=== PATIENT | male | born 1955 | race Caucasian/White ===

== ENCOUNTER → 2018-02-22 10:17 | Outpatient (CLI) | payer BC, SELFPAY ==
[2018-02-22 11:02] LABS: AST(SGOT) 22 U/L (15-37); Alanine Aminotransfer ALT/SGPT 35 U/L (16-61); Albumin, Serum 3.9 g/dL (3.2-5.0); Alkaline Phosphatase 76 U/L (45-117); Anion Gap 4 (5-15); BUN 16 mg/dL (7-18); BUN/Creat Ratio 16.2 RATIO (10-20); Calcium,Total 8.9 mg/dL (8.5-10.1); Chloride 107 mmol/L (98-107); Cholesterol 198 mg/dL (200); Creatinine, Serum 0.99 mg/dL (0.70-1.30); EST Glomerular Filtration Rate 82 mL/min (>60); Est Glom Filt Rate - Afr Amer 99 mL/min (>60); Globulin 3.4 g/dL (2.2-4.2); Glucose 115 mg/dL (74-106); High Density Lipoprotein 46 mg/dL; Potassium 4.4 mmol/L (3.5-5.1); Protein, Total 7.3 g/dL (6.4-8.2); Sodium Level 138 mmol/L (136-145); Triglycerides 111 mg/dL; Very Low Density Lipoprotein 22 mg/dL (5-40)
== END ==
PROVIDERS: Family Provider Family Medicine; PCP Family Medicine; Visit Provider Internal Medicine Cardiovascular Disease
DX: E78.5 Hyperlipidemia, unspecified (principal); I10 Essential (primary) hypertension
CPT/HCPCS: 36415; 80048; 80061; 80076

== ENCOUNTER → 2019-12-14 09:24 | Outpatient (CLI) | payer BC, SELFPAY ==
[2019-12-14 08:51] VITALS: BMI 32.5
[2019-12-14 10:18] LABS: AST(SGOT) 27 U/L (15-37); Alanine Aminotransfer ALT/SGPT 37 U/L (16-61); Albumin, Serum 4.1 g/dL (3.2-5.0); Alkaline Phosphatase 88 U/L (45-117); Bilirubin, Direct 0.11 mg/dL (0.00-0.30); Cholesterol 186 mg/dL (200); Globulin 3.5 g/dL (2.2-4.2); High Density Lipoprotein 49 mg/dL; Protein, Total 7.6 g/dL (6.4-8.2); Triglycerides 109 mg/dL; Very Low Density Lipoprotein 22 mg/dL (5-40)
== END ==
PROVIDERS: PCP Family Medicine; Referring Provider Internal Medicine Cardiovascular Disease; Visit Provider Internal Medicine Cardiovascular Disease
DX: I10 Essential (primary) hypertension (principal); I77.810 Thoracic aortic ectasia; E78.00 Pure hypercholesterolemia, unspecified; E78.5 Hyperlipidemia, unspecified
CPT/HCPCS: 36415; 80061; 80076

== ENCOUNTER → 2020-09-20 09:17 | Outpatient (CLI) | payer BC, SELFPAY ==
[2019-12-14 08:51] VITALS: BMI 32.5
[2020-09-20 10:50] LABS: AST(SGOT) 21 U/L (15-37); Alanine Aminotransfer ALT/SGPT 32 U/L (16-61); Alkaline Phosphatase 79 U/L (45-117); Bilirubin, Direct 0.17 mg/dL (0.00-0.30); Cholesterol 199 mg/dL (200); Globulin 3.5 g/dL (2.2-4.2); High Density Lipoprotein 50 mg/dL; Protein, Total 7.5 g/dL (6.4-8.2); Triglycerides 118 mg/dL; Very Low Density Lipoprotein 24 mg/dL (5-40)
== END ==
PROVIDERS: PCP Family Medicine; Referring Provider Internal Medicine Cardiovascular Disease; Visit Provider Internal Medicine Cardiovascular Disease
DX: E78.00 Pure hypercholesterolemia, unspecified (principal); E78.5 Hyperlipidemia, unspecified
CPT/HCPCS: 36415; 80061; 80076

== ENCOUNTER → 2020-12-20 07:47 | Outpatient (CLI) | payer BC, SELFPAY ==
[2020-09-20 15:35] VITALS: BMI 32.2
[2020-12-20 08:44] LABS: Anion Gap 4 (5-15); BUN 13 mg/dL (7-18); BUN/Creat Ratio 15.2 RATIO (10-20); Chloride 102 mmol/L (98-107); Creatinine, Serum 0.86 mg/dL (0.70-1.30); EST Glomerular Filtration Rate 96 mL/min (>60); Est Glom Filt Rate - Afr Amer 116 mL/min (>60); Glucose 123 mg/dL (74-106); Potassium 4.3 mmol/L (3.5-5.1); Sodium Level 134 mmol/L (136-145)
[2020-12-20 08:46] LABS: Hemoglobin A1c 6.1 % (3.8-5.6)
== END ==
PROVIDERS: PCP Family Medicine; Referring Provider Physician Assistant Medical; Visit Provider Physician Assistant Medical
DX: I77.810 Thoracic aortic ectasia (principal); I10 Essential (primary) hypertension
CPT/HCPCS: 36415; 80048; 83036

== ENCOUNTER → 2021-06-12 07:10 | Outpatient (CLI) | payer BC, SELFPAY ==
[2021-06-05 09:18] VITALS: BMI 31.4
--- NOTE | 2021-06-12 07:16 | CT_ITS ---
STUDY: CTA CHEST REASON FOR EXAM: Male, 65 years old. AAA RADIATION DOSAGE (If Supplied By Facility): CTDIvol = ( 18.99 ) mGy, DLP = ( 1080.09 ) mGycm TECHNIQUE: The examination was performed with the intravenous administration of IV 100mL Isovue-370. Post-processing of the angiographic images was performed, with multiplanar reformation and 3D reconstruction. Individualized dose optimization techniques were used for this CT. COMPARISON: Comparison is made with prior study dated 01/26/2014. FINDINGS: Stable small benign-appearing bilateral axillary lymph nodes. Normal enhancement of the main pulmonary artery and right and left pulmonary arteries. Normal enhancement of the bilateral peripheral pulmonary arteries. There is no demonstrated pulmonary embolism. There is aneurysmal dilatation of the ascending aorta. The transverse diameter of the ascending aorta measures 41.3 mm''s. Atherosclerotic plaque of the aortic arch and descending thoracic aorta. The previously seen linear density adjacent to the aortic arch on the left side is not seen at this time. There is no demonstrated aortic dissection. There are calcifications of the coronary arteries. Normal mediastinum. Normal hilar regions. Normal visualized trachea and bronchi. The lungs are well expanded. Mild degree of increased markings at the lung bases slightly more prominent in the posterior segment of the right lower lobe suggestive of scarring. Normal pleura. Normal chest wall structures. There are degenerative changes of thoracic spine. Normal visualized upper abdomen. CT/CTA Chest W/WO Contrast IMPRESSION: Stable mild dilatation of the ascending thoracic aorta. Mild degree of right basilar scarring. Electronically Signed: Devyn Hernandez MD at 9:42 EDT , Service support ,
[2021-06-12 07:45] LABS: AST(SGOT) 19 U/L (15-37); Alanine Aminotransfer ALT/SGPT 33 U/L (16-61); Alkaline Phosphatase 80 U/L (45-117); Anion Gap 5 (5-15); BUN 15 mg/dL (7-18); BUN/Creat Ratio 16.4 RATIO (10-20); Bilirubin, Direct 0.18 mg/dL (0.00-0.30); Calcium,Total 8.9 mg/dL (8.5-10.1); Chloride 98 mmol/L (98-107); Cholesterol 207 mg/dL (200); Creatinine, Serum 0.91 mg/dL (0.70-1.30); EST Glomerular Filtration Rate 88 mL/min (>60); Est Glom Filt Rate - Afr Amer 107 mL/min (>60); Globulin 3.2 g/dL (2.2-4.2); Glucose 120 mg/dL (74-106); High Density Lipoprotein 52 mg/dL; Potassium 4.1 mmol/L (3.5-5.1); Protein, Total 7.2 g/dL (6.4-8.2); Sodium Level 133 mmol/L (136-145); Triglycerides 117 mg/dL; Very Low Density Lipoprotein 23 mg/dL (5-40)
== END ==
PROVIDERS: PCP Family Medicine; Referring Provider Internal Medicine Cardiovascular Disease; Visit Provider Internal Medicine Cardiovascular Disease
DX: I77.810 Thoracic aortic ectasia (principal); I10 Essential (primary) hypertension; E78.00 Pure hypercholesterolemia, unspecified; E78.5 Hyperlipidemia, unspecified
CPT/HCPCS: 36415; 71275; 80048; 80061; 80076; Q9967

== ENCOUNTER → 2022-06-10 | Outpatient (CLI) | payer BC, SELFPAY ==
[2022-06-10 09:12] LABS: AST(SGOT) 22 U/L (15-37); Alanine Aminotransfer ALT/SGPT 29 U/L (16-61); Alkaline Phosphatase 74 U/L (45-117); Anion Gap 4 (5-15); BUN 16 mg/dL (7-18); Bilirubin, Direct 0.18 mg/dL (0.00-0.30); Calcium,Total 9.1 mg/dL (8.5-10.1); Chloride 101 mmol/L (98-107); Cholesterol 183 mg/dL (200); Creatinine, Serum 1.07 mg/dL (0.70-1.30); EST Glomerular Filtration Rate 73 mL/min (>60); Est Glom Filt Rate - Afr Amer 89 mL/min (>60); Globulin 3.5 g/dL (2.2-4.2); Glucose 139 mg/dL (74-106); High Density Lipoprotein 50 mg/dL; Potassium 3.8 mmol/L (3.5-5.1); Protein, Total 7.5 g/dL (6.4-8.2); Sodium Level 134 mmol/L (136-145); Triglycerides 147 mg/dL; Very Low Density Lipoprotein 29 mg/dL (5-40)
== END | disposition home or self-care (01) ==
LOC: LAB 08:10
PROVIDERS: PCP Family Medicine; Referring Provider Internal Medicine Cardiovascular Disease; Visit Provider Internal Medicine Cardiovascular Disease
DX: I10 Essential (primary) hypertension (principal); E78.5 Hyperlipidemia, unspecified
CPT/HCPCS: 36415; 80048; 80061; 80076

== ENCOUNTER → 2022-06-11 | Outpatient (CLI) | payer BC, SELFPAY ==
[2022-06-11 11:35] LABS: Hemoglobin A1c 6.2 % (3.8-5.6)
== END | disposition home or self-care (01) ==
LOC: LAB 10:26
PROVIDERS: PCP Family Medicine; Visit Provider Internal Medicine Cardiovascular Disease
DX: I25.10 Atherosclerotic heart disease of native coronary artery without angina pectoris (principal); I71.2 Thoracic aortic aneurysm, without rupture; I10 Essential (primary) hypertension; E78.5 Hyperlipidemia, unspecified; E66.9 Obesity, unspecified
CPT/HCPCS: 36415; 83036

== ENCOUNTER → 2023-02-25 | Outpatient (CLI) | payer BC, SELFPAY ==
[2023-02-25 17:57] LABS: Absolute Neutrophil Count 2.6 X10^3/uL (2.0-7.7); Basophil# 0.05 X10^3/uL; Eosinophil# 0.19 X10^3/uL; Eosinophils% 3.7 % (0-5); Hematocrit 42.9 % (40-54); Hemoglobin 14.8 g/dL (13.0-16.5); Mean Corp Hgb Conc 34.5 g/dL (32-36); Mean Corpuscular Hgb 30.7 pg (27.0-32.0); Mean Platelet Vol. 9.5 fl (6.2-12.0); Monocyte# 0.37 X10^3/uL; Monocyte% 7.2 % (0-10); NRBC Flagged by Analyzer 0 % (0-5); Neutrophil # 2.62 X10^3/uL (2.7-7.7); Neutrophil % 50.9 % (47-70); Platelet Count 261 K/mm3 (150-450); RBC Distribution Width CV 11.8 % (11.6-14.6); RBC Distribution Width SD 38.3 fl (35.1-43.9); Red Blood Count 4.82 M/mm3 (4.6-6.2); White Blood Count 5.1 K/mm3 (4.4-11.0)
[2023-02-25 18:31] LABS: ALB/GLOB Ratio 1.2 RATIO (0.9-2.4); AST(SGOT) 31 U/L (15-37); Alanine Aminotransfer ALT/SGPT 38 U/L (16-61); Alkaline Phosphatase 83 U/L (45-117); Anion Gap 8 (5-15); BUN 15 mg/dL (7-18); Calcium,Total 9.2 mg/dL (8.5-10.1); Chloride 101 mmol/L (98-107); Cholesterol 206 mg/dL (200); Creatinine, Serum 0.94 mg/dL (0.70-1.30); EST Glomerular Filtration Rate 85 mL/min (>60); Est Glom Filt Rate - Afr Amer 103 mL/min (>60); Globulin 3.4 g/dL (2.2-4.2); Glucose 109 mg/dL (74-106); High Density Lipoprotein 49 mg/dL; Potassium 4.3 mmol/L (3.5-5.1); Protein, Total 7.4 g/dL (6.4-8.2); Sodium Level 134 mmol/L (136-145); Thyroid Stim Hormone (TSH) 1.81 uIU/mL (0.358-3.74); Triglycerides 225 mg/dL; Very Low Density Lipoprotein 45 mg/dL (5-40)
[2023-02-26 11:25] LABS: Hemoglobin A1c 6.3 % (3.8-5.6)
== END | disposition home or self-care (01) ==
LOC: MFPLAB 14:55
PROVIDERS: PCP Family Medicine; Referring Provider Family Medicine; Visit Provider Family Medicine
DX: R73.09 Other abnormal glucose (principal)
CPT/HCPCS: 36415; 80053; 80061; 83036; 84443; 85025

== ENCOUNTER 2023-05-14 07:27 | Day surgery (SDC) | payer BC, SELFPAY ==
[2023-05-14] VITALS (7 sets, daily range): BP systolic 98–138; BP diastolic 71–92; PULSE 50–60; RESP 14–16; TEMP 36.2–36.3; O2SAT 94–99; BMI 31.2
[2023-05-14] MEDS: Lactated Ringers 1,000 ML 15 ML IV (08:09)
--- NOTE | 2023-05-14 08:38 | HP.PCM_ITS ---
[facility] - General General Date of Service: 05/14/23 Chief Complaint: Screening for intestinal cancer [facility] Narrative DEVONTE BOWERS, is a 67 M who presents via open access today for screening colonoscopy. His mother had colon cancer. His previous colonoscopy was June 2017. He has no particular complaints. No abdominal pain. No bright red blood per rectum or melena. He otherwise enjoys good health. [facility] Medical History (Updated 05/14/23 @ 08:[address] Devonte Lux MD) Back pain Cardiology follow-up encounter Essential (primary) hypertension Gastric reflux Heartburn Hemorrhoids High cholesterol History of echocardiogram History of stress test Hyperlipidemia Hypertension Leg cramps LLQ abdominal pain Migraine Non-smoker Nonobstructive atherosclerosis of coronary artery Obesity Segmental and somatic dysfunction of lumbar region Segmental and somatic dysfunction of pelvic region Sleep apnea Syncope and collapse Thoracic aortic aneurysm (TAA) Wears glasses Wears hearing aid Home Medications trazodone 50 mg tablet 50 mg PO DAILY PRN Anxiety 06/05/21 [History Last Taken Unknown] lisinopril 40 mg tablet 40 mg PO QDAY #90 tabs 06/08/22 [Rx Last Taken Unknown] amlodipine 10 mg tablet 10 mg PO DAILY #90 tabs 06/11/22 [Rx Last Taken Unknown] hydrochlorothiazide 25 mg tablet 25 mg PO DAILY #90 tabs 06/11/22 [Rx Last Taken Unknown] rosuvastatin 10 mg tablet (Crestor) 10 mg PO QDAY #90 tabs 06/11/22 [Rx Last Taken Unknown] Allergy/AdvReac Type Severity Reaction Status Date / Time No Known Allergies Allergy Verified 05/13/23 10:24 Family History Mother Colon cancer Hypertension Sister Heart disease Father CAD (coronary artery disease) Surgical History (Updated 03/19/23 @ 08:14 by Mayra Lazcano) H/O local excision of skin lesion History of bilateral knee arthroplasty History of colonoscopy (2010) History of left heart catheterization (01/2014) Social History Smoking Status: Never smoker second hand exposure: No alcohol intake: current alcohol intake frequency: holidays/special occasions only substance use type: does not use caffeine: Yes (3-4 cups daily) what type of physical activity do you participate in: none seatbelt use: always ROS Constitutional Constitutional: Reports systems reviewed and no addt'l complaints, except as documented Cardiovascular Cardiovascular: Denies chest pain Respiratory/Chest Respiratory/Chest: Denies shortness of breath at rest Gastrointestinal Gastrointestinal: Denies abdominal pain, change in bowel habits, hematochezia or melena Vital Signs Vital Signs Vital Signs: 05/14/23 07:43 05/14/23 07:43 Temperature 97.4 F L Temperature Source Temporal Pulse Rate 59 L Respiratory Rate 16 Respiratory Pattern Normal Blood Pressure 126/85 H Blood Pressure Mean 98 Blood Pressure Source Monitor Blood Pressure Position Semi-Fowlers Blood Pressure Location Right Arm Pulse Ox 96 Oxygen Delivery Method Room Air Weight Weight: 211 lb 9.6 oz Body Mass Index (BMI) 31.2 Physical Exam Const alert, oriented x3 and no apparent distress General Appearance: cooperative and comfortable Eyes General Eye: normal appearance of both eyes Neck General: normal visual inspection Chest inspection of chest normal Resp Effort and Inspection: able to speak in complete sentences and symmetric chest movement Auscultation: clear to auscultation bilaterally Cardio regular rate and regular rhythm GI soft to palpation, non-tender and non-distended Extremity no calf tenderness Neuro oriented x3 Psych thought process normal Assessment & Plan Assessment/Plan (1) Family history of colon cancer in mother: PLAN: The patient presents via open access today for a colonoscopy. He is aware of the technique, benefit, risk, alternatives. He has had an opportunity to ask and have questions answered. We will proceed as noted. Devonte Lux M.D., F.A.C.S.
--- NOTE | 2023-05-14 09:09 | OP.COLON_ITS ---
Patient Name: Devonte Quiles Procedure Date: 05/14/2023 8:42 AM Date of : 1955 Age: 67 Procedure: Colonoscopy Indications: Family history of colon cancer in a first-degree relative Providers: Devonte Lux MD Referring MD: Devonte Lux MD Medicines: See the Anesthesia note for documentation of the administered medications Patient Profile: Last Colonoscopy: June 2017. Complications: No immediate complications. Procedure: Pre-Anesthesia Assessment: - Prior to the procedure, a History and Physical was performed, and patient medications and allergies were reviewed. The patient's tolerance of previous anesthesia was also reviewed. The risks and benefits of the procedure and the sedation options and risks were discussed with the patient. All questions were answered, and informed consent was obtained. Prior Anticoagulants: The patient has taken no previous anticoagulant or antiplatelet agents. ASA Grade Assessment: II - A patient with mild systemic disease. After reviewing the risks and benefits, the patient was deemed in satisfactory condition to undergo the procedure. After I obtained informed consent, the scope was passed under direct vision. Throughout the procedure, the patient's blood pressure, pulse, and oxygen saturations were monitored continuously. The colonoscope was introduced through the anus and advanced to the cecum, identified by appendiceal orifice and ileocecal valve. The colonoscopy was performed without difficulty. The patient tolerated the procedure well. The quality of the bowel preparation was good. The ileocecal valve and the appendiceal orifice were photographed. Scope In: 8:52:53 AM Scope Withdrawal Time 0 hours 7 minutes 25 seconds Scope Out: 9:04:27 AM Total Procedure Duration Time 0 hours 11 minutes 34 seconds Findings: The digital rectal exam findings include non-thrombosed internal hemorrhoids and internal hemorrhoids that prolapse with straining, but spontaneously regress to the resting position (Grade II). Pertinent negatives include normal prostate (size, shape, and consistency). Multiple diverticula were found in the sigmoid colon and descending colon. Impression: - Non-thrombosed internal hemorrhoids and internal hemorrhoids that prolapse with straining, but spontaneously regress to the resting position (Grade II) found on digital rectal exam. - Diverticulosis in the sigmoid colon and in the descending colon. - No specimens collected. Recommendation: - Discharge patient to home. - Resume previous diet. - Continue present medications. - Repeat colonoscopy in 5 years for surveillance. Procedure Code(s): --- Professional --- 39505, Colonoscopy, flexible; diagnostic, including collection of specimen(s) by brushing or washing, when performed (separate procedure) Diagnosis Code(s): --- Professional --- K64.1, Second degree hemorrhoids Z80.0, Family history of malignant neoplasm of digestive organs K57.30, Diverticulosis of large intestine without perforation or abscess without bleeding CPT copyright 2017 [employer]. All rights reserved. The codes documented in this report are preliminary and upon bail agent review may be revised to meet current compliance requirements. Devonte Lux MD 05/14/2023 9:09:00 AM This report has been signed electronically. Number of Addenda: 0 Note Initiated On: 05/14/2023 8:42 AM
--- NOTE | 2023-05-14 09:10 | OP.CCLET_ITS ---
05/14/2023 Bean Currie [address] [place] [address] Re : Colonoscopy procedure for Devonte Quiles Dear Dr. Currie This procedure was performed on Sunday, May 14, 2023. My impressions and recommendations are as follows: Impressions : - Non-thrombosed internal hemorrhoids and internal hemorrhoids that prolapse with straining, but spontaneously regress to the resting position (Grade II) found on digital rectal exam. - Diverticulosis in the sigmoid colon and in the descending colon. - No specimens collected. Recommendations : - Discharge patient to home. - Resume previous diet. - Continue present medications. - Repeat colonoscopy in 5 years for surveillance. My findings are described in the full procedure note, which is enclosed. If I can be of further assistance, please feel free to contact me at Doctor phone number(s): Work: . Sincerely, Devonte Lux MD 05/14/2023 9:09:00 AM This report has been signed electronically.
== END 2023-05-14 10:04 | disposition home or self-care (01) ==
LOC: EN 07:30 → AC 07:33
PROVIDERS: PCP Family Medicine; Referring Provider Family Medicine; Visit Provider Surgery
PROC: 0DJD8ZZ Inspection of Lower Intestinal Tract, Via Natural or Artificial Opening Endoscopic (ICD-10-PCS; CPT 45378; principal; 2023-05-14 08:25)
DX: Z12.11 Encounter for screening for malignant neoplasm of colon (principal); K64.1 Second degree hemorrhoids; K57.30 Diverticulosis of large intestine without perforation or abscess without bleeding; E78.00 Pure hypercholesterolemia, unspecified; I25.10 Atherosclerotic heart disease of native coronary artery without angina pectoris; I10 Essential (primary) hypertension; E66.9 Obesity, unspecified; M99.03 Segmental and somatic dysfunction of lumbar region; M99.05 Segmental and somatic dysfunction of pelvic region; G47.30 Sleep apnea, unspecified; Z68.31 Body mass index [BMI] 31.0-31.9, adult; Z80.0 Family history of malignant neoplasm of digestive organs; Z79.899 Other long term (current) drug therapy
CPT/HCPCS: 45378; J7120; J2405

== ENCOUNTER → 2023-08-31 | Outpatient (CLI) | payer BC, MEDICARE, SELFPAY ==
[2023-08-31 10:22] LABS: AST(SGOT) 29 U/L (15-37); Alanine Aminotransfer ALT/SGPT 35 U/L (16-61); Albumin, Serum 3.7 g/dL (3.2-5.0); Alkaline Phosphatase 74 U/L (45-117); Bilirubin, Direct 0.15 mg/dL (0.00-0.30); Cholesterol 180 mg/dL (200); Globulin 3.7 g/dL (2.2-4.2); High Density Lipoprotein 54 mg/dL; Protein, Total 7.4 g/dL (6.4-8.2); Triglycerides 134 mg/dL; Very Low Density Lipoprotein 27 mg/dL (5-40)
== END | disposition home or self-care (01) ==
LOC: LAB 09:21
PROVIDERS: PCP Family Medicine; Referring Provider Internal Medicine Cardiovascular Disease; Visit Provider Internal Medicine Cardiovascular Disease
DX: E78.5 Hyperlipidemia, unspecified (principal); I25.10 Atherosclerotic heart disease of native coronary artery without angina pectoris
CPT/HCPCS: 36415; 80061; 80076

== ENCOUNTER → 2023-11-05 | Outpatient (CLI) | payer BC, SELFPAY ==
--- NOTE | 2023-11-05 09:50 | ECHOD_ITS ---
Reason For Study: HTN Procedure This was a 2D Doppler, Color Flow transthoracic echocardiogram. Exam performed in department. Left Ventricle Normal LV size. Left ventricular systolic function is normal. The estimated ejection fraction is 65 %. Stage 1 diastolic dysfunction. No regional wall motion abnormalities noted. Right Ventricle Normal RV size. Normal systolic function. Atria Normal left atrium. Normal right atrium. Mitral Valve Normal mitral valve. Tricuspid Valve Normal tricuspid valve. Mild tricuspid valve insufficiency. Pulmonary artery systolic pressure is 30 mmHg. Aortic Valve Normal aortic valve. Mild (1+) aortic valve insufficiency. Pulmonic Valve Normal pulmonic valve. Great Vessels Mildly dilated aortic root. The pulmonary artery is normal size. Normal inferior vena cava. Pericardium/Pleural No pericardial effusion. MMode/2D Measurements & Calculations LVIDd: 5.6 cm IVSd: 1.2 cm Ao root diam: 4.1 cm LVIDs: 4.1 cm LVPWd: 1.1 cm LA dimension: 3.9 cm FS: 27.4 % LAV(MOD-bp): 50.4 ml LA A4 area: 16.7 cm2 RA A4 area: 12.8 cm2 LAV(MOD-bp) Indexed: 23.8 ml/m2 LAV(MOD-sp2): 53.0 ml LAV(MOD-sp4): 41.9 ml TAPSE: 1.8 cm Time Measurements MV dec time: 0.29 sec Doppler Measurements & Calculations MV E max ron: 63.8 cm/sec Lat Peak E' Ron: 8.3 cm/sec Med Peak E' Ron: 6.3 cm/sec MV A max ron: 74.5 cm/sec E/E' lat: 7.7 E/E' med: 10.2 MV E/A: 0.86 MV V2 max: 81.0 cm/sec MV P1/2t max ron: 75.2 cm/sec Ao V2 max: 126.9 cm/sec MV max P.6 mmHg MV P1/2t: 83.9 msec Ao max P.4 mmHg MV V2 mean: 40.4 cm/sec Ao V2 mean: 86.7 cm/sec MV mean P.80 mmHg MV dec slope: 262.7 cm/sec2 Ao mean P.5 mmHg MV V2 VTI: 33.5 cm MVA(P1/2t): 2.6 cm2 Ao V2 VTI: 31.8 cm AV (velocity ratio): 0.76 AI max ron: 405.3 cm/sec LV V1 max: 90.7 cm/sec PA V2 max: 93.4 cm/sec AI max P.2 mmHg LV V1 max P.3 mmHg PA V2 mean: 57.2 cm/sec LV V1 mean P.8 mmHg AI dec slope: 145.9 cm/sec2 LV V1 mean: 63.6 cm/sec AI P1/2t: 813.6 msec LV V1 VTI: 24.3 cm TR max ron: 257.1 cm/sec TR max P.4 mmHg ECHO/Echo Complete Interpretation Summary Normal LV size. Left ventricular systolic function is normal. The estimated ejection fraction is 65 %. Mildly dilated aortic root. Stage 1 diastolic dysfunction. Pulmonary artery systolic pressure is 30 mmHg. Ordering Physician: Trevon Quinones Referring Physician: Bean Currie Performed By: Naveen Chew RCS
== END | disposition home or self-care (01) ==
LOC: CVS 09:50
PROVIDERS: PCP Family Medicine; Referring Provider Internal Medicine Cardiovascular Disease; Visit Provider Internal Medicine Cardiovascular Disease
DX: I10 Essential (primary) hypertension (principal); I25.10 Atherosclerotic heart disease of native coronary artery without angina pectoris
CPT/HCPCS: 93306

== ENCOUNTER → 2024-11-28 | Outpatient (CLI) | payer MEDICARE, OTHER, SELFPAY ==
[2024-11-28 11:34] LABS: AST(SGOT) 26 U/L (15-37); Alanine Aminotransfer ALT/SGPT 27 U/L (16-61); Albumin, Serum 3.6 g/dL (3.2-5.0); Alkaline Phosphatase 89 U/L (45-117); Anion Gap 6 (5-15); BUN 18 mg/dL (7-18); BUN/Creat Ratio 18.5 RATIO (10-20); Bilirubin, Direct 0.14 mg/dL (0.00-0.30); Calcium,Total 9.3 mg/dL (8.5-10.1); Chloride 92 mmol/L (98-107); Cholesterol 162 mg/dL (200); Creatinine, Serum 0.97 mg/dL (0.70-1.30); EST Glomerular Filtration Rate 82 mL/min (>60); Est Glom Filt Rate - Afr Amer 99 mL/min (>60); Glucose 109 mg/dL (74-106); High Density Lipoprotein 52 mg/dL; Potassium 4.2 mmol/L (3.5-5.1); Protein, Total 7.6 g/dL (6.4-8.2); Sodium Level 126 mmol/L (136-145); Triglycerides 110 mg/dL; Very Low Density Lipoprotein 22 mg/dL (5-40)
== END | disposition home or self-care (01) ==
PROVIDERS: PCP Family Medicine; Referring Provider Internal Medicine Cardiovascular Disease; Visit Provider Internal Medicine Cardiovascular Disease
DX: I10 Essential (primary) hypertension (principal); E78.5 Hyperlipidemia, unspecified; I71.20 Thoracic aortic aneurysm, without rupture, unspecified
CPT/HCPCS: 36415; 80048; 80061; 80076

== ENCOUNTER → 2024-11-30 | Outpatient (CLI) | payer MEDICARE, OTHER, SELFPAY ==
--- NOTE | 2024-11-30 07:48 | CT_ITS ---
STUDY: CTA CHEST REASON FOR EXAM: Male, 68 years old. TAA RADIATION DOSAGE (If Supplied By Facility): CTDIvol = ( 15.94 ) mGy, DLP = ( 676.94 ) mGycm TECHNIQUE: The examination was performed with the intravenous administration of 100mL Isovue-370. Post-processing of the angiographic images was performed, with multiplanar reformation and 3D reconstruction. Individualized dose optimization techniques were used for this CT. COMPARISON: 06/12/2021 FINDINGS: Normal enhancement of the main pulmonary artery and right and left pulmonary arteries. Normal enhancement of the bilateral peripheral pulmonary arteries. There is no demonstrated pulmonary embolism. Aneurysmal dilatation ascending thoracic aorta, transverse diameter 4.3 cm. Descending thoracic aorta normal caliber. There is no demonstrated aortic dissection. Normal heart and pericardium. Normal mediastinum. Normal hilar regions. Mild bibasilar dependent and/or fibrotic changes. No pulmonary infiltrates or mass lesion. No pleural effusions. No acute or aggressive osseous abnormality. No acute findings in the upper abdomen. CT/CTA Chest W/WO Contrast IMPRESSION: Interval increase in the aneurysmal dilatation ascending thoracic aorta from 4.1 cm transverse diameter previously to current 4.3 cm transverse diameter. No evidence of dissection. Electronically Signed: Ambrocio Flores MD at 17:58 EST ,
== END | disposition home or self-care (01) ==
LOC: CT 07:47
PROVIDERS: PCP Family Medicine; Referring Provider Internal Medicine Cardiovascular Disease; Visit Provider Internal Medicine Cardiovascular Disease
DX: I71.20 Thoracic aortic aneurysm, without rupture, unspecified (principal)
CPT/HCPCS: 71275; Q9967

== ENCOUNTER → 2024-12-01 | Outpatient (CLI) | payer MEDICARE, OTHER, SELFPAY ==
[2024-12-01 12:11] LABS: Anion Gap 6 (5-15); BUN 17 mg/dL (7-18); BUN/Creat Ratio 19.4 RATIO (10-20); Calcium,Total 9.2 mg/dL (8.5-10.1); Chloride 98 mmol/L (98-107); Creatinine, Serum 0.88 mg/dL (0.70-1.30); EST Glomerular Filtration Rate 92 mL/min (>60); Est Glom Filt Rate - Afr Amer 111 mL/min (>60); Glucose 128 mg/dL (74-106); Potassium 4.1 mmol/L (3.5-5.1); Sodium Level 130 mmol/L (136-145)
[2024-12-01 14:29] LABS: Hemoglobin A1c 6.5 % (3.8-5.6)
== END | disposition home or self-care (01) ==
LOC: MFPLAB 10:35
PROVIDERS: PCP Family Medicine; Referring Provider Family Medicine; Visit Provider Family Medicine
DX: E87.1 Hypo-osmolality and hyponatremia (principal); R73.02 Impaired glucose tolerance (oral)
CPT/HCPCS: 36415; 80048; 83036

== ENCOUNTER → 2025-01-02 | Outpatient (CLI) | payer MEDICARE, OTHER, SELFPAY ==
[2025-01-02 12:57] LABS: Anion Gap 7 (5-15); BUN 24 mg/dL (7-18); BUN/Creat Ratio 19.8 RATIO (10-20); Chloride 108 mmol/L (98-107); Creatinine, Serum 1.21 mg/dL (0.70-1.30); EST Glomerular Filtration Rate 63 mL/min (>60); Est Glom Filt Rate - Afr Amer 77 mL/min (>60); Glucose 132 mg/dL (74-106); Potassium 3.5 mmol/L (3.5-5.1); Sodium Level 139 mmol/L (136-145)
== END | disposition home or self-care (01) ==
LOC: MFPLAB 09:43
PROVIDERS: PCP Family Medicine; Referring Provider Family Medicine; Visit Provider Family Medicine
DX: E87.1 Hypo-osmolality and hyponatremia (principal)
CPT/HCPCS: 36415; 80048

== ENCOUNTER 2025-03-26 15:20 | Observation (INO) | payer MEDICARE, OTHER, SELFPAY ==
[2025-03-26] VITALS (10 sets, daily range): BP systolic 137–163; BP diastolic 78–99; PULSE 54–82; RESP 14–22; TEMP 36.6–37; O2SAT 93–100; BMI 30.9; BMI 30.6; BMI 30.2
--- NOTE | 2025-03-26 15:23 | EKG12_ITS ---
Test Reason : Blood Pressure : */* mmHG Vent. Rate : 62 BPM Atrial Rate : 62 BPM P-R Int : 198 ms QRS Dur : 108 ms QT Int : 392 ms P-R-T Axes : 16 -25 -4 degrees QTcB Int : 397 ms Sinus rhythm with Premature supraventricular complexes Otherwise normal ECG Confirmed by Cirilo Mcdonald ([id number]), field map editor AGUILA CHOE ([id number]) on 03/30/2025 1:17:52 PM Referred By: MAX/AGAPITO Confirmed By: Cirilo Mcdonald
[2025-03-26] MEDS: 0.9% Normal Saline (1000mL) 1,000 ML 50 ML IV (15:50)
[2025-03-26 15:55] LABS: Absolute Lymphocyte Count 1.92 X10^3/uL (0.83-4.51); Basophil# 0.02 X10^3/uL; Basophil% 0.3 % (0-1); Eosinophil# 0.12 X10^3/uL; Eosinophils% 1.9 % (0-5); Hemoglobin 14.5 g/dL (13.0-16.5); Lymphocyte # 1.92 X10^3/ul (0.83-4.51); Lymphocyte % 29.8 % (19-41); Mean Corp Hgb Conc 36.3 g/dL (32-36); Mean Corpuscular Volume 88.3 fL (80-94); Mean Platelet Vol. 9.9 fl (6.2-12.0); Monocyte# 0.39 X10^3/uL; NRBC Flagged by Analyzer 0 % (0-5); Neutrophil # 3.99 X10^3/uL (2.7-7.7); Neutrophil % 61.8 % (47-70); Platelet Count 190 K/mm3 (150-450); RBC Distribution Width CV 12.3 % (11.6-14.6); RBC Distribution Width SD 39.9 fl (35.1-43.9); Red Blood Count 4.53 M/mm3 (4.6-6.2); White Blood Count 6.5 K/mm3 (4.4-11.0)
--- NOTE | 2025-03-26 15:56 | CT_ITS ---
PROCEDURE: CTA HEAD AND NECK W/ CONTRAST 03/26/2025 REASON FOR EXAM: TIA (R SIDED SYMPTOMOLOGY) TECHNIQUE: CTA imaging of the head and neck from the aortic arch to the skull vertex with out contrast and with intravenous contrast. Multiplanar and multisequence images were obtained. CONTRAST: Omnipaque 350 VOLUME: 100 mL Not Provided Gauge IV One or more dose reduction techniques were used (e.g., Automated exposure control, adjustment of the mA and/or kV according to patient size, use of iterative reconstruction technique). COMPARISON: None FINDINGS: CT brain: * ACUTE: No acute infarct or hemorrhage. No mass effect or herniation. * BRAIN PARENCHYMA: No focal intracranial mass. Patchy supratentorial hypoattenuation, nonspecific, but likely secondary to chronic microvascular ischemia. * VENTRICLES/EXTRA-AXIAL SPACES: Mild generalized volume loss with concordant ventricular enlargement. * EXTRACRANIAL STRUCTURES: Visualized osseous structures are normal. Soft tissues are normal. CTA head and neck: Aortic Arch: Normal size and branching pattern. Mild atherosclerotic plaque without hemodynamically significant stenosis. Brachiocephalic and Subclavians: Mild atherosclerotic plaque without significant stenosis. RIGHT Carotid: Right CCA: Mild calcified and soft plaque. Right ICA: Mild calcified plaque at the bifurcation and proximal ICA without hemodynamically significant stenosis. Maximum stenosis (NASCET): 0 % Right ECA: Unremarkable. LEFT Carotid: Left CCA: Mild calcified and soft plaque. Left ICA: Mild atherosclerotic calcification of the bifurcation and proximal ICA without hemodynamically significant stenosis. Maximum stenosis (NASCET): 0 % Left ECA: Unremarkable. Vertebrals: Codominant. Arise from the subclavians. Both vertebrals form the basilar. RIGHT Vertebral: Unremarkable. LEFT Vertebral: Mild atherosclerotic calcification of the distal V3 without hemodynamically significant stenosis. Focal area of moderate stenosis at the proximal V4 secondary to noncalcified plaque. Anatomy: [place] anatomy is normal. Aneurysm or avm: No intracranial aneurysms or large vascular malformations are identified. Anterior cerebral arteries: Unremarkable: Middle cerebral arteries: Mild atherosclerotic calcification of the carotid siphons without hemodynamically significant stenosis. The MCAs are otherwise within normal limits. Basilar artery: Unremarkable. Posterior cerebral arteries: Unremarkable. Other major branches of the posterior circulation: Unremarkable. Major venous structures: Unremarkable. Other findings: Neck: No lymphadenopathy. Lungs: Lung apices are clear. Bones: Mild degenerative changes of the cervical spine. CT/CTA Head AND Neck W/ Contrast IMPRESSION: CT brain: No acute intracranial abnormality. Chronic microvascular ischemia and involutional changes. CTA head and neck: Scattered atherosclerotic calcification of the anterior and posterior circulati on as described above, with mild-moderate stenosis. No evidence of acute occlusion. No aneurysm. [facility]
--- NOTE | 2025-03-26 15:57 | EDS_ITS ---
HPI History of Present Illness Chief Complaint: Neuro S/Sx Informant: patient Narrative Narrative: 69-year-old male presenting to the emergency room with the chief complaint of neurologic change. Patient states that this morning he was at work when he suddenly felt the right side of his body become weak and numb. He states that he felt that his right face was drooping. He did not have any vision change. He states he noticed a particular weakness in the right leg but since his left leg was unaffected he was still able to stand up. He states that about 15 seconds later symptoms started to improve but the right leg took 2 maybe 3 minutes difficulty resolved he denies any headache. He states he has not had any symptoms since. He states he called family who talked to a doctor who recommended he come to emergency. States he recently underwent carotid artery evaluation with his manager forms. That report revealed less than 50% stenosis. He has a history of hypertension hyperlipidemia nonobstructive coronary artery disease and a thoracic aortic aneurysm. The patient is not on any blood thinners and will occasionally take aspirin. It is noted that when he had his symptomology he also felt numbness along the right chest wall and right abdomen. [facility] Medical History (Updated 03/26/25 @ 17:35 by Teresa Hernandez) Alcohol abuse GERD (gastroesophageal reflux disease) Wears hearing aid Wears glasses High cholesterol Heartburn Gastric reflux Leg cramps Non-smoker Sleep apnea History of echocardiogram History of stress test Hypertension Cardiology follow-up encounter Thoracic aortic aneurysm (TAA) Back pain Obesity Nonobstructive atherosclerosis of coronary artery Essential (primary) hypertension Segmental and somatic dysfunction of pelvic region Segmental and somatic dysfunction of lumbar region LLQ abdominal pain Migraine Hemorrhoids Syncope and collapse Hyperlipidemia Home Medications ?Medication ?Instructions ?Recorded ?Last Taken ?Type amlodipine 10 mg tablet See Rx Instructions .Route 0 08/21/24 03/26/25 Rx .COMPLEX #90 tabs rosuvastatin 10 mg tablet See Rx Instructions .Route 0 08/21/24 03/26/25 Rx .COMPLEX #90 tabs losartan 100 mg tablet 100 mg PO QDAY #90 tabs /06/1503/26/25 Rx ipratropium bromide 21 mcg (0.03 2 spray intranasal BI D-TID PRN 02/23/25 5 Rx %) nasal spray postnasal drainage #30 mL meloxicam 15 mg tablet 15 mg PO QAM 02/23/25 Unknow n History Allergy/AdvReac Type Severity Reaction Status Date / Time hydrochlorothiazide AdvReac Intermediate Hyponatremi Verified 03/26/25 15:20 a Family History Mother Colon cancer Hypertension Sister Heart disease Father CAD (coronary artery disease) Surgical History History of bilateral knee arthroplasty History of colonoscopy (2010) History of left heart catheterization (01/2014) H/O local excision of skin lesion Social History household members: spouse housing: house Smoking Status: Never smoker second hand exposure: No alcohol intake: current alcohol intake frequency: holidays/special occasions only substance use type: does not use caffeine: Yes (3-4 cups daily) what type of physical activity do you participate in: none seatbelt use: always ROS ROS ED Constitutional Constitutional ED: Denies chills, fever(s) or weight loss Eyes Eyes: Denies change in vision or diplopia ENT ENT ED: Denies ear pain, rhinorrhea or sore throat Cardiovascular Cardiovascular: Denies chest pain, orthopnea, palpitations or racing heartbeat Respiratory/Chest Respiratory/Chest: Denies cough, dyspnea or orthopnea Gastrointestinal Gastrointestinal: Denies abdominal pain, diarrhea, nausea or vomiting Genitourinary Genitourinary ED: Denies dysuria, hematuria or urinary frequency Musculoskeletal Musculoskeletal: Denies arthralgias, myalgias or neck pain Integumentary Denies abscess or rash Neurologic Neurologic: Reports paresthesias and weakness; Denies headache(s) Psychiatric Psychiatric: Denies anxiety, depression, suicidal ideation or suicidal thoughts Endocrine Endocrinology: Denies polydipsia, polyphagia or polyuria Allergic/Immunologic Allergic/Immunologic ED: Denies mouth swelling, tongue swelling or urticaria EXAM Physical Exam Const Vital Signs: 03/26/25 15:20 03/26/25 15:21 03/26/25 15:47 Temperature 97.9 F 97.9 F Temperature Source Temporal Temporal Pulse Rate 82 82 Respiratory Rate 22 H 22 H Blood Pressure 140/99 H 140/99 H Blood Pressure Mean 112 112 Pulse Ox 100 100 97 Oxygen Delivery Method Room Air Room Air Room Air 03/26/25 15:47 03/26/25 15:53 03/26/25 16:20 Temperature Temperature Source Pulse Rate 71 78 70 Respiratory Rate 14 18 18 Blood Pressure 163/80 H 160/78 H 137/81 H Blood Pressure Mean 107 105 99 Pulse Ox 98 98 98 Oxygen Delivery Method Room Air 03/26/25 17:00 03/26/25 17:15 Temperature 98.6 F Temperature Source Pulse Rate 76 76 Respiratory Rate 18 18 Blood Pressure 138/81 H 138/81 H Blood Pressure Mean 100 100 Pulse Ox 98 98 Oxygen Delivery Method Positive well nourished and well developed General Appearance ED: well developed HEENT Reports normocephalic, head/scalp atraumatic and moist mucous membranes Eyes PERRL and EOMs intact bilaterally Neck no lymphadenopathy, supple and no JVD Resp normal respiratory effort and clear to auscultation bilaterally Cardio regular rate, regular rhythm and no murmurs GI normal to inspection, nondistended, normoactive bowel sounds and non-tender Palpation: soft Back/Spine no CVA tenderness and normal ROM Extremity normal to inspection General Extremety ED: Negative for edema General Extremity: Negative for edema Neuro oriented x3 and CN's II-XII intact bilaterally Sensorium / Orientation: alert Motor Exam: strength 5/5 throughout Psych mental status grossly normal Mood & Affect: Negative for depressed or tearful Skin no rashes or lesions noted and no wounds MDM MDM MDM Narrative Medical decision making narrative: Differential diagnosis would include but not limited to TIA stroke malignancy dissection electrolyte abnormalities cardiac dysrhythmia CTA of head and neck shows no acute findings for aneurysm or dissection. Please see radiologist read. Basic blood work showed a glucose of 181. Hemoglobin 14. 5 white count 6.5 my independent interpretation of the chest x-ray is no acute process. Patient's ABCD 2 score is 4 (5 if consider BGT of 181 as diabetic) placing him at moderate risk. I spoke to the patient regarding goals inpatient versus outpatient follow-up. Patient would feel more comfortable staying the night given that his is out of town. I will speak with the hospitalist. History & Record Review Discussion w/independent historian: Patient Lab Data Attestation: I reviewed the patient's lab results. Labs: Laboratory Results - last 24 hr 03/26/25 15:36 WBC 6.5 RBC 4.53 L Hgb 14.5 Hct 40.0 MCV 88.3 MCH 32.0 MCHC 36.3 H RDW Std Deviation 39.9 RDW Coeff of Chel 12.3 Plt Count 190 MPV 9.9 Immature Gran % (Auto) 0.200 Neut % (Auto) 61.8 Lymph % (Auto) 29.8 Starr % (Auto) 6.0 Eos % (Auto) 1.9 Baso % (Auto) 0.3 Absolute Neuts (auto) 4.0 Absolute Lymphs (auto) 1.92 Nucleated RBC % 0 PT 13.6 INR 1.0 APTT 24.9 Sodium 137 Potassium 4.1 Chloride 107 Carbon Dioxide 20.6 L Anion Gap 10 BUN 17 Creatinine 1.04 Estim Creat Clear Calc 73.54 Est GFR (MDRD) Non-Af 78 BUN/Creatinine Ratio 16.7 Glucose 181 H Calcium 9.1 Radiography Diagnostic Testing: Clinical Impression(s) from Imaging Studies Head/Neck CTA 03/26/25 15:56 IMPRESSION: CT brain: No acute intracranial abnormality. Chronic microvascular ischemia and involutional changes. CTA head and neck: Scattered atherosclerotic calcification of the anterior and posterior circulation as described above, with mild-moderate stenosis. No evidence of acute occlusion. No aneurysm. Reading Location: [facility] Chest X-Ray 03/26/25 16:15 IMPRESSION: No Acute Findings. Reading Location: [facility] EKG Initial EKG: Attestation: I personally reviewed and interpreted this EKG as follows: Comments: Sinus rhythm with a PAC ventricular rate of 62 Management Discussion w/another healthcare provider: Hospitalist Discharge Plan Dx/Rx/DC Orders Clinical Impression: Brain TIA, Hyperlipidemia, Essential (primary) hypertension Disposition Disposition: Acute Care Hospital [facility] NIHSS NIHSS 1a. Level of Consciousness: 0 - Alert; keenly responsive 1b. LOC Questions: 0 - Answers BOTH questions correctly 1c. LOC Commands: 0 - Performs BOTH tasks correctly 2. Best Gaze: 0 - Normal 4. Facial Palsy: 0 - Normal symmetrical movements 5a. Left Arm: 0 - No drift; arm holds 90 (or 45) degrees for full 10 seconds 5b. Right Arm: 0 - No drift; arm holds 90 (or 45) degrees for full 10 seconds 6a. Left Le - No drift; leg holds 30-degree position for full 5 seconds 6b. Right Le - No drift; leg holds 30-degree position for full 5 seconds 7. Limb Ataxia: 0 - Absent 8. Sensory: 0 - Normal; no sensory loss 9. Best Language: 0 - No aphasia; normal 10. Dysarthria: 0 - Normal 11. Extinction and Inattention: 0 - No abnormality Total: 0
[2025-03-26 16:05] LABS: Prothrombin Time (Protime)PT. 13.6 SECONDS (11.7-14.9)
[2025-03-26 16:06] LABS: Partial Thromboplast Time 24.9 Seconds (24.1-36.2)
--- NOTE | 2025-03-26 16:15 | RAD_ITS ---
PROCEDURE: CHEST 1 VIEW (PORTABLE) 03/26/2025 REASON FOR EXAM: STROKE TECHNIQUE: Frontal view of the chest. COMPARISON: CT chest 11/30/2024 FINDINGS: Hardware: None Heart: Cardiac and mediastinal contours are stable. Lungs: No focal consolidation. No pneumothorax. No pleural effusion. Bones: The bones are unremarkable. Other: RAD/Chest 1 View (Portable) IMPRESSION: No Acute Findings. Reading Location: [facility]
[2025-03-26 16:27] LABS: Anion Gap 10 (5-15); BUN 17 mg/dL (4-19); BUN/Creat Ratio 16.7 RATIO (10-20); Calcium,Total 9.1 mg/dL (7.6-11.0); Carbon Dioxide 20.6 mmol/L (21.0-32.0); Chloride 107 mmol/L (98-108); Creatinine, Serum 1.04 mg/dL (0.70-1.20); EST Glomerular Filtration Rate 78 (>60); Estimated Creatinine Clearance 73.54 ml/min (50-250); Glucose 181 mg/dL (70-99); Potassium 4.1 mmol/L (3.3-5.1); Sodium Level 137 mmol/L (133-145)
--- NOTE | 2025-03-26 17:44 | PCM.HP.STD ---
HPI - General General Date of Admission: 03/26/25 Date of Service: 03/26/25 Chief Complaint: Right sided numbness and weakness HPI Narrative DAMARI BOWERS, is a 69-year-old male history of hypertension presented [facility] ED 03/26/2025 due to concerns for neurologic change. This a.m. he was at work and suddenly felt right side of his body become weak and numb and he felt that he had right-sided facial droop with no vision changes. He noticed a particular weakness in the right leg and also noted numbness along right chest wall and right abdomen. Symptoms started resolved but 15 seconds later and were completely resolved in 2 to 3 minutes. No headache associated, no further symptoms. His family doctor recommended he come to the emergency room. On arrival to the ED temperature 97.9, heart rate 82 with blood pressure 140/99, respiratory rate of 22 and pulse ox 100% on room air. CBC without leukocytosis or anemia, BMP shows kidney function within normal limits, does have elevated glucose of 181. CTA of the head and neck obtained and showed no LVO. Given patient's suspicious symptoms hospitalist contacted for admission for TIA/CVA rule out. Patient evaluated at bedside and reports history as above, reports that prior to that and since the symptoms resolved he has felt fine and ROS otherwise completely negative. [facility] Medical History (Updated 03/26/25 @ 18:[address] Hali Lizarraga MD) Alcohol abuse Back pain Cardiology follow-up encounter Essential (primary) hypertension Gastric reflux GERD (gastroesophageal reflux disease) Heartburn Hemorrhoids High cholesterol History of echocardiogram History of stress test Hyperlipidemia Hypertension Leg cramps LLQ abdominal pain Migraine Non-smoker Nonobstructive atherosclerosis of coronary artery Obesity Segmental and somatic dysfunction of lumbar region Segmental and somatic dysfunction of pelvic region Sleep apnea Syncope and collapse Thoracic aortic aneurysm (TAA) Wears glasses Wears hearing aid Home Medications ?Medication ?Instructions ?Recorded ?Last Taken ?Type amlodipine 10 mg tablet See Rx Instructions .Route 08/21/24 03/26/25 Rx .COMPLEX #90 tabs rosuvastatin 10 mg tablet See Rx Instructions .Route 08/21/24 03/26/25 Rx .COMPLEX #90 tabs losartan 100 mg tablet 100 mg PO QDAY #90 tabs 11/28/24 03/26/25 Rx ipratropium bromide 21 mcg (0.03 2 spray intranasal BID-TID PRN 02/23/25 03/26/25 Rx %) nasal spray postnasal drainage #30 mL meloxicam 15 mg tablet 15 mg PO QAM 02/23/25 Unknown History Allergy/AdvReac Type Severity Reaction Status Date / Time hydrochlorothiazide AdvReac Intermediate Hyponatremi Verified 03/26/25 15:20 a Family History Mother Colon cancer Hypertension Sister Heart disease Father CAD (coronary artery disease) Surgical History H/O local excision of skin lesion History of bilateral knee arthroplasty History of colonoscopy (2010) History of left heart catheterization (01/2014) Social History household members: spouse housing: house Smoking Status: Never smoker second hand exposure: No alcohol intake: current alcohol intake frequency: holidays/special occasions only substance use type: does not use caffeine: Yes (3-4 cups daily) what type of physical activity do you participate in: none seatbelt use: always ROS ROS Narrative General: Denies fever/chills HENT: Denies headache, denies stuffy nose, denies sore throat EYES: Denies changes in vision Resp: Denies cough, denies shortness of breath Cardiac: Denies chest pain GI: Denies abdominal pain, denies changes in bowel, denies nausea/vomiting : Denies changes in urination Extremity: Denies swelling MSK: Denies weakness Neuro: Numbness, weakness, facial droop resolved Heme: Denies any bleeding or bruising Skin: Denies rashes Psychiatric: No complaints voiced Vital Signs Vital Signs Vital Signs: 03/26/25 15:20 03/26/25 15:21 03/26/25 15:47 Temperature 97.9 F 97.9 F Temperature Source Temporal Temporal Pulse Rate 82 82 Respiratory Rate 22 H 22 H Blood Pressure 140/99 H 140/99 H Blood Pressure Mean 112 112 Pulse Ox 100 100 97 Oxygen Delivery Method Room Air Room Air Room Air 03/26/25 15:47 03/26/25 15:53 03/26/25 16:20 Temperature Temperature Source Pulse Rate 71 78 70 Respiratory Rate 14 18 18 Blood Pressure 163/80 H 160/78 H 137/81 H Blood Pressure Mean 107 105 99 Pulse Ox 98 98 98 Oxygen Delivery Method Room Air 03/26/25 17:00 03/26/25 17:15 Temperature 98.6 F Temperature Source Pulse Rate 76 76 Respiratory Rate 18 18 Blood Pressure 138/81 H 138/81 H Blood Pressure Mean 100 100 Pulse Ox 98 98 Oxygen Delivery Method Weight Weight: 91.3 kg Body Mass Index (BMI) 30.6 Physical Exam Narrative General: Alert, oriented, no apparent distress HEENT: Atraumatic, normocephalic Eyes: Anicteric, normal conjunctiva, extraocular movements intact, pupils equal Neck: Supple Respiratory: Clear to auscultation bilaterally, normal respiratory effort Cardiovascular: Regular rate and rhythm GI: Soft, nontender, nondistended Extremities: No edema Musculoskeletal: Strength 5 out of 5 in right upper extremity, 5 out of 5 left upper extremity, 5 out of 5 right lower extremity, 5 out of 5 left lower extremity Neuro: No overt focal neurological deficits, cranial nerves II through XII intact, [id number] without significant difficulty bilaterally Skin: No rashes appreciated Psych: Cooperative Results Lab / Micro Data 03/26/25 15:36 03/26/25 15:36 Labs: Laboratory Results - last 24 hr 03/26/25 15:36: WBC 6.5, RBC 4.53 L, Hgb 14.5, Hct 40.0, MCV 88.3, MCH 32.0, MCHC 36.3 H, RDW Std Deviation 39.9, RDW Coeff of Chel 12.3, Plt Count 190, MPV 9.9, Immature Gran % (Auto) 0.200, Neut % (Auto) 61.8, Lymph % (Auto) 29.8, [place] % (Auto) 6.0, Eos % (Auto) 1.9, Baso % (Auto) 0.3, Absolute Neuts (auto) 4.0, Absolute Lymphs (auto) 1.92, Nucleated RBC % 0, PT 13.6, INR 1.0, APTT 24.9, Sodium 137, Potassium 4.1, Chloride 107, Carbon Dioxide 20.6 L, Anion Gap 10, BUN 17, Creatinine 1.04, Estim Creat Clear Calc 73.54, Est GFR (MDRD) Non-Af 78, BUN/Creatinine Ratio 16.7, Glucose 181 H, Calcium 9.1 Imaging Radiology Impression Head/Neck CTA 03/26/25 15:56 IMPRESSION: CT brain: No acute intracranial abnormality. Chronic microvascular ischemia and involutional changes. CTA head and neck: Scattered atherosclerotic calcification of the anterior and posterior circulation as described above, with mild-moderate stenosis. No evidence of acute occlusion. No aneurysm. Reading Location: [facility] Chest X-Ray 03/26/25 16:15 IMPRESSION: No Acute Findings. Reading Location: [facility] Assessment & Plan Assessment/Plan (1) Neurologic abnormality: PLAN: Plan # Right-sided weakness and numbness -Symptoms have since resolved, suspicion for TIA -ABCD score 4 indicating high risk TIA -Admit to tele -CTA head and neck no LVO -MRI ordered -NIH q4hr -asa, statin, given elevated ABCD score will add Plavix -Echo -PT/OT/Speech eval -Teleneuro consult ordered -Hold BP medications to allow for permissive hypertension for 24 hours unless SBP greater than 220 or DBP greater than 120 or until stroke is ruled out #Hypertension - Management as above #DVT ppx: SCDs Hali Lizarraga MD Time spent in the patient's overall evaluation, decision-making process, review of diagnostic data, adjustment of management, discussion with other providers, nursing and ancillary staff involved in patient's care documentation, 56 Minutes Charges/Coding Visit Charges Inpatient E&M: 97698 Init Hosp L2
[2025-03-26] MEDS: Aspirin 325 MG Tablet PO (20:17)
[2025-03-26] MEDS: 0.9% Saline Lock 10 ML Syringe IV (20:29)
[2025-03-27 00:10] VITALS: BP 146/81; PULSE 52; RESP 14; TEMP 36.7; O2SAT 96
[2025-03-27 04:10] VITALS: BP 147/81; PULSE 56; RESP 14; TEMP 36.5; O2SAT 96
--- NOTE | 2025-03-27 04:14 | ECHOD_ITS ---
Reason For Study Reason For Study: TIA/CVA Procedure This was a 2D Doppler, Color Flow transthoracic echocardiogram. Exam performed portable in patient room. Left Ventricle Normal LV size. Mild concentric left ventricular hypertrophy. The LV systolic function is normal. EF is 65 %. Stage 1 diastolic dysfunction. Right Ventricle Normal right ventricle. Atria The left and right atria are normal. Mitral Valve Trivial mitral valve insufficiency. Tricuspid Valve Trivial tricuspid valve insufficiency. Normal pulmonary artery pressure. Aortic Valve Mild diffuse aortic valve calcification. Aortic valve sclerosis without stenosis. Mild aortic valve regurgitation. Pulmonic Valve The pulmonic valve is not well visualized. Great Vessels Moderately dilated aortic root. Pericardium/Pleural No pericardial effusion. MMode/2D Measurements & Calculations LVIDd: 4.5 cm IVSd: 1.3 cm Ao root diam: 4.3 cm LVIDs: 3.0 cm LVPWd: 1.2 cm RVDd: 4.5 cm FS: 33.0 % LAV(MOD-bp): 35.5 ml LVAd ap4: 35.5 cm2 LVAd ap2: 33.6 cm2 LAV(MOD-bp) Indexed: 17.4 ml/m2 LVLd ap4: 8.9 cm LVLd ap2: 8.5 cm LAV(MOD-sp2): 32.7 ml EDV(MOD-sp4): 114.0 ml EDV(MOD-sp2): 111.7 ml LAV(MOD-sp4): 35.7 ml EDV(sp4-el): 120.6 ml EDV(sp2-el): 112.9 ml LVAs ap4: 22.8 cm2 LVAs ap2: 19.1 cm2 LVLs ap4: 7.5 cm LVLs ap2: 7.0 cm ESV(MOD-sp4): 61.6 ml ESV(MOD-sp2): 45.1 ml ESV(sp4-el): 59.1 ml ESV(sp2-el): 43.7 ml EF(MOD-sp4): 46.0 % EF(MOD-sp2): 59.6 % EF(sp4-el): 51.0 % SV(MOD-sp4): 52.4 ml SV(MOD-sp2): 66.6 ml SV(sp4-el): 61.5 ml SI(MOD-sp4): 25.8 ml/m2 SI(MOD-sp2): 32.7 ml/m2 Ao sinus diam: 4.[address] Junction: 3.2 cm LA A4 area: 13.2 cm2 TAPSE: 2.1 cm Time Measurements MV dec time: 0.23 sec Doppler Measurements & Calculations MV E max ron: 76.3 cm/sec Lat Peak E' Ron: 9.6 cm/sec Med Peak E' Ron: 5.2 cm/sec MV A max ron: 69.1 cm/sec E/E' lat: 8.0 E/E' med: 14.6 MV E/A: 1.1 MV V2 max: 73.3 cm/sec MV P1/2t max ron: 69.5 cm/sec Ao V2 max: 137.9 cm/sec MV max P.2 mmHg MV P1/2t: 91.5 msec Ao max P.6 mmHg MV V2 mean: 43.5 cm/sec Ao V2 mean: 96.1 cm/sec MV mean P.87 mmHg MV dec slope: 222.3 cm/sec2 Ao mean P.2 mmHg MV V2 VTI: 42.2 cm MVA(P1/2t): 2.4 cm2 Ao V2 VTI: 37.9 cm AV (velocity ratio): 0.67 AI max ron: 618.4 cm/sec LV V1 max: 83.6 cm/sec PA V2 max: 98.9 cm/sec AI max P.5 mmHg LV V1 max P.8 mmHg LV V1 mean P.6 mmHg AI dec slope: 147.5 cm/sec2 LV V1 mean: 58.1 cm/sec AI P1/2t: 1228 msec LV V1 VTI: 25.3 cm TR max ron: 223.3 cm/sec TR max P.9 mmHg ECHO/Echo Complete Interpretation Summary Mild concentric left ventricular hypertrophy. The LV systolic function is normal. EF is 65 %. Stage 1 diastolic dysfunction. Aortic valve sclerosis without stenosis. Mild aortic valve regurgitation. Moderately dilated aortic root. Ordering Physician: Herb Bright Performed By: Naveen Chew RCS
[2025-03-27 05:12] LABS: Absolute Lymphocyte Count 2.19 X10^3/uL (0.83-4.51); Absolute Neutrophil Count 2.2 X10^3/uL (2.0-7.7); Basophil# 0.02 X10^3/uL; Basophil% 0.4 % (0-1); Eosinophil# 0.23 X10^3/uL; Eosinophils% 4.6 % (0-5); Hematocrit 40.4 % (40-54); Hemoglobin 14.3 g/dL (13.0-16.5); Lymphocyte # 2.19 X10^3/ul (0.83-4.51); Lymphocyte % 43.7 % (19-41); Mean Corp Hgb Conc 35.4 g/dL (32-36); Mean Corpuscular Hgb 31.8 pg (27.0-32.0); Mean Corpuscular Volume 89.8 fL (80-94); Mean Platelet Vol. 9.9 fl (6.2-12.0); Monocyte# 0.33 X10^3/uL; Monocyte% 6.6 % (0-10); NRBC Flagged by Analyzer 0 % (0-5); Neutrophil # 2.23 X10^3/uL (2.7-7.7); Neutrophil % 44.5 % (47-70); Platelet Count 198 K/mm3 (150-450); RBC Distribution Width CV 12.5 % (11.6-14.6)
[2025-03-27 05:50] LABS: Anion Gap 12 (5-15); BUN 16 mg/dL (4-19); BUN/Creat Ratio 17.2 RATIO (10-20); Carbon Dioxide 21.5 mmol/L (21.0-32.0); Chloride 105 mmol/L (98-108); Creatinine, Serum 0.92 mg/dL (0.70-1.20); EST Glomerular Filtration Rate 90 (>60); Estimated Creatinine Clearance 82.65 ml/min (50-250); Glucose 120 mg/dL (70-99); Potassium 4.2 mmol/L (3.3-5.1); Sodium Level 138 mmol/L (133-145)
[2025-03-27 06:05] LABS: Cholesterol 169 mg/dL (<=200); High Density Lipoprotein 48 mg/dL; Low Density Lipoprotein Calc. 103 mg/dL; Triglycerides 87 mg/dL; Very Low Density Lipoprotein 17 mg/dL (5-40); cholesterol:hdl ratio screen 3.51
[2025-03-27 06:58] LABS: Hemoglobin A1c 6.6 % (<=5.6)
[2025-03-27 07:34] VITALS: O2SAT 97
[2025-03-27 08:10] VITALS: BP 148/78; PULSE 54; RESP 15; TEMP 36.6; O2SAT 97
[2025-03-27] MEDS: Clopidogrel Bisulfate 75 MG Tablet PO (08:29)
[2025-03-27] MEDS: Aspirin 81 MG TAB.CHEW PO (08:29)
--- NOTE | 2025-03-27 10:00 | MRI_ITS ---
PROCEDURE: BRAIN WITHOUT CONTRAST, 03/27/2025 REASON FOR EXAM: CONCERN FOR TIA, RIGHT SIDE NUMB AND WEAKN COMPARISON: 03/26/2025 TECHNIQUE: Multisequence multiplanar MRI brain was performed without intravenous contrast. Iv contrast: None. FINDINGS: Cerebrum: No acute infarct, visible mass, or appreciable intracranial hemorrhage. Mild scattered supratentorial white matter abnormalities, nonspecific but compatible with chronic microvascular ischemic changes. Mild cerebral volume loss.. Cerebellum: Unremarkable. Brainstem: Unremarkable. Ventricles/extra-axial spaces: Age appropriate appearance. Major flow voids: Grossly unremarkable within limits of nondedicated technique. Paranasal sinuses: Mild mucosal thickening along the inferior maxillary sinuses.. Scalp/calvarium: Unremarkable. Orbits: Grossly unremarkable within limits of nondedicated technique. Other: None. MRI/Brain without Contrast IMPRESSION: 1. No specific evidence of an acute intracranial process. 2. Additional description as above. Reading Location: [id number]
[2025-03-27 11:54] VITALS: BP 146/80; PULSE 58; RESP 15; TEMP 36.6; O2SAT 98
--- NOTE | 2025-03-27 14:43 | STROKE.CONS ---
Assessment and Plan: Stroke Assessment/Plan DAMARI BOWERS Jr. is a 69 M with a history of HTN, HLD who presents for evaluation of weakness and numbness of his right side that has resolved. CTA of the head and neck obtained and showed no LVO. Not a TNK or IR candidate. Neurological examination shows intact examination. Neuroimaging shows CTA: negative, MRI Brain negative, HbA1c: 6.6, LDL: 103. ECHO: EF okay Plan ASA Continue aggressive control of his stroke risk factors - HTN, HLD. Target LDL <70 Thanks for consult. Spent 70 min in evaluation and management of this patient HPI Consult Data Date of Consult: 03/27/25 HPI Narrative HPI Narrative: DAMARI BOWERS, is a 69 M who presents history of hypertension, hyperlipidemia presented [facility] ED 03/26/2025 due to weakness and numbness of his right side. It was acute onset weakness and numbness. the numbness lasted for 15 seconds and weakness in few minutes. he denied having slurred speech, facial droop. No relapse of symptoms. He does not take ASA regularly. CTA of the head and neck obtained and showed no LVO. [facility] Medical History (Updated 03/26/25 @ 18:[address] Hali Lizarraga MD) Alcohol abuse GERD (gastroesophageal reflux disease) Wears hearing aid Wears glasses High cholesterol Heartburn Gastric reflux Leg cramps Non-smoker Sleep apnea History of echocardiogram History of stress test Hypertension Cardiology follow-up encounter Thoracic aortic aneurysm (TAA) Back pain Obesity Nonobstructive atherosclerosis of coronary artery Essential (primary) hypertension Segmental and somatic dysfunction of pelvic region Segmental and somatic dysfunction of lumbar region LLQ abdominal pain Migraine Hemorrhoids Syncope and collapse Hyperlipidemia Home Medications ?Medication ?Instructions ?Recorded ?Last Taken ?Type amlodipine 10 mg tablet See Rx Instructions .Route 08/21/24 03/26/25 Rx .COMPLEX #90 tabs rosuvastatin 10 mg tablet See Rx Instructions .Route 08/21/24 03/26/25 Rx .COMPLEX #90 tabs losartan 100 mg tablet 100 mg PO QDAY #90 tabs 11/28/24 03/26/25 Rx ipratropium bromide 21 mcg (0.03 2 spray intranasal BID-TID PRN 02/23/25 03/26/25 Rx %) nasal spray postnasal drainage #30 mL meloxicam 15 mg tablet 15 mg PO QAM 02/23/25 Unknown History Allergy/AdvReac Type Severity Reaction Status Date / Time hydrochlorothiazide AdvReac Intermediate Hyponatremi Verified 03/26/25 15:20 a Family History Mother Colon cancer Hypertension Sister Heart disease Father CAD (coronary artery disease) Surgical History History of bilateral knee arthroplasty History of colonoscopy (2010) History of left heart catheterization (01/2014) H/O local excision of skin lesion Social History household members: spouse housing: house Smoking Status: Never smoker second hand exposure: No alcohol intake: current alcohol intake frequency: holidays/special occasions only substance use type: does not use caffeine: Yes (3-4 cups daily) what type of physical activity do you participate in: none seatbelt use: always Vital Signs Vital Signs Vital Signs: 03/26/25 15:20 03/26/25 15:21 03/26/25 15:47 Temperature 97.9 F 97.9 F Temperature Source Temporal Temporal Pulse Rate 82 82 Pulse Strength Respiratory Rate 22 H 22 H Respiratory Effort Respiratory Depth Respiratory Pattern Blood Pressure 140/99 H 140/99 H Blood Pressure Mean 112 112 Blood Pressure Source Blood Pressure Position Blood Pressure Location Pulse Ox 100 100 97 Oxygen Delivery Method Room Air Room Air Room Air 03/26/25 15:47 03/26/25 15:53 03/26/25 16:20 Temperature Temperature Source Pulse Rate 71 78 70 Pulse Strength Respiratory Rate 14 18 18 Respiratory Effort Respiratory Depth Respiratory Pattern Blood Pressure 163/80 H 160/78 H 137/81 H Blood Pressure Mean 107 105 99 Blood Pressure Source Blood Pressure Position Blood Pressure Location Pulse Ox 98 98 98 Oxygen Delivery Method Room Air 03/26/25 17:00 03/26/25 17:15 03/26/25 18:21 Temperature 98.6 F 98.2 F Temperature Source Oral Pulse Rate 76 76 54 L Pulse Strength Respiratory Rate 18 18 15 Respiratory Effort Respiratory Depth Respiratory Pattern Blood Pressure 138/81 H 138/81 H 152/91 H Blood Pressure Mean 100 100 111 Blood Pressure Source Monitor Blood Pressure Position Semi-Fowlers Blood Pressure Location Right Arm Pulse Ox 98 98 93 Oxygen Delivery Method Room Air 03/26/25 18:39 03/26/25 20:10 03/26/25 20:18 Temperature 97.9 F Temperature Source Oral Pulse Rate 57 L Pulse Strength Respiratory Rate 16 Respiratory Effort Normal Normal Non-Labored Respiratory Depth Normal Normal Respiratory Pattern Normal Normal Blood Pressure 149/90 H Blood Pressure Mean 109 Blood Pressure Source Monitor Blood Pressure Position Semi-Fowlers Blood Pressure Location Left Arm Pulse Ox 97 Oxygen Delivery Method Room Air Room Air Room Air 03/26/25 22:15 03/26/25 23:12 03/27/25 00:10 Temperature 98.0 F Temperature Source Oral Pulse Rate 52 L Pulse Strength Normal (2+) Respiratory Rate 14 Respiratory Effort Respiratory Depth Respiratory Pattern Blood Pressure 146/81 H Blood Pressure Mean 102 Blood Pressure Source Monitor Blood Pressure Position Semi-Fowlers Blood Pressure Location Left Arm Pulse Ox 98 96 Oxygen Delivery Method Room Air Room Air 03/27/25 04:10 03/27/25 04:34 03/27/25 07:34 Temperature 97.7 F L Temperature Source Oral Pulse Rate 56 L Pulse Strength Respiratory Rate 14 Respiratory Effort Normal Non-Labored Respiratory Depth Normal Respiratory Pattern Normal Blood Pressure 147/81 H Blood Pressure Mean 103 Blood Pressure Source Monitor Blood Pressure Position Semi-Fowlers Blood Pressure Location Left Arm Pulse Ox 96 97 Oxygen Delivery Method Room Air Room Air Room Air 03/27/25 08:10 03/27/25 08:10 03/27/25 08:21 Temperature 97.8 F 97.8 F Temperature Source Temporal Oral Pulse Rate 54 L 54 L Pulse Strength Normal (2+) Respiratory Rate 15 15 Respiratory Effort Respiratory Depth Respiratory Pattern Blood Pressure 148/78 H 148/78 H Blood Pressure Mean 101 101 Blood Pressure Source Monitor Monitor Blood Pressure Position Semi-Fowlers Semi-Fowlers Blood Pressure Location Left Arm Left Arm Pulse Ox 97 97 Oxygen Delivery Method Room Air Room Air 03/27/25 08:22 03/27/25 11:54 Temperature 97.9 F Temperature Source Oral Pulse Rate 58 L Pulse Strength Respiratory Rate 15 Respiratory Effort Normal Non-Labored Respiratory Depth Normal Respiratory Pattern Normal Blood Pressure 146/80 H Blood Pressure Mean 102 Blood Pressure Source Monitor Blood Pressure Position Semi-Fowlers Blood Pressure Location Left Arm Pulse Ox 98 Oxygen Delivery Method Room Air Room Air Weight Weight: 90.174 kg Body Mass Index (BMI) 30.2 Physical Exam Const alert, oriented x3 and no apparent distress General Appearance: cooperative and comfortable Neuro Neuro Narrative: Awake, alert oriented X3 Speech: fluent CN 2-12 intact Motor: 5/5 Sensation: Intact No ataxia Lab / Micro Data 03/27/25 04:26 03/27/25 04:26 Labs: Laboratory Results - last 24 hr 03/26/25 15:36: WBC 6.5, RBC 4.53 L, Hgb 14.5, Hct 40.0, MCV 88.3, MCH 32.0, MCHC 36.3 H, RDW Std Deviation 39.9, RDW Coeff of Chel 12.3, Plt Count 190, MPV 9.9, Immature Gran % (Auto) 0.200, Neut % (Auto) 61.8, Lymph % (Auto) 29.8, Ashe % (Auto) 6.0, Eos % (Auto) 1.9, Baso % (Auto) 0.3, Absolute Neuts (auto) 4.0, Absolute Lymphs (auto) 1.92, Nucleated RBC % 0, PT 13.6, INR 1.0, APTT 24.9, Sodium 137, Potassium 4.1, Chloride 107, Carbon Dioxide 20.6 L, Anion Gap 10, BUN 17, Creatinine 1.04, Estim Creat Clear Calc 73.54, Est GFR (MDRD) Non-Af 78, BUN/Creatinine Ratio 16.7, Glucose 181 H, Calcium 9.1 03/27/25 04:26: WBC 5.0, RBC 4.50 L, Hgb 14.3, Hct 40.4, MCV 89.8, MCH 31.8, MCHC 35.4, RDW Std Deviation 41.0, RDW Coeff of Chel 12.5, Plt Count 198, MPV 9.9, Immature Gran % (Auto) 0.200, Neut % (Auto) 44.5 L, Lymph % (Auto) 43.7 H, Ashe % (Auto) 6.6, Eos % (Auto) 4.6, Baso % (Auto) 0.4, Absolute Neuts (auto) 2.2, Absolute Lymphs (auto) 2.19, Nucleated RBC % 0, Sodium 138, Potassium 4.2, Chloride 105, Carbon Dioxide 21.5, Anion Gap 12, BUN 16, Creatinine 0.92, Estim Creat Clear Calc 82.65, Est GFR (MDRD) Non-Af 90, BUN/Creatinine Ratio 17.2, Glucose 120 H, Hemoglobin A1c 6.6 H, Calcium 9.0, Triglycerides 87, Cholesterol 169, LDL Cholesterol, Calc 103, VLDL Cholesterol 17, HDL Cholesterol 48, Cholesterol/HDL Ratio 3.51, TSH 2.880 Imaging Radiology Impression Head/Neck CTA 03/26/25 15:56 IMPRESSION: CT brain: No acute intracranial abnormality. Chronic microvascular ischemia and involutional changes. CTA head and neck: Scattered atherosclerotic calcification of the anterior and posterior circulation as described above, with mild-moderate stenosis. No evidence of acute occlusion. No aneurysm. Reading Location: [facility] Chest X-Ray 03/26/25 16:15 IMPRESSION: No Acute Findings. Reading Location: [facility] Echocardiogram 03/27/25 04:14 Interpretation Summary Mild concentric left ventricular hypertrophy. The LV systolic function is normal. EF is 65 %. Stage 1 diastolic dysfunction. Aortic valve sclerosis without stenosis. Mild aortic valve regurgitation. Moderately dilated aortic root. Ordering Physician: Herb Bright Performed By: Naveen Chew RCS Brain MRI 03/27/25 10:00 IMPRESSION: 1. No specific evidence of an acute intracranial process. 2. Additional description as above. Reading Location: [facility] Active Medications Active Medications Active Medications: Current Medications Generic Name Dose Route Start Last Admin Trade Name Freq PRN Reason Stop Dose Admin Acetaminophen 650 mg 03/26/25 18:48 Acetaminophen 325 Mg Tablet PO Q6H PRN PRN Pain 1-10 Or Fever >100.7 Albuterol Sulfate 2.5 mg 03/26/25 18:48 Albuterol 2.5 Mg/3 Ml Vial.Neb. INHALATION Q2H PRN PRN SOB &/OR WHEEZING Aspirin 81 mg 03/27/25 08:00 03/27/25 08:29 Aspirin 81 Mg Tab.Chew PO 81 mg BREAKFAST ADILENE Administration Atorvastatin Calcium 80 mg 03/26/25 22:00 03/26/25 20:30 Atorvastatin Calcium 80 Mg Tablet PO Not Given QHS ADILENE Clopidogrel Bisulfate 75 mg 03/27/25 10:00 03/27/25 08:29 Clopidogrel Bisulfate 75 Mg Tablet PO 75 mg DAILY ADILENE Administration Hydralazine HCl 5 mg 03/26/25 18:48 Hydralazine 20 Mg/Ml Vial IV 03/27/25 18:48 Q30M PRN maintain BP parameters with HR <60 Sodium Chloride 250 mls @ 15 mls/hr 03/26/25 18:24 IV .[id number] PRN Saline Flush Sodium Chloride 250 mls @ 15 mls/hr 03/26/25 18:24 IV .[id number] PRN Additional IVPB Infusion Labetalol HCl 10 - 20 mg 03/26/25 18:48 Labetalol 20mg/4ml Syringe IV 03/27/25 18:48 Q10M PRN PRN maintain BP parameters with HR >/=60 Melatonin 3 mg 03/26/25 18:48 Melatonin 3 Mg Tablet PO QHS PRN PRN INSOMNIA Ondansetron HCl 4 mg 03/26/25 18:48 Ondansetron 4 Mg/2 Ml Vial IV Q8H PRN PRN NAUSEA/VOMITING Senna/Docusate Sodium 2 tablet 03/26/25 18:48 Senna/Docusate Sodium 1 Tablet PO BID PRN PRN Constipation Sodium Chloride 10 - 40 ml 03/26/25 18:24 03/26/25 20:29 0.9% Saline Lock 10 Ml Syringe IV 10 ml UD PRN Administration SALINE FLUSH NIHSS NIHSS Nursing Documentation NIHSS Nursing Documentation: NIHSS: Ischemic Stroke/TIA Start: 03/26/25 18:48 Text: For PCU Patients: NIH and Neuro Check every 4 Status: Active hours, PRN and with change in RN caregiver. Freq: [id number] Protocol: Activity Type Activity Date Activity User E-sign Co-sign Detail Recorded Client Recorded Date Recorded By Document 03/27/25 11:54 ML [id number] 03/27/25 11:59 ML 03/27/25 11:54 NIH Stroke Scale [NIHSS] A score of 0 is normal or asymptomatic . Total possible score is 42. Inpatient: RN or Physician to activate a stroke alert for onset of new stroke symptoms or with NIHSS increase >/= 3 points. Following change in neurological status, NIHSS will be performed per physician order or more frequently PRN. -1a. Level of Consciousness 0 - Alert; keenly responsive -1b. LOC Questions 0 - Answers BOTH questions correctly -1c. LOC Commands 0 - Performs BOTH tasks correctly -2. Best Gaze 0 - Normal -3. Visual 0 - No visual loss -4. Facial Palsy 0 - Normal symmetrical movements -5a. Left Arm 0 - No drift; arm holds 90 ( or 45) degrees for full 10 seconds -5b. Right Arm 0 - No drift; arm holds 90 ( or 45) degrees for full 10 seconds -6a. Left Leg 0 - No drift; leg holds 30- degree position for full 5 seconds -6b. Right Leg 0 - No drift; leg holds 30- degree position for full 5 seconds -7. Limb Ataxia 0 - Absent -8. Sensory 0 - Normal; no sensory loss -9. Best Language 0 - No aphasia; normal -10. Dysarthria 0 - Normal -11. Extinction and Inattention 0 - No abnormality -Total 0 Query Text:A score of 0 is normal or asymptomatic. Total possible score is 42 . ED: Notify Physician for NIHSS increase by > / = 3 points. Inpatient: RN or Physician to activate a stroke alert for NIHSS increase of > / = 3 points. Coma Scale [Assess] -Eye Opening Spontaneous -Motor Obeys Commands -Verbal Oriented [Total] -Coma Scale Total 15 NIHSS 1a. Level of Consciousness: 0 - Alert; keenly responsive 1b. LOC Questions: 0 - Answers BOTH questions correctly 1c. LOC Commands: 0 - Performs BOTH tasks correctly 2. Best Gaze: 0 - Normal 3. Visual: 0 - No visual loss 4. Facial Palsy: 0 - Normal symmetrical movements 5a. Left Arm: 0 - No drift; arm holds 90 (or 45) degrees for full 10 seconds 5b. Right Arm: 0 - No drift; arm holds 90 (or 45) degrees for full 10 seconds 6a. Left Le - No drift; leg holds 30-degree position for full 5 seconds 6b. Right Le - No drift; leg holds 30-degree position for full 5 seconds 7. Limb Ataxia: 0 - Absent 8. Sensory: 0 - Normal; no sensory loss 9. Best Language: 0 - No aphasia; normal 10. Dysarthria: 0 - Normal 11. Extinction and Inattention: 0 - No abnormality Total: 0
--- NOTE | 2025-03-27 15:21 | CASEMGMT ---
Met with patient to complete [employer] form. [employer] form explained to patient who voiced understanding and signed form. Original form placed in pt?s chart and copy provided to patient. Negra Cota, Discharge Planning Asst
[2025-03-27 15:50] VITALS: BP 153/84; PULSE 59; RESP 15; TEMP 36.7
--- NOTE | 2025-03-27 16:34 | CASEMGMT ---
Patient to discharge today. RN CM in to discuss needs at discharge. Patient denies needs or help at discharge. Patient was independent with therapy and no therapy recommended at discharge. Patient had no further questions or concerns.
--- NOTE | 2025-03-27 16:59 | DCINST_ITS ---
Discharge Instructions Diet Discharge Diet: - (DASH diet) DC O2, CPAP, BIPAP needs Home O2 Discharge instructions: No Dressing / Incision Discharge Activity: Return to Normal Activity Follow Up Care Test Results: Test results from this visit will be discussed in further detail at your follow- up appointment, if applicable. Discharge Plan Admission Admit Date/Time: 03/26/25 17:44 Primary Reason for Your Visit: Right sided numbness and weakness Attending Provider: Hali Lizarraga Primary Care Provider: Bean Currie Consulting Providers: Yakov Wolfe; Kristina Borja; Vonda Sharma; Marga Pablo; Patty Wong; Shekhar Narayan; Diana Marc; Naveen Victoria; Omega Gambino; Ousmane Higginbotham; Shyla Palomo; Man Garcia; Jany Gonzales; Trupti Briscoe; Nadeem Oquendo; Wei Lara; Rosy Diaz; Diego Peres; Perlita Alarcon; Kanwal Gutierrez Discharge Orders/Prescriptions Prescriptions: No Action losartan 100 mg tablet 100 mg PO QDAY Qty: 90 3RF meloxicam 15 mg tablet 15 mg PO QAM Patient Comments: PT STATES HAS BEEN TAKING PRN ipratropium bromide 21 mcg (0.03 %) spray,non-aerosol 2 spray intranasal BID-TID PRN (Reason: postnasal drainage) Qty: 30 0RF Rx Instructions: administer into each nostril rosuvastatin 10 mg tablet See Rx Instructions .ROUTE .COMPLEX Qty: 90 3RF Dose Instruction: TAKE 1 TABLET BY MOUTH EVERY DAY Rx Instructions: TAKE 1 TABLET BY MOUTH EVERY DAY amlodipine 10 mg tablet See Rx Instructions .ROUTE .COMPLEX Qty: 90 3RF Dose Instruction: TAKE 1 TABLET BY MOUTH EVERY DAY Rx Instructions: TAKE 1 TABLET BY MOUTH EVERY DAY Referrals / Follow Up: Bean Currie MD [Primary Care Provider] -
--- NOTE | 2025-03-27 16:59 | PCM.DC ---
Discharge Instructions Diet Discharge Diet: - (DASH diet) DC O2, CPAP, BIPAP needs Home O2 Discharge instructions: No Dressing / Incision Discharge Activity: Return to Normal Activity Follow Up Care Test Results: Test results from this visit will be discussed in further detail at your follow-up appointment, if applicable. Discharge Plan Admission Admit Date/Time: 03/26/25 17:44 Primary Reason for Your Visit: Right sided numbness and weakness Attending Provider: Hali Lizarraga Primary Care Provider: Bean Currie Consulting Providers: Yakov Wolfe; Kristina Borja; Vonda Sharma; Marga Pablo; Patty Wogn; Shekhar Narayan; Diana Marc; Naveen Victoria; Omega Gambino; Ousmane Higginbotham; Shyla Palomo; Man Garcia; Jany Gonzales; Trupti Briscoe; Nadeem Oquendo; Wei Lara; Rosy Diaz; Diego Peres; Perlita Alarcon; Kanwal Gutierrez Instructions Patient Instructions: DASH Plan Heart Health, Eating Heart-Healthy Foods Additional Instructions / Restrictions: DISCHARGE INSTRUCTIONS PLEASE READ *Please take this with you to your next doctors appointment* - you will be discharged on increased dose of rosuvastatin, 20 mg, to try to achieve a lower cholesterol level - you will be discharged on 81 mg of aspirin, and is important that you take this daily - we discussed your hemoglobin A1c as well indicating that you are in the diabetes range, Is advised that you consider diet and exercise lifestyle modifications and as discussed a prescription will be sent in for metformin 500 mg twice daily, take 500 mg daily for 1 week and then increase to twice daily. This may need further adjusted by your primary care physician. -Please call your primary care provider's office upon discharge to schedule a hospital follow up within 1 week. -For any concerning signs or symptoms please call 911 or proceed to the nearest emergency department Discharge Orders/Prescriptions Prescriptions: New aspirin 81 mg Tablet,Chewable 81 mg PO BREAKFAST Qty: 0 0RF rosuvastatin 20 mg tablet 20 mg PO DAILY Qty: 30 0RF metformin 500 mg tablet 500 mg PO BID 30 Days Qty: 60 0RF Continued losartan 100 mg tablet 100 mg PO QDAY Qty: 90 3RF ipratropium bromide 21 mcg (0.03 %) spray,non-aerosol 2 spray intranasal BID-TID PRN (Reason: postnasal drainage) Qty: 30 0RF Rx Instructions: administer into each nostril amlodipine 10 mg tablet See Rx Instructions .ROUTE .COMPLEX Qty: 90 3RF Dose Instruction: TAKE 1 TABLET BY MOUTH EVERY DAY Rx Instructions: TAKE 1 TABLET BY MOUTH EVERY DAY Discontinued meloxicam 15 mg tablet 15 mg PO QAM Patient Comments: PT STATES HAS BEEN TAKING PRN rosuvastatin 10 mg tablet See Rx Instructions .ROUTE .COMPLEX Qty: 90 3RF Dose Instruction: TAKE 1 TABLET BY MOUTH EVERY DAY Rx Instructions: TAKE 1 TABLET BY MOUTH EVERY DAY Referrals / Follow Up: Bean Currie MD [Primary Care Provider] - Within 1 Week Disposition Disposition (needs filled in before D/C Order can be placed): Home, Self Care
[2025-03-27 17:00] VITALS: BMI 30.2
--- NOTE | 2025-03-27 17:07 | DS.PCM_ITS ---
Providers Date of Admission: 03/26/25 Date of Discharge: 03/27/25 Primary Care Physician: Dr. Bean Currie MD Consultations 03/26/25 18:48 Consult: Tele-Neurology Routine Consulting Provider: [facility] Reason for Consult: Acute Ischemic Stroke/TIA EMERGENT Consult: No MD Notified: Yes Date Notified: 03/26/25 Time Notified: 18:15 Method of Notification: Answering Service Nursing Unit Staff Notify [facility] of Tele-Neurology Consult: Yes Reason For Visit: CONCERN FOR TIA Diagnosis Discharge Diagnosis (1) Brain TIA: Status: Acute Code(s): G45.9 - Transient cerebral ischemic attack, unspecified (2) Diabetes mellitus, type 2: Status: Acute Code(s): E11.9 - Type 2 diabetes mellitus without complications (3) Dilated aortic root: Status: Acute Code(s): I77.810 - Thoracic aortic ectasia Plan #TIA #Hypertension #DMII #Hx dilated aortic root Medications at Discharge Home Medications amlodipine 10 mg tablet See Rx Instructions .Route .COMPLEX #90 tabs 08/21/24 losartan 100 mg tablet 100 mg PO QDAY #90 tabs 11/28/24 ipratropium bromide 21 mcg (0.03 %) nasal spray 2 spray intranasal BID-TID PRN postnasal drainage #30 mL 02/23/25 aspirin 81 mg chewable tablet 81 mg PO BREAKFAST #0 tabs 03/27/25 metformin 500 mg tablet 500 mg PO BID 30 days #60 tabs 03/27/25 rosuvastatin 20 mg tablet 20 mg PO DAILY #30 tabs 03/27/25 Hospital Course Procedures Transthoracic echo and - (MRI brain) Summary of Care Provided Minutes Spent on Discharge: 32 Hospital Course: 69-year-old male with a history of ascending thoracic aortic aneurysm, hypertension, hyperlipidemia who presented to [facility] ED 03/26/2025 due to right sided body numbness and weakness. H&P as follows: DAMARI BOWERS, is a 69-year-old male history of hypertension presented [facility] ED 03/26/2025 due to concerns for neurologic change. This a.m. he was at work and suddenly felt right side of his body become weak and numb and he felt that he had right-sided facial droop with no vision changes. He noticed a particular weakness in the right leg and also noted numbness along right chest wall and right abdomen. Symptoms started resolved but 15 seconds later and were completely resolved in 2 to 3 minutes. No headache associated, no further symptoms. His family doctor recommended he come to the emergency room. On arrival to the ED temperature 97.9, heart rate 82 with blood pressure 140/99, respiratory rate of 22 and pulse ox 100% on room air. CBC without leukocytosis or anemia, BMP shows kidney function within normal limits, does have elevated glucose of 181. CTA of the head and neck obtained and showed no LVO. Given patient's suspicious symptoms hospitalist contacted for admission for TIA/CVA rule out. Patient evaluated at bedside and reports history as above, reports that prior to that and since the symptoms resolved he has felt fine and ROS otherwise completely negative. INTERVAL HISTORY: Patient had a negative MRI, echocardiogram showed moderately dilated aortic root, appears patient is following with cardiology for this and was last seen in the office 11/28/2024. Patient evaluated by neurology, he had no further symptoms and was recommended that he be on aspirin and have aggressive lifestyle modifications. On day of discharge patient overall feeling well with no new or acute complaints. Discharge instructions as follows: - you will be discharged on increased dose of rosuvastatin, 20 mg, to try to achieve a lower cholesterol level - you will be discharged on 81 mg of aspirin, and is important that you take this daily - we discussed your hemoglobin A1c as well indicating that you are in the diabetes range, Is advised that you consider diet and exercise lifestyle modifications and as discussed a prescription will be sent in for metformin 500 mg twice daily, take 500 mg daily for 1 week and then increase to twice daily. This may need further adjusted by your primary care physician. -Please call your primary care provider's office upon discharge to schedule a hospital follow up within 1 week. -For any concerning signs or symptoms please call 911 or proceed to the nearest emergency department Physical Exam Narrative General: Alert, oriented, no apparent distress HEENT: Atraumatic, normocephalic Eyes: Anicteric, normal conjunctiva, extraocular movements grossly intact Neck: Supple Respiratory: Clear to auscultation bilaterally, normal respiratory effort Cardiovascular: Regular rate and rhythm GI: Soft, nontender, nondistended Extremities: No edema Musculoskeletal: Moving all extremities Neuro: No overt focal neurological deficits Skin: No rashes appreciated Psych: Cooperative Weight / BMI Weight Weight: 90.174 kg Body Mass Index (BMI) 30.2 ABG / Lab / Microbiology Data 03/27/25 04:26 03/27/25 04:26 Laboratory: Laboratory Results - last 24 hr 03/27/25 04:26: WBC 5.0, RBC 4.50 L, Hgb 14.3, Hct 40.4, MCV 89.8, MCH 31.8, MCHC 35.4, RDW Std Deviation 41.0, RDW Coeff of Chel 12.5, Plt Count 198, MPV 9.9, Immature Gran % (Auto) 0.200, Neut % (Auto) 44.5 L, Lymph % (Auto) 43.7 H, Shannon % (Auto) 6.6, Eos % (Auto) 4.6, Baso % (Auto) 0.4, Absolute Neuts (auto) 2.2, Absolute Lymphs (auto) 2.19, Nucleated RBC % 0, Sodium 138, Potassium 4.2, Chloride 105, Carbon Dioxide 21.5, Anion Gap 12, BUN 16, Creatinine 0.92, Estim Creat Clear Calc 82.65, Est GFR (MDRD) Non-Af 90, BUN/Creatinine Ratio 17.2, G lucose 120 H, Hemoglobin A1c 6.6 H, Calcium 9.0, Triglycerides 87, Cholesterol 169, LDL Cholesterol, Calc 103, VLDL Cholesterol 17, HDL Cholesterol 48, Cholesterol/HDL Ratio 3.51, TSH 2.880 Radiography Diagnostic Testing: Radiology Impression Echocardiogram 03/27/25 04:14 Interpretation Summary Mild concentric left ventricular hypertrophy. The LV systolic function is normal. EF is 65 %. Stage 1 diastolic dysfunction. Aortic valve sclerosis without stenosis. Mild aortic valve regurgitation. Moderately dilated aortic root. Ordering Physician: Herb Bright Performed By: Naveen Chew RCS Brain MRI 03/27/25 10:00 IMPRESSION: 1. No specific evidence of an acute intracranial process. 2. Additional description as above. Reading Location: [id number] Instructions Discharge Diet: - (DASH diet) DC O2, CPAP, BIPAP Needs Home O2 Discharge instructions: No Meaningful Use Info Meaningful Use Meaningful Use Diagnoses (Choose all that apply): None applicable Ischemic Stroke Statin Dosing Therapy Reference: STATIN DOSE THERAPY REFERENCE: * Patients > 75 years receive moderate or high dose statin therapy. * Patients 75 years or YOUNGER should receive HIGH intensity statin dose unless contraindicated. You will be required to document reason for non-treatment if statin daily dose does not meet guidelines. HIGH DOSE STATIN THERAPY DAILY Atorvastatin > than or = to 40 mg Rosuvastatin > than or = to 20 mg Amlodipine + Atorvastatin > than or = to 2.5/40 mg Ezetimibe + Simvastatin 10/80 mg Simvastatin 80mg Discharge Plan Admission Admit Date/Time: 03/26/25 17:44 Primary Reason for Your Visit: Right sided numbness and weakness Attending Provider: Hali Lizarraga Primary Care Provider: Bean Currie Consulting Providers: Yakov Wolfe; Kristina Borja; Vonda Sharma; Marga Pablo; Patty Wong; Shekhar Narayan; Diana Marc; Naveen Victoria; Omega Gambino; Ousmane Higginbotham; Shyla Palomo; Man Garcia; Jany Gonzales; Trupti Briscoe; Nadeem Oquendo; Wei Lara; Rosy Diaz; Diego Peres; Perlita Alarcon; Matt,Kanwal Instructions Patient Instructions: DASH Plan Heart Health, Eating Heart-Healthy Foods Additional Instructions / Restrictions: DISCHARGE INSTRUCTIONS PLEASE READ *Please take this with you to your next doctors appointment* - you will be discharged on increased dose of rosuvastatin, 20 mg, to try to achieve a lower cholesterol level - you will be discharged on 81 mg of aspirin, and is important that you take this daily - we discussed your hemoglobin A1c as well indicating that you are in the diabetes range, Is advised that you consider diet and exercise lifestyle modifications and as discussed a prescription will be sent in for metformin 500 mg twice daily, take 500 mg daily for 1 week and then increase to twice daily. This may need further adjusted by your primary care physician. -Please call your primary care provider's office upon discharge to schedule a hospital follow up within 1 week. -For any concerning signs or symptoms please call 911 or proceed to the nearest emergency department Discharge Orders/Prescriptions Prescriptions: New aspirin 81 mg Tablet,Chewable 81 mg PO BREAKFAST Qty: 0 0RF rosuvastatin 20 mg tablet 20 mg PO DAILY Qty: 30 0RF metformin 500 mg tablet 500 mg PO BID 30 Days Qty: 60 0RF Continued losartan 100 mg tablet 100 mg PO QDAY Qty: 90 3RF ipratropium bromide 21 mcg (0.03 %) spray,non-aerosol 2 spray intranasal BID-TID PRN (Reason: postnasal drainage) Qty: 30 0RF Rx Instructions: administer into each nostril amlodipine 10 mg tablet See Rx Instructions .ROUTE .COMPLEX Qty: 90 3RF Dose Instruction: TAKE 1 TABLET BY MOUTH EVERY DAY Rx Instructions: TAKE 1 TABLET BY MOUTH EVERY DAY Discontinued meloxicam 15 mg tablet 15 mg PO QAM Patient Comments: PT STATES HAS BEEN TAKING PRN rosuvastatin 10 mg tablet See Rx Instructions .ROUTE .COMPLEX Qty: 90 3RF Dose Instruction: TAKE 1 TABLET BY MOUTH EVERY DAY Rx Instructions: TAKE 1 TABLET BY MOUTH EVERY DAY Referrals / Follow Up: Bean Currie MD [Primary Care Provider] - Within 1 Week Disposition Disposition (needs filled in before D/C Order can be placed): Home, Self Care Charges/Coding Visit Charges Inpatient E&M: 35323 Disch Hosp >30min
== END 2025-03-27 17:07 | disposition home or self-care (01) ==
LOC: ED 17:55 → PCU 03-27 08:35
PROVIDERS: Admitting Provider Internal Medicine; Emergency Provider Emergency Medicine; PCP Family Medicine; Visit Provider Internal Medicine
DX: G45.9 Transient cerebral ischemic attack, unspecified (principal); E11.9 Type 2 diabetes mellitus without complications; E78.5 Hyperlipidemia, unspecified; I77.810 Thoracic aortic ectasia; Z79.82 Long term (current) use of aspirin; I10 Essential (primary) hypertension; I25.10 Atherosclerotic heart disease of native coronary artery without angina pectoris; K21.9 Gastro-esophageal reflux disease without esophagitis; Z82.49 Family history of ischemic heart disease and other diseases of the circulatory system
CPT/HCPCS: 36415; 70496; 70498; 70551; 71045; 80048; 80061; 83036; 84443; 85025; 85610; 85730; 93005; 93306; 97802; 99221; 99284; Q9957; Q9967; A4216; G0378

== ENCOUNTER → 2025-05-22 | Outpatient (CLI) | payer MEDICARE, OTHER, SELFPAY ==
[2025-05-22 12:45] LABS: Hematocrit 40.6 % (40-54); Hemoglobin 14.2 g/dL (13.0-16.5); Immature Granulocytes Count 0.020 X10^3/uL (0.0-0.0); Mean Corp Hgb Conc 35.0 g/dL (32-36); Mean Corpuscular Volume 88.3 fL (80-94); Mean Platelet Vol. 10.4 fl (6.2-12.0); NRBC Flagged by Analyzer 0 % (0-5); Platelet Count 205 K/mm3 (150-450); RBC Distribution Width CV 12.1 % (11.6-14.6); RBC Distribution Width SD 39.1 fl (35.1-43.9); Red Blood Count 4.60 M/mm3 (4.6-6.2); White Blood Count 4.4 K/mm3 (4.4-11.0)
[2025-05-22 13:24] LABS: Creatinine, Urine (random) 73.20 mg/dL (39.00-259.00); Microalbumin,Random Urine < 12.0 mg/L (NO RANGE EST.)
[2025-05-22 13:32] LABS: AST(SGOT) 28 U/L (<=37); Alanine Aminotransfer ALT/SGPT 24 U/L (<=46); Albumin, Serum 4.3 g/dL (3.4-4.8); Alkaline Phosphatase 92 U/L (40-129); Anion Gap 12 (5-15); BUN 14 mg/dL (4-19); BUN/Creat Ratio 18.2 RATIO (10-20); Calcium,Total 9.6 mg/dL (7.6-11.0); Carbon Dioxide 22.3 mmol/L (21.0-32.0); Chloride 104 mmol/L (98-108); Globulin 2.6 g/dL (2.2-4.2); Glucose 128 mg/dL (70-99); Potassium 4.0 mmol/L (3.3-5.1)
[2025-05-22 16:07] LABS: AST(SGOT) 26 U/L (<=37); Alanine Aminotransfer ALT/SGPT 26 U/L (<=46); Albumin, Serum 4.2 g/dL (3.4-4.8); Alkaline Phosphatase 90 U/L (40-129); Bilirubin, Direct 0.19 mg/dL (0.00-0.30); Cholesterol 161 mg/dL (<=200); Globulin 2.7 g/dL (2.2-4.2); Low Density Lipoprotein Calc. 89 mg/dL; Triglycerides 90 mg/dL; Very Low Density Lipoprotein 18 mg/dL (5-40); cholesterol:hdl ratio screen 3.01
== END | disposition home or self-care (01) ==
LOC: MFPLAB 09:05
PROVIDERS: Internal Medicine Cardiovascular Disease; PCP Family Medicine; Referring Provider Family Medicine; Visit Provider Family Medicine
DX: E78.00 Pure hypercholesterolemia, unspecified (principal); E11.8 Type 2 diabetes mellitus with unspecified complications
CPT/HCPCS: 36415; 80053; 80061; 80076; 82043; 82570; 83036; 85025

== ENCOUNTER → 2025-08-22 | Outpatient (CLI) | payer MEDICARE, OTHER, SELFPAY ==
[2025-08-22 10:08] LABS: Hematocrit 43.4 % (40-54); Hemoglobin 15.1 g/dL (13.0-16.5); Immature Granulocytes Count 0.020 X10^3/uL (0.0-0.0); Mean Corp Hgb Conc 34.8 g/dL (32-36); Mean Corpuscular Volume 88.9 fL (80-94); Mean Platelet Vol. 10.2 fl (6.2-12.0); NRBC Flagged by Analyzer 0 % (0-5); Platelet Count 211 K/mm3 (150-450); RBC Distribution Width CV 12.3 % (11.6-14.6); RBC Distribution Width SD 40.0 fl (35.1-43.9); Red Blood Count 4.88 M/mm3 (4.6-6.2); White Blood Count 4.4 K/mm3 (4.4-11.0)
[2025-08-22 10:36] LABS: AST(SGOT) 26 U/L (<=37); Alanine Aminotransfer ALT/SGPT 24 U/L (<=46); Albumin, Serum 4.4 g/dL (3.4-4.8); Alkaline Phosphatase 84 U/L (40-129); Anion Gap 11 (5-15); BUN 14 mg/dL (4-19); BUN/Creat Ratio 15.7 RATIO (10-20); Calcium,Total 9.5 mg/dL (7.6-11.0); Carbon Dioxide 22.6 mmol/L (21.0-32.0); Chloride 103 mmol/L (98-108); Cholesterol 163 mg/dL (<=200); Globulin 2.8 g/dL (2.2-4.2); Glucose 147 mg/dL (70-99); Low Density Lipoprotein Calc. 86 mg/dL; Potassium 4.1 mmol/L (3.3-5.1); Triglycerides 102 mg/dL; Very Low Density Lipoprotein 20 mg/dL (5-40); cholesterol:hdl ratio screen 2.86
== END | disposition home or self-care (01) ==
LOC: MFPLAB 09:04
PROVIDERS: PCP Family Medicine; Visit Provider Family Medicine
DX: E11.8 Type 2 diabetes mellitus with unspecified complications (principal)
CPT/HCPCS: 36415; 80053; 80061; 83036; 85025

== ENCOUNTER → 2025-09-11 | Outpatient (CLI) | payer MEDICARE, OTHER, SELFPAY ==
--- OUTSIDE RECORDS SUMMARY | 2025-09-11 15:09 | XMS RPT_ITS | CCD ---
Author Organization [facility] CliniSymd Care Team Providers Care Aviation Project Manager Name Role Phone Dr. Amie Colmenares III Referring Provider Dr. Trevon Quinones Attending Provider Dr. Chadwick Perez Primary Care Provider Dr. Bean Currie Primary Care Provider [phone] Mayra Lazcano Attending Provider Unavailable Dr. Bean Currie Referring Provider Dr. Damari Colmenares Attending Provider [phone] Damari Colmenares Other Provider Dr. Bean Currie Primary Care Provider [phone] Dr. Trevon Quinones Attending Provider Dr. Bean Currie MD Primary Care Provider Dr. Bean Currie MD Referring Provider [phone] Dr. Trevon Quinones MD Attending Provider Dr. Trevon Quinones MD Referring Provider Dr. Bean Currie MD Attending Provider [phone] Referred, Self Attending Provider Unavailable Dr. Ab Healy MD Attending Provider [phone] Jay Huynh Attending Provider [phone] Dr. Yobany Glynn DO Emergency Provider Dr. Hali Lizarraga MD Admit Provider Dr. Hali Lizarraga MD Attending Provider Yakov Wolfe MD Other Provider Unavailable Dr. Kristina Borja MD Other Provider Edith SANTIAGO, Vonda Other Provider Unavailable Samy DAVILA, Dr. Gresham Other Provider Judith SANTIAGO, Dr. Brambila Other Provider Sylvain SANTIAGO, Dr. Corrigan Other Provider Tari SANTIAGO, Dr. Ortiz Other Provider Esme SANTIAGO, Dr. Hodge Other Provider Immanuel SANTIAGO, Dr. Duff Other Provider Neftaly SANTIAGO, Dr. Romeo Other Provider Dewey SANTIAGO, Lo Other Provider Radha SANTIAGO, Dr. Conway Other Provider Christian SANTIAGO, Dr. Carmichael Other Provider Rachna SANTIAGO, Dr. Lyles Other Provider Azra SANTIAGO, Dr. Nadeem Mack Other Provider Marco SANTAIGO, Dr. Carvajal Other Provider Emily SANTIAGO, Dr. Gallegos Other Provider Ja SANTIAGO, Dr. Cortez Other Provider Dorian SANTIAGO, Dr. Bhat Other Provider Unavailable Matt SANTIAGO, Yousef Other Provider Unavailable Agustin SANTIAGO, Dr. Zhu Attending Provider Dr. Hali Lizarraga MD Other Provider Kush SANTIAGO, Dr. Bean Mccoy Primary Care Provider Dr. Bean Currie MD Referring Provider [phone] Kush SANTIAGO, Dr. Bean Mccoy Attending Provider Bean Currie Primary Care Unavailable Referred, Self Attending Unavailable Joni, Trevon Referring Unavailable Bean Currie Primary Care Unavailable Bean Currie Referring Unavailable Bean Currie Attending Unavailable Bean Currie Primary Care Unavailable Yakov Wolfe Consulting Unavailable Hali Lizarraga Admitting Unavailable Hali Lizarraga Attending Unavailable Adeli, Amir Consulting Unavailable Hinduja, Vonda Consulting Unavailable Samy, Marga Consulting Unavailable Zha, Patty Consulting Unavailable Sylvain, Shekhar Consulting Unavailable Tari, Diana Consulting Unavailable Bittar, Naveen Consulting Unavailable Gambino, Omega Consulting Unavailable Higginbotham, Ousmane Consulting Unavailable Befrantz, Lo Consulting Unavailable Gusrima, Man Consulting Unavailable Christian, Jany Consulting Unavailable Ridcami, Mohamed Consulting Unavailable Nadeem Oquendo Consulting UnavailWei Gardiner Consulting Unavailable Rosy Diaz Consulting Unavailable Diego Peres Consulting Unavailable Perlita Alarcon Consulting Unavailable Kanwal Gutierrez Consulting Unavailable Hali Lizarraga Consulting Unavailable Schinner, Bean E Primary Care Unavailable Audra Velez Attending Unavailable Schinner, Bean E Primary Care Unavailable Schinner, Bean E Referring Unavailable Jay Huynh Attending Unavailable Schinner, Bean E Primary Care Unavailable Ab Healy Attending Unavailable Schinner, Bean E Primary Care Unavailable Schinner, Bean E Referring Unavailable Hu Whitmore Attending Unavailable Schinner, Bean E Primary Care Unavailable Joni, Trevon Attending Unavailable Joni, Marathon Referring Unavailable Schinner Bean E Referring Unavailable SchinBean toledo E Attending Unavailable Schinner, Bean E Primary Care Unavailable Kofi Shipman Attending Unavailable Schinner, Bean E Primary Care Unavailable Schinner, Eban E Primary Care Unavailable SchinBean toledo E Referring Unavailable SchinBean toledo Attending Unavailable SchinnerBean E Referring Unavailable Joni, Trevon Attending Unavailable Schinner, Bean E Primary Care Unavailable Schinner, Bean E Primary Care Unavailable Joni, Marathon Attending Unavailable Joni, Marathon Referring Unavailable Schinner, Bean E Primary Care Unavailable Yakov Wolfe Consulting Unavailable Hali Lizarraga Attending Unavailable Hali Lizarraga Admitting Unavailable Adeli, Amir Consulting Unavailable Hinduja, Vonda Consulting Unavailable Samy, Marga Consulting Unavailable Zha, Patty Consulting Unavailable Sylvain, Shekhar Consulting Unavailable Tari, Diana Consulting Unavailable Bittar, Naveen Consulting Unavailable Gambino, Omega Consulting Unavailable Higginbotham, Ousmaen Consulting Unavailable Befrantz, Lo Consulting Unavailable Radha, Man Consulting Unavailable Christian, Jany Consulting Unavailable Ridha, Mohamed Consulting Unavailable Nadeem Oquendo Consulting UnavailWei Gardiner Consulting Unavailable Rosy Diaz Consulting Unavailable Diego Peres Consulting Unavailable Perlita Alarcon Consulting Unavailable Kanwal Gutierrez Consulting Unavailable Bean Currie Primary Care Unavailable Trevon Quinones Consulting Unavailable Bean Currie Attending Unavailable Kofi Shipman Attending Unavailable Kofi Shipman Referring Unavailable Bean Currie Primary Care Unavailable Allergies Allergy Classification Reported Allergen(s) Allergy Type Date of Onset Reaction(s) Facility (2 sources) hydroCHLOROthiazide Drug Allergy 5 Hyponatremia [facility] (1 source) hydroCHLOROthiazide Drug Allergy 5 [facility] Repository Medications Current Medications Medication Drug Class(es) Dates Sig (Normalized) Sig (Original) aspirin 81 mg chewable tablet (2 sources) Platelet Aggregation Inhibitor, Nonsteroidal Anti-inflammatory Drug Start: 03-27-2025 take 1 tablet by mouth at breakfast Aspirin 81 mg Tablet,Chewable Active 81 mg PO WITH BREAKFAST 0 March 27, 2025 12:00am Ipratropium Elizabeth 21 mcg (0.03 %) spray,non-aerosol (2 sources) Start: 02-23-2025 Ipratropium Elizabeth 21 mcg (0.03 %) spray,non-aerosol Active 2 NMA INTRANASAL 2 to 3 times per day as needed for postnasal drainage 30 February 23, 2025 12:00am administer into each nostril Start: 02-23-2025 Ipratropium Br omide 21 mcg (0.03 %) spray,non-aerosol Active 2 NMA INTRANASAL 2 to 3 times per day as needed for postnasal drainage February 23, 2025 12:00am administer into each nostril losartan potassium 100 mg oral tablet (2 sources) Angiotensin 2 Receptor Ayesha Start: 11-28-2024 take 1 tablet by mouth once daily Losartan 100 mg tablet Active 100 mg PO daily 90 3 November 28, 2024 1:00am metFORMIN hydrochloride 500 mg oral tablet (2 sources) Biguanide Start: 03-27-2025 take 1 tablet by mouth twice daily Metformin 500 mg tablet Active 500 mg PO TWICE A DAY 60 30 March 27, 2025 12:00am rosuvastatin calcium 20 mg oral tablet (20 sources) HMG-CoA Reductase Inhibitor Start: 03-27-2025 take 1 tablet by mouth once daily Rosuvastatin 20 mg tablet Active 20 mg PO DAILY 30 March 27, 2025 12:00am Start: 02-18-2018 End: 03-27-2025 take 1 tablet by mouth once daily Rosuvastatin 10 mg tablet Discontinued 0 .ROUTE .COMPLEX 90 3 August 21, 2024 4:14pm March 27, 2025 5:05pm TAKE 1 TABLET BY MOUTH EVERY DAY Start: 01-25-2014 End: 02-18-2018 take 10 mg by mouth once daily Rosuvastatin 20 MG tabl et Discontinued 10 mg PO DAILY January 25, 2014 1:00am February 18, 2018 2:39pm Start: 01-25-2014 End: 02-18-2018 take 10 mg by mouth once daily Rosuvastatin Discontinu ed 10 MG PO DAILY January 25, 2014 1:00am February 18, 2018 2:39pm Completed/Discontinued Medications Medication Drug Class(es) Dates Sig (Normalized) Sig (Original) amLODIPine 10 mg oral tablet (20 sources) Dihydropyridine Calcium Channel Ayesha Start: 05-16-2019 End: 08-21-2024 take 1 tablet by mouth once daily Amlodipine 10 mg tablet Discontinued 0 .ROUTE .COMPLEX 90 3 August 17, 2024 9:44am August 21, 2024 4:15pm TAKE 1 TABLET BY MOUTH EVERY DAY Start: 07-01-2017 End: 05-16-2019 take 1 tablet by mouth once daily Amlodipine 5 mg tablet Discontinued 5 mg PO DAILY 90 April 11, 2018 4:21pm May 16, 2019 10:08am amoxicillin 875 mg / clavulanate 125 mg oral tablet (2 sources) Penicillin-class Antibacterial Start: 02-23-2025 End: 03-05-2025 Amoxicillin-Pot Clavulanate 875-125 mg tablet Discontinued 1 {tbl} PO Q12H 20 10 0 February 23, 2025 12:00am March 04, 2025 12:00am March 05, 2025 12:05am Acute sinusitis, unspecified gabapentin 100 mg oral capsule (14 sources) Anti-epileptic Agent Start: 05-16-2019 End: 06-11-2022 take 1 capsule by mouth once daily as needed Gabapentin 100 mg capsule Discontinued 100 mg PO DAILY as needed 90 0 September 20, 2020 3:35pm June 11, 2022 9:43am hydroCHLOROthiazide 25 mg oral tablet (20 sources) Thiazide Diuretic Start: 09-20-2020 End: 11-29-2024 take 1 tablet by mouth once daily Hydrochlorothiazide 25 mg tablet Discontinued 0 .ROUTE .COMPLEX 90 August 21, 2024 4:15pm November 29, 2024 10:04am TAKE 1 TABLET BY MOUTH EVERY DAY lisinopril 40 mg oral tablet (20 sources) Angiotensin Converting Enzyme Inhibitor Start: 10-24-2017 End: 11-28-2024 take 1 tablet by mouth once daily Lisinopril 40 mg tablet Discontinued 40 mg PO daily 90 August 17, 2024 2:40pm November 28, 2024 11:12am Start: 07-01-2017 End: 10-24-2017 Lisinopril 5 MG tablet Disco ntinued 40 mg PO DAILY July 01, 2017 12:00am October 24, 2017 3:21pm Start: 07-01-2017 End: 10-24-2017 take 40 mg by mouth once daily Lisinopril Discontinued 40 MG PO DAILY July 01, 2017 12:00am October 24, 2017 3:21pm meloxicam 15 mg oral tablet (2 sources) Nonsteroidal Anti-inflammatory Drug Start: 02-23-2025 End: 03-27-2025 take 1 tablet by mouth once daily in the morning Meloxicam 15 mg tablet Discontinued 15 mg PO EVERY MORNING February 23, 2025 12:00am March 27, 2025 5:04pm raNITIdine 75 mg oral tablet (7 sources) Histamine-2 Receptor Antagonist Start: 01-25-2014 End: 09-20-2020 take 2 tablets by mouth once daily as needed Ranitidine Hcl 75 MG tablet Discontinued 150 mg PO DAILY as needed for Indigestion January 25, 2014 1:00am September 20, 2020 3:35pm Start: 01-25-2014 End: 09-20-2020 take 150 mg by mouth once daily Ranitidine Hcl Discontinued 150 MG PO DAILY January 25, 2014 1:00am September 20, 2020 3:35pm traZODone hydrochloride 50 mg oral tablet (7 sources) Serotonin Reuptake Inhibitor Start: 06-05-2021 End: 03-26-2025 take 1 tablet by mouth once daily as needed for anxiety Trazodone 50 mg tablet Discontinued 50 mg PO DAILY as needed for Anxiety June 05, 2021 12:00am March 26, 2025 3:56pm Problems Active Problems Problem Classification Problem Date Documented Date Episodic/Chronic Abdominal pain (7 sources) Left lower quadrant pain; Translations: [Left lower quadrant pain] 05-15-2019 Episodic Aortic; peripheral; and visceral artery aneurysms (16 sources) Aneurysm of thoracic aorta; Translations: [Thoracic aortic aneurysm, without rupture] Onset: 11-29-2024 Chronic Coronary atherosclerosis and other heart disease (12 sources) Non-obstructive atherosclerosis of coronary artery; Translations: [Atherosclerotic heart disease of [place] coronary artery without angina pectoris] Onset: 11-29-2024 Chronic Diabetes mellitus without complication (5 sources) Type 2 diabetes mellitus; Translations: [Type 2 diabetes mellitus without complications] Onset: 03-27-2025 03-27-2025 Chronic Disorders of lipid metabolism (13 sources) Hyperlipidemia; Translations: [Hyperlipidemia, unspecified] Onset: 11-29-2024 Chronic Essential hypertension (14 sources) Essential hypertension; Translations: [Essential (primary) hypertension] Onset: 12-20-2024 Chronic Other acquired deformities (1 source) Varus deformity, not elsewhere classified, left knee; Translations: [Varus deformity, not elsewhere classified, left knee] Onset: 09-05-2025 Episodic Other connective tissue disease (3 sources) Neurological deficit; Translations: [Other symptoms and signs involving the nervous system] 03-26-2025 Episodic Other nutritional; endocrine; and metabolic disorders (7 sources) Obesity; Translations: [Obesity, unspecified] 06-10-2022 Chronic Other screening for suspected conditions (not mental disorders or infectious disease) (4 sources) Patient encounter status; Translations: [Encounter for screening for malignant neoplasm of colon] 03-19-2023 Episodic Residual codes; unclassified (4 sources) Family history of cancer of colon; Translations: [Family history of malignant neoplasm of digestive organs] 05-14-2023 Episodic Residual codes; unclassified (2 sources) Family history of malignant neoplasm of digestive organs; Translations: [Family history of malignant neoplasm of gastrointestinal tract] 05-14-2023 Episodic Syncope (7 sources) Syncope and collapse; Translations: [Syncope and collapse] 05-15-2019 Episodic Transient cerebral ischemia (6 sources) Transient cerebral ischemia; Translations: [Transient cerebral ischemic attack, unspecified] Onset: 03-27-2025 03-26-2025 Chronic Unclassified (1 source) Thoracic aortic aneurysm, without rupture, unspecified; Translations: [Thoracic aortic aneurysm, without rupture, unspecified] Onset: 12-21-2024 Past or Other Problems Problem Classification Problem Date Documented Da te Episodic/Chronic Fluid and electrolyte disorders (3 sources) Hyponatremia; Translations: [Hypo-osmolality and hyponatremia] Onset: 01-17-2025 11-29-2024 Episodic Other connective tissue disease (1 source) Other symptoms and signs involving the nervous system; Translations: [Other symptoms and signs involving the nervous system] Onset: 03-30-2025 Episodic Other upper respiratory infections (5 sources) Acute sinusitis; Translations: [Acute sinusitis, unspecified] Onset: 02-23-2025 02-23-2025 Episodic Results Test Name Value Interpretation Reference Range Facility MR/PATPriscilla 09-05-2025 MR/PAT.[facility] Medical Records Department [address] [place] [address] PAT - Anesthesia 09/05/25 1456 MR#: [id number] Acct: [id number] Name: DAMARI BOWERS Rep #: [id number] : 1955 69 From: Bharat Mcdermott MD PCP: Dr. 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 When Was Last Pacemaker Check QUESTION #4 FULL TEXT: You/Your Family Experience fever (hyperthermia) with Anesthesia Last Oral Intake Last Oral intake: Last Oral Intake NPO since Meds taken in AM with sips of water? 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 Female No 09/05/25 09:42 HX of Motion Sickness Yes 09/05/25 09:42 HX of N/V After Surgery No 09/05/25 09:42 Non-Smoker Yes 09/05/25 09:42 Duration of Surgery greater Yes 09/05/25 09:42 than 60 minutes Number of Risk Factors 3 09/05/25 09:42 PONV Score Moderate Risk 09/05/25 09:42 Height Weight Height Weight: Anesthesia: Height Weight Height 5 ft 8 in 05/23/25 11:08 Respiratory Assessment Respiratory Assessment - director of real estate: Respiratory Tract Infection Hx - director of real estate Hx Respiratory Tract Infection No: SINUS DUE TO ALLERGY 09/05/25 09:42 STOP Sleep Apnea STOP Sleep Apnea - director of real estate: STOP Sleep Apnea - director of real estate Hx Hypertension Yes: CONTROLLED WITH MED 09/05/25 09:42 Hx Sleep Apnea Yes 09/05/25 09:42 CPAP Yes: CURRENTLY BEING FITTED 09/05/25 09:42 BIPAP No 09/05/25 09:42 Do you snore loudly (louder than talking or can be heard Do you often feel tired/ fatigued/ sleepy during daytime? Has anyone observed you stop breathing during sleep? STOP Results Positive 09/05/25 09:42 QUESTION #5 FULL TEXT : Do you snore loudly (louder than talking or can be heard through closed doors)? 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 Tobacco Use - 05/23/25 11:08 Smoking Status Never smoker 09/05/25 09:42 Hx Tobacco Use No 09/05/25 09:42 Years Smoking Packs Smoked per Day Smoking Cessation Date was within the last 15 years Hx Smoking Cessation Date Hx Smoking Cessation No 09/05/25 09:42 Counseling Hematologic Medial History Hematologic Hx - director of real estate: Hematologic Medical Hx - documentation consultant Hx of Blood Transfusion No 09/05/25 09:42 Hx of Transfusion in last 3 No 09/05/25 09:42 Months Date of Last Transfusion (if within last 3 months) Ever experience any problems No 09/05/25 09:42 with transfusion(s)? Specify any problems Hx of Preganancy in last 3 N/A 09/05/25 09:42 Months Nurse Filling Out Transfusion DSCHRIBER 09/05/25 09:42 Questions: Date: 09/05/25 09/05/25 09:42 Time: 09:48 09/05/25 09:42 Patient unable to answer at this time (ie. 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: /Reproductive Hx- director of real estate Hx Now No 09/05/25 09:42 Gestational Age (in weeks): EDC: Hx Hx Para Hx Section SAB No 09/05/25 09:42 [facility] Medical History (Updated 09/05/25 @ 10:05 by Miryam Cheung) Anxiety Alcohol use Diabetes Arthritis Restless legs TIA (transient ischemic attack) History of diverticulitis CPAP (continuous positive airway pressure) dependence History of pain when walking Heart stopped beating Dilated aortic root GERD (gastroesophageal reflux disease) Wears hearing aid Wears glasses High cholesterol Leg cramps Non-smoker History of echocardiogram History of stress test Hypertension Cardiology follow-up encounter Thoracic aortic aneurysm (TAA) Back pain Nonobstructive atherosclerosis of coronary artery Segmental and somatic dysfunction of pelvic region Segmental and somatic dysfunction of lumbar region Home Medications ???Medication ???Instructions ???Recorded ???Last Taken ???Type l (more content not included)... Normal [facility] CBC W/Diff, Automatedon 10-0 Absolute Lymph 1.82 X10 3/uL Normal 0.83-4.51 [facility] Comment on above: Order Comment: Order Date: 12/01/24 Order Info: 4548-4 - A1C Performed By: #### L [id number] #### [facility] [address] [place], [place], [id number] Absolute Neut 2.1 X10 3/uL Normal 2.0-7.7 [facility] Comment on above: Order Comment: Order Date: 12/01/24 Order Info: 4548-4 - A1C Performed By: #### L [id number] #### [facility] [address] [place], [place], [id number] ([phone] Basophils/100 WBC (Bld) 0.7 % Normal 0-1 [facility] Comment on above: Order Comment: Order Date: 12/01/24 Order Info: 4548-4 - A1C Performed By: #### L [id number] #### [facility] [address] [place], [address] Eosinophils/100 WBC (Bld) 3.0 % Normal 0-5 [facility] Comment on above: Order Comment: Order Date: 12/01/24 Order Info: 4548-4 - A1C Performed By: #### L [id number] #### [facility] [address] [place], [address] Erythrocyte distribution width (RBC) [Ratio] 12.3 % Normal 11.6-14.6 [facility] Comment on above: Order Comment: Order Date: 12/01/24 Order Info: 4548-4 - A1C Performed By: #### L [id number] #### [facility] [address] [place], [address] Hematocrit (Bld) [Volume fraction] 43.4 % Normal 40-54 [facility] Comment on above: Order Comment: Order Date: 12/01/24 Order Info: 4548-4 - A1C Performed By: #### L [id number] #### [facility] [address] [place], [address] Hemoglobin (Bld) [Mass/Vol] 15.1 g/dL Normal 13.0-16.5 [facility] Comment on above: Order Comment: Order Date: 12/01/24 Order Info: 4548-4 - A1C Performed By: #### L [id number] #### [facility] [address] [place], [address] IG% 0.500 Normal 0.0-0.9 [facility] Comment on above: Order Comment: Order Date: 12/01/24 Order Info: 4548-4 - A1C Result Comment: IG% - Immature Granulocytes (promyelocytes, myelocytes and metamyelocytes) > 1% indicates that a LEFT SHIFT is Present. Performed By: #### L [id number] #### [facility] [address] [place], [address] Lymphocytes/100 WBC (Bld) 41.5 % High 19-41 [facility] Comment on above: Order Comment: Order Date: 12/01/24 Order Info: 4548-4 - A1C Performed By: #### L [id number] #### [facility] [address] [place], [address] MCH (RBC) [Entitic mass] 30.9 pg Normal 27.0-32.0 [facility] Comment on above: Order Comment: Order Date: 12/01/24 Order Info: 4548-4 - A1C Performed By: #### L [id number] #### [facility] [address] [place], [address] MCHC (RBC) [Mass/Vol] 34.8 g/dL Normal 32-36 [facility] Comment on above: Order Comment: Order Date: 12/01/24 Order Info: 4548-4 - A1C Performed By: #### L [id number] #### [facility] [address] [place], [address] MCV (RBC) [Entitic vol] 88.9 fL Normal 80-94 [facility] Comment on above: Order Comment: Order Date: 12/01/24 Order Info: 4548-4 - A1C Performed By: #### L [id number] #### [facility] [address] [place], [address] Monocytes/100 WBC (Bld) 6.8 % Normal 0-10 [facility] Comment on above: Order Comment: Order Date: 12/01/24 Order Info: 4548-4 - A1C Performed By: #### L [id number] #### [facility] [address] [place], [address] Neutrophils/100 WBC (Bld) 47.5 % Normal 47-70 [facility] Comment on above: Order Comment: Order Date: 12/01/24 Order Info: 4548-4 - A1C Performed By: #### L [id number] #### [facility] [address] [place], [address] Nucleated RBC (Bld) [#/Vol] 0 10*3/uL Normal 0-5 [facility] Comment on above: Order Comment: Order Date: 12/01/24 Order Info: 4548-4 - A1C Performed By: #### L [id number] #### [facility] [address] [place], [address] Platelet mean volume (Bld) [Entitic vol] 10.2 fL Normal 6.2-12.0 [facility] Comment on above: Order Comment: Order Date: 12/01/24 Order Info: 4548-4 - A1C Performed By: #### L [id number] #### [facility] [address] [place], [address] Platelets (Bld) [#/Vol] 211 10*3/uL Normal 150-450 [facility] Comment on above: Order Comment: Order Date: 12/01/24 Order Info: 4548-4 - A1C Performed By: #### L [id number] #### [facility] [address] [place], [address] RBC (Bld) [#/Vol] 4.88 10*6/uL Normal 4.6-6.2 [facility] Comment on above: Order Comment: Order Date: 12/01/24 Order Info: 4548-4 - A1C Performed By: #### L [id number] #### [facility] [address] [place], [address] RDW SD 40.0 fl Normal 35.1-43.9 [facility] Comment on above: Order Comment: Order Date: 12/01/24 Order Info: 4548-4 - A1C Performed By: #### L [id number] #### [facility] [address] [place], [address] WBC (Bld) [#/Vol] 4.4 10*3/uL Normal 4.4-11.0 [facility] Comment on above: Order Comment: Order Date: 12/01/24 Order Info: 4548-4 - A1C Performed By: #### L [id number] #### [facility] [address] [place], [address] Comprehensive Metabolic Prof ilon 08-22-2025 Albumin [Mass/Vol] 4.4 g/dL Normal 3.4-4.8 [facility] Comment on above: Order Comment: Order Date: 12/01/24 Order Info: 4548-4 - A1C Performed By: #### L [id number] #### [facility] [address] [place], [address] Albumin/Globulin [Mass ratio] 1.6 {ratio} Normal 0.9-2.4 [facility] Comment on above: Order Comment: Order Date: 12/01/24 Order Info: 4548-4 - A1C Performed By: #### L [id number] #### [facility] [address] [place], [address] ALK PHOS 84 U/L Normal 40-129 [facility] Comment on above: Order Comment: Order Date: 12/01/24 Order Info: 4548-4 - A1C Performed By: #### L [id number] #### [facility] [address] [place], [address] ALT [Catalytic activity/Vol] 24 U/L Normal <=46 [facility] Comment on above: Order Comment: Order Date: 12/01/24 Order Info: 4548-4 - A1C Performed By: #### L [id number] #### [facility] [address] [place], [address] AST [Catalytic activity/Vol] 26 U/L Normal <=37 [facility] Comment on above: Order Comment: Order Date: 12/01/24 Order Info: 4548-4 - A1C Performed By: #### L [id number] #### [facility] [address] [place], [address] Bilirubin [Mass/Vol] 0.73 mg/dL Normal 0.00-1.30 [facility] Comment on above: Order Comment: Order Date: 12/01/24 Order Info: 4548-4 - A1C Performed By: #### L [id number] #### [facility] [address] [place], [address] BUN/CRE 15.7 RATIO Normal 10-20 [facility] Comment on above: Order Comment: Order Date: 12/01/24 Order Info: 4548-4 - A1C Performed By: #### L [id number] #### [facility] [address] [place], [address] Calcium [Mass/Vol] 9.5 mg/dL Normal 7.6-11.0 [facility] Comment on above: Order Comment: Order Date: 12/01/24 Order Info: 4548-4 - A1C Performed By: #### L [id number] #### [facility] [address] [place], [address] Chloride [Moles/Vol] 103 mmol/L Normal 98-108 [facility] Comment on above: Order Comment: Order Date: 12/01/24 Order Info: 4548-4 - A1C Performed By: #### L [id number] #### [facility] [address] [place], [address] CO2 [Moles/Vol] 22.6 mmol/L Normal 21.0-32.0 [facility] Comment on above: Order Comment: Order Date: 12/01/24 Order Info: 4548-4 - A1C Performed By: #### L [id number] #### [facility] [address] [place], [address] Creatinine [Mass/Vol] 0.89 mg/dL Normal 0.70-1.20 [facility] Comment on above: Order Comment: Order Date: 12/01/24 Order Info: 4548-4 - A1C Performed By: #### L [id number] #### [facility] [address] [place], [address] GAP 11 Normal 5-15 [facility] Comment on above: Order Comment: Order Date: 12/01/24 Order Info: 4548-4 - A1C Performed By: #### L [id number] #### [facility] [address] [place], [address] GFR/1.73 sq M.predicted among non-blacks MDRD (S/P/Bld) [Vol rate/Area] 93 mL/min/{1.73_m2} Normal >60 [facility] Comment on above: Order Comment: Order Date: 12/01/24 Order Info: 4548-4 - A1C Result Comment: mL/m in/1.73m2 CKD-EPI Creatinine Equation (2020) Performed By: #### L [id number] #### [facility] [address] [place], [address] Globulin (S) [Mass/Vol] 2.8 g/dL Normal 2.2-4.2 [facility] Comment on above: Order Comment: Order Date: 12/01/24 Order Info: 4548-4 - A1C Performed By: #### L [id number] #### [facility] [address] [place], [address] Glucose [Mass/Vol] 147 mg/dL High 70-99 [facility] Comment on above: Order Comment: Order Date: 12/01/24 Order Info: 4548-4 - A1C Performed By: #### L [id number] #### [facility] [address] [place], [address] Potassium [Moles/Vol] 4.1 mmol/L Normal 3.3-5.1 [facility] Comment on above: Order Comment: Order Date: 12/01/24 Order Info: 4548-4 - A1C Performed By: #### L [id number] #### [facility] [address] [place], [address] Sodium [Moles/Vol] 137 mmol/L Normal 133-145 [facility] Comment on above: Order Comment: Order Date: 12/01/24 Order Info: 4548-4 - A1C Performed By: #### L [id number] #### [facility] [address] [place], [address] T PROT 7.2 g/dL Normal 5.9-8.4 [facility] Comment on above: Order Comment: Order Date: 12/01/24 Order Info: 4548-4 - A1C Performed By: #### L [id number] #### [facility] [address] [place], [address] Urea nitrogen [Mass/Vol] 14 mg/dL Normal 4-19 [facility] Comment on above: Order Comment: Order Date: 12/01/24 Order Info: 4548-4 - A1C Performed By: #### L [id number] #### [facility] [address] [place], [address] Hemoglobin A1con 08-22-2025 HbA1c (Bld) [Mass fraction] 6.6 % High <=5.6 [facility] Comment on above: Order Comment: Order Date: 12/01/24 Order Info: 4548-4 - A1C Result Comment: Norm al < 5.7 % Prediabetic 5.7 - 6.4 % Diabetic >or= 6.5 % Please note range changes. Performed By: #### L [id number] #### [facility] [address] [place], [place], [id number] Lipid Profileon 08-22-2025 CHOL:HDL 2.86 Normal [facility] Comment on above: Order Comment: Order Date: 12/01/24 Order Info: 4548-4 - A1C Performed By: #### L [id number] #### [facility] [address] [place], [place], [phone] Cholesterol [Mass/Vol] 163 mg/dL Normal <=200 [facility] Comment on above: Order Comment: Order Date: 12/01/24 Order Info: 4548-4 - A1C Result Comment: Chol esterol level, Desirable <200 mg/dL Borderline high cholesterol 200-239 mg/dL High cholesterol >=240 mg/dL Recommendations of the NCEP Adult Treatment Panel for the following risk-cutoff thresholds for the [place] population. Performed By: #### L [id number] #### [facility] [address] [place], [place], [phone] Cholesterol in HDL [Mass/Vol] 57 mg/dL Normal [facility] Comment on above: Order Comment: Order Date: 12/01/24 Order Info: 4548-4 - A1C Result Comment: Miri onal Cholesterol Education Program (NCEP) guidelines: <40 mg/dL: Low HDL-cholesterol (major risk factor for CHD) >= 60 mg/dL: High HDL-cholesterol (negative risk factor for CHD) HDL-cholesterol is affected by a number of factors, e.g. smoking, exercise, hormones, sex and age. Performed By: #### L [id number] #### [facility] [address] [place], [address] Cholesterol in LDL [Mass/Vol] 86 mg/dL Normal [facility] Comment on above: Order Comment: Order Date: 12/01/24 Order Info: 4548-4 - A1C Result Comment: Bord kpmfjs=220-037 mg/dL Higher Cwmh=138 mg/dL or greater Friedwald Equation for LDL-C Performed By: #### L [id number] #### [facility] [address] [place], [place], [address] Cholesterol in VLDL [Mass/Vol] 20 mg/dL Normal 5-40 [facility] Comment on above: Order Comment: Order Date: 12/01/24 Order Info: 4548-4 - A1C Performed By: #### L [id number] #### [facility] [address] [place], [place], [id number] Triglyceride [Mass/Vol] 102 mg/dL Normal [facility] Comment on above: Order Comment: Order Date: 12/01/24 Order Info: 4548-4 - A1C Result Comment: The drugs N-Acetylcysteine and Metamizole may falsely depress this assay. Normal range: <150 mg/dL Borderline High: 150-199 mg/dL High: 200-499 mg/dL Very High: >500 mg/dL Performed By: #### L [id number] #### [facility] [address] [place], [place], [address] Absolute lymphocyte countOrd ered By: Bean Currie on 05-22-2025 Lymphocytes Auto (Unsp spec) [#/Vol] 1.51 10*3/uL 0.83-4.51 [facility] Absolute neutrophil countOrd ered By: Bean Currie on 05-22-2025 Neutrophils (Bld) [#/Vol] 2.5 10*3/uL 2.0-7.7 [facility] Anion gap in Serum or Plasma Ordered By: Bean Currie on 05-22-2025 Anion gap [Moles/Vol] 12 mmol/L 5-15 [facility] Automated lymphocyte count a s percentage of total leukocytesOrdered By: Bean Currie on 05-22-2025 Lymphocytes/100 WBC Auto (Unsp spec) 34.4 % - [facility] BUN/creatinine ratioOrdered By: Bean Currie on 05-22-2025 Urea nitrogen/Creatinine [Mass ratio] 18.2 mg/mg 10-20 [facility] Basophil percentageOrdered B y: Bean Currie on 05-22-2025 Basophils/100 WBC (Bld) 0.7 % 0-1 [facility] Bilirubin directOrdered By: Trevon Quinones on 05-22-2025 Bilirubin.direct [Mass/Vol] 0.19 mg/dL 0.00-0.30 [facility] Bilirubin, totalOrdered By: Trevonjw Quinones on 05-22-2025 Bilirubin [Mass/Vol] 0.47 mg/dL 0.00-1.30 [facility] CBC W/Diff, Automatedon Absolute Lymph 1.51 X10 3/uL Normal 0.83-4.51 [facility] Comment on above: Order Comment: Order Date: 12/01/24 Order Info: 4548-4 - A1C Performed By: #### L [id number] #### [facility] [address] [place], [address] Absolute Neut 2.5 X10 3/uL Normal 2.0-7.7 [facility] Comment on above: Order Comment: Order Date: 12/01/24 Order Info: 4548-4 - A1C Performed By: #### L [id number] #### [facility] [address] [place], [address] Basophils/100 WBC (Bld) 0.7 % Normal 0-1 [facility] Comment on above: Order Comment: Order Date: 12/01/24 Order Info: 4548-4 - A1C Performed By: #### L [id number] #### [facility] [address] [place], [address] Eosinophils/100 WBC (Bld) 2.5 % Normal 0-5 [facility] Comment on above: Order Comment: Order Date: 12/01/24 Order Info: 4548-4 - A1C Performed By: #### L [id number] #### [facility] [address] [place], [address] Erythrocyte distribution width (RBC) [Ratio] 12.1 % Normal 11.6-14.6 [facility] Comment on above: Order Comment: Order Date: 12/01/24 Order Info: 4548-4 - A1C Performed By: #### L [id number] #### [facility] [address] [place], [address] Hematocrit (Bld) [Volume fraction] 40.6 % Normal 40-54 [facility] Comment on above: Order Comment: Order Date: 12/01/24 Order Info: 4548-4 - A1C Performed By: #### L [id number] #### [facility] [address] [place], [address] Hemoglobin (Bld) [Mass/Vol] 14.2 g/dL Normal 13.0-16.5 [facility] Comment on above: Order Comment: Order Date: 12/01/24 Order Info: 4548-4 - A1C Performed By: #### L [id number] #### [facility] [address] [place], [address] IG% 0.500 Normal 0.0-0.9 [facility] Comment on above: Order Comment: Order Date: 12/01/24 Order Info: 4548-4 - A1C Result Comment: IG% - Immature Granulocytes (promyelocytes, myelocytes and metamyelocytes) > 1% indicates that a LEFT SHIFT is Present. Performed By: #### L [id number] #### [facility] [address] [place], [address] Lymphocytes/100 WBC (Bld) 34.4 % Normal 19-41 [facility] Comment on above: Order Comment: Order Date: 12/01/24 Order Info: 4548-4 - A1C Performed By: #### L [id number] #### [facility] [address] [place], [address] MCH (RBC) [Entitic mass] 30.9 pg Normal 27.0-32.0 [facility] Comment on above: Order Comment: Order Date: 12/01/24 Order Info: 4548-4 - A1C Performed By: #### L [id number] #### [facility] [address] [place], [address] MCHC (RBC) [Mass/Vol] 35.0 g/dL Normal 32-36 [facility] Comment on above: Order Comment: Order Date: 12/01/24 Order Info: 4548-4 - A1C Performed By: #### L [id number] #### [facility] [address] [place], [address] MCV (RBC) [Entitic vol] 88.3 fL Normal 80-94 [facility] Comment on above: Order Comment: Order Date: 12/01/24 Order Info: 4548-4 - A1C Performed By: #### L [id number] #### [facility] [address] [place], [address] Monocytes/100 WBC (Bld) 6.2 % Normal 0-10 [facility] Comment on above: Order Comment: Order Date: 12/01/24 Order Info: 4548-4 - A1C Performed By: #### L [id number] #### [facility] [address] [place], [address] Neutrophils/100 WBC (Bld) 55.7 % Normal 47-70 [facility] Comment on above: Order Comment: Order Date: 12/01/24 Order Info: 4548-4 - A1C Performed By: #### L [id number] #### [facility] [address] [place], [address] Nucleated RBC (Bld) [#/Vol] 0 10*3/uL Normal 0-5 [facility] Comment on above: Order Comment: Order Date: 12/01/24 Order Info: 4548-4 - A1C Performed By: #### L [id number] #### [facility] [address] [place], [address] Platelet mean volume (Bld) [Entitic vol] 10.4 fL Normal 6.2-12.0 [facility] Comment on above: Order Comment: Order Date: 12/01/24 Order Info: 4548-4 - A1C Performed By: #### L [id number] #### [facility] [address] [place], [address] Platelets (Bld) [#/Vol] 205 10*3/uL Normal 150-450 [facility] Comment on above: Order Comment: Order Date: 12/01/24 Order Info: 4548-4 - A1C Performed By: #### L [id number] #### [facility] [address] [place], [address] RBC (Bld) [#/Vol] 4.60 10*6/uL Normal 4.6-6.2 [facility] Comment on above: Order Comment: Order Date: 12/01/24 Order Info: 4548-4 - A1C Performed By: #### L [id number] #### [facility] [address] [place], [address] RDW SD 39.1 fl Normal 35.1-43.9 [facility] Comment on above: Order Comment: Order Date: 12/01/24 Order Info: 4548-4 - A1C Performed By: #### L [id number] #### [facility] [address] [place], [address] WBC (Bld) [#/Vol] 4.4 10*3/uL Normal 4.4-11.0 [facility] Comment on above: Order Comment: Order Date: 12/01/24 Order Info: 4548-4 - A1C Performed By: #### L [id number] #### [facility] [address] [place], [address] Calculated very low density lipoprotein (VLDL) cholesterol measurementOrdered By: Trevon Quinones on 05-22-2025 Calculated very low density lipoprotein (VLDL) cholesterol measurement 18 mg/dL 5-40 [facility] Carbon dioxide, total [Moles /volume] in Central venous bloodOrdered By: Bean Currie on 05-22-2025 CO2 [Moles/Vol] 22.3 mmol/L 21.0-32.0 [facility] Chloride assayOrdered By: Barbie Currie on 05-22-2025 Chloride [Moles/Vol] 104 mmol/L 98-108 [facility] Comprehensive Metabolic Prof ilon 05-22-2025 Albumin [Mass/Vol] 4.3 g/dL Normal 3.4-4.8 [facility] Comment on above: Order Comment: Order Date: 05/22/25Order Info: 0786-1 - CMP Performed By: #### L 500.4100, L500.2500, L500.3400 #### [facility] [address] [place], [address] Albumin/Globulin [Mass ratio] 1.6 {ratio} Normal 0.9-2.4 [facility] Comment on above: Order Comment: Order Date: 05/22/25Order Info: 0786-1 - CMP Performed By: #### L 500.4100, L500.2500, L500.3400 #### [facility] [address] [place], [address] ALK PHOS 92 U/L Normal 40-129 [facility] Comment on above: Order Comment: Order Date: 05/22/25Order Info: 0786-1 - CMP Performed By: #### L 500.4100, L500.2500, L500.3400 #### [facility] [address] [place], [address] ALT [Catalytic activity/Vol] 24 U/L Normal <=46 [facility] Comment on above: Order Comment: Order Date: 05/22/25Order Info: 0786-1 - CMP Performed By: #### L 500.4100, L500.2500, L500.3400 #### [facility] [address] [place], [address] AST [Catalytic activity/Vol] 28 U/L Normal <=37 [facility] Comment on above: Order Comment: Order Date: 05/22/25Order Info: 0786-1 - CMP Performed By: #### L 500.4100, L500.2500, L500.3400 #### [facility] [address] [place], [address] Bilirubin [Mass/Vol] 0.46 mg/dL Normal 0.00-1.30 [facility] Comment on above: Order Comment: Order Date: 05/22/25Order Info: 0786-1 - CMP Performed By: #### L 500.4100, L500.2500, L500.3400 #### [facility] [address] [place], [address] BUN/CRE 18.2 RATIO Normal 10-20 [facility] Comment on above: Order Comment: Order Date: 05/22/25Order Info: 0786-1 - CMP Performed By: #### L 500.4100, L500.2500, L500.3400 #### [facility] [address] [place], [address] Calcium [Mass/Vol] 9.6 mg/dL Normal 7.6-11.0 [facility] Comment on above: Order Comment: Order Date: 05/22/25Order Info: 0786-1 - CMP Performed By: #### L 500.4100, L500.2500, L500.3400 #### [facility] [address] [place], [address] Chloride [Moles/Vol] 104 mmol/L Normal 98-108 [facility] Comment on above: Order Comment: Order Date: 05/22/25Order Info: 0786-1 - CMP Performed By: #### L 500.4100, L500.2500, L500.3400 #### [facility] [address] [place], [address] CO2 [Moles/Vol] 22.3 mmol/L Normal 21.0-32.0 [facility] Comment on above: Order Comment: Order Date: 05/22/25Order Info: 0786-1 - CMP Performed By: #### L 500.4100, L500.2500, L500.3400 #### [facility] [address] [place], [address] Creatinine [Mass/Vol] 0.78 mg/dL Normal 0.70-1.20 [facility] Comment on above: Order Comment: Order Date: 05/22/25Order Info: 0786-1 - CMP Performed By: #### L 500.4100, L500.2500, L500.3400 #### [facility] [address] [place], [address] GAP 12 Normal 5-15 [facility] Comment on above: Order Comment: Order Date: 05/22/25Order Info: 0786-1 - CMP Performed By: #### L 500.4100, L500.2500, L500.3400 #### [facility] [address] [place], [address] GFR/1.73 sq M.predicted among non-blacks MDRD (S/P/Bld) [Vol rate/Area] 96 mL/min/{1.73_m2} Normal >60 [facility] Comment on above: Order Comment: Order Date: 05/22/25Order Info: 0786-1 - CMP Result Comment: mL/m in/1.73m2 CKD-EPI Creatinine Equation (2020) Performed By: #### L 500.4100, L500.2500, L500.3400 #### [facility] [address] [place], [address] Globulin (S) [Mass/Vol] 2.6 g/dL Normal 2.2-4.2 [facility] Comment on above: Order Comment: Order Date: 05/22/25Order Info: 0786-1 - CMP Performed By: #### L 500.4100, L500.2500, L500.3400 #### [facility] [address] [place], [address] Glucose [Mass/Vol] 128 mg/dL High 70-99 [facility] Comment on above: Order Comment: Order Date: 05/22/25Order Info: 0786-1 - CMP Performed By: #### L 500.4100, L500.2500, L500.3400 #### [facility] [address] [place], [address] Potassium [Moles/Vol] 4.0 mmol/L Normal 3.3-5.1 [facility] Comment on above: Order Comment: Order Date: 05/22/25Order Info: 0786-1 - CMP Performed By: #### L 500.4100, L500.2500, L500.3400 #### [facility] [address] [place], [address] Sodium [Moles/Vol] 138 mmol/L Normal 133-145 [facility] Comment on above: Order Comment: Order Date: 05/22/25Order Info: 0786-1 - CMP Performed By: #### L 500.4100, L500.2500, L500.3400 #### [facility] [address] [place], [address] T PROT 6.9 g/dL Normal 5.9-8.4 [facility] Comment on above: Order Comment: Order Date: 05/22/25Order Info: 0786-1 - CMP Performed By: #### L 500.4100, L500.2500, L500.3400 #### [facility] [address] [place], [address] Urea nitrogen [Mass/Vol] 14 mg/dL Normal 4-19 [facility] Comment on above: Order Comment: Order Date: 05/22/25Order Info: 0786-1 - CMP Performed By: #### L 500.4100, L500.2500, L500.3400 #### [facility] [address] [place], [address] Eosinophil percentageOrdered By: Bean Currie on 05-22-2025 Eosinophils/100 WBC (Bld) 2.5 % 0-5 [facility] Erythrocyte distribution wid th ratioOrdered By: Bean Currie on 05-22-2025 Erythrocyte distribution width (RBC) [Ratio] 12.1 % 11.6-14.6 [facility] Erythrocyte distribution wid th standard deviationOrdered By: Bean Currie on 05-22-2025 Erythrocyte distribution width (RBC) [Ratio] 39.1 fl 35.1-43.9 [facility] Glomerular filtration rate ( GFR) estimation/1.73 sq m using serum, plasma, or whole bOrdered By: Bean Currie on 05-22-2025 GFR/1.73 sq M.predicted among non-blacks MDRD (S/P/Bld) [Vol rate/Area] 96 mL/min/{1.73_m2} >60 [facility] Comment on above: mL/min/1.73m2 CKD-EP I Creatinine Equation (2020) Hematocrit Auto (Bld) [Volum e fraction]Ordered By: Bean Currie on 05-22-2025 Hematocrit (Bld) [Volume fraction] 40.6 % 40-54 [facility] Hemoglobin A1con 05-22-2025 HbA1c (Bld) [Mass fraction] 6.9 % High <=5.6 [facility] Comment on above: Order Comment: Order Date: 05/22/25Order Info: 4548-4 - A1C Result Comment: Norm al < 5.7 % Prediabetic 5.7 - 6.4 % Diabetic >or= 6.5 % Please note range changes. Performed By: #### L 500.4100, L500.2500, L500.3400 #### [facility] [address] [place], [address] Hemoglobin A1c percentageOrd ered By: Bean Currie on 05-22-2025 HbA1c (Bld) [Mass fraction] 6.9 % High <5.7 [facility] Comment on above: Normal < 5.7 % Predi abetic 5.7 - 6.4 % Diabetic >or= 6.5 % Please note range changes. Hemoglobin measurementOrdere d By: Bean Currie on 05-22-2025 Hemoglobin (Bld) [Mass/Vol] 14.2 g/dL 13.0-16.5 [facility] Immature granulocytes/100 WB C Auto (Bld)Ordered By: Bean Currie on 05-22-2025 Immature granulocytes/100 WBC (Bld) 0.500 % 0.0-0.9 [facility] Comment on above: IG% - Immature Granu locytes (promyelocytes, myelocytes and metamyelocytes) > 1% indicates that a LEFT SHIFT is Present. LDL calc ser/plasOrdered By: Trevon Quinones on 05-22-2025 Cholesterol in LDL [Mass/Vol] 89 mg/dL [facility] Comment on above: Tcuhrxlcax=781-602 m g/dL & Higher Zfvy=298 mg/dL or greater Laboratory - Chemistry and C hemistry - challengeOrdered By: Trevon Quinones on 05-22-2025 AST [Catalytic activity/Vol] 26 U/L <38 [facility] Lipid Profileon 05-22-2025 CHOL:HDL 3.01 Normal [facility] Comment on above: Order Comment: NELSON Mccoy SEND LIPID TO DR. UCRRIE Performed By: #### L 500.4100, L500.3400 #### [facility] [address] [place] [id number] Cholesterol [Mass/Vol] 161 mg/dL Normal <=200 [facility] Comment on above: Order Comment: NELSON Mccoy SEND LIPID TO DR. CURRIE Result Comment: Chol esterol level, Desirable <200 mg/dL Borderline high cholesterol 200-239 mg/dL High cholesterol >=240 mg/dL Recommendations of the NCEP Adult Treatment Panel for the following risk-cutoff thresholds for the [place] population. Performed By: #### L 500.4100, L500.3400 #### [facility] [address] [place], [place], [id number] Cholesterol in HDL [Mass/Vol] 54 mg/dL Normal [facility] Comment on above: Order Comment: NELSON Mccoy SEND LIPID TO DR. CURRIE Result Comment: Miri onal Cholesterol Education Program (NCEP) guidelines: <40 mg/dL: Low HDL-cholesterol (major risk factor for CHD) >= 60 mg/dL: High HDL-cholesterol (negative risk factor for CHD) HDL-cholesterol is affected by a number of factors, e.g. smoking, exercise, hormones, sex and age. Performed By: #### L 500.4100, L500.3400 #### [facility] [address] [place], [address] Cholesterol in LDL [Mass/Vol] 89 mg/dL Normal [facility] Comment on above: Order Comment: NELSON Mccoy SEND LIPID TO DR. CURRIE Result Comment: Bord jvsawi=751-022 mg/dL Higher Iviy=577 mg/dL or greater Performed By: #### L 500.4100, L500.3400 #### [facility] [address] [place], [address] Cholesterol in VLDL [Mass/Vol] 18 mg/dL Normal 5-40 [facility] Comment on above: Order Comment: NELSON Mccoy SEND LIPID TO DR. CURRIE Performed By: #### L 500.4100, L500.3400 #### [facility] [address] [place], [place], [address] Triglyceride [Mass/Vol] 90 mg/dL Normal [facility] Comment on above: Order Comment: NELSON Mccoy SEND LIPID TO DR. CURRIE Result Comment: The drugs N-Acetylcysteine and Metamizole may falsely depress this assay. Normal range: <150 mg/dL Borderline High: 150-199 mg/dL High: 200-499 mg/dL Very High: >500 mg/dL Performed By: #### L 500.4100, L500.3400 #### [facility] [address] [place], [address] Liver Profileon 05-22-2025 Albumin [Mass/Vol] 4.2 g/dL Normal 3.4-4.8 [facility] Comment on above: Order Comment: NELSON Mccoy SEND LIPID TO DR. CURRIE Performed By: #### L 500.4100, L500.3400 #### [facility] [address] [place], [address] ALK PHOS 90 U/L Normal 40-129 [facility] Comment on above: Order Comment: PLEAS E SEND LIPID TO DR. CURRIE Performed By: #### L 500.4100, L500.3400 #### [facility] [address] [place], [address] ALT [Catalytic activity/Vol] 26 U/L Normal <=46 [facility] Comment on above: Order Comment: PLEAS E SEND LIPID TO DR. CURRIE Performed By: #### L 500.4100, L500.3400 #### [facility] [address] [place], [address] AST [Catalytic activity/Vol] 26 U/L Normal <=37 [facility] Comment on above: Order Comment: PLEAS E SEND LIPID TO DR. CURRIE Performed By: #### L 500.4100, L500.3400 #### [facility] [address] [place], [address] Bilirubin [Mass/Vol] 0.47 mg/dL Normal 0.00-1.30 [facility] Comment on above: Order Comment: PLEAS E SEND LIPID TO DR. CURRIE Performed By: #### L 500.4100, L500.3400 #### [facility] [address] [place], [address] Bilirubin.direct [Mass/Vol] 0.19 mg/dL Normal 0.00-0.30 [facility] Comment on above: Order Comment: PLEAS E SEND LIPID TO DR. CURRIE Performed By: #### L 500.4100, L500.3400 #### [facility] [address] [place], [address] Globulin (S) [Mass/Vol] 2.7 g/dL Normal 2.2-4.2 [facility] Comment on above: Order Comment: NELSON Mccoy SEND LIPID TO DR. CURRIE Performed By: #### L 500.4100, L500.3400 #### [facility] [address] [place], [place], [id number] T PROT 6.9 g/dL Normal 5.9-8.4 [facility] Comment on above: Order Comment: NELSON Mccoy SEND LIPID TO DR. CURRIE Performed By: #### L 500.4100, L500.3400 #### [facility] [address] [place], [address] MCV (mean corpuscular volume ) determinationOrdered By: Bean Currie on 05-22-2025 MCV (RBC) [Entitic vol] 88.3 fL 80-94 [facility] Mean corpuscular hemoglobin (MCH) determinationOrdered By: Bean Currie on 05-22-2025 MCH (RBC) [Entitic mass] 30.9 pg 27.0-32.0 [facility] Mean corpuscular hemoglobin concentration (MCHC) determinationOrdered By: Bean Currie on 05-22-2025 MCHC (RBC) [Mass/Vol] 35.0 g/dL 32-36 [facility] Mean platelet volume determi nationOrdered By: Bean Currie on 05-22-2025 Platelet mean volume (Bld) [Entitic vol] 10.4 fL 6.2-12.0 [facility] Microalb:Creat Ratio,Random URon 05-22-2025 Creatinine [Mass/Vol] 73.20 mg/dL Normal 39.00-259.00 [facility] Comment on above: Order Comment: Order Date: 05/22/25 Order Info: 91589-5 - MIALB Performed By: #### L 502.0250 #### [facility] [address] [place], [place], [address] MALB:CREAT UNABLE TO CALCULATE Normal [facility] Comment on above: Order Comment: Order Date: 05/22/25 Order Info: 13739-6 - MIALB Performed By: #### L 502.0250 #### [facility] [address] [place], [place], [id number] MICROALBUMIN,UR < 12.0 Normal NO RANGE EST. [facility] Comment on above: Order Comment: Order Date: 05/22/25 Order Info: [id number] - MIALB Performed By: #### L 502.0250 #### [facility] [address] [place], [place], [address] Microalbumin/creat ratio urO rdered By: Bean Currie on 05-22-2025 Urine microalbumin/creatinine ratio measurement UNABLE TO CALCULATE mg/g CRE [facility] Monocyte percentageOrdered B y: Bean Currie on 05-22-2025 Monocytes/100 WBC (Bld) 6.2 % 0-10 [facility] Neutrophil percentageOrdered By: Bean Currie on 05-22-2025 Neutrophils/100 WBC (Bld) 55.7 % 47-70 [facility] Nucleated red blood cell per centageOrdered By: Bean Currie on 05-22-2025 Nucleated RBC/100 WBC (Bld) [Ratio] 0 % 0-5 [facility] Platelet countOrdered By: Barbie Currie on 05-22-2025 Platelets (Bld) [#/Vol] 205 10*3/uL 150-450 [facility] Potassium measurement (mass/ volume)Ordered By: Bean Currie on 05-22-2025 Potassium (Unsp spec) [Mass/Vol] 4.0 mmol/L 3.3-5.1 [facility] RBC Auto (Bld) [#/Vol]Ordere d By: Bean Currie on 05-22-2025 RBC (Bld) [#/Vol] 4.60 10*6/uL 4.6-6.2 [facility] Random urine creatinine opal urement (mass/volume)Ordered By: Bean Currie on 05-22-2025 Creatinine Unsp time (U) [Mass/Vol] 73.20 mg/dL 39.00-259.00 [facility] Screening total cholesterol/ high density lipoprotein (HDL) cholesterol ratioOrdered By: Trevon Quinones on 05-22-2025 Cholesterol.total/[place] sterol in HDL [Mass ratio] 3.01 {ratio} [facility] Serum creatinine measurement (mass/volume)Ordered By: Bean Currie on 05-22-2025 Creatinine [Mass/Vol] 0.78 mg/dL 0.70-1.20 [facility] Serum globulin measurementOr dered By: Trevon Quinones on 05-22-2025 Globulin (S) [Mass/Vol] 2.7 g/dL 2.2-4.2 [facility] Serum glucose measurement (m ass/volume)Ordered By: Bean Currie on 05-22-2025 Glucose [Mass/Vol] 128 mg/dL High 70-99 [facility] Serum or plasma alanine neumann otransferase (ALT) measurementOrdered By: Trevon Quinones on 05-22-2025 ALT [Catalytic activity/Vol] 26 U/L <47 [facility] Serum or plasma albumin opal urement (mass/volume)Ordered By: Trevon Quinones on 05-22-2025 Albumin [Mass/Vol] 4.2 g/dL 3.4-4.8 [facility] Serum or plasma albumin/glob ulin mass ratioOrdered By: Bean Currie on 05-22-2025 Albumin/Globulin [Mass ratio] 1.6 {ratio} 0.9-2.4 [facility] Serum or plasma alkaline brad sphatase measurementOrdered By: Trevon Quinones on 05-22-2025 ALP [Catalytic activity/Vol] 90 U/L 40-129 [facility] Serum or plasma calcium opal urement (mass/volume)Ordered By: Bean Currie on 05-22-2025 Calcium [Mass/Vol] 9.6 mg/dL 7.6-11.0 [facility] Serum or plasma cholesterol in HDL measurement (mass/volume)Ordered By: Trevon Quinones on 05-22-2025 Cholesterol in HDL [Mass/Vol] 54 mg/dL >40 [facility] Comment on above: National Cholesterol Education Program (NCEP) guidelines:<40 mg/dL: Low HDL-cholesterol (major risk factor for CHD)>= 60 mg/dL: High HDL-cholesterol (negative risk factor for CHD)HDL-cholesterol is affected by a number of factors, e.g. smoking, exercise, hormones, sex and age. Serum or plasma cholesterol measurement (mass/volume)Ordered By: Trevon Quinones on 05-22-2025 Cholesterol [Mass/Vol] 161 mg/dL <201 [facility] Comment on above: Cholesterol level, D esirable <200 mg/dLBorderline high cholesterol 200-239 mg/dLHigh cholesterol >=240 mg/dLRecommendations of the NCEP Adult Treatment Panel for the following risk-cutoff thresholds for the [place] population. Serum or plasma urea nitroge n measurement (mass/volume)Ordered By: Bean Currie on 05-22-2025 Urea nitrogen [Mass/Vol] 14 mg/dL 4-19 [facility] Sodium levelOrdered By: Bean Currie on 05-22-2025 Sodium [Moles/Vol] 138 mmol/L 133-145 [facility] Total proteinOrdered By: Barber Quinones on 05-22-2025 Protein [Mass/Vol] 6.9 g/dL 5.9-8.4 [facility] Triglycerides measurementOrd ered By: rTevon Quinones on 05-22-2025 Triglyceride [Mass/Vol] 90 mg/dL <199 [facility] Comment on above: The drugs N-Acetylcy steine and Metamizole may falsely depress this assay. Normal range: <150 mg/dLBorderline High: 150-199 mg/dLHigh: 200-499 mg/dLVery High: >500 mg/dL Urine albumin measurement [facility] detection limit of 20 mg/L or less (mass/volume)Ordered By: Bean Currie on 05-22-2025 Albumin DL <= 20 mg/L (U) [Mass/Vol] < 12.0 mg/L NO RANGE EST. [facility] White blood cell (WBC) count Ordered By: Bean Currie on 05-22-2025 WBC (Bld) [#/Vol] 4.4 10*3/uL 4.4-11.0 [facility] Absolute lymphocyte countOrd ered By: Hali Lizarraga on 03-27-2025 Lymphocytes Auto (Unsp spec) [#/Vol] 2.19 10*3/uL 0.83-4.51 [facility] Absolute neutrophil countOrd ered By: Hali Lizarraga on 03-27-2025 Neutrophils (Bld) [#/Vol] 2.2 10*3/uL 2.0-7.7 [facility] Anion gap in Serum or Plasma Ordered By: Hali Lizarraga on 03-27-2025 Anion gap [Moles/Vol] 12 mmol/L 5- [facility] Automated lymphocyte count a s percentage of total leukocytesOrdered By: Hali Lizarraga on 03-27-2025 Lymphocytes/100 WBC Auto (Unsp spec) 43.7 % High - [facility] BUN/creatinine ratioOrdered By: Hali Lizarraga on 03-27-2025 Urea nitrogen/Creatinine [Mass ratio] 17.2 mg/mg - [facility] Basic Metabolic Profile (BMP )on 03-27-2025 BUN/CRE 17.2 RATIO Normal 09-10 [facility] Comment on above: Order Comment: Order Date: 12/01/24 Order Info: 4548-4 - A1C Performed By: #### L 501.9985 #### [facility] [address] [place], [address] Calcium [Mass/Vol] 9.0 mg/dL Normal 7.6-11.0 [facility] Comment on above: Order Comment: Order Date: 12/01/24 Order Info: 4548-4 - A1C Performed By: #### L 501.9985 #### [facility] [address] [place], [address] Chloride [Moles/Vol] 105 mmol/L Normal 98-108 [facility] Comment on above: Order Comment: Order Date: 12/01/24 Order Info: 4548-4 - A1C Performed By: #### L 501.9985 #### [facility] [address] [place], [address] CO2 [Moles/Vol] 21.5 mmol/L Normal 21.0-32.0 [facility] Comment on above: Order Comment: Order Date: 12/01/24 Order Info: 4548-4 - A1C Performed By: #### L 501.9985 #### [facility] [address] [place], [address] Creatinine [Mass/Vol] 0.92 mg/dL Normal 0.70-1.20 [facility] Comment on above: Order Comment: Order Date: 12/01/24 Order Info: 4548-4 - A1C Performed By: #### L 501.9985 #### [facility] [address] [place], [address] ECRCL 82.65 ml/min Normal 50-250 [facility] Comment on above: Order Comment: Order Date: 12/01/24 Order Info: 4548-4 - A1C Performed By: #### L 501.9985 #### [facility] [address] [place], [address] GAP 12 Normal 5-15 [facility] Comment on above: Order Comment: Order Date: 12/01/24 Order Info: 4548-4 - A1C Performed By: #### L 501.9985 #### [facility] [address] [place], [address] GFR/1.73 sq M.predicted among non-blacks MDRD (S/P/Bld) [Vol rate/Area] 90 mL/min/{1.73_m2} Normal >60 [facility] Comment on above: Order Comment: Order Date: 12/01/24 Order Info: 4548-4 - A1C Result Comment: mL/m in/1.73m2 CKD-EPI Creatinine Equation (2020) Performed By: #### L 501.9985 #### [facility] [address] [place], [address] Glucose [Mass/Vol] 120 mg/dL High 70-99 [facility] Comment on above: Order Comment: Order Date: 12/01/24 Order Info: 4548-4 - A1C Performed By: #### L 501.9985 #### [facility] [address] [place], [address] Potassium [Moles/Vol] 4.2 mmol/L Normal 3.3-5.1 [facility] Comment on above: Order Comment: Order Date: 12/01/24 Order Info: 4548-4 - A1C Performed By: #### L 501.9985 #### [facility] [address] [place], [address] Sodium [Moles/Vol] 138 mmol/L Normal 133-145 [facility] Comment on above: Order Comment: Order Date: 12/01/24 Order Info: 4548-4 - A1C Performed By: #### L 501.9985 #### [facility] [address] [place], [place], [address] Urea nitrogen [Mass/Vol] 16 mg/dL Normal 4-19 [facility] Comment on above: Order Comment: Order Date: 12/01/24 Order Info: 4548-4 - A1C Performed By: #### L 501.9985 #### [facility] [address] [place], [place], [address] Basophil percentageOrdered B y: Hali Lizarraga on 03-27-2025 Basophils/100 WBC (Bld) 0.4 % 0-1 [facility] Brain without Contraston Brain without Contrast [facility] Services [address] [place], [place] [address] Brain without Contrast MR#: [id number] Acct: [id number] Name: ELISSADAMARI BEALNORMA Benson Rep #: [id number] : 1955 M 69 From: Theo Gama MD PCP: Dr. Bean Currie MD Status: ADM RADHA Study: Brain without Contrast Date of Exam: 03/27/25 Exam# [id number] Ordering Dr: Hali Lizarraga MD PROCEDURE: BRAIN WITHOUT CONTRAST, 03/27/2025 REASON FOR EXAM: CONCERN FOR TIA, RIGHT SIDE NUMB AND WEAKN COMPARISON: 03/26/2025 TECHNIQUE: Multisequence multiplanar MRI brain was performed without intravenous contrast. Iv contrast: None. FINDINGS: Cerebrum: No acute infarct, visible mass, or appreciable intracranial hemorrhage. Mild scattered supratentorial white matter abnormalities, nonspecific but compatible with chronic microvascular ischemic changes. Mild cerebral volume loss.. Cerebellum: Unremarkable. Brainstem: Unremarkable. Ventricles/extra-axial spaces: Age appropriate appearance. Major flow voids: Grossly unremarkable within limits of nondedicated technique. Paranasal sinuses: Mild mucosal thickening along the inferior maxillary sinuses.. Scalp/calvarium: Unremarkable. Orbits: Grossly unremarkable within limits of nondedicated technique. Other: None. MRI/Brain without Contrast IMPRESSION: 1. No specific evidence of an acute intracranial process. 2. Additional description as above. Reading Location: [facility] CC: Dr. Bean Currie MD; Dr. Hali Lizarraga MD Laboratory Analyst: Signed Normal [facility] CBC W/Diff, Automatedon 05-0 Absolute Lymph 2.19 X10 3/uL Normal 0.83-4.51 [facility] Comment on above: Performed By: #### L 100.0100, L501.9520, L500.4100, L500.2500 #### [facility] [address] [place], [address] Absolute Neut 2.2 X10 3/uL Normal 2.0-7.7 [facility] Comment on above: Performed By: #### L 100.0100, L501.9520, L500.4100, L500.2500 #### [facility] [address] [place], [address] Basophils/100 WBC (Bld) 0.4 % Normal 0-1 [facility] Comment on above: Performed By: #### L 100.0100, L501.9520, L500.4100, L500.2500 #### [facility] [address] [place], [address] Eosinophils/100 WBC (Bld) 4.6 % Normal 0-5 [facility] Comment on above: Performed By: #### L 100.0100, L501.9520, L500.4100, L500.2500 #### [facility] [address] [place], [address] Erythrocyte distribution width (RBC) [Ratio] 12.5 % Normal 11.6-14.6 [facility] Comment on above: Performed By: #### L 100.0100, L501.9520, L500.4100, L500.2500 #### [facility] [address] [place], [address] Hematocrit (Bld) [Volume fraction] 40.4 % Normal 40-54 [facility] Comment on above: Performed By: #### L 100.0100, L501.9520, L500.4100, L500.2500 #### [facility] [address] [place], [address] Hemoglobin (Bld) [Mass/Vol] 14.3 g/dL Normal 13.0-16.5 [facility] Comment on above: Performed By: #### L 100.0100, L501.9520, L500.4100, L500.2500 #### [facility] [address] [place], [address] IG% 0.200 Normal 0.0-0.9 [facility] Comment on above: Result Comment: IG% - Immature Granulocytes (promyelocytes, myelocytes and metamyelocytes) > 1% indicates that a LEFT SHIFT is Present. Performed By: #### L 100.0100, L501.9520, L500.4100, L500.2500 #### [facility] [address] [place], [address] Lymphocytes/100 WBC (Bld) 43.7 % High 19-41 [facility] Comment on above: Performed By: #### L 100.0100, L501.9520, L500.4100, L500.2500 #### [facility] [address] [place], [address] MCH (RBC) [Entitic mass] 31.8 pg Normal 27.0-32.0 [facility] Comment on above: Performed By: #### L 100.0100, L501.9520, L500.4100, L500.2500 #### [facility] [address] [place], [address] MCHC (RBC) [Mass/Vol] 35.4 g/dL Normal 32-36 [facility] Comment on above: Performed By: #### L 100.0100, L501.9520, L500.4100, L500.2500 #### [facility] [address] [place], [address] MCV (RBC) [Entitic vol] 89.8 fL Normal 80-94 [facility] Comment on above: Performed By: #### L 100.0100, L501.9520, L500.4100, L500.2500 #### [facility] [address] [place], [address] Monocytes/100 WBC (Bld) 6.6 % Normal 0-10 [facility] Comment on above: Performed By: #### L 100.0100, L501.9520, L500.4100, L500.2500 #### [facility] [address] [place], [address] Neutrophils/100 WBC (Bld) 44.5 % Low 47-70 [facility] Comment on above: Performed By: #### L 100.0100, L501.9520, L500.4100, L500.2500 #### [facility] [address] [place], [address] Nucleated RBC (Bld) [#/Vol] 0 10*3/uL Normal 0-5 [facility] Comment on above: Performed By: #### L 100.0100, L501.9520, L500.4100, L500.2500 #### [facility] [address] [place], [address] Platelet mean volume (Bld) [Entitic vol] 9.9 fL Normal 6.2-12.0 [facility] Comment on above: Performed By: #### L 100.0100, L501.9520, L500.4100, L500.2500 #### [facility] [address] [place], [address] Platelets (Bld) [#/Vol] 198 10*3/uL Normal 150-450 [facility] Comment on above: Performed By: #### L 100.0100, L501.9520, L500.4100, L500.2500 #### [facility] [address] [place], [address] RBC (Bld) [#/Vol] 4.50 10*6/uL Low 4.6-6.2 [facility] Comment on above: Performed By: #### L 100.0100, L501.9520, L500.4100, L500.2500 #### [facility] [address] [place], [address] RDW SD 41.0 fl Normal 35.1-43.9 [facility] Comment on above: Performed By: #### L 100.0100, L501.9520, L500.4100, L500.2500 #### [facility] [address] [place], [address] WBC (Bld) [#/Vol] 5.0 10*3/uL Normal 4.4-11.0 [facility] Comment on above: Performed By: #### L 100.0100, L501.9520, L500.4100, L500.2500 #### [facility] [address] [place], [address] Calculated very low density lipoprotein (VLDL) cholesterol measurementOrdered By: Hali Lizarraga on 03-27-2025 Calculated very low density lipoprotein (VLDL) cholesterol measurement 17 mg/dL 5-40 [facility] VLDL Cholesterol 17 mg/dL 5-40 [facility] Carbon dioxide, total [Moles /volume] in Central venous bloodOrdered By: Hali Lizarraga on 03-27-2025 CO2 [Moles/Vol] 21.5 mmol/L 21.0-32.0 [facility] Chloride assayOrdered By: Magali Lizarraga on 03-27-2025 Chloride [Moles/Vol] 105 mmol/L 98-108 [facility] Discharge Instructionon [address] [facility] Medical Records Department [address] [place] [address] Instructions for Home/Discharge Instructions 03/27/25 1659 MR#: [id number] Acct: [id number] Name: DAMARI BOWERS Ursula Rep #: [id number] : 1955 69 From: Hali Lizarraga MD PCP: Dr. Bean Currie MD Status:ADM RADHA Discharge Instructions Diet Discharge Diet: - (DASH diet) DC O2, CPAP, BIPAP needs Home O2 Discharge instructions: No Dressing / Incision Discharge Activity: Return to Normal Activity Follow Up Care Test Results: Test results from this visit will be discussed in further detail at your follow-up appointment, if applicable. Discharge Plan Admission Admit Date/Time: 03/26/25 17:44 Primary Reason for Your Visit: Right sided numbness and weakness Attending Provider: Hali Lizarraga Primary Care Provider: Bean Currie Consulting Providers: Yakov Wolfe; Kristina Borja; Vonda Sharma; Marga Pablo; Patty Wong; Shekhar Narayan; Diana Marc; Naveen Victoria; Omega Gambino; Ousmane Higginbotham; Lo Palomo; Man Garcia; Jany Gonzales; Trupti Briscoe; Nadeem Oquendo; Wei Lara; Rosy Diaz; Diego Peres; Perlita Alarcon; Kanwal Gutierrez Instructions Patient Instructions: DASH Plan Heart Health, Eating Heart-Healthy Foods Additional Instructions / Restrictions: DISCHARGE INSTRUCTIONS PLEASE READ *Please take this with you to your next doctors appointment* - you will be discharged on increased dose of rosuvastatin, 20 mg, to try to achieve a lower cholesterol level - you will be discharged on 81 mg of aspirin, and is important that you take this daily - we discussed your hemoglobin A1c as well indicating that you are in the diabetes range, Is advised that you consider diet and exercise lifestyle modifications and as discussed a prescription will be sent in for metformin 500 mg twice daily, take 500 mg daily for 1 week and then increase to twice daily. This may need further adjusted by your primary care physician. -Please call your primary care provider's office upon discharge to schedule a hospital follow up within 1 week. -For any concerning signs or symptoms please call 911 or proceed to the nearest emergency department Discharge Orders/Prescriptions Prescriptions: New aspirin 81 mg Tablet,Chewable 81 mg PO BREAKFAST Qty: 0 0RF rosuvastatin 20 mg tablet 20 mg PO DAILY Qty: 30 0RF metformin 500 mg tablet 500 mg PO BID 30 Days Qty: 60 0RF Continued losartan 100 mg tablet 100 mg PO QDAY Qty: 90 3RF ipratropium bromide 21 mcg (0.03 %) spray,non-aerosol 2 spray intranasal BID-TID PRN (Reason: postnasal drainage) Qty: 30 0RF Rx Instructions: administer into each nostril amlodipine 10 mg tablet See Rx Instructions .ROUTE .COMPLEX Qty: 90 3RF Dose Instruction: TAKE 1 TABLET BY MOUTH EVERY DAY Rx Instructions: TAKE 1 TABLET BY MOUTH EVERY DAY Discontinued meloxicam 15 mg tablet 15 mg PO QAM Patient Comments: PT STATES HAS BEEN TAKING PRN rosuvastatin 10 mg tablet See Rx Instructions .ROUTE .COMPLEX Qty: 90 3RF Dose Instruction: TAKE 1 TABLET BY MOUTH EVERY DAY Rx Instructions: TAKE 1 TABLET BY MOUTH EVERY DAY Referrals / Follow Up: Bean Currie MD [Primary Care Provider] - Within 1 Week Disposition Disposition (needs filled in before D/C Order can be placed): Home, Self Care 03/27/25 9832 Hali Lizarraga MD CC: Marga Pablo; Jany Gonzales; Wei Lara; Patty Wong MD; Vonda Sharma MD; Yakov Wolfe MD; Dr. Kristina Borja MD; Dr. Shekhar Narayan MD; Dr. Diana Marc MD; Dr. Omega Gambino MD; Dr. Naveen Victoria MD; Dr. Bean Currie MD; Dr. Ousmane Higginbotham MD; Dr. Man Garcia DO; Dr. Nadeem Oquendo MD; Dr. Trupti Briscoe MD; Dr. Rosy Diaz MD; Dr. Diego Peres MD; Dr. Perlita Alarcon MD; Lo Palomo DO; Kanwal Gutierrez MD Signed Normal [facility] Echo Completeon 03-27-[address] [facility] [address] [place] [address] Echo Complete 03/27/25 0836 MR#: [id number] Acct: [id number] Name: DAMARI BOWERS JrUrsula Rep #: [id number] : 1955 69 From: Audra Velez MD Attending Dr: Dr. Hali Lizarraga MD Status: ADM RADHA Ordering Dr: Herb Bright DO Date: 03/27/25 Location: [facility] Sex: M C Admitted: 03/26/25 Reason For Study Reason For Study: TIA/CVA Procedure This was a 2D Doppler, Color Flow transthoracic echocardiogram. Exam performed portable in patient room. Left Ventricle Normal LV size. Mild concentric left ventricular hypertrophy. The LV systolic function is normal. EF is 65 %. Stage 1 diastolic dysfunction. Right Ventricle Normal right ventricle. Atria The left and right atria are normal. Mitral Valve Trivial mitral valve insufficiency. Tricuspid Valve Trivial tricuspid valve insufficiency. Normal pulmonary artery pressure. Aortic Valve Mild diffuse aortic valve calcification. Aortic valve sclerosis without stenosis. Mild aortic valve regurgitation. Pulmonic Valve The pulmonic valve is not well visualized. Great Vessels Moderately dilated aortic root. Pericardium/Pleural No pericardial effusion. MMode/2D Measurements Calculations LVIDd: 4.5 cm IVSd: 1.3 cm Ao root diam: 4.3 cm LVIDs: 3.0 cm LVPWd: 1.2 cm RVDd: 4.5 cm FS: 33.0 % LAV(MOD-bp): 35.5 ml LVAd ap4: 35.5 cm2 LVAd ap2: 33.6 cm2 LAV(MOD-bp) Indexed: 17.4 ml/m2 LVLd ap4: 8.9 cm LVLd ap2: 8.5 cm LAV(MOD-sp2): 32.7 ml EDV(MOD-sp4): 114.0 ml EDV(MOD-sp2): 111.7 ml LAV(MOD-sp4): 35.7 ml EDV(sp4-el): 120.6 ml EDV(sp2-el): 112.9 ml LVAs ap4: 22.8 cm2 LVAs ap2: 19.1 cm2 LVLs ap4: 7.5 cm LVLs ap2: 7.0 cm ESV(MOD-sp4): 61.6 ml ESV(MOD-sp2): 45.1 ml ESV(sp4-el): 59.1 ml ESV(sp2-el): 43.7 ml EF(MOD-sp4): 46.0 % EF(MOD-sp2): 59.6 % EF(sp4-el): 51.0 % SV(MOD-sp4): 52.4 ml SV(MOD-sp2): 66.6 ml SV(sp4-el): 61.5 ml SI(MOD-sp4): 25.8 ml/m2 SI(MOD-sp2): 32.7 ml/m2 Ao sinus diam: 4.[address] Junction: 3.2 cm LA A4 area: 13.2 cm2 TAPSE: 2.1 cm Time Measurements MV dec time: 0.23 sec Doppler Measurements Calculations MV E max liam: 76.3 cm/sec Lat Peak E' Liam: 9.6 cm/sec Med Peak E' Liam: 5.2 cm/sec MV A max liam: 69.1 cm/sec E/E' lat: 8.0 E/E' med: 14.6 MV E/A: 1.1 MV V2 max: 73.3 cm/sec MV P1/2t max liam: 69.5 cm/sec Ao V2 max: 137.9 cm/sec MV max P.2 mmHg MV P1/2t: 91.5 msec Ao max P.6 mmHg MV V2 mean: 43.5 cm/sec Ao V2 mean: 96.1 cm/sec MV mean P.87 mmHg MV dec slope: 222.3 cm/sec2 Ao mean P.2 mmHg MV V2 VTI: 42.2 cm MVA(P1/2t): 2.4 cm2 Ao V2 VTI: 37.9 cm AV (velocity ratio): 0.67 AI max liam: 618.4 cm/sec LV V1 max: 83.6 cm/sec PA V2 max: 98.9 cm/sec AI max P.5 mmHg LV V1 max P.8 mmHg LV V1 mean P.6 mmHg AI dec slope: 147.5 cm/sec2 LV V1 mean: 58.1 cm/sec AI P1/2t: 1228 msec LV V1 VTI: 25.3 cm TR max liam: 223.3 cm/sec TR max P.9 mmHg ECHO/Echo Complete Interpretation Summary Mild concentric left ventricular hypertrophy. The LV systolic function is normal. EF is 65 %. Stage 1 diastolic dysfunction. Aortic valve sclerosis without stenosis. Mild aortic valve regurgitation. Moderately dilated aortic root. Ordering Physician: Herb Bright Performed By: Naveen Chew RCS 03/27/25 1438 Date Audra Velez MD CC: Dr. Herb Bright DO; Dr. Bean Currie MD; Dr. Hali Lizarraga MD Date Dictated: 03/27/2536 Date Transcribed: 03/27/251437 Laboratory Analyst: Signed Normal [facility] Echocardiogram study reportO rdered By: Audra Velez on 03-27-2025 Study report [facility] [address] [place] [address] Echo Complete 03/27/25835 MR#: [id number] Acct: [id number] Name: DAMARI BOWERS Rep #:[id number] : 1955 69 From: Audra Velez MD Attending Dr: Dr. Hali Lizarraga MD Status: ADM RADHA Ordering Dr: Herb Bright DO Date: 03/27/25 Location: [facility] Sex: M C Admitted: 03/26/25 Reason For Study Reason For Study: TIA/CVA Procedure This was a 2D Doppler, Color Flow transthoracic echocardiogram. Exam performed portable in patient room. Left Ventricle Normal LV size. Mild concentric left ventricular hypertrophy. The LV systolic function is normal. EF is 65 %. Stage 1 diastolic dysfunction. Right Ventricle Normal right ventricle. Atria The left and right atria are normal. Mitral Valve Trivial mitral valve insufficiency. Tricuspid Valve Trivial tricuspid valve insufficiency. Normal pulmonary artery pressure. Aortic Valve Mild diffuse aortic valve calcification. Aortic valve sclerosis without stenosis. Mild aortic valve regurgitation. Pulmonic Valve The pulmonic valve is not well visualized. Great Vessels Moderately dilated aortic root. Pericardium/Pleural No pericardial effusion. MMode/2D Measurements & Calculations LVIDd: 4.5 cm IVSd: 1.3 cm Ao root diam: 4.3 cm LVIDs: 3.0 cm LVPWd: 1.2 cm RVDd: 4.5 cm FS: 33.0 % LAV(MOD-bp): 35.5 ml LVAd ap4: 35.5 cm2 LVAd ap2: 33.6 cm2 LAV(MOD-bp) Indexed: 17.4 ml/m2 LVLd ap4: 8.9 cm LVLd ap2: 8.5 cm LAV(MOD-sp2): 32.7 ml EDV(MOD-sp4): 114.0 ml EDV(MOD-sp2): 111.7 ml LAV(MOD-sp4): 35.7 ml EDV(sp4-el): 120.6 ml EDV(sp2-el): 112.9 ml LVAs ap4: 22.8 cm2 LVAs ap2: 19.1 cm2 LVLs ap4: 7.5 cm LVLs ap2: 7.0 cm ESV(MOD-sp4): 61.6 ml ESV(MOD-sp2): 45.1 ml ESV(sp4-el): 59.1 ml ESV(sp2-el): 43.7 ml EF(MOD-sp4): 46.0 % EF(MOD-sp2): 59.6 % EF(sp4-el): 51.0 % SV(MOD-sp4): 52.4 ml SV(MOD-sp2): 66.6 ml SV(sp4-el): 61.5 ml SI(MOD-sp4): 25.8 ml/m2 SI(MOD-sp2): 32.7 ml/m2 Ao sinus diam: 4.[address] Junction: 3.2 cm LA A4 area: 13.2 cm2 TAPSE: 2.1 cm Time Measurements MV dec time: 0.23 sec Doppler Measurements & Calculations MV E max liam: 76.3 cm/sec Lat Peak E' Liam: 9.6 cm/sec Med Peak E' Liam: 5.2 cm/sec MV A max liam: 69.1 cm/sec E/E' lat: 8.0 E/E' med: 14.6 MV E/A: 1.1 MV V2 max: 73.3 cm/sec MV P1/2t max liam: 69.5 cm/sec Ao V2 max: 137.9 cm/sec MV max P.2 mmHg MV P1/2t: 91.5 msec Ao max P.6 mmHg MV V2 mean: 43.5 cm/sec Ao V2 mean: 96.1 cm/sec MV mean P.87 mmHg MV dec slope: 222.3 cm/sec2 Ao mean P.2 mmHg MV V2 VTI: 42.2 cm MVA(P1/2t): 2.4 cm2 Ao V2 VTI: 37.9 cm AV (velocity ratio): 0.67 AI max liam: 618.4 cm/sec LV V1 max: 83.6 cm/sec PA V2 max: 98.9 cm/sec AI max P.5 mmHg LV V1 max P.8 mmHg LV V1 mean P.6 mmHg AI dec slope: 147.5 cm/sec2 LV V1 mean: 58.1 cm/sec AI P1/2t: 1228 msec LV V1 VTI: 25.3 cm TR max liam: 223.3 cm/sec TR max P.9 mmHg ECHO/Echo Complete Interpretation Summary Mild concentric left ventricular hypertrophy. The LV systolic function is normal. EF is 65 %. Stage 1 diastolic dysfunction. Aortic valve sclerosis without stenosis. Mild aortic valve regurgitation. Moderately dilated aortic root. Ordering Physician: Herb Bright Performed By: Naveen Chew RCS 03/27/25 1438 Date _ Audra Velez MD CC: Dr. Herb Bright DO; Dr. Bean Currie MD; Dr. Hali Lizarraga MD ~ Date Dictated: 03/27/25835 Date Transcribed: 03/27/251437 Laboratory Analyst: Signed [facility] Work Phone: Eosinophil percentageOrdered By: Hali Lizarraga on 03-27-2025 Eosinophils/100 WBC (Bld) 4.6 % 0-5 [facility] Erythrocyte distribution wid th (RBC) [Ratio]Ordered By: Hali Lizarraga on 03-27-2025 Erythrocyte distribution width (RBC) [Entitic vol] 41.0 fL 35.1-43.9 [facility] Erythrocyte distribution wid th ratioOrdered By: Hali Lizarraga on 03-27-2025 Erythrocyte distribution width (RBC) [Ratio] 12.5 % 11.6-14.6 [facility] Erythrocyte distribution wid th standard deviationOrdered By: Hali Lizarraga on 03-27-2025 Erythrocyte distribution width (RBC) [Ratio] 41.0 fl 35.1-43.9 [facility] Estimation of creatinine john aranceOrdered By: Hali Lizarraga on 03-27-2025 Estimated Creatinine Clearance Calc 82.65 ml/min 50-250 [facility] GFR/1.73 sq M.predicted andrew g non-blacks MDRD (S/P/Bld) [Vol rate/Area]Ordered By: Hali Lizarraga on 03-27-2025 Estimated GFR (MDRD) Non-Af Amer 90 >60 [facility] Comment on above: mL/min/1.73m2 CKD-EP I Creatinine Equation (2020) Glomerular filtration rate ( GFR) estimation/1.73 sq m using serum, plasma, or whole bOrdered By: Hali Lizarraga on 03-27-2025 GFR/1.73 sq M.predicted among non-blacks MDRD (S/P/Bld) [Vol rate/Area] 90 mL/min/{1.73_m2} >60 [facility] Comment on above: mL/min/1.73m2 CKD-EP I Creatinine Equation (2020) Hematocrit Auto (Bld) [Volum e fraction]Ordered By: Hali Lizarraga on 03-27-2025 Hematocrit (Bld) [Volume fraction] 40.4 % 40-54 [facility] Hemoglobin A1con 03-27-2025 HbA1c (Bld) [Mass fraction] 6.6 % High <=5.6 [facility] Comment on above: Result Comment: Norm al < 5.7 % Prediabetic 5.7 - 6.4 % Diabetic >or= 6.5 % Please note range changes. Performed By: #### L 501.9959 #### [facility] [place], [address] Hemoglobin A1c percentageOrd ered By: Hali Lizarraga on 03-27-2025 HbA1c (Bld) [Mass fraction] 6.6 % High <5.7 [facility] Comment on above: Normal < 5.7 % Predi abetic 5.7 - 6.4 % Diabetic >or= 6.5 % Please note range changes. Hemoglobin measurementOrdere d By: Hali Lizarraga on 03-27-2025 Hemoglobin (Bld) [Mass/Vol] 14.3 g/dL 13.0-16.5 [facility] Immature granulocytes/100 WB C Auto (Bld)Ordered By: Hali Lizarraga on 03-27-2025 Immature granulocytes/100 WBC (Bld) 0.200 % 0.0-0.9 [facility] Comment on above: IG% - Immature Granu locytes (promyelocytes, myelocytes and metamyelocytes) > 1% indicates that a LEFT SHIFT is Present. LDL calc ser/plasOrdered By: Hali Lizarraga on 03-27-2025 Cholesterol in LDL [Mass/Vol] 103 mg/dL [facility] Comment on above: Ohmcnpkdwj=499-445 m g/dL & Higher Zeed=597 mg/dL or greater LDL Cholesterol, Calculated 103 mg/dL [facility] Comment on above: Ghtbkvcewi=327-343 m g/dL & Higher Xkxv=867 mg/dL or greater Lipid Profileon 03-27-2025 CHOL:HDL 3.51 Normal [facility] Comment on above: Order Comment: Order Date: 12/01/24 Order Info: 4548-4 - A1C Performed By: #### L [id number] #### [facility] [address] [place], [address] Cholesterol [Mass/Vol] 169 mg/dL Normal <=200 [facility] Comment on above: Order Comment: Order Date: 12/01/24 Order Info: 4548-4 - A1C Result Comment: Chol esterol level, Desirable <200 mg/dL Borderline high cholesterol 200-239 mg/dL High cholesterol >=240 mg/dL Recommendations of the NCEP Adult Treatment Panel for the following risk-cutoff thresholds for the [place] population. Performed By: #### L [id number] #### [facility] [address] [place], [place], [id number] Cholesterol in HDL [Mass/Vol] 48 mg/dL Normal [facility] Comment on above: Order Comment: Order Date: 12/01/24 Order Info: 4548-4 - A1C Result Comment: Miri onal Cholesterol Education Program (NCEP) guidelines: <40 mg/dL: Low HDL-cholesterol (major risk factor for CHD) >= 60 mg/dL: High HDL-cholesterol (negative risk factor for CHD) HDL-cholesterol is affected by a number of factors, e.g. smoking, exercise, hormones, sex and age. Performed By: #### L [id number] #### [facility] [address] [place], [place], [address] (827) Cholesterol in LDL [Mass/Vol] 103 mg/dL Normal [facility] Comment on above: Order Comment: Order Date: 12/01/24 Order Info: 4548-4 - A1C Result Comment: Bord zdacmy=532-655 mg/dL Higher Pfvh=700 mg/dL or greater Performed By: #### L [id number] #### [facility] [address] [place], [place], [address] Cholesterol in VLDL [Mass/Vol] 17 mg/dL Normal 5-40 [facility] Comment on above: Order Comment: Order Date: 12/01/24 Order Info: 4548-4 - A1C Performed By: #### L [id number] #### [facility] [address] [place], [place], [address] Triglyceride [Mass/Vol] 87 mg/dL Normal [facility] Comment on above: Order Comment: Order Date: 12/01/24 Order Info: 4548-4 - A1C Result Comment: The drugs N-Acetylcysteine and Metamizole may falsely depress this assay. Normal range: <150 mg/dL Borderline High: 150-199 mg/dL High: 200-499 mg/dL Very High: >500 mg/dL Performed By: #### L [id number] #### [facility] [address] [place], [place], [address] Lymphocytes Auto (Unsp spec) [#/Vol]Ordered By: Hali Lizarraga on 03-27-2025 Lymphocytes (Bld) [#/Vol] 2.19 10*3/uL 0.83-4.51 [facility] Lymphocytes/100 WBC Auto (Un sp spec)Ordered By: Hali Lizarraga on 03-27-2025 Lymphocytes/100 WBC (Bld) 43.7 % High 19-41 [facility] MCV (mean corpuscular volume ) determinationOrdered By: Hali Lizarraga on 03-27-2025 MCV (RBC) [Entitic vol] 89.8 fL 80-94 [facility] MR/CON.PCM.NEon 03-27-2025 MR/CON.PCM.NE [facility] Medical Records Department [address] [place] [address] Consultation - Neurology 03/27/25 1443 MR#: [id number] Acct: [id number] Name: DAMARI BOWERS Jr. Rep #: [id number] : 1955 69 From: Vonda Sharma MD PCP: Dr. Bean Currie MD Status:ADM RADHA Location: [place] [address] Assessment and Plan: Stroke Assessment/Plan DAMARI BOWERS Jr. is a 69 M with a history of HTN, HLD who presents for evaluation of weakness and numbness of his right side that has resolved. CTA of the head and neck obtained and showed no LVO. Not a TNK or IR candidate. Neurological examination shows intact examination. Neuroimaging shows CTA: negative, MRI Brain negative, HbA1c: 6.6, LDL: 103. ECHO: EF okay Plan ASA Continue aggressive control of his stroke risk factors - HTN, HLD. Target LDL <70 Thanks for consult. Spent 70 min in evaluation and management of this patient HPI Consult Data Date of Consult: 03/27/25 HPI Narrative HPI Narrative: DAMARI BOWERS, is a 69 M who presents history of hypertension, hyperlipidemia presented [facility] ED 03/26/2025 due to weakness and numbness of his right side. It was acute onset weakness and numbness. the numbness lasted for 15 seconds and weakness in few minutes. he denied having slurred speech, facial droop. No relapse of symptoms. He does not take ASA regularly. CTA of the head and neck obtained and showed no LVO. [facility] Medical History (Updated 03/26/25 @ 18:[address] Hali Lizarraga MD) Alcohol abuse GERD (gastroesophageal reflux disease) Wears hearing aid Wears glasses High cholesterol Heartburn Gastric reflux Leg cramps Non-smoker Sleep apnea History of echocardiogram History of stress test Hypertension Cardiology follow-up encounter Thoracic aortic aneurysm (TAA) Back pain Obesity Nonobstructive atherosclerosis of coronary artery Essential (primary) hypertension Segmental and somatic dysfunction of pelvic region Segmental and somatic dysfunction of lumbar region LLQ abdominal pain Migraine Hemorrhoids Syncope and collapse Hyperlipidemia Home Medications ???Medication ???Instructions ???Recorded ???Last Taken ???Type amlodipine 10 mg tablet See Rx Instructions .Route 4 03/26/25 Rx .COMPLEX #90 tabs rosuvastatin 10 mg tablet See Rx Instructions .Route 4 03/26/25 Rx .COMPLEX #90 tabs losartan 100 mg tablet 100 mg PO QDAY #90 tabs 11/28/24 0 03/26/25 Rx ipratropium bromide 21 mcg (0.03 2 spray intranasal BID-TID PRN 03/1603/26/25 Rx %) nasal spray postnasal drainage #30 mL meloxicam 15 mg tablet 15 mg PO QAM 02/23/25 Unknown Hist ory Allergy/AdvReac Type Severity Reaction Status Date / Time hydrochlorothiazide AdvReac Intermediate Hyponatremi Verified 03/26/25 15:20 a Family History Mother Colon cancer Hypertension Sister Heart disease Father CAD (coronary artery disease) Surgical History History of bilateral knee arthroplasty History of colonoscopy (2010) History of left heart catheterization (01/2014) H/O local excision of skin lesion Social History household members: spouse housing: house Smoking Status: Never smoker second hand exposure: No alcohol intake: current alcohol intake frequency: holidays/special occasions only substance use type: does not use caffeine: Yes (3-4 cups daily) what type of physical activity do you participate in: none seatbelt use: always Vital Signs Vital Signs Vital Signs: 03/26/25 15:20 03/26/25 15:21 03/26/25 15:47 Temperature 97.9 F 97.9 F Temperature Source Temporal Temporal Pulse Rate 82 82 Pulse Strength Respiratory Rate 22 H 22 H Respiratory Effort Respiratory Depth Respiratory Pattern Blood Pressure 140/99 H 140/99 H Blood Pressure Mean 112 112 Blood Pressure Source Blood Pressure Position Blood Pressure Location Pulse Ox 100 100 97 Oxygen Delivery Method Room Air Room Air Room Air 03/26/25 15:47 03/26/25 15:53 03/26/25 16:20 Temperature Temperature Source Pulse Rate 71 78 70 Pulse Strength Respiratory Rate 14 18 18 Respiratory Effort Respiratory Depth Respiratory Pattern Blood Pressure 163/80 H 160/78 H 137/81 H Blood Pressure Mean 107 105 99 Blood Pressure Source Blood Pressure Position Blood Pressure Location Pulse Ox 98 98 98 Oxygen Delivery Method Room Air 03/26/25 17:00 03/26/25 17:15 03/26/25 18:21 Temperature 98.6 F 98.2 F Temperature Source Oral Pulse Rate 76 76 54 L Pulse Strength Respiratory Rate 18 18 15 Respirato (more content not included)... Normal [facility] Magnetic resonance imaging r eportOrdered By: Theo Gama on 03-27-2025 Study report [facility] Imaging Services [address] [place] [address] Brain without Contrast MR#: [id number] Acct: [id number] Name: DAMARI BOWERS Jr. Rep #: [id number] : 1955 M 69 From: Elizabeth Gama MD PCP: Dr. Bean Currie MD Status: AD M RADHA Study:Brain without Contrast Date of Exam: 03/27/25 Exam# [id number] Ordering Dr: Michelle Lizarraga MD PROCEDURE: BRAIN WITHOUT CONTRAST, 03/27/2025 REASON FOR EXAM: CONCERN FOR TIA, RIGHT SIDE NUMB AND WEAKN COMPARISON: 03/26/2025 TECHNIQUE: Multisequence multiplanar MRI brain was performed without intravenous contrast. Iv contrast: None. FINDINGS: Cerebrum: No acute infarct, visible mass, or appreciable intracranial hemorrhage. Mild scattered supratentorial white matter abnormalities, nonspecific but compatible with chronic microvascular ischemic changes. Mild cerebral volume loss.. Cerebellum: Unremarkable. Brainstem: Unremarkable. Ventricles/extra-axial spaces: Age appropriate appearance. Major flow voids: Grossly unremarkable within limits of nondedicated technique. Paranasal sinuses: Mild mucosal thickening along the inferior maxillary sinuses.. Scalp/calvarium: Unremarkable. Orbits: Grossly unremarkable within limits of nondedicated technique. Other: None. MRI/Brain without Contrast IMPRESSION: 1. No specific evidence of an acute intracranial process. 2. Additional description as above. Reading Location: [facility] CC: Dr. Bean Currie MD; Dr. Hali Lizarraga MD ~ Laboratory Analyst: Signed [facility] Mean corpuscular hemoglobin (MCH) determinationOrdered By: Hali Lizarraga on 03-27-2025 MCH (RBC) [Entitic mass] 31.8 pg 27.0-32.0 [facility] Mean corpuscular hemoglobin concentration (MCHC) determinationOrdered By: Hali Lizarraga on 03-27-2025 MCHC (RBC) [Mass/Vol] 35.4 g/dL 32-36 [facility] Mean platelet volume determi nationOrdered By: Hali Lizarraga on 03-27-2025 Platelet mean volume (Bld) [Entitic vol] 9.9 fL 6.2-12.0 [facility] Monocyte percentageOrdered B y: Hali Lizarraga on 03-27-2025 Monocytes/100 WBC (Bld) 6.6 % 0-10 [facility] Neutrophil percentageOrdered By: Hali Lizarraga on 03-27-2025 Neutrophils/100 WBC (Bld) 44.5 % Low 47-70 [facility] Nucleated red blood cell per centageOrdered By: Hali Lizarraga on 03-27-2025 Nucleated RBC/100 WBC (Bld) [Ratio] 0 % 0-5 [facility] Platelet countOrdered By: Magali Lizarraga on 03-27-2025 Platelets (Bld) [#/Vol] 198 10*3/uL 150-450 [facility] Potassium (Unsp spec) [Mass/ Vol]Ordered By: Hali Lizarraga on 03-27-2025 Potassium [Moles/Vol] 4.2 mmol/L 3.3-5.1 [facility] Potassium measurement (mass/ volume)Ordered By: Hali Lizarraga on 03-27-2025 Potassium (Unsp spec) [Mass/Vol] 4.2 mmol/L 3.3-5.1 [facility] RBC Auto (Bld) [#/Vol]Ordere d By: Hali Lizarraga on 03-27-2025 RBC (Bld) [#/Vol] 4.50 10*6/uL Low 4.6-6.2 [facility] Screening total cholesterol/ high density lipoprotein (HDL) cholesterol ratioOrdered By: Hali Lizarraga on 03-27-2025 Cholesterol.total/[place] sterol in HDL [Mass ratio] 3.51 {ratio} [facility] Serum creatinine measurement (mass/volume)Ordered By: Hali Lizarraga on 03-27-2025 Creatinine [Mass/Vol] 0.92 mg/dL 0.70-1.20 [facility] Serum glucose measurement (m ass/volume)Ordered By: Hali Lizarraga on 03-27-2025 Glucose [Mass/Vol] 120 mg/dL High 70-99 [facility] Serum or plasma calcium opal urement (mass/volume)Ordered By: Hali Lizarraga on 03-27-2025 Calcium [Mass/Vol] 9.0 mg/dL 7.6-11.0 [facility] Serum or plasma cholesterol in HDL measurement (mass/volume)Ordered By: Hali Lizarraga on 03-27-2025 Cholesterol in HDL [Mass/Vol] 48 mg/dL >40 [facility] Comment on above: National Cholesterol Education Program (NCEP) guidelines:<40 mg/dL: Low HDL-cholesterol (major risk factor for CHD)>= 60 mg/dL: High HDL-cholesterol (negative risk factor for CHD)HDL-cholesterol is affected by a number of factors, e.g. smoking, exercise, hormones, sex and age. Serum or plasma cholesterol measurement (mass/volume)Ordered By: Hali Lizarraga on 03-27-2025 Cholesterol [Mass/Vol] 169 mg/dL <201 [facility] Comment on above: Cholesterol level, D esirable <200 mg/dLBorderline high cholesterol 200-239 mg/dLHigh cholesterol >=240 mg/dLRecommendations of the NCEP Adult Treatment Panel for the following risk-cutoff thresholds for the [place] population. Serum or plasma urea nitroge n measurement (mass/volume)Ordered By: Hali Lizarraga on 03-27-2025 Urea nitrogen [Mass/Vol] 16 mg/dL 4-19 [facility] Sodium levelOrdered By: Alejandro Lizarraga on 03-27-2025 Sodium [Moles/Vol] 138 mmol/L 133-145 [facility] TSH DL <= 0.005 mIU/L QnOrde red By: Hali Lizarraga on 03-27-2025 Thyroid Stimulating Hormone (TSH) 2.880 uIU/mL 0.300-4.200 [facility] TSH Qn 2.880 uIU/mL 0.300-4.200 [facility] Thyroid Stim Hormone (TSH)on 03-27-2025 TSH 2.880 uIU/mL Normal 0.300-4.200 [facility] Comment on above: Order Comment: Order Date: 12/01/24 Order Info: 4548-4 - A1C Performed By: #### L 501.9985 #### [facility] [address] [place], [address] Triglycerides measurementOrd ered By: Hali Lizarraga on 03-27-2025 Triglyceride [Mass/Vol] 87 mg/dL <199 [facility] Comment on above: The drugs N-Acetylcy steine and Metamizole may falsely depress this assay. Normal range: <150 mg/dLBorderline High: 150-199 mg/dLHigh: 200-499 mg/dLVery High: >500 mg/dL White blood cell (WBC) count Ordered By: Hali Lizarraga on 03-27-2025 WBC (Bld) [#/Vol] 5.0 10*3/uL 4.4-11.0 [facility] 12 Lead EKGon 03-26-2025 12 Lead EKG [facility] Cardiovascular Services [address] [place] [address] 12 Lead EKG 03/26/25 1600 MR#: [id number] Acct: [id number] Name: DAMARI BOWERS Ursula Rep #: [id number] : 1955 69 From: Cirilo Mcdonald MD Attending Dr: Dr. Hali Lizarraga MD Status: DIS RADHA Ordering Dr: Yobany Glynn DO Date: 03/26/25 Location: [facility] Sex: M C Admitted: 03/26/25 Test Reason : Blood Pressure : */* mmHG Vent. Rate : 62 BPM Atrial Rate : 62 BPM P-R Int : 198 ms QRS Dur : 108 ms QT Int : 392 ms P-R-T Axes : 16 -25 -4 degrees QTcB Int : 397 ms Sinus rhythm with Premature supraventricular complexes Otherwise normal ECG Confirmed by Cirilo Mcdonald ([id number]), pictures editor AGUILA CHOE ([id number]) on 03/30/2025 1:17:52 PM Referred By: MAX/AGAPITO Confirmed By: Cirilo Mcdonald 03/30/25 1317 Date Cirilo Mcdonald MD CC: Dr. Yobany Glynn DO; Dr. Bean Currie MD; Dr. Hali Lizarraga MD Signed Normal [facility] Activated partial thrombopla stin time (aPTT) in platelet poor plasma by coagulation aOrdered By: Yobany Glynn on 03-26-2025 aPTT Coag (PPP) [Time] 24.9 s 24.1-36.2 [facility] Basic Metabolic Profile (BMP )on 03-26-2025 BUN/CRE 16.7 RATIO Normal 10-20 [facility] Comment on above: Performed By: #### L 500.4100, L500.2500, L500.3400 #### [facility] [address] [place], [address] Calcium [Mass/Vol] 9.1 mg/dL Normal 7.6-11.0 [facility] Comment on above: Performed By: #### L 500.4100, L500.2500, L500.3400 #### [facility] [address] [place], [address] Chloride [Moles/Vol] 107 mmol/L Normal 98-108 [facility] Comment on above: Performed By: #### L 500.4100, L500.2500, L500.3400 #### [facility] [address] [place], [address] CO2 [Moles/Vol] 20.6 mmol/L Low 21.0-32.0 [facility] Comment on above: Performed By: #### L 500.4100, L500.2500, L500.3400 #### [facility] [address] [place], [address] Creatinine [Mass/Vol] 1.04 mg/dL Normal 0.70-1.20 [facility] Comment on above: Performed By: #### L 500.4100, L500.2500, L500.3400 #### [facility] [address] [place], [address] ECRCL 73.54 ml/min Normal 50-250 [facility] Comment on above: Performed By: #### L 500.4100, L500.2500, L500.3400 #### [facility] [address] [place], [address] GAP 10 Normal 5-15 [facility] Comment on above: Performed By: #### L 500.4100, L500.2500, L500.3400 #### [facility] [address] [place], [address] GFR/1.73 sq M.predicted among non-blacks MDRD (S/P/Bld) [Vol rate/Area] 78 mL/min/{1.73_m2} Normal >60 [facility] Comment on above: Result Comment: mL/m in/1.73m2 CKD-EPI Creatinine Equation (2020) Performed By: #### L 500.4100, L500.2500, L500.3400 #### [facility] [address] [place], [address] Glucose [Mass/Vol] 181 mg/dL High 70-99 [facility] Comment on above: Performed By: #### L 500.4100, L500.2500, L500.3400 #### [facility] [address] [place], [address] Potassium [Moles/Vol] 4.1 mmol/L Normal 3.3-5.1 [facility] Comment on above: Performed By: #### L 500.4100, L500.2500, L500.3400 #### [facility] [address] [place], [address] Sodium [Moles/Vol] 137 mmol/L Normal 133-145 [facility] Comment on above: Performed By: #### L 500.4100, L500.2500, L500.3400 #### [facility] [address] [place], [address] Urea nitrogen [Mass/Vol] 17 mg/dL Normal 4-19 [facility] Comment on above: Performed By: #### L 500.4100, L500.2500, L500.3400 #### [facility] [address] [place], [address] CBC W/Diff, Automatedon 05-0 5-2025 Absolute Lymph 1.92 X10 3/uL Normal 0.83-4.51 [facility] Comment on above: Performed By: #### L 500.4100, L500.2500, L500.3400 #### [facility] [address] [place], [address] Absolute Neut 4.0 X10 3/uL Normal 2.0-7.7 [facility] Comment on above: Performed By: #### L 500.4100, L500.2500, L500.3400 #### [facility] [address] [place], [address] Basophils/100 WBC (Bld) 0.3 % Normal 0-1 [facility] Comment on above: Performed By: #### L 500.4100, L500.2500, L500.3400 #### [facility] [address] [place], [address] Eosinophils/100 WBC (Bld) 1.9 % Normal 0-5 [facility] Comment on above: Performed By: #### L 500.4100, L500.2500, L500.3400 #### [facility] [address] [place], [address] Erythrocyte distribution width (RBC) [Ratio] 12.3 % Normal 11.6-14.6 [facility] Comment on above: Performed By: #### L 500.4100, L500.2500, L500.3400 #### [facility] [address] [place], [address] Hematocrit (Bld) [Volume fraction] 40.0 % Normal 40-54 [facility] Comment on above: Performed By: #### L 500.4100, L500.2500, L500.3400 #### [facility] [address] [place], [address] Hemoglobin (Bld) [Mass/Vol] 14.5 g/dL Normal 13.0-16.5 [facility] Comment on above: Performed By: #### L 500.4100, L500.2500, L500.3400 #### [facility] [address] [place], [address] IG% 0.200 Normal 0.0-0.9 [facility] Comment on above: Result Comment: IG% - Immature Granulocytes (promyelocytes, myelocytes and metamyelocytes) > 1% indicates that a LEFT SHIFT is Present. Performed By: #### L 500.4100, L500.2500, L500.3400 #### [facility] [address] [place], [address] Lymphocytes/100 WBC (Bld) 29.8 % Normal 19-41 [facility] Comment on above: Performed By: #### L 500.4100, L500.2500, L500.3400 #### [facility] [address] [place], [address] MCH (RBC) [Entitic mass] 32.0 pg Normal 27.0-32.0 [facility] Comment on above: Performed By: #### L 500.4100, L500.2500, L500.3400 #### [facility] [address] [place], [address] MCHC (RBC) [Mass/Vol] 36.3 g/dL High 32-36 [facility] Comment on above: Performed By: #### L 500.4100, L500.2500, L500.3400 #### [facility] [address] [place], [address] MCV (RBC) [Entitic vol] 88.3 fL Normal 80-94 [facility] Comment on above: Performed By: #### L 500.4100, L500.2500, L500.3400 #### [facility] [address] [place], [address] Monocytes/100 WBC (Bld) 6.0 % Normal 0-10 [facility] Comment on above: Performed By: #### L 500.4100, L500.2500, L500.3400 #### [facility] [address] [place], [address] Neutrophils/100 WBC (Bld) 61.8 % Normal 47-70 [facility] Comment on above: Performed By: #### L 500.4100, L500.2500, L500.3400 #### [facility] [address] [place], [address] Nucleated RBC (Bld) [#/Vol] 0 10*3/uL Normal 0-5 [facility] Comment on above: Performed By: #### L 500.4100, L500.2500, L500.3400 #### [facility] [address] [place], [address] Platelet mean volume (Bld) [Entitic vol] 9.9 fL Normal 6.2-12.0 [facility] Comment on above: Performed By: #### L 500.4100, L500.2500, L500.3400 #### [facility] [address] [place], [address] Platelets (Bld) [#/Vol] 190 10*3/uL Normal 150-450 [facility] Comment on above: Performed By: #### L 500.4100, L500.2500, L500.3400 #### [facility] [address] [place], [address] RBC (Bld) [#/Vol] 4.53 10*6/uL Low 4.6-6.2 [facility] Comment on above: Performed By: #### L 500.4100, L500.2500, L500.3400 #### [facility] [address] [place], [address] RDW SD 39.9 fl Normal 35.1-43.9 [facility] Comment on above: Performed By: #### L 500.4100, L500.2500, L500.3400 #### [facility] [address] [place], [address] WBC (Bld) [#/Vol] 6.5 10*3/uL Normal 4.4-11.0 [facility] Comment on above: Performed By: #### L 500.4100, L500.2500, L500.3400 #### [facility] [address] [place], [address] CTA Head AND Neck W/ Contras ton 03-26-2025 CTA Head AND Neck W/ Contrast [facility] Imaging Services [address] [place] [address] CTA Head AND Neck W/ Contrast MR#: [id number] Acct: [id number] Name: DAMARI BOWERS Rep #: [id number] : 1955 M 69 From: Olu mccoy MD PCP: Dr. Bean Currie MD Status: [facility] ER Study: CTA Head AND Neck W/ Contrast Date of Exam: Exam# [id number] Ordering Dr: Yobany Glynn DO PROCEDURE: CTA HEAD AND NECK W/ CONTRAST 03/26/2025 REASON FOR EXAM: TIA (R SIDED SYMPTOMOLOGY) TECHNIQUE: CTA imaging of the head and neck from the aortic arch to the skull vertex with out contrast and with intravenous contrast. Multiplanar and multisequence images were obtained. CONTRAST: Omnipaque 350 VOLUME: 100 mL Not Provided Gauge IV One or more dose reduction techniques were used (e.g., Automated exposure control, adjustment of the mA and/or kV according to patient size, use of iterative reconstruction technique). COMPARISON: None FINDINGS: CT brain: * ACUTE: No acute infarct or hemorrhage. No mass effect or herniation. * BRAIN PARENCHYMA: No focal intracranial mass. Patchy supratentorial hypoattenuation, nonspecific, but likely secondary to chronic microvascular ischemia. * VENTRICLES/EXTRA-AXIAL SPACES: Mild generalized volume loss with concordant ventricular enlargement. * EXTRACRANIAL STRUCTURES: Visualized osseous structures are normal. Soft tissues are normal. CTA head and neck: Aortic Arch: Normal size and branching pattern. Mild atherosclerotic plaque without hemodynamically significant stenosis. Brachiocephalic and Subclavians: Mild atherosclerotic plaque without significant stenosis. RIGHT Carotid: Right CCA: Mild calcified and soft plaque. Right ICA: Mild calcified plaque at the bifurcation and proximal ICA without hemodynamically significant stenosis. Maximum stenosis (NASCET): 0 % Right ECA: Unremarkable. LEFT Carotid: Left CCA: Mild calcified and soft plaque. Left ICA: Mild atherosclerotic calcification of the bifurcation and proximal ICA without hemodynamically significant stenosis. Maximum stenosis (NASCET): 0 % Left ECA: Unremarkable. Vertebrals: Codominant. Arise from the subclavians. Both vertebrals form the basilar. RIGHT Vertebral: Unremarkable. LEFT Vertebral: Mild atherosclerotic calcification of the distal V3 without hemodynamically significant stenosis. Focal area of moderate stenosis at the proximal V4 secondary to noncalcified plaque. Anatomy: [place] anatomy is normal. Aneurysm or avm: No intracranial aneurysms or large vascular malformations are identified. Anterior cerebral arteries: Unremarkable: Middle cerebral arteries: Mild atherosclerotic calcification of the carotid siphons without hemodynamically significant stenosis. The MCAs are otherwise within normal limits. Basilar artery: Unremarkable. Posterior cerebral arteries: Unremarkable. Other major branches of the posterior circulation: Unremarkable. Major venous structures: Unremarkable. Other findings: Neck: No lymphadenopathy. Lungs: Lung apices are clear. Bones: Mild degenerative changes of the cervical spine. CT/CTA Head AND Neck W/ Contrast IMPRESSION: CT brain: No acute intracranial abnormality. Chronic microvascular ischemia and involutional changes. CTA head and neck: Scattered atherosclerotic calcification of the anterior and posterior circulation as described above, with mild-moderate stenosis. No evidence of acute occlusion. No aneurysm. Reading Location: [facility] CC: Dr. Yobany Glynn DO; Dr. Bean Currie MD Laboratory Analyst: Signed Normal [facility] Chest 1 View (Portable)on Chest 1 View (Portable) [facility] Imaging Services [address] [place] [address] Chest 1 View (Portable) MR#: [id number] Acct: [id number] Name: DAMARI BOWERS JrUrsula Rep #: [id number] : 1955 M 69 From: Olu mccoy MD PCP: Dr. Bean Currie MD Status: [facility] ER Study: Chest 1 View (Portable) Date of Exam: 03/26/25 Exam# [id number] Ordering Dr: Yobany Glynn DO PROCEDURE: CHEST 1 VIEW (PORTABLE) 03/26/2025 REASON FOR EXAM: STROKE TECHNIQUE: Frontal view of the chest. COMPARISON: CT chest 11/30/2024 FINDINGS: Hardware: None Heart: Cardiac and mediastinal contours are stable. Lungs: No focal consolidation. No pneumothorax. No pleural effusion. Bones: The bones are unremarkable. Other: RAD/Chest 1 View (Portable) IMPRESSION: No Acute Findings. Reading Location: [facility] CC: Dr. Yobany Glynn DO; Dr. Bean Currie MD Laboratory Analyst: Signed Normal [facility] Emergency Department Summary on 03-26-2025 Emergency Department Summary [facility] Medical Records Department [address] [place] [address] Emergency Department Summary 03/26/25 MR#: [id number] Acct: [id number] Name: DAMARI BOWERS JrUrsula Rep #: [id number] : 1955 69 From: Yobany Glynn DO PCP: Dr. Bean Currie MD Status:ADM RADHA Location: [address] History of Present Illness Chief Complaint: Neuro S/Sx Informant: patient Narrative Narrative: 69-year-old male presenting to the emergency room with the chief complaint of neurologic change. Patient states that this morning he was at work when he suddenly felt the right side of his body become weak and numb. He states that he felt that his right face was drooping. He did not have any vision change. He states he noticed a particular weakness in the right leg but since his left leg was unaffected he was still able to stand up. He states that about 15 seconds later symptoms started to improve but the right leg took 2 maybe 3 minutes difficulty resolved he denies any headache. He states he has not had any symptoms since. He states he called family who talked to a doctor who recommended he come to emergency. States he recently underwent carotid artery evaluation with his country director. That report revealed less than 50% stenosis. He has a history of hypertension hyperlipidemia nonobstructive coronary artery disease and a thoracic aortic aneurysm. The patient is not on any blood thinners and will occasionally take aspirin. It is noted that when he had his symptomology he also felt numbness along the right chest wall and right abdomen. [facility] Medical History (Updated 03/26/25 @ 17:35 by Teresa Hernandez) Alcohol abuse GERD (gastroesophageal reflux disease) Wears hearing aid Wears glasses High cholesterol Heartburn Gastric reflux Leg cramps Non-smoker Sleep apnea History of echocardiogram History of stress test Hypertension Cardiology follow-up encounter Thoracic aortic aneurysm (TAA) Back pain Obesity Nonobstructive atherosclerosis of coronary artery Essential (primary) hypertension Segmental and somatic dysfunction of pelvic region Segmental and somatic dysfunction of lumbar region LLQ abdominal pain Migraine Hemorrhoids Syncope and collapse Hyperlipidemia Home Medications ???Medication ???Instructions ???Recorded ???Last Taken ???Type amlodipine 10 mg tablet See Rx Instructions .Route 4 03/26/25 Rx .COMPLEX #90 tabs rosuvastatin 10 mg tablet See Rx Instructions .Route 4 03/26/25 Rx .COMPLEX #90 tabs losartan 100 mg tablet 100 mg PO QDAY #90 tabs 11/28/24 0 03/26/25 Rx ipratropium bromide 21 mcg (0.03 2 spray intranasal BID-TID PRN 03/1603/26/25 Rx %) nasal spray postnasal drainage #30 mL meloxicam 15 mg tablet 15 mg PO QAM 02/23/25 Unknown Hist ory Allergy/AdvReac Type Severity Reaction Status Date / Time hydrochlorothiazide AdvReac Intermediate Hyponatremi Verified 03/26/25 15:20 a Family History Mother Colon cancer Hypertension Sister Heart disease Father CAD (coronary artery disease) Surgical History History of bilateral knee arthroplasty History of colonoscopy (2010) History of left heart catheterization (01/2014) H/O local excision of skin lesion Social History household members: spouse housing: house Smoking Status: Never smoker second hand exposure: No alcohol intake: current alcohol intake frequency: holidays/special occasions only substance use type: does not use caffeine: Yes (3-4 cups daily) what type of physical activity do you participate in: none seatbelt use: always ROS ROS ED Constitutional Constitutional ED: Denies chills, fever(s) or weight loss Eyes Eyes: Denies change in vision or diplopia ENT ENT ED: Denies ear pain, rhinorrhea or sore throat Cardiovascular Cardiovascular: Denies chest pain, orthopnea, palpitations or racing heartbeat Respiratory/Chest Respiratory/Chest: Denies cough, dyspnea or orthopnea Gastrointestinal Gastrointestinal: Denies abdominal pain, diarrhea, nausea or vomiting Genitourinary Genitourinary ED: Denies dysuria, hematuria or urinary frequency Musculoskeletal Musculoskeletal: Denies arthralgias, myalgias or neck pain Integumentary Denies abscess or rash Neurologic Neurologic: Reports paresthesias and weakness; Denies headache(s) Psychiatric Psychiatric: Denies anxiety, depression, suicidal ideation or suicidal thoughts Endocrine Endocrinology: Denies polydipsia, polyphagia or polyuria Allergic/Immunologic Allergic/Immunologic ED: Denies mouth swelling, tongue swelling or urticaria EXAM Physical Exam Const Vital Signs: (more content not included)... Normal [facility] H AND P Exam - [facility] 03-26-2025 H&P Exam - Hospitalist [facility] Medical Records Department [address] [place] [address] H P Exam - Hospitalist 03/26/25 1744 MR#: [id number] Acct: [id number] Name: DAMARI BOWERS Jr. Rep #: [id number] : 1955 69 From: Hali Lizarraga MD PCP: Dr. Bean Currie MD Status:ADM RADHA Location: [place] [address] HPI - General General Date of Admission: 03/26/25 Date of Service: 03/26/25 Chief Complaint: Right sided numbness and weakness HPI Narrative DAMARI BOWERS, is a 69-year-old male history of hypertension presented [facility] ED 03/26/2025 due to concerns for neurologic change. This a.m. he was at work and suddenly felt right side of his body become weak and numb and he felt that he had right-sided facial droop with no vision changes. He noticed a particular weakness in the right leg and also noted numbness along right chest wall and right abdomen. Symptoms started resolved but 15 seconds later and were completely resolved in 2 to 3 minutes. No headache associated, no further symptoms. His family doctor recommended he come to the emergency room. On arrival to the ED temperature 97.9, heart rate 82 with blood pressure 140/99, respiratory rate of 22 and pulse ox 100% on room air. CBC without leukocytosis or anemia, BMP shows kidney function within normal limits, does have elevated glucose of 181. CTA of the head and neck obtained and showed no LVO. Given patient's suspicious symptoms hospitalist contacted for admission for TIA/CVA rule out. Patient evaluated at bedside and reports history as above, reports that prior to that and since the symptoms resolved he has felt fine and ROS otherwise completely negative. [facility] Medical History (Updated 03/26/25 @ 18:[address] Hali Lizarraga MD) Alcohol abuse Back pain Cardiology follow-up encounter Essential (primary) hypertension Gastric reflux GERD (gastroesophageal reflux disease) Heartburn Hemorrhoids High cholesterol History of echocardiogram History of stress test Hyperlipidemia Hypertension Leg cramps LLQ abdominal pain Migraine Non-smoker Nonobstructive atherosclerosis of coronary artery Obesity Segmental and somatic dysfunction of lumbar region Segmental and somatic dysfunction of pelvic region Sleep apnea Syncope and collapse Thoracic aortic aneurysm (TAA) Wears glasses Wears hearing aid Home Medications ???Medication ???Instructions ???Recorded ???Last Taken ???Type amlodipine 10 mg tablet See Rx Instructions .Route 4 03/26/25 Rx .COMPLEX #90 tabs rosuvastatin 10 mg tablet See Rx Instructions .Route 4 03/26/25 Rx .COMPLEX #90 tabs losartan 100 mg tablet 100 mg PO QDAY #90 tabs 11/28/24 0 03/26/25 Rx ipratropium bromide 21 mcg (0.03 2 spray intranasal BID-TID PRN 03/1603/26/25 Rx %) nasal spray postnasal drainage #30 mL meloxicam 15 mg tablet 15 mg PO QAM 02/23/25 Unknown Hist ory Allergy/AdvReac Type Severity Reaction Status Date / Time hydrochlorothiazide AdvReac Intermediate Hyponatremi Verified 03/26/25 15:20 a Family History Mother Colon cancer Hypertension Sister Heart disease Father CAD (coronary artery disease) Surgical History H/O local excision of skin lesion History of bilateral knee arthroplasty History of colonoscopy (2010) History of left heart catheterization (01/2014) Social History household members: spouse housing: house Smoking Status: Never smoker second hand exposure: No alcohol intake: current alcohol intake frequency: holidays/special occasions only substance use type: does not use caffeine: Yes (3-4 cups daily) what type of physical activity do you participate in: none seatbelt use: always ROS ROS Narrative General: Denies fever/chills HENT: Denies headache, denies stuffy nose, denies sore throat EYES: Denies changes in vision Resp: Denies cough, denies shortness of breath Cardiac: Denies chest pain GI: Denies abdominal pain, denies changes in bowel, denies nausea/vomiting : Denies changes in urination Extremity: Denies swelling MSK: Denies weakness Neuro: Numbness, weakness, facial droop resolved Heme: Denies any bleeding or bruising Skin: Denies rashes Psychiatric: No complaints voiced Vital Signs Vital Signs Vital Signs: 03/26/25 15:20 03/26/25 15:21 03/26/25 15:47 Temperature 97.9 F 97.9 F Temperature Source Temporal Temporal Pulse Rate 82 82 Respiratory Rate 22 H 22 H Blood Pressure 140/99 H 140/99 H Blood Pressure Mean 112 112 Pulse Ox 100 100 97 Oxygen Delivery Method Room Air Room Air Room Air 03/26/25 15:47 03/26/25 15:53 03/26/25 16:20 Temperat (more content not included)... Normal [facility] normalized rat io (INR) calculationOrdered By: Yobany Glynn on 03-26-2025 INR Coag (Bld) [Relative time] 1.0 {INR} [facility] Partial Thromboplast Timeon 03-26-2025 aPTT Coag (Bld) [Time] 24.9 s Normal 24.1-36.2 [facility] Comment on above: Performed By: #### L 500.4100, L500.2500, L500.3400 #### [facility] [address] [place], [address] Prothrombin Time w/INRon INR Coag (PPP) [Relative time] 1.0 {INR} Normal [facility] Comment on above: Performed By: #### L 500.4100, L500.2500, L500.3400 #### [facility] [address] [place], [address] PT Coag (PPP) [Time] 13.6 s Normal 11.7-14.9 [facility] Comment on above: Performed By: #### L 500.4100, L500.2500, L500.3400 #### [facility] [address] [place], [address] Prothrombin timeOrdered By: Yobany Glynn on 03-26-2025 PT Coag (PPP) [Time] 13.6 s 11.7-14.9 [facility] aPTT Coag (PPP) [Time]Ordere d By: Yobany Glynn on 03-26-2025 aPTT Coag (Bld) [Time] 24.9 s 24.1-36.2 [facility] Visit Reporton 0 02-23-2025 Urgent Care Visit Report [facility] [address] [place] [address] OFFICE VISIT Date of Service: 02/23/25 MR#: [id number] Acct: [id number] Name: DAMARI BOWERS Jr. Rep #: [id number] : 1955 Provider: AMGALI Murdock Age/Sex: 69/M Location: [facility] Status: Signed Intake Vital Signs 11/28/24 09:57 02/23/25 09:11 Height 5 ft 9 in 5 ft 8 in Weight: 205 lb BMI 31.1 BP 122/88 H Position Sitting Pulse 64 Temp 98.9 F Temp Source Oral Pulse Oximetry (%) 97 Oxygen Delivery Method room air Intake Visit Reasons: SORE THROAT, CONGESTION, COUGH Accompanied by: Self Allergies hydrochlorothiazide Adverse Reaction (Intermediate, Verified 02/23/25 09:05) Hyponatremia Medications ???Medication ???Instructions ???Recorded ???Confirmed ???Type trazodone 50 mg tablet 50 mg PO DAILY PRN Anxiety 1 11/28/24 History amlodipine 10 mg tablet See Rx Instructions .Route 4 02/23/25 Rx .COMPLEX #90 tabs rosuvastatin 10 mg tablet See Rx Instructions .Route 4 02/23/25 Rx .COMPLEX #90 tabs losartan 100 mg tablet 100 mg PO QDAY #90 tabs 11/28/24 0 02/23/25 Rx amoxicillin 875 mg-potassium 1 tab PO Q12H 10 days #20 tabs 03/1602/23/25 Rx clavulanate 125 mg tablet ipratropium bromide 21 mcg (0.03 2 spray intranasal BID-TID PRN 03/1602/23/25 Rx %) nasal spray postnasal drainage #30 mL meloxicam 15 mg tablet 15 mg PO QAM 02/23/25 02/23/25 His tory Have you fallen in the past year?: No Nurse's Note: Patient has a ST, cough and congestion that has been going on for 1 week. Patient states he has sinus pressure but his nasal airway feels fine. Patient states when he is coughing that he seems like he is going to cough something up and then it dissapears. Patient states when he does get to cough something up that it is a brownish mucus. [facility] Medical History Wears hearing aid Wears glasses High cholesterol Heartburn Gastric reflux Leg cramps Non-smoker Sleep apnea History of echocardiogram History of stress test Hypertension Cardiology follow-up encounter Thoracic aortic aneurysm (TAA) Back pain Obesity Nonobstructive atherosclerosis of coronary artery Essential (primary) hypertension Segmental and somatic dysfunction of pelvic region Segmental and somatic dysfunction of lumbar region LLQ abdominal pain Migraine Hemorrhoids Syncope and collapse Hyperlipidemia Surgical History History of bilateral knee arthroplasty History of colonoscopy (2010) History of left heart catheterization (01/2014) H/O local excision of skin lesion Family History Mother Colon cancer Hypertension Sister Heart disease Father CAD (coronary artery disease) Social History Smoking Status: Never smoker second hand exposure: No alcohol intake: current alcohol intake frequency: holidays/special occasions only substance use type: does not use caffeine: Yes (3-4 cups daily) what type of physical activity do you participate in: none seatbelt use: always HPI HPI Details: DAMARI BOWERS, is a 69 M who presents to the office today for complaint of cough, congestion and sore throat for the past week. Patient does state that he has had some sinus pressure as well. No hemoptysis, shortness of breath or difficulty breathing. No loss of taste or smell. No nausea, vomiting, diarrhea. No other associated symptoms or alleviating/aggravating factors. ROS Const Constitutional: No other (6 system ROS completed with pertinent findings in the HPI otherwise normal.) Exam Const General: cooperative and healthy appearing [facility] Head: normal to inspection Ears: hearing grossly normal bilaterally, TM's normal bilaterally and EAC's normal Nose: nasal discharge purulent Face and sinus: sinus tenderness frontal and maxillary Mouth: oral mucosae normal Throat: abnormal tonsil bilaterally erythema and hypertrophy 1+ and postnasal drainage Resp Effort Inspection: normal respiratory effort Auscultation: Bilateral: Clear to Auscultation Cardio Palpation: normal PMI Rate: regular rate Rhythm: regular rhythm Neuro General: patient alert and CN's II-XI intact bilaterally Psych Appearance: grossly normal Mental Status: mental status grossly normal Coding Level of Care Code Off vis,new,level 3 Diagnoses Acute sinusitis J01. Assessment and Plan Assessment and Plan (1) Acute sinusitis: Status: Acute Medications: New amoxicillin-pot clavulanate 875-125 mg 1 TAB PO Q12H 20 tabs 0RF 10 days J01.90 - Acute sinusitis, unspecifie (more content not included)... Normal [facility] Basic Metabolic Profile (BMP )on 01-02-2025 BUN/CRE 19.8 RATIO Normal 10- [facility] Comment on above: Order Comment: Order Date: 12/01/24 Order Info: 4548-4 - A1C Performed By: #### L [id number] #### [facility] [address] [place], [address] CA,Total 9.0 mg/dL Normal 8.5-10.1 [facility] Comment on above: Order Comment: Order Date: 12/01/24 Order Info: 4548-4 - A1C Performed By: #### L [id number] #### [facility] [address] [place], [address] Chloride [Moles/Vol] 108 mmol/L High 98-107 [facility] Comment on above: Order Comment: Order Date: 12/01/24 Order Info: 4548-4 - A1C Performed By: #### L [id number] #### [facility] [address] [place], [address] CO2 [Moles/Vol] 23.0 mmol/L Normal 21.0-32.0 [facility] Comment on above: Order Comment: Order Date: 12/01/24 Order Info: 4548-4 - A1C Performed By: #### L [id number] #### [facility] [address] [place], [place], [address] Creatinine [Mass/Vol] 1.21 mg/dL Normal 0.70-1.30 [facility] Comment on above: Order Comment: Order Date: 12/01/24 Order Info: 4548-4 - A1C Result Comment: The validity of the calculated GFR GFRAA in patients over 70 years has not been determined. Clinical correlation is essential. Performed By: #### L [id number] #### [facility] [address] [place], [address] EST GFR - AA 77 mL/min Normal >60 [facility] Comment on above: Order Comment: Order Date: 12/01/24 Order Info: 4548-4 - A1C Result Comment: Afri can British GFR Calc Performed By: #### L [id number] #### [facility] [address] [place], [address] GAP 7 Normal 5-15 [facility] Comment on above: Order Comment: Order Date: 12/01/24 Order Info: 4548-4 - A1C Performed By: #### L [id number] #### [facility] [address] [place], [address] GFR/1.73 sq M.predicted among non-blacks MDRD (S/P/Bld) [Vol rate/Area] 63 mL/min/{1.73_m2} Normal >60 [facility] Comment on above: Order Comment: Order Date: 12/01/24 Order Info: 4548-4 - A1C Result Comment: Non- GFR Calc Performed By: #### L [id number] #### [facility] [address] [place], [address] Glucose [Mass/Vol] 132 mg/dL High 74-106 [facility] Comment on above: Order Comment: Order Date: 12/01/24 Order Info: 4548-4 - A1C Result Comment: Fast ing Glucose result greater than or equal to 126 mg/dL suggests DIABETES MELLITUS per A.D.A. criteria. Performed By: #### L [id number] #### [facility] [address] [place], [address] Potassium [Moles/Vol] 3.5 mmol/L Normal 3.5-5.1 [facility] Comment on above: Order Comment: Order Date: 12/01/24 Order Info: 4548-4 - A1C Performed By: #### L [id number] #### [facility] [address] [place], [address] Sodium [Moles/Vol] 139 mmol/L Normal 136-145 [facility] Comment on above: Order Comment: Order Date: 12/01/24 Order Info: 4548-4 - A1C Performed By: #### L [id number] #### [facility] [address] [place], [address] Urea nitrogen [Mass/Vol] 24 mg/dL High 7-18 [facility] Comment on above: Order Comment: Order Date: 12/01/24 Order Info: 4548-4 - A1C Performed By: #### L [id number] #### [facility] [address] [place], [address] Blood urea nitrogen (BUN)/cr eatinine ratioOrdered By: Bean Currie on 01-02-2025 Urea nitrogen/Creatinine [Mass ratio] 19.8 mg/mg 10-20 [facility] Carbon dioxide measurementOr dered By: Bean Currie on 01-02-2025 CO2 [Moles/Vol] 23.0 mmol/L 21.0-32.0 [facility] Chloride measurementOrdered By: Bean Currie on 01-02-2025 Chloride [Moles/Vol] 108 mmol/L High 98-107 [facility] Estimated glomerular filtrat ion rate (GFR) AmericanOrdered By: Bean Currie on 01-02-2025 Estimated GFR (MDRD) Amer 77 mL/min >60 [facility] Comment on above: GFR Calc Glomerular filtration rate ( GFR) estimationOrdered By: Bean Currie on 01-02-2025 Estimated GFR (MDRD) Non-Af Amer 63 mL/min >60 [facility] Comment on above: Non- GFR Calc Glucose measurementOrdered B y: Bean Currie on 01-02-2025 Glucose [Mass/Vol] 132 mg/dL High 74-106 [facility] Comment on above: Fasting Glucose resu lt greater than or equal to 126 mg/dL suggests DIABETES MELLITUS per A.D.A. criteria. Potassium measurementOrdered By: Bean Currie on 01-02-2025 Potassium [Moles/Vol] 3.5 mmol/L 3.5-5.1 [facility] Serum anion gap measurementO rdered By: Bean Currie on 01-02-2025 Anion gap [Moles/Vol] 7 mmol/L 5-15 [facility] Serum or plasma calcium opal urement (mass/volume)Ordered By: Bean Currie on 01-02-2025 Calcium [Mass/Vol] 9.0 mg/dL 8.5-10.1 [facility] Serum or plasma creatinine m easurement (mass/volume)Ordered By: Bean Currie on 01-02-2025 Creatinine [Mass/Vol] 1.21 mg/dL 0.70-1.30 [facility] Comment on above: The validity of the calculated GFR & GFRAA in patients over 70 years has not been determined. Clinical correlation is essential. Serum or plasma urea nitroge n measurement (mass/volume)Ordered By: Bean Currie on 01-02-2025 Urea nitrogen [Mass/Vol] 24 mg/dL High 7-18 [facility] Sodium levelOrdered By: Bean Currie on 01-02-2025 Sodium [Moles/Vol] 139 mmol/L 136-145 [facility] Basic Metabolic Profile (BMP )on 12-01-2024 BUN/CRE 19.4 RATIO Normal 10-20 [facility] Comment on above: Order Comment: Order Date: 12/01/24 Order Info: 4548-4 - A1C Performed By: #### L [id number] #### [facility] [place], [address] CA,Total 9.2 mg/dL Normal 8.5-10.1 [facility] Comment on above: Order Comment: Order Date: 12/01/24 Order Info: 4548-4 - A1C Performed By: #### L [id number] #### [facility] [address] [place], [address] Chloride [Moles/Vol] 98 mmol/L Normal 98-107 [facility] Comment on above: Order Comment: Order Date: 12/01/24 Order Info: 4548-4 - A1C Performed By: #### L [id number] #### [facility] [address] [place], [address] CO2 [Moles/Vol] 26.0 mmol/L Normal 21.0-32.0 [facility] Comment on above: Order Comment: Order Date: 12/01/24 Order Info: 4548-4 - A1C Performed By: #### L [id number] #### [facility] [address] [place], [address] Creatinine [Mass/Vol] 0.88 mg/dL Normal 0.70-1.30 [facility] Comment on above: Order Comment: Order Date: 12/01/24 Order Info: 4548-4 - A1C Result Comment: The validity of the calculated GFR GFRAA in patients over 70 years has not been determined. Clinical correlation is essential. Performed By: #### L [id number] #### [facility] [address] [place], [address] EST GFR - AA 111 mL/min Normal >60 [facility] Comment on above: Order Comment: Order Date: 12/01/24 Order Info: 4548-4 - A1C Result Comment: Afri can British GFR Calc Performed By: #### L [id number] #### [facility] [address] [place], [address] GAP 6 Normal 5-15 [facility] Comment on above: Order Comment: Order Date: 12/01/24 Order Info: 4548-4 - A1C Performed By: #### L [id number] #### [facility] [address] [place], [address] (246) GFR/1.73 sq M.predicted among non-blacks MDRD (S/P/Bld) [Vol rate/Area] 92 mL/min/{1.73_m2} Normal >60 [facility] Comment on above: Order Comment: Order Date: 12/01/24 Order Info: 4548-4 - A1C Result Comment: Non- GFR Calc Performed By: #### L [id number] #### [facility] [address] [place], [id number] [phone] Glucose [Mass/Vol] 128 mg/dL High 74-106 [facility] Comment on above: Order Comment: Order Date: 12/01/24 Order Info: 4548-4 - A1C Result Comment: Fast ing Glucose result greater than or equal to 126 mg/dL suggests DIABETES MELLITUS per A.D.A. criteria. Performed By: #### L [id number] #### [facility] [address] [place], [address] [phone] Potassium [Moles/Vol] 4.1 mmol/L Normal 3.5-5.1 [facility] Comment on above: Order Comment: Order Date: 12/01/24 Order Info: 4548-4 - A1C Performed By: #### L [id number] #### [facility] [address] [place], [address] Sodium [Moles/Vol] 130 mmol/L Low 136-145 [facility] Comment on above: Order Comment: Order Date: 12/01/24 Order Info: 4548-4 - A1C Performed By: #### L [id number] #### [facility] [address] [place], [place], [address] ([address] Urea nitrogen [Mass/Vol] 17 mg/dL Normal 7-18 [facility] Comment on above: Order Comment: Order Date: 12/01/24 Order Info: 4548-4 - A1C Performed By: #### L [id number] #### [facility] [address] [place], [place], [id number] Blood urea nitrogen (BUN)/cr eatinine ratioOrdered By: Bean Currie on 12-01-2024 Urea nitrogen/Creatinine [Mass ratio] 19.4 mg/mg 10-20 [facility] Carbon dioxide measurementOr dered By: Bean Currie on 12-01-2024 CO2 [Moles/Vol] 26.0 mmol/L 21.0-32.0 [facility] Chloride measurementOrdered By: Bean Currie on 12-01-2024 Chloride [Moles/Vol] 98 mmol/L 98-107 [facility] Estimated glomerular filtrat ion rate (GFR) AmericanOrdered By: Bean Currie on 12-01-2024 Estimated GFR (MDRD) Amer 111 mL/min >60 [facility] Comment on above: GFR Calc Glomerular filtration rate ( GFR) estimationOrdered By: Bean Currie on 12-01-2024 Estimated GFR (MDRD) Non-Af Amer 92 mL/min >60 [facility] Comment on above: Non- GFR Calc Glucose measurementOrdered B y: Bean Currie on 12-01-2024 Glucose [Mass/Vol] 128 mg/dL High 74-106 [facility] Comment on above: Fasting Glucose resu lt greater than or equal to 126 mg/dL suggests DIABETES MELLITUS per A.D.A. criteria. Hemoglobin A1con 12-01-2024 HbA1c (Bld) [Mass fraction] 6.5 % High 3.8-5.6 [facility] Comment on above: Order Comment: Order Date: 12/01/24 Order Info: 4548-4 - A1C Result Comment: Norm al < 5.7 % Prediabetic 5.7 - 6.4 % Diabetic >or= 6.5 % Please note range changes. Performed By: #### L [id number] #### [facility] [address] [place], [place], [address] Hemoglobin A1c percentageOrd ered By: Bean Currie on 12-01-2024 HbA1c (Bld) [Mass fraction] 6.5 % High 3.8-5.6 [facility] Comment on above: Normal < 5.7 % Predi abetic 5.7 - 6.4 % Diabetic >or= 6.5 % Please note range changes. Potassium measurementOrdered By: Bean Currie on 12-01-2024 Potassium [Moles/Vol] 4.1 mmol/L 3.5-5.1 [facility] Serum anion gap measurementO rdered By: Bean Currie on 12-01-2024 Anion gap [Moles/Vol] 6 mmol/L 5-15 [facility] Serum or plasma calcium opal urement (mass/volume)Ordered By: Bean Currie on 12-01-2024 Calcium [Mass/Vol] 9.2 mg/dL 8.5-10.1 [facility] Serum or plasma creatinine m easurement (mass/volume)Ordered By: Bean Currie on 12-01-2024 Creatinine [Mass/Vol] 0.88 mg/dL 0.70-1.30 [facility] Comment on above: The validity of the calculated GFR & GFRAA in patients over 70 years has not been determined. Clinical correlation is essential. Serum or plasma urea nitroge n measurement (mass/volume)Ordered By: Bean Currie on 12-01-2024 Urea nitrogen [Mass/Vol] 17 mg/dL 7-18 [facility] Sodium levelOrdered By: Bean Currie on 12-01-2024 Sodium [Moles/Vol] 130 mmol/L Low 136-145 [facility] CTA Chest W/WO Contraston CTA Chest W/WO Contrast [facility] [address] [place], [place] [address] CTA Chest W/WO Contrast MR#: [id number] Acct: [id number] Name: BOWERSDAMARI BEALNORMA Benson Rep #: [id number] : 1955 M 68 From: Ambrocio Flores MD PCP: Dr. Bean Currie MD Status: REG CLI Study: CTA Chest W/WO Contrast Date of Exam: 11/30/24 Exam# [id number] Ordering Dr: [place] [id number] STUDY: CTA CHEST REASON FOR EXAM: Male, 68 years old. TAA RADIATION DOSAGE (If Supplied By Facility): CTDIvol = ( 15.94 ) mGy, DLP = ( 676.94 ) mGycm TECHNIQUE: The examination was performed with the intravenous administration of 100mL Isovue-370. Post-processing of the angiographic images was performed, with multiplanar reformation and 3D reconstruction. Individualized dose optimization techniques were used for this CT. COMPARISON: 06/12/2021 FINDINGS: Normal enhancement of the main pulmonary artery and right and left pulmonary arteries. Normal enhancement of the bilateral peripheral pulmonary arteries. There is no demonstrated pulmonary embolism. Aneurysmal dilatation ascending thoracic aorta, transverse diameter 4.3 cm. Descending thoracic aorta normal caliber. There is no demonstrated aortic dissection. Normal heart and pericardium. Normal mediastinum. Normal hilar regions. Mild bibasilar dependent and/or fibrotic changes. No pulmonary infiltrates or mass lesion. No pleural effusions. No acute or aggressive osseous abnormality. No acute findings in the upper abdomen. CT/CTA Chest W/WO Contrast IMPRESSION: Interval increase in the aneurysmal dilatation ascending thoracic aorta from 4.1 cm transverse diameter previously to current 4.3 cm transverse diameter. No evidence of dissection. Electronically Signed: Ambrocio Flores MD at 17:58 EST , CC: Dr. Trevon Quinones MD; Dr. Bean Currie MD Laboratory Analyst: Signed Normal [facility] 12 Lead E[facility] performed by [facility] [place] 11-28-2024 12 Lead EKG performed by [place] [address] [place] [address] 12 Lead EKG performed by [facility] 11/28/24 1012 MR#: [id number] Acct: [id number] Name: DAMARI BOWERS Jr. Rep #: [id number] : 1955 68 From: Trevon Quinones MD Attending Dr: Dr. Trevon Quinones MD Status: DEP A MB Ordering Dr: Trevon Quinones MD Date: 11/28/24 Location: [facility] Sex: M C Admitted: BMS/12 Lead EKG performed by [facility] ECG Report Interpretation ---Sinus Rhythm WITHIN NORMAL LIMITSElectronically signed on 11/29/2024 at 14:49 by Trevon Quinones [employer] Version [id number] 11/29/24 1453 Date Trevon Quinones MD CC: Dr. Bean Currie MD Date Dictated: 11/28/24 1012 Date Transcribed: 11/28/241011 Laboratory Analyst: [place] Signed Normal [facility] Basic Metabolic Profile (BMP )on 11-28-2024 BUN/CRE 18.5 RATIO Normal 10-20 [facility] Comment on above: Performed By: #### L 500.4100, L500.2500, L500.3400 #### [facility] [address] [place], [address] CA,Total 9.3 mg/dL Normal 8.5-10.1 [facility] Comment on above: Performed By: #### L 500.4100, L500.2500, L500.3400 #### [facility] [address] [place], [address] Chloride [Moles/Vol] 92 mmol/L Low 98-107 [facility] Comment on above: Performed By: #### L 500.4100, L500.2500, L500.3400 #### [facility] [address] [place], [address] CO2 [Moles/Vol] 28.0 mmol/L Normal 21.0-32.0 [facility] Comment on above: Performed By: #### L 500.4100, L500.2500, L500.3400 #### [facility] [address] [place], [address] Creatinine [Mass/Vol] 0.97 mg/dL Normal 0.70-1.30 [facility] Comment on above: Result Comment: The validity of the calculated GFR GFRAA in patients over 70 years has not been determined. Clinical correlation is essential. Performed By: #### L 500.4100, L500.2500, L500.3400 #### [facility] [address] [place], [address] EST GFR - AA 99 mL/min Normal >60 [facility] Comment on above: Result Comment: Afri can British GFR Calc Performed By: #### L 500.4100, L500.2500, L500.3400 #### [facility] [address] [place], [address] GAP 6 Normal 5-15 [facility] Comment on above: Performed By: #### L 500.4100, L500.2500, L500.3400 #### [facility] [address] [place], [address] GFR/1.73 sq M.predicted among non-blacks MDRD (S/P/Bld) [Vol rate/Area] 82 mL/min/{1.73_m2} Normal >60 [facility] Comment on above: Result Comment: Non- GFR Calc Performed By: #### L 500.4100, L500.2500, L500.3400 #### [facility] [address] [place], [address] Glucose [Mass/Vol] 109 mg/dL High 74-106 [facility] Comment on above: Result Comment: Fast ing Glucose result from 100 to 125 mg/dL suggests IMPAIRED HOMEOSTASIS per A.D.A. criteria. Performed By: #### L 500.4100, L500.2500, L500.3400 #### [facility] [address] [place], [address] Potassium [Moles/Vol] 4.2 mmol/L Normal 3.5-5.1 [facility] Comment on above: Performed By: #### L 500.4100, L500.2500, L500.3400 #### [facility] [address] [place], [address] Sodium [Moles/Vol] 126 mmol/L Low 136-145 [facility] Comment on above: Performed By: #### L 500.4100, L500.2500, L500.3400 #### [facility] [address] [place], [address] Urea nitrogen [Mass/Vol] 18 mg/dL Normal 7-18 [facility] Comment on above: Performed By: #### L 500.4100, L500.2500, L500.3400 #### [facility] [address] [place], [address] Bilirubin directOrdered By: Trevon Quinones on 11-28-2024 Bilirubin.direct [Mass/Vol] 0.14 mg/dL 0.00-0.30 [facility] Bilirubin, totalOrdered By: Trevon Quinonse on 11-28-2024 Bilirubin [Mass/Vol] 0.60 mg/dL 0.20-1.00 [facility] Comment on above: For patients on eltr ombopag therapy, use of Dimension [place] TBIL is not recommended. Blood urea nitrogen (BUN)/cr eatinine ratioOrdered By: Trevon Quinones on 11-28-2024 Urea nitrogen/Creatinine [Mass ratio] 18.5 mg/mg 09-10 [facility] Carbon dioxide measurementOr dered By: Trevon Quinones on 11-28-2024 CO2 [Moles/Vol] 28.0 mmol/L 21.0-32.0 [facility] Cardiology Visit Reporton Cardiology Visit Report [facility] [address] [place] [address] OFFICE VISIT Date of Service: 11/28/24 MR#: [id number] Acct: [id number] Name: DAMARI BOWERS Jr. Rep #: [id number] : 1955 Provider: Dr. Trevon Quinones MD Age/Sex: 68/M Location: [facility] Status: Signed HPI HPI History of Present Illness Details: DAMARI BOWERS, is a 68 M who presents to the office today for a follow-up visit. He is a gentleman with a history of hypertension, hyperlipidemia, nonobstructive coronary disease on a heart catheterization from 2013, but a dilated and tortuous aorta. His aortic root had measured 4.[address] scan in 2013. A repeat in 2020 demonstrated a dimension of 4.1 cm he has denied any chest pain or shortness of breath or paroxysmal nocturnal dyspnea or pedal edema he does not have a recent lipid profile. His blood pressure appears to be doing so much better. His stress level is much lower. His physical exam demonstrates clear lung robledo regular rate and rhythm and no pedal edema. 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 Required: No Accompanied by: Self Is patient in pain?: No Allergies No Known Allergies Allergy (Verified 11/28/24 09:59) Medications ???Medication ???Instructions ???Recorded ???Confirmed ???Type trazodone 50 mg tablet 50 mg PO DAILY PRN Anxiety 06/05/21 11/28/24 History amlodipine 10 mg tablet See Rx Instructions .Route 08/21/24 11/28/24 Rx .COMPLEX #90 tabs hydrochlorothiazide 25 mg tablet See Rx Instructions .Route 08/21/24 11/28/24 Rx .COMPLEX #90 tabs rosuvastatin 10 mg tablet See Rx Instructions .Route 08/21/24 11/28/24 Rx .COMPLEX #90 tabs losartan 100 mg tablet 100 mg PO QDAY #90 tabs 11/28/24 11/28/24 Rx Have you fallen in the past year?: No PFSH Medical History Wears hearing aid Wears glasses High cholesterol Heartburn Gastric reflux Leg cramps Non-smoker Sleep apnea History of echocardiogram History of stress test Hypertension Cardiology follow-up encounter Thoracic aortic aneurysm (TAA) Back pain Obesity Nonobstructive atherosclerosis of coronary artery Essential (primary) hypertension Segmental and somatic dysfunction of pelvic region Segmental and somatic dysfunction of lumbar region LLQ abdominal pain Migraine Hemorrhoids Syncope and collapse Hyperlipidemia Surgical History History of bilateral knee arthroplasty History of colonoscopy (2010) History of left heart catheterization (01/2014) H/O local excision of skin lesion Family History Mother Colon cancer Hypertension Sister Heart disease Father CAD (coronary artery disease) Social History Smoking Status: Never smoker second hand exposure: No alcohol intake: current alcohol intake frequency: holidays/special occasions only substance use type: does not use caffeine: Yes (3-4 cups daily) what type of physical activity do you participate in: none seatbelt use: always ROS Const Const: Negative for fatigue, weakness, headache(s), daytime sleepiness or difficulty sleeping ENT ENT: Negative for headache(s), dizziness or Nosebleed/epistaxis Cardio Chest Pain: No Palpitations: No Edema: None Resp Respiratory: Negative for SOB with activity, SOB at rest, SOB orthopnea SOB lying down or Cough GI GI: Negative nausea, vomiting or heartburn Neuro Neuro: Negative for dizziness, lightheadedness, near syncope, headache(s) or weakness Endo Endo: Negative for fatigue Cardiology Exam Const Appearance: cooperative, healthy appearing, no acute distress, well developed and well groomed Nutritional Appearance: average body habitus and well nourished Orientation: alert, awake and oriented x3 Head Head: normal to inspection, normocephalic and atraumatic Ears: hearing grossly normal bilaterally and external ears normal Nose: external nose normal, nares normal, nasal mucous membranes and turbinates normal, septum normal and no nasal discharge Face and Sinus: face symmetric Mouth: oral mucosae normal, tongue normal, oropharynx normal and moist mucous membranes Teeth and gingiva: dentition normal Throat: posterior oropharynx normal, tonsils normal and uvula midline Eyes General: appearance normal, both eyes and all related structures Eyelids: eyelids normal Conjunctivae: conjunctivae normal Pupils: PERRL, no (more content not included)... Normal [facility] Chloride measurementOrdered By: Trevon Quinones on 11-28-2024 Chloride [Moles/Vol] 92 mmol/L Low 98-107 [facility] Estimated glomerular filtrat ion rate (GFR) AmericanOrdered By: Trevon Quinones on 11-28-2024 Estimated GFR (MDRD) Amer 99 mL/min >60 [facility] Comment on above: GFR Calc Glomerular filtration rate ( GFR) estimationOrdered By: Trevon Quinones on 11-28-2024 Estimated GFR (MDRD) Non-Af Amer 82 mL/min >60 [facility] Comment on above: Non- GFR Calc Glucose measurementOrdered B y: Trevon Quinones on 11-28-2024 Glucose [Mass/Vol] 109 mg/dL High 74-106 [facility] Comment on above: Fasting Glucose resu lt from 100 to 125 mg/dL suggests IMPAIRED HOMEOSTASIS per A.D.A. criteria. High density lipoprotein (HD L) measurementOrdered By: Trevon Quinones on 11-28-2024 Cholesterol in HDL [Mass/Vol] 52 mg/dL >40 [facility] Comment on above: The drugs N-Acetylcy steine and Metamizole may falsely depress this assay. Reference Range HDL <40 mg/dL Low HDL Cholesterol HDL >or= 60 mg/dL High HDL Cholesterol Laboratory - Chemistry and C hemistry - challengeOrdered By: Trevon Quinones on 11-28-2024 AST [Catalytic activity/Vol] 26 U/L 15-37 [facility] Lipid Profileon 11-28-2024 Cholesterol [Mass/Vol] 162 mg/dL Normal 200 [facility] Comment on above: Result Comment: <200 mg/dL Desirable 200-240 mg/dL Borderline >240 mg/dL High Risk Performed By: #### L 500.4100, L500.2500, L500.3400 #### [facility] [address] [place], [address] Cholesterol in HDL [Mass/Vol] 52 mg/dL Normal [facility] Comment on above: Result Comment: The drugs N-Acetylcysteine and Metamizole may falsely depress this assay. Reference Range HDL <40 mg/dL Low HDL Cholesterol HDL >or= 60 mg/dL High HDL Cholesterol Performed By: #### L 500.4100, L500.2500, L500.3400 #### [facility] [address] [place], [address] Cholesterol in LDL [Mass/Vol] 88 mg/dL Normal 0-130 [facility] Comment on above: Performed By: #### L 500.4100, L500.2500, L500.3400 #### [facility] [address] [place], [address] Cholesterol in VLDL [Mass/Vol] 22 mg/dL Normal 5-40 [facility] Comment on above: Performed By: #### L 500.4100, L500.2500, L500.3400 #### [facility] [address] [place], [address] Triglyceride [Mass/Vol] 110 mg/dL Normal [facility] Comment on above: Result Comment: The drugs N-Acetylcysteine and Metamizole may falsely depress this assay. Serum Triglycerides Reference Interval Normal <150 mg/dL Borderline high 150 - 199 mg/dL High 200 - 499 mg/dL Very High > or = 500 mg/dL Performed By: #### L 500.4100, L500.2500, L500.3400 #### [facility] [address] [place], [address] Liver Profileon 11-28-2024 Albumin [Mass/Vol] 3.6 g/dL Normal 3.2-5.0 [facility] Comment on above: Performed By: #### L 500.4100, L500.2500, L500.3400 #### [facility] [address] [place], [address] ALK P 89 U/L Normal 45-117 [facility] Comment on above: Performed By: #### L 500.4100, L500.2500, L500.3400 #### [facility] [address] [place], [address] ALT [Catalytic activity/Vol] 27 U/L Normal 16-61 [facility] Comment on above: Performed By: #### L 500.4100, L500.2500, L500.3400 #### [facility] [address] [place], [address] AST [Catalytic activity/Vol] 26 U/L Normal 15-37 [facility] Comment on above: Performed By: #### L 500.4100, L500.2500, L500.3400 #### [facility] [address] [place], [address] Bilirubin [Mass/Vol] 0.60 mg/dL Normal 0.20-1.00 [facility] Comment on above: Result Comment: For patients on eltrombopag therapy, use of Dimension [place] TBIL is not recommended. Performed By: #### L 500.4100, L500.2500, L500.3400 #### [facility] [address] [place], [address] Bilirubin.direct [Mass/Vol] 0.14 mg/dL Normal 0.00-0.30 [facility] Comment on above: Performed By: #### L 500.4100, L500.2500, L500.3400 #### [facility] [address] [place], [address] Globulin (S) [Mass/Vol] 4.0 g/dL Normal 2.2-4.2 [facility] Comment on above: Performed By: #### L 500.4100, L500.2500, L500.3400 #### [facility] [address] [place], [address] T PROT 7.6 g/dL Normal 6.4-8.2 [facility] Comment on above: Performed By: #### L 500.4100, L500.2500, L500.3400 #### [facility] [address] [place], [address] Low density lipoprotein (LDL ) cholesterol measurementOrdered By: Trevon Quinones on 11-28-2024 Cholesterol in LDL [Mass/Vol] 88 mg/dL 0-130 [facility] Potassium measurementOrdered By: Trevon Quinones on 11-28-2024 Potassium [Moles/Vol] 4.2 mmol/L 3.5-5.1 [facility] Serum anion gap measurementO rdered By: Trevon Quinones on 11-28-2024 Anion gap [Moles/Vol] 6 mmol/L 5-15 [facility] Serum globulin measurementOr dered By: Trevon Quinones on 11-28-2024 Globulin (S) [Mass/Vol] 4.0 g/dL 2.2-4.2 [facility] Serum or plasma alanine neumann otransferase (ALT) measurementOrdered By: Trevon Quinones on 11-28-2024 ALT [Catalytic activity/Vol] 27 U/L 16-61 [facility] Serum or plasma albumin opal urement (mass/volume)Ordered By: Trevon Quinones on 11-28-2024 Albumin [Mass/Vol] 3.6 g/dL 3.2-5.0 [facility] Serum or plasma alkaline brad sphatase measurementOrdered By: Trevon Quinones on 11-28-2024 ALP [Catalytic activity/Vol] 89 U/L 45-117 [facility] Serum or plasma calcium opal urement (mass/volume)Ordered By: Trevon Quinones on 11-28-2024 Calcium [Mass/Vol] 9.3 mg/dL 8.5-10.1 [facility] Serum or plasma cholesterol measurement (mass/volume)Ordered By: Trevon Quinones on 11-28-2024 Cholesterol [Mass/Vol] 162 mg/dL <200 [facility] Comment on above: <200 mg/dL Desirable 200-240 mg/dL Borderline >240 mg/dL High Risk Serum or plasma creatinine m easurement (mass/volume)Ordered By: Trevon Quinones on 11-28-2024 Creatinine [Mass/Vol] 0.97 mg/dL 0.70-1.30 [facility] Comment on above: The validity of the calculated GFR & GFRAA in patients over 70 years has not been determined. Clinical correlation is essential. Serum or plasma urea nitroge n measurement (mass/volume)Ordered By: Trevon Quinones on 11-28-2024 Urea nitrogen [Mass/Vol] 18 mg/dL 7-18 [facility] Sodium levelOrdered By: Ang Quinones on 11-28-2024 Sodium [Moles/Vol] 126 mmol/L Low 136-145 [facility] Total proteinOrdered By: Barber Quinones on 11-28-2024 Protein [Mass/Vol] 7.6 g/dL 6.4-8.2 [facility] Triglycerides measurementOrd ered By: Trevon Quinones on 11-28-2024 Triglyceride [Mass/Vol] 110 mg/dL <199 [facility] Comment on above: The drugs N-Acetylcy steine and Metamizole may falsely depress this assay.Serum Triglycerides Reference Interval Normal <150 mg/dL Borderline high 150 - 199 mg/dL High 200 - 499 mg/dL Very High > or = 500 mg/dL Very low density lipoprotein (VLDL) cholesterol measurementOrdered By: Trevon Quinones on 11-28-2024 VLDL Cholesterol 22 mg/dL 5-40 [facility] Basophil percentageOrdered B y: Trevon Quinones on 08-31-2023 Bilirubin [Mass/Vol] 0.60 mg/dL 0.20-1.00 [facility] Comment on above: For patients on eltr ombopag therapy, use of Dimension [place] TBIL is not recommended. Cholesterol [Mass/Vol] 180 mg/dL <200 [facility] Comment on above: <200 mg/dL Desirable 200-240 mg/dL Borderline >240 mg/dL High Risk Protein [Mass/Vol] 7.4 g/dL 6.4-8.2 [facility] Triglyceride [Mass/Vol] 134 mg/dL <199 [facility] Comment on above: The drugs N-Acetylcy steine and Metamizole may falsely depress this assay.Serum Triglycerides Reference Interval Normal <150 mg/dL Borderline high 150 - 199 mg/dL High 200 - 499 mg/dL Very High > or = 500 mg/dL Direct bilirubinOrdered By: Trevon Quinones on 08-31-2023 Bilirubin.direct [Mass/Vol] 0.15 mg/dL 0.00-0.30 [facility] - Chemistry and C hemistry - challengeOrdered By: Trevon Quinones on 08-31-2023 ALP [Catalytic activity/Vol] 74 U/L 45-117 [facility] ALT [Catalytic activity/Vol] 35 U/L 16-61 [facility] Globulin (S) [Mass/Vol] 3.7 g/dL 2.2-4.2 [facility] Serum or plasma albumin opal urement (mass/volume)Ordered By: Trevon Quinones on 08-31-2023 Albumin [Mass/Vol] 3.7 g/dL 3.2-5.0 [facility] Serum or plasma cholesterol in HDL measurement (mass/volume)Ordered By: Trevon Quinones on 08-31-2023 Cholesterol in HDL [Mass/Vol] 54 mg/dL >40 [facility] Comment on above: The drugs N-Acetylcy steine and Metamizole may falsely depress this assay. Reference Range HDL <40 mg/dL Low HDL Cholesterol HDL >or= 60 mg/dL High HDL Cholesterol Serum or plasma cholesterol in VLDL measurement (mass/volume)Ordered By: Trevon Quinones on 08-31-2023 Cholesterol in VLDL [Mass/Vol] 27 mg/dL 5-40 [facility] Serum or plasma low density lipoprotein (LDL) cholesterol measurement (mass/volume)Ordered By: Trevon Quinones on 08-31-2023 Cholesterol in LDL [Mass/Vol] 99 mg/dL 0-130 [facility] Thin prep Papanicolaou smear with manual screeningOrdered By: Trevon Quinones on 08-31-2023 Thin prep Papanicolaou smear with manual screening 29 U/L 15-37 [facility] Comment on above: Slight Hemolysis, Re sult may be falsely increased. Absolute lymphocyte countOrd ered By: Dr. Currie on 02-25-2023 Lymphocytes Auto (Unsp spec) [#/Vol] 1.90 10*3/uL 0.83-4.51 [facility] Basophil percentageOrdered B y: Dr. Currie on 02-25-2023 Basophils/100 WBC (Bld) 1.0 % 0-1 [facility] Bilirubin [Mass/Vol] 0.40 mg/dL 0.20-1.00 [facility] Comment on above: For patients on eltr ombopag therapy, use of Dim[place] TBIL is not recommended. Chloride [Moles/Vol] 101 mmol/L 98-107 [facility] Cholesterol [Mass/Vol] 206 mg/dL <200 [facility] Comment on above: <200 mg/dL Desirable 200-240 mg/dL Borderline >240 mg/dL High Risk Eosinophils/100 WBC (Bld) 3.7 % 0-5 [facility] Glucose [Mass/Vol] 109 mg/dL 74-106 [facility] Comment on above: Fasting Glucose resu lt from 100 to 125 mg/dL suggests IMPAIRED HOMEOSTASIS per A.D.A. criteria. Neutrophils (Bld) [#/Vol] 2.6 10*3/uL 2.0-7.7 [facility] Neutrophils/100 WBC (Bld) 50.9 % 47-70 [facility] Potassium [Moles/Vol] 4.3 mmol/L 3.5-5.1 [facility] Protein [Mass/Vol] 7.4 g/dL 6.4-8.2 [facility] Sodium [Moles/Vol] 134 mmol/L 136-145 [facility] Triglyceride [Mass/Vol] 225 mg/dL <199 [facility] Comment on above: The drugs N-Acetylcy steine and Metamizole may falsely depress this assay.Serum Triglycerides Reference Interval Normal <150 mg/dL Borderline high 150 - 199 mg/dL High 200 - 499 mg/dL Very High > or = 500 mg/dL WBC (Bld) [#/Vol] 5.1 10*3/uL 4.4-11.0 [facility] Blood erythrocytes count (nu mber/volume)Ordered By: Dr. Currie on 02-25-2023 RBC (Bld) [#/Vol] 4.82 10*6/uL 4.6-6.2 [facility] Blood hemoglobin measurement (mass/volume)Ordered By: Dr. Currie on 02-25-2023 Hemoglobin (Bld) [Mass/Vol] 14.8 g/dL 13.0-16.5 [facility] Blood lymphocytes/100 leukoc ytesOrdered By: Dr. Currie on 02-25-2023 Lymphocytes/100 WBC (Bld) 37.0 % 19-41 [facility] Blood monocytes/100 leukocyt esOrdered By: Dr. Currie on 02-25-2023 Monocytes/100 WBC (Bld) 7.2 % 0-10 [facility] Blood platelet mean volumeOr dered By: Dr. Currie on 02-25-2023 Platelet mean volume (Bld) [Entitic vol] 9.5 fL 6.2-12.0 [facility] Determination of erythrocyte mean corpuscular volume (MCV)Ordered By: Dr. Currie on 02-25-2023 MCV (RBC) [Entitic vol] 89.0 fL 80-94 [facility] Hematocrit Auto (Bld) [Volum e fraction]Ordered By: Dr. Currie on 02-25-2023 Hematocrit (Bld) [Volume fraction] 42.9 % 40-54 [facility] Laboratory - Chemistry and C hemistry - challengeOrdered By: Dr. Currie on 02-25-2023 ALP [Catalytic activity/Vol] 83 U/L 45-117 [facility] ALT [Catalytic activity/Vol] 38 U/L 16-61 [facility] CO2 [Moles/Vol] 25.0 mmol/L 21.0-32.0 [facility] Globulin (S) [Mass/Vol] 3.4 g/dL 2.2-4.2 [facility] Urea nitrogen/Creatinine [Mass ratio] 16.0 mg/mg 10-20 [facility] - Hematology and Cell countsOrdered By: Dr. Currie on 02-25-2023 Erythrocyte distribution width (RBC) [Entitic vol] 38.3 fL 35.1-43.9 [facility] Erythrocyte distribution width (RBC) [Ratio] 11.8 % 11.6-14.6 [facility] Immature granulocytes/100 WBC (Bld) 0.200 % 0.0-0.9 [facility] Comment on above: IG% - Immature Granu locytes (promyelocytes, myelocytes and metamyelocytes) > 1% indicates that a LEFT SHIFT is Present. MCH (RBC) [Entitic mass] 30.7 pg 27.0-32.0 [facility] Nucleated RBC/100 WBC (Bld) [Ratio] 0 % 0-5 [facility] MCHC Auto (RBC) [Mass/Vol]Or dered By: Dr. Currie on 02-25-2023 MCHC (RBC) [Mass/Vol] 34.5 g/dL 32-36 [facility] No Panel InformationOrdered By: Dr. Currie on 02-25-2023 Estimated GFR (MDRD) Amer 103 mL/min >60 [facility] Comment on above: GFR Calc Estimated GFR (MDRD) Non-Af Amer 85 mL/min >60 [facility] Comment on above: Non- GFR Calc Thyroid Stimulating Hormone (TSH) 1.81 uIU/mL 0.358-3.74 [facility] Platelets bldOrdered By: Dr. Currie on 02-25-2023 Platelets (Bld) [#/Vol] 261 10*3/uL 150-450 [facility] Serum or plasma albumin opal urement (mass/volume)Ordered By: Dr. Currie on 02-25-2023 Albumin [Mass/Vol] 4.0 g/dL 3.2-5.0 [facility] Serum or plasma albumin/glob ulin mass ratioOrdered By: Dr. Currie on 02-25-2023 Albumin/Globulin [Mass ratio] 1.2 {ratio} 0.9-2.4 [facility] Serum or plasma calcium opal urement (mass/volume)Ordered By: Dr. Currie on 02-25-2023 Calcium [Mass/Vol] 9.2 mg/dL 8.5-10.1 [facility] Serum or plasma cholesterol in HDL measurement (mass/volume)Ordered By: Dr. Currie on 02-25-2023 Cholesterol in HDL [Mass/Vol] 49 mg/dL >40 [facility] Comment on above: The drugs N-Acetylcy steine and Metamizole may falsely depress this assay. Reference Range HDL <40 mg/dL Low HDL Cholesterol HDL >or= 60 mg/dL High HDL Cholesterol Serum or plasma cholesterol in VLDL measurement (mass/volume)Ordered By: Dr. Currie on 02-25-2023 Cholesterol in VLDL [Mass/Vol] 45 mg/dL 5-40 [facility] Serum or plasma creatinine m easurement (mass/volume)Ordered By: Dr. Currie on 02-25-2023 Creatinine [Mass/Vol] 0.94 mg/dL 0.70-1.30 [facility] Comment on above: The validity of the calculated GFR & GFRAA in patients over 70 years has not been determined. Clinical correlation is essential. Serum or plasma low density lipoprotein (LDL) cholesterol measurement (mass/volume)Ordered By: Dr. Currie on 02-25-2023 Cholesterol in LDL [Mass/Vol] 112 mg/dL 0-130 [facility] Serum or plasma urea nitroge n measurement (mass/volume)Ordered By: Dr. Currie on 02-25-2023 Urea nitrogen [Mass/Vol] 15 mg/dL 7-18 [facility] Thin prep Papanicolaou smear with manual screeningOrdered By: Dr. Currie on 02-25-2023 Thin prep Papanicolaou smear with manual screening 31 U/L 15-37 [facility] Thin prep Papanicolaou smear with manual screening 8 5-15 [facility] Whole blood hemoglobin A1c/t otal hemoglobin ratio (mass fraction)Ordered By: Dr. Currie on 02-25-2023 HbA1c (Bld) [Mass fraction] 6.3 % 3.8-5.6 [facility] Comment on above: Normal < 5.7 % Predi abetic 5.7 - 6.4 % Diabetic >or= 6.5 % Please note range changes. Whole blood hemoglobin A1c/t otal hemoglobin ratio (mass fraction)on 06-11-2022 HbA1c (Bld) [Mass fraction] 6.2 % 3.8-5.6 [facility] Work Phone: Comment on above: Normal < 5.7 % Predi abetic 5.7 - 6.4 % Diabetic >or= 6.5 % Please note range changes. Basophil percentageon 2021 Bilirubin [Mass/Vol] 0.70 mg/dL 0.20-1.00 [facility] Work Phone: Comment on above: For patients on eltr ombopag therapy, use of Dimension [place] TBIL is not recommended. Chloride [Moles/Vol] 101 mmol/L 98-107 [facility] Work Phone: Cholesterol [Mass/Vol] 183 mg/dL <200 [facility] Work Phone: Comment on above: <200 mg/dL Desirable 200-240 mg/dL Borderline >240 mg/dL High Risk Glucose [Mass/Vol] 139 mg/dL 74-106 [facility] Work Phone: Comment on above: Fasting Glucose resu lt greater than or equal to 126 mg/dL suggests DIABETES MELLITUS per A.D.A. criteria. Potassium [Moles/Vol] 3.8 mmol/L 3.5-5.1 [facility] Work Phone: [phone] Protein [Mass/Vol] 7.5 g/dL 6.4-8.2 [facility] Work Phone: [phone] Sodium [Moles/Vol] 134 mmol/L 136-145 [facility] Work Phone: [phone] Triglyceride [Mass/Vol] 147 mg/dL <199 [facility] Work Phone: [phone] Comment on above: The drugs N-Acetylcy steine and Metamizole may falsely depress this assay.Serum Triglycerides Reference Interval Normal <150 mg/dL Borderline high 150 - 199 mg/dL High 200 - 499 mg/dL Very High > or = 500 mg/dL Direct bilirubinon Bilirubin.direct [Mass/Vol] 0.18 mg/dL 0.00-0.30 [facility] Work Phone: Laboratory - Chemistry and C hemistry - challengeon 06-10-2022 ALP [Catalytic activity/Vol] 74 U/L 45-117 [facility] Work Phone: [phone] ALT [Catalytic activity/Vol] 29 U/L 16-61 [facility] Work Phone: [phone] CO2 [Moles/Vol] 29.0 mmol/L 21.0-32.0 [facility] Work Phone: [phone] Globulin (S) [Mass/Vol] 3.5 g/dL 2.2-4.2 [facility] Work Phone: [phone] Urea nitrogen/Creatinine [Mass ratio] 15.0 mg/mg - [facility] Work Phone: No Panel Informationon 06-10 Estimated GFR (MDRD) Amer 89 mL/min >60 [facility] Work Phone: Comment on above: GFR Calc Estimated GFR (MDRD) Non-Af Amer 73 mL/min >60 [facility] Work Phone: Comment on above: Non- GFR Calc Serum or plasma albumin opal urement (mass/volume)on 06-10-2022 Albumin [Mass/Vol] 4.0 g/dL 3.2-5.0 [facility] Work Phone: [phone] Serum or plasma calcium opal urement (mass/volume)on 06-10-2022 Calcium [Mass/Vol] 9.1 mg/dL 8.5-10.1 [facility] Work Phone: [phone] Serum or plasma cholesterol in HDL measurement (mass/volume)on 06-10-2022 Cholesterol in HDL [Mass/Vol] 50 mg/dL >40 [facility] Work Phone: Comment on above: The drugs N-Acetylcy steine and Metamizole may falsely depress this assay. Reference Range HDL <40 mg/dL Low HDL Cholesterol HDL >or= 60 mg/dL High HDL Cholesterol Serum or plasma cholesterol in VLDL measurement (mass/volume)on 06-10-2022 Cholesterol in VLDL [Mass/Vol] 29 mg/dL 5-40 [facility] Work Phone: Serum or plasma creatinine m easurement (mass/volume)on 06-10-2022 Creatinine [Mass/Vol] 1.07 mg/dL 0.70-1.30 [facility] Work Phone: Comment on above: The validity of the calculated GFR & GFRAA in patients over 70 years has not been determined. Clinical correlation is essential. Serum or plasma low density lipoprotein (LDL) cholesterol measurement (mass/volume)on 06-10-2022 Cholesterol in LDL [Mass/Vol] 104 mg/dL 0-130 [facility] Work Phone: Serum or plasma urea nitroge n measurement (mass/volume)on 06-10-2022 Urea nitrogen [Mass/Vol] 16 mg/dL 7-18 [facility] Work Phone: Thin prep Papanicolaou smear with manual screeningon 06-10-2022 Thin prep Papanicolaou smear with manual screening 22 U/L 15-37 [facility] Work Phone: Thin prep Papanicolaou smear with manual screening 4 5-15 [facility] Work Phone: OBSOLETEon 06-29-2021 OBSOLETE Refill (ELOYPWS) DAMARI BOWERS ([id number]) 1955 Date Time Provider Department 06/29/21 BLAZ, YOBANY FAMPWS During your visit today, we recorded the following information about you: Dorcas Sandra Oralia MITCHELL 07/01/2021 7:57 AM Signed Patient has been identified by name and date of : Yes Patient phones for refill(s): Pending Prescriptions Disp Refills TRAZODONE 50 MG TABLET 30 tablet 2 Sig: TAKE 1 TABLET BY MOUTH EVERYDAY AT BEDTIME YANELY: Yes Date of last office visit in primary care: 03/26/21 Last 2 Encounter Wt Readings: Date: Wt: 03/26/2021 96.6 kg (213 lb) 01/12/2020 97.1 kg (214 lb) Previous labs/tests for medication: Not applicable Please advise. Thank you. Dorcas Alegria APRN.KARTHIK PITTS 07/01/2021 8:47 AM Signed The following approved medication requests have been transmitted electronically. Pending Prescriptions Disp Refills TRAZODONE 50 MG TABLET 90 tablet 1 Sig: Take 1 tablet by mouth daily at bedtime. 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 - gabapentin (NEURONTIN) 100 mg capsule Take 1 capsule by mouth three times daily for 30 days. - amLODIPine (NORVASC) 5 mg tablet 2 tablets once daily. - rosuvastatin (CRESTOR) 10 mg tablet Take 1 tablet by mouth once daily. - lisinopril (ZESTRIL, PRINIVIL) 40 mg tablet Problem List As Of Date 06/29/2021 Noted Resolved BENIGN HYPERTENSION [I10] Hyperlipidemia LDL goal <100 [E78.5] HEMORRHOIDS EXTERNAL [K64.4] 03/08/2006 08/28/2016 RECTAL BLEEDING (MELENA-578.1) [K62.5] 03/08/2006 08/28/2016 Contusion of unspecified part of lower limb [S8*11/12/2008 08/28/2016 Displacement of Lumbar Intervertebral Disc with*08/16/2009 Syncope and collapse [R55] 08/25/2016 Chest pain, unspecified [R07.9] 08/28/2016 Family history of colon cancer [Z80.0] 11/03/2011 Umbilical hernia without mention of obstruction*11/03/2011 Abdominal pain, epigastric [R10.13] 11/06/2011 08/28/2016 Backache, unspecified [M54.9] 06/21/2013 08/28/2016 Gallbladder polyp [K82.4] 11/21/2014 Stenosis of right carotid artery [I65.21] 08/19/2016 Arthritis of knee [M17.10] 04/06/2019 ASHD (arteriosclerotic heart disease) [I25.10] 04/06/2019 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 Encounter Status:Closed by YOBANY ALEGRIA on 07/01/21 [facility] DAM[facility]OW[facility] ([id number]) 1955 M Date Time Provider Department 03/28/21 [facility] visit today, we recorded the following information about you: Harini Wagoner RN 03/28/2021 1:50 PM Signed Pt called, verified by name and birthdate. Pt wants to know why rx for Trazodone is not at the pharmacy. Pt states Dr. Colmenares told him at his visit on 03-26-2021 he would write it. Verified Dr. Colmenares wrote this in his plan but did not write rx. Please advise Harini Alegria APRN.KARTHIK PITTS 03/30/2021 9:50 PM Signed The following approved medication requests have been transmitted electronically. Signed Prescriptions Disp Refills traZODone (DESYREL) 50 mg tablet 30 tablet 2 Sig: Take 1 tablet by mouth daily at bedtime. 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 ROSUVASTATIN 10 MG TABLET Take 1 tablet by mouth once d* LISINOPRIL 40 MG TABLET Problem List As Of Date 03/28/2021 Noted Resolved BENIGN HYPERTENSION [I10] Hyperlipidemia LDL goal <100 [E78.5] HEMORRHOIDS EXTERNAL [K64.4] 03/08/2006 08/28/2016 RECTAL BLEEDING (MELENA-578.1) [K62.5] 03/08/2006 08/28/2016 Contusion of unspecified part of lower limb [S8*11/12/2008 08/28/2016 Displacement of Lumbar Intervertebral Disc with*08/16/2009 Syncope and collapse [R55] 08/25/2016 Chest pain, unspecified [R07.9] 08/28/2016 Family history of colon cancer [Z80.0] 11/03/2011 Umbilical hernia without mention of obstruction*11/03/2011 Abdominal pain, epigastric [R10.13] 11/06/2011 08/28/2016 Backache, unspecified [M54.9] 06/21/2013 08/28/2016 Gallbladder polyp [K82.4] 11/21/2014 Stenosis of right carotid artery [I65.21] 08/19/2016 Arthritis of knee [M17.10] 04/06/2019 ASHD (arteriosclerotic heart disease) [I25.10] 04/06/2019 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 Encounter Status:Closed by WORKLEE ROWE CMA on 03/31/21 [facility] 03-26-2021 CNOV Office Visit (FAMPWS ) DAMARI BOWERS ([id number]) 1955 M Date Time Provider Department 03/26/21 4:00 PM AMIE COLMENARES III During your visit today, we recorded the following information about you: Pulse Respiration Blood pressure Weight 63/minute 16/minute 136/87 96.6 kg Height 1.753 m Amie Colmenares III, MD 03/26/2021 6:23 PM Signed SUBJECTIVE: Chief Complaint: Damari Bowers is a 65 year old male who presents for comprehensive problem evaluation. New concerns today include 1. pain R shoulder. Habit of sleeping on R shoulder. Intermittent. Top R shoulder radiating down to elbow.Present x many mos. 2. numb feeling R supraclavicular area and R lat neck. 3. difficulty falling and staying asleep.Present for many yrs. Melatonin with some benefit. No witnessed apnea or gasping. Exercises regularly Yes and Walking Prostate cancer screening up to date Yes PSA was 0.87 on 04/04/2019 Colon cancer screening is up to date Yes Last colonoscopy was done 07/02/2017 Cholesterol screening up to date Yes PAST MEDICAL HISTORY Diagnosis Date - Abdominal pain, epigastric - Chest pain, unspecified - Encounter for long-term (current) use of other medications - Essential hypertension, benign - External hemorrhoids with other complication - External hemorrhoids without mention of complication - Hyperlipidemia - Internal hemorrhoids with other complication - Internal hemorrhoids without mention of complication - Nonobstructive atherosclerosis of coronary artery - Other and unspecified hyperlipidemia - Syncope and collapse PAST SURGICAL HISTORY Procedure Laterality Date - COLONOSCOP W/ OR W/O BRSH SPEC 10/22/06 Hemorrhoids - COLONOSCOP W/ OR W/O BRSH SPEC 11/06/11 Repeat in - EGD W/O BRSH SPECIMEN W/BX 11/06/11 - KNEE SCOPE,DIAGNOSTIC 04/2006 Arthroscopy, knee,right, cartilage removed - LEFT HEART CATH,PERCUTANEOUS FAMILY HISTORY Problem Relation Age of Onset - Lipids Father - Colon Cancer Mother - Hypertension Mother - Stroke Sister CEREBRAL ANEURYSM Social History Tobacco Use - Smoking status: Never Smoker - Smokeless tobacco: Never Used Substance Use Topics - Alcohol use: Yes - Drug use: No Immunization History Administered Date(s) Administered Influenza Seasonal Inj Age 3+ 08/28/2019 Tdap (Age 7+) 09/10/2016 ACTIVE PROBLEM LIST Essential Hypertension, Benign Hyperlipidemia Ldl Goal <100 Displacement of Lumbar Intervertebral Disc Without Myelopathy Family History of Colon Cancer Umbilical Hernia Without Mention of Obstruction Or Gangrene Gallbladder Polyp Stenosis of Right Carotid Artery Arthritis of Knee Ashd (Arteriosclerotic Heart Disease) REVIEW OF SYSTEMS General: Denies fever, chills, night sweats, or changes in weight. Dermatologic: Denies any new skin conditions, rashes or changing moles. Eyes: Denies recent visual changes. ENT: Denies hearing loss or tinnitus Respiratory: Denies any cough, dyspnea, or wheezing. Cardiovascular: Denies any chest pain with exertion or at rest, palpitations, syncope, or edema. Gastrointestinal: Denies any nausea, vomiting, abdominal pain, heartburn, changes in bowel habit, Denies any rectal bleeding. Genitourinary: Denies Denies problems with urinary stream., Denies dysuria, frequency, urgency, incontinence, erectile dysfunction, hematuria and nocturia. Musculoskeletal: see HPI regarding Neurologic: Denies any headaches, tremors, dizziness, vertigo, memory loss, confusion., Denies weakness, numbness or tingling. Psychiatric: Denies any anxiety or depression. Hematologic/Lymphatic/I mmunologic: Denies anemia, bruising, bleeding abnormalities. Endocrine: Denies any heat or cold intolerance, polyuria or polydipsia. OBJECTIVE: PHYSICAL EXAMINATION: There were no vitals taken for this visit. BP 136/87 Pulse 63 Resp 16 Ht 175.3 cm (5' 9") Wt 96.6 kg (213 lb) BMI 31.45 kg/m? GENERAL APPEARANCE Well appearing, alert, in no acute distress, well-hydrated, well nourished. SKIN: Skin color, texture, turgor normal, no suspicious rashes or lesions HEAD: No significant findings. NECK: Supple, full range of motion, no lymphadenopathy, normal thyroid, no carotid bruits, no JVD and tender muscle spasm R supraclavicular region with some pain with R head turn and head hyperextension BACK: Back symmetric, Normal curvature, No CVAT. LUNGS: normal pulmonary exam and clear to auscultation and percussion HEART: Normal PMI, Regular rate and rhythm, Normal heart sounds, S1 and S2 and No murmurs. BREASTS: ABDOMEN: Soft, Non-tender, No palpable masses and No hepatosplenomegaly. EXTREMTIES: 5/5 speeds, empty can, IR/ER, biceps, triceps, R lift test NEURO: Awake, alert and oriented x 3, Normal gait, No involuntary motions., muscle tone normal, muscle strength normal GENITALIA: RECTAL: (more content not included)... Normal [facility] [place] [facility] DAMAR[facility] BOW[facility] ([id number]) 1955 M Date Time Provider Department 01/03/21 AMIE COLMENARES III During your visit today, we recorded the following information about you: Lee Landaverde Cma 01/03/2021 2:35 PM Signed ----- Message from Yobany (Karthik.Darling) JOSE DAVID Alegria.WINDER FIXER sent at 01/02/2021 11:05 PM EST ----- Inform patient their A1C is up from 5.9 to 6.1%. This is considered prediabetic. Recommend adhere to a low-cholesterol, low-fat diet. Please ensure they are eating lots of fruits and vegetables, eat lean cuts of meat, and limit surgry drinks. Perform regular physical activity as tolerated and limit fast food. Recommend a recheck labs in 12 months. LEXUS Quan Cma 01/03/2021 2:36 PM Signed Left message for patient to return call to office Lee Velasquez CMA, MA 01/06/2021 8:34 AM Signed Patient notified via My Chart message. Liane Velasquez CMA Allergies As of Date: 01/03/2021 (No Known Allergies) Date Reviewed: 01/12/2020 Reviewed by: Maddie Duff Ma - Fully Assessed Reason for Visit: Results [95] Prescriptions as of 01/03/2021 Sig: GABAPENTIN 100 MG CAPSULE Take 1 capsule by mouth three* AMLODIPINE 5 MG TABLET 2 tablets once daily. RANITIDINE 150 MG TABLET Take 150 mg by mouth twice da* ROSUVASTATIN 10 MG TABLET Take 1 tablet by mouth once d* LISINOPRIL 40 MG TABLET Problem List As Of Date 01/03/2021 Noted Resolved BENIGN HYPERTENSION [I10] Hyperlipidemia LDL goal <100 [E78.5] HEMORRHOIDS EXTERNAL [K64.4] 03/08/2006 08/28/2016 RECTAL BLEEDING (MELENA-578.1) [K62.5] 03/08/2006 08/28/2016 Contusion of unspecified part of lower limb [S8*11/12/2008 08/28/2016 Displacement of Lumbar Intervertebral Disc with*08/16/2009 Syncope and collapse [R55] 08/25/2016 Chest pain, unspecified [R07.9] 08/28/2016 Family history of colon cancer [Z80.0] 11/03/2011 Umbilical hernia without mention of obstruction*11/03/2011 Abdominal pain, epigastric [R10.13] 11/06/2011 08/28/2016 Backache, unspecified [M54.9] 06/21/2013 08/28/2016 Gallbladder polyp [K82.4] 11/21/2014 Stenosis of right carotid artery [I65.21] 08/19/2016 Arthritis of knee [M17.10] 04/06/2019 ASHD (arteriosclerotic heart disease) [I25.10] 04/06/2019 Encounter Status:Closed by LI[facility]ELASQUEZ [facility]06[facility] (FAMPWS[facility] DAMARI BOWERS ([id number]) 1955 [place] Date Time Provider Department 01/01/21 [facility] During your visit today, we recorded the following information about you: Allergies As of Date: 01/01/2021 (No Known Allergies) Date Reviewed: 01/12/2020 Reviewed by: Maddie Duff Ma - Fully Assessed Reason for Visit: updated A1c [Other] Order(s):HBA1C (OUTSIDE) [5181215] Order #: [id number] Prescriptions as of 01/01/2021 Sig: GABAPENTIN 100 MG CAPSULE Take 1 capsule by mouth three* AMLODIPINE 5 MG TABLET 2 tablets once daily. RANITIDINE 150 MG TABLET Take 150 mg by mouth twice da* ROSUVASTATIN 10 MG TABLET Take 1 tablet by mouth once d* LISINOPRIL 40 MG TABLET Problem List As Of Date 01/01/2021 Noted Resolved BENIGN HYPERTENSION [I10] Hyperlipidemia LDL goal <100 [E78.5] HEMORRHOIDS EXTERNAL [K64.4] 03/08/2006 08/28/2016 RECTAL BLEEDING (MELENA-578.1) [K62.5] 03/08/2006 08/28/2016 Contusion of unspecified part of lower limb [S8*11/12/2008 08/28/2016 Displacement of Lumbar Intervertebral Disc with*08/16/2009 Syncope and collapse [R55] 08/25/2016 Chest pain, unspecified [R07.9] 08/28/2016 Family history of colon cancer [Z80.0] 11/03/2011 Umbilical hernia without mention of obstruction*11/03/2011 Abdominal pain, epigastric [R10.13] 11/06/2011 08/28/2016 Backache, unspecified [M54.9] 06/21/2013 08/28/2016 Gallbladder polyp [K82.4] 11/21/2014 Stenosis of right carotid artery [I65.21] 08/19/2016 Arthritis of knee [M17.10] 04/06/2019 ASHD (arteriosclerotic heart disease) [I25.10] 04/06/2019 Encounter Status:Closed by NAHID SAHNI LPN on 01/01/21 Normal [facility] Vital Signs Date Time Vital Sign Value Performing Clinician Faci lity 03-27-2025 17:00-0400 Body mass index (BMI) [Ratio] 30.2 kg/m2 Dr. Bean Currie MD Work Phone: [facility] 03-27-2025 15:50-0400 Body temperature 98 [degF] Dr. Bean Currie MD Work Phone: [facility] 03-27-2025 15:50-0400 Diastolic blood pressure 84 mm[Hg] Dr. Bean Currie MD Work Phone: [facility] 03-27-2025 15:50-0400 Heart rate 59 /min Dr. Bean Currie MD Work Phone: [facility] 03-27-2025 15:50-0400 Respiratory rate 15 /min Dr. Bean Currie MD Work Phone: [facility] 03-27-2025 15:50-0400 Systolic blood pressure 153 mm[Hg] Dr. Bean Currie MD Work Phone: 5(571)561-567739 [place] [address] 03-27-2025 15:37-0400 Body height 172.[address] Bean Currie MD Work Phone: 2(253)420-666539 [place] [address] 03-27-2025 15:37-0400 Body weight 90.[address] Bean Currie MD Work Phone: 3(719)183-437886 [place] [address] 03-27-2025 11:54-0400 SaO2% (BldA) [Mass fraction] 98 % Dr. Bean Currie MD Work Phone: 6(550)515-364839 [place] [address] 02-23-2025 09:11-0400 Body mass index (BMI) [Ratio] 31.1 kg/m2 Dr. Bean Currie MD Work Phone: 3(642)055-670939 [place] [address] 02-23-2025 09:11-0400 Body temperature 98.9 [degF] Dr. Bean Currie MD Work Phone: 3(429)928-419139 [place] [address] 02-23-2025 09:11-0400 Body weight 92.[address] Bean Currie MD Work Phone: 8(737)558-535339 [place] [address] 02-23-2025 09:11-0400 Diastolic blood pressure 88 mm[Hg] Dr. Bean Currie MD Work Phone: 6(205)292-302539 [place] [address] 02-23-2025 09:11-0400 Heart rate 64 /min Dr. Bean Currie MD Work Phone: 2(366)968-293939 [place] [address] 02-23-2025 09:11-0400 SaO2% (BldA) [Mass fraction] 97 % Dr. Bean Currie MD Work Phone: 8(481)027-478539 [place] [address] 02-23-2025 09:11-0400 Systolic blood pressure 122 mm[Hg] Dr. Bean Currie MD Work Phone: [facility] 11-28-2024 09:57-0500 Body mass index (BMI) [Ratio] 29.2 kg/m2 Dr. Bean Currie MD Work Phone: [facility] 11-28-2024 09:57-0500 Body weight 89.[address] Bean Currie MD Work Phone: [facility] 11-28-2024 09:57-0500 Diastolic blood pressure 85 mm[Hg] Dr. Bean Currie MD Work Phone: [facility] 11-28-2024 09:57-0500 Heart rate 63 /min Dr. Bean Currie MD Work Phone: [facility] 11-28-2024 09:57-0500 Respiratory rate 16 /min Dr. Bean Currie MD Work Phone: [facility] 11-28-2024 09:57-0500 Systolic blood pressure 153 mm[Hg] Dr. Bean Currie MD Work Phone: [facility] 08-31-2023 15:24-0400 Body height 175.[address] Bean Currie Work Phone: [facility] 08-31-2023 15:24-0400 Body mass index (BMI) [Ratio] 31.3 kg/m2 Dr. Bean Currie Work Phone: [facility] 08-31-2023 15:24-0400 Body weight 96.[address] Bean Currie Work Phone: [facility] 08-31-2023 15:24-0400 Diastolic blood pressure 86 mm[Hg] Dr. Bean Currie Work Phone: [facility] 08-31-2023 15:24-0400 Heart rate 58 /min Dr. Bean Currie Work Phone: [facility] 08-31-2023 15:24-0400 Respiratory rate 16 /min Dr. Bean Currie Work Phone: [facility] 08-31-2023 15:24-0400 Systolic blood pressure 147 mm[Hg] Dr. Bean Currie Work Phone: [facility] 05-14-2023 09:31-0400 Body temperature 97.4 [degF] Dr. Bean Currie Work Phone: [facility] 05-14-2023 09:31-0400 Diastolic blood pressure 92 mm[Hg] Dr. Bean Currie Work Phone: [facility] 05-14-2023 09:31-0400 Heart rate 58 /min Dr. Bean Currie Work Phone: [facility] 05-14-2023 09:31-0400 Respiratory rate 16 /min Dr. Bean Currie Work Phone: [facility] 05-14-2023 09:31-0400 SaO2% (BldA) [Mass fraction] 99 % Dr. Bean Currie Work Phone: [facility] 05-14-2023 09:31-0400 Systolic blood pressure 138 mm[Hg] Dr. Bean Currie Work Phone: [facility] 05-14-2023 07:43-0400 Body height 175.[address] Bean Currie Work Phone: [facility] 05-14-2023 07:43-0400 Body mass index (BMI) [Ratio] 31.2 kg/m2 Dr. Bean Currie Work Phone: [facility] 05-14-2023 07:43-0400 Body weight 95.[address] Bean Currie Work Phone: [facility] 03-19-2023 08:22-0400 Body mass index (BMI) [Ratio] 31.7 kg/m2 Dr. Bean Currie Work Phone: [facility] 03-19-2023 08:22-0400 Body weight 97.[address] Bean Currie Work Phone: [facility] 06-11-2022 08:49-0400 Body height 172.[address] Amie Colmenares III Work Phone: [facility] Work Phone: 06-11-2022 08:49-0400 Body mass index (BMI) [Ratio] 32.3 kg/m2 Dr. Amie Colmenares III Work Phone: [facility] Work Phone: 06-11-2022 08:49-0400 Body weight 96.[address] Amie Colmenares III Work Phone: [facility] Work Phone: 06-11-2022 08:49-0400 Diastolic blood pressure 77 mm[Hg] Dr. Amie Colmenares III Work Phone: [facility] Work Phone: 06-11-2022 08:49-0400 Heart rate 64 /min Dr. Amie Colmenares III Work Phone: [facility] Work Phone: 06-11-2022 08:49-0400 Respiratory rate 16 /min Dr. Amie Colmenares III Work Phone: [facility] Work Phone: 06-11-2022 08:49-0400 SaO2% (BldA) [Mass fraction] 97 % Dr. Amie Colmenares III Work Phone: [facility] Work Phone: 06-11-2022 08:49-0400 Systolic blood pressure 129 mm[Hg] Dr. Amie Colmenares III Work Phone: [facility] Work Phone: Encounters Encounter Date Encounter Type Care Provider Facility Start: 10-01-2025 ambulatory [facility] Facility: [facility] Start: 09-11-2025 ambulatory Kofi Shipman Facility: [facility] Start: 08-22-2025 ambulatory Bean Currie Facilit y:[facility] Start: 06-04-2025 ambulatory Bean Currie Facilit y:[facility] Start: 05-22-2025 End: 05-22-[address] Bean Currie MD Work Phone: -Laboratory [facility] Start: 05-22-2025 End: 05-22-[address] Bena Currie MD -Laboratory [facility] Start: 05-22-2025 End: 05-22-2025 ambulatory Bean Currie Facility:[facility] Start: 03-27-2025 Non-patient / Non-visit Dr. Hali gay MD -[facility] Work Phone: Start: 03-27-2025 ambulatory Bean Currie Facilit y:[facility] Start: 03-27-2025 Non-patient / Non-visit Dr. Audra lacey MD -[facility] Start: 03-26-2025 End: 03-27-2025 ambulatory Bean Currie Facility:[facility] Start: 03-26-2025 End: 03-27-2025 Evaluation and management of inpatient Dr. Hali Lizarraga MD -Progressive Care Unit Work Phone: Start: 03-26-2025 End: 03-27-[address] Bean Currie MD Work Phone: [facility] Work Phone: Start: 02-23-2025 End: 02-23-2025 Patient encounter procedure Jay DE LOS S[place]OS -[facility] Work Phone: Start: 02-23-2025 End: 02-23-2025 ambulatory Bean Currie Facility:[facility] Start: 01-02-2025 End: 01-02-[address] Bean Currie MD -Laboratory, [facility] Start: 01-02-2025 End: 01-02-2025 ambulatory Bean Currie Facility:[facility] Start: 12-29-2024 Non-patient / Non-visit Dr. Ab hankins MD -[facility] Start: 12-29-2024 Registered Referred Self Referred -[facility] Work Phone: Start: 12-29-2024 ambulatory Bean Currie Facilit y:[facility] Start: 12-01-2024 End: 12-01-[address] Bean Currie MD -Laboratory, [facility] Start: 12-01-2024 End: 12-01-2024 ambulatory Bean Currie Facility:[facility] Start: 11-30-2024 End: 11-30-[address] Trevon Quinones MD -Cat Scan, [facility] Work Phone: Start: 11-30-2024 End: 11-30-2024 ambulatory Bean Currie Facility:[facility] Start: 11-28-2024 End: 11-28-[address] Trevon Quinones MD -[facility] Work Phone: Start: 11-28-2024 End: 11-28-2024 ambulatory Bean Currie Facility:[facility] Start: 11-28-2024 End: 11-28-2024 ambulatory Bean Currie Facility:[facility] Start: 08-31-2023 End: 08-31-[address] Bean Currie Work Phone: [facility] Work Phone: Start: 08-31-2023 End: 08-31-[address] Bean Currie Work Phone: [facility] Work Phone: Start: 08-31-2023 End: 08-31-[address] Bean Currie Work Phone: [facility]-Laboratory Work Phone: Start: 05-14-2023 Non-patient / Non-visit Dr. Barbie Currie Work Phone: [facility] Start: 05-14-2023 End: 05-14-2023 Admission to same day surgery center Dr. Bean Currie Work Phone: [facility]-Endoscopy Start: 05-14-2023 End: 05-14-[address] Bean Currie Work Phone: [facility] Work Phone: Start: 03-19-2023 Non-patient / Non-visit Dr. Barbie Currie Work Phone: [facility] Start: 02-25-2023 End: 02-25-2023 ambulatory [facility] Work Phone: Start: 02-25-2023 End: 02-25-2023 [facility] Start: 06-11-2022 End: 06-11-[address] Amie Colmenares III Work Phone: [facility]-Laboratory Start: 06-10-2022 End: 06-10-[address] Amie Colmenares III Work Phone: [facility]-Laboratory Procedures Date Procedure Procedure Detail Performing Clinician Start: 03-27-2025 MRI of brain without contrast Dr. Bean Currie MD Work Phone: Start: 03-27-[address] Bean Currie MD Work Phone: Start: 03-26-2025 Plain chest X-ray Dr. Jose Currie MD Work Phone: Start: 03-26-2025 CT angiography of he ad and neck Dr. Bean Currie MD Work Phone: Start: 11-30-2024 CT angiography of ch est with contrast Dr. Bean Currie MD Work Phone: Start: 11-28-2024 Evaluation of diagno stic study results Dr. Bean Currie MD Work Phone: Start: 05-14-[address] Bean wilhelm Work Phone: Plan of Treatment Date Care Activity Detail Author Start: 03-27-2025 Patient discharge [facility] Start: 03-26-2025 Application of intermittent pneumatic compression device [facility] Start: 03-26-2025 Aspiration precautions [facility] Start: 03-26-2025 Assessment of risk of venous thromboembolism [facility] Start: 03-26-2025 Cardiac monitoring [facility] Start: 03-26-2025 Catheterization of vein [facility] Start: 03-26-2025 Consultation [facility] Start: 03-26-2025 Elevation of head of bed [facility] Start: 03-26-2025 Exercises [facility] Start: 03-26-2025 Insertion of catheter into peripheral vein [facility] Start: 03-26-2025 Notification of physician [facility] Start: 03-26-2025 Oxygen therapy [facility] Start: 03-26-2025 Patient referral to dietitian [facility] Start: 03-26-2025 Providing care according to standard [facility] Start: 03-26-2025 Provision of activity privileges [facility] Start: 03-26-2025 Referral to occupational therapist [facility] Start: 03-26-2025 Referral to service [facility] Start: 03-26-2025 Speech therapy assessment [facility] Start: 03-26-2025 Telemedicine consultation with patient [facility] Start: 03-26-2025 Tobacco use cessation education [facility] Start: 03-26-2025 End: 03-26-2025 [facility] Start: 03-26-2025 Vital signs measurements [facility] Start: 03-26-2025 End: 03-26-2025 Following clinical pathway protocol [facility] Start: 03-26-2025 Admission procedure [facility] Start: 05-14-2023 Colonoscopy flx dx w/collj spec when pfrmd DIAGNOSTIC COLONOSCOPY [facility] Start: 05-14-2023 Patient discharge [facility] Colonoscopy [facility] Patient Education DASH Plan Hear t Health Eating Heart-Healthy Foods [facility] Work Phone: Patient referral [facility] Work Phone: Heart [facility] Payers Date Payer Category Payer Unknown [id number] 2024 Medicare [id number] 2024 Unknown [id number] 2024 Self-pay [id number] 2016 Unknown [id number] Unknown [facility] [employer] [id number] Unknown [id number] Unknown [id number] Unknown [id number] 2.16.8 [id number] Unknown [id number] 2.16.8 40.1.152114.3.579.2.462 Unknown [id number] 2.16.8 40.1.609793.3.579.2.462 Unknown [id number] 2.16.8 40.1.047349.3.579.2.462 Unknown [id number] 2.16.8 40.1.581573.3.579.2.462 Unknown [id number] 2.16.8 40.1.934213.3.579.2.462 Unknown [id number] 2.16.8 40.1.735672.3.579.2.462 Unknown [id number] 2.16.8 40.1.832504.3.579.2.462 Unknown [id number] 2.16.8 40.1.027335.3.579.2.462 Unknown [id number] 2.16.8 40.1.950154.3.579.2.462 Unknown [id number] 2.16.8 40.1.782288.3.579.2.462 Unknown [id number] 2.16.8 40.1.330953.3.579.2.462 Unknown [id number] 2.16.8 40.1.826981.3.579.2.462 Unknown [id number] 2.16.8 40.1.206791.3.579.2.462 Unknown [id number] 2.16.8 40.1.722921.3.579.2.462 Social History Date Type Detail Facility Start: 06-11-2022 End: 08-31-2023 Tobacco smoking status NHIS Unknown if ever smoked [facility] Start: 1955 Sex Assigned At Male [facility] Start: 03-27-2025 End: 05-23-2025 Tobacco smoking status NHIS Never smoked tobacco (finding) [facility] Start: 03-27-2025 - - [facility] Start: 03-27-2025 Sex Male (finding) [facility] Goals Date Patient Goal Desired Activity /State Functional Status Date Assessment Result Facility 03-27-2025 Functional status Ambulates;Up a d willow;Chair;Bathroom Privilege [facility] Work Phone: Mental Status Date Assessment Result Facility 03-27-2025 Cognitive function Voice/Name [facility] Work Phone: 05-14-2023 Cognitive function Level Of Cons ciousness Appropriate;Drowsy [facility] Work Phone: 05-14-2023 Cognitive function Voice/Name [facility] Work Phone: Clinical Notes 02-10-2021 to 03-27-2025 Note Date & Type Note Facility 03-27-2025 Discharge summary [facility] 03-27-2025 Consult note Note Date/Time March 27, 2025 3:08pm [facility] Medical Records Department [address] [place] [address] Consultation - Neurology 03/27/25 1443 MR#: [id number] Acct: [id number] Name: DAMARI BOWERS Jr. Rep #:[id number] : 1955 69 From: Vonda Sharma MD PCP: Dr. Bean Currie MD Status:AD M RADHA Location: [place] [address] Assessment and Plan: Stroke Assessment/Plan DAMARI BOWERS Jr. is a 69 M with a history of HTN, HLD who presents for evaluation of weakness and numbness of his right side that has resolved. CTA of the head and neck obtained and showed no LVO. Not a TNK or IR candidate. Neurological examination shows intact examination. Neuroimaging shows CTA: negative, MRI Brain negative, HbA1c: 6.6, LDL: 103. ECHO: EF okay Plan ASA Continue aggressive control of his stroke risk factors - HTN, HLD. Target LDL <70 Thanks for consult. Spent 70 min in evaluation and management of this patient HPI Consult Data Date of Consult: 03/27/25 HPI Narrative HPI Narrative: DAMARI BOWERS, is a 69 M who presents history of hypertension, hyperlipidemia presented [facility] ED 03/26/2025 due to weakness and numbness ofhis right side. It was acute onset weakness and numbness. the numbness lasted for 15 seconds and weakness in few minutes. he denied having slurred speech, facial droop. No relapse of symptoms. He does not take ASA regularly. CTA of the head and neck obtained and showed no LVO. [facility] Medical History (Updated 03/26/25 @ 18:[address] Hali Lizarraga MD) Alcohol abuse GERD (gastroesophageal reflux disease) Wears hearing aid Wears glasses High cholesterol Heartburn Gastric reflux Leg cramps Non-smoker Sleep apnea History of echocardiogram History of stress test Hypertension Cardiology follow-up encounter Thoracic aortic aneurysm (TAA) Back pain Obesity Nonobstructive atherosclerosis of coronary artery Essential (primary) hypertension Segmental and somatic dysfunction of pelvic region Segmental and somatic dysfunction of lumbar region LLQ abdominal pain Migraine Hemorrhoids Syncope and collapse Hyperlipidemia Home Medications ?Medication ?Instructions ?Recorded ?Last Taken ?Type amlodipine 10 mg tablet See Rx Instructions .Route 0 08/21/24 03/26/25 Rx .COMPLEX #90 tabs rosuvastatin 10 mg tablet See Rx Instructions .Route 0 08/21/24 03/26/25 Rx .COMPLEX #90 tabs losartan 100 mg tablet 100 mg PO QDAY #90 tabs /06/1503/26/25 Rx ipratropium bromide 21 mcg (0.03 2 spray intranasal BI D-TID PRN 02/23/25 03/26/25 Rx %) nasal spray postnasal drainage #30 mL meloxicam 15 mg tablet 15 mg PO QAM 02/23/25 Unknow n History Allergy/AdvReac Type Severity Reaction Status Date / Time hydrochlorothiazide AdvReac Intermediate Hyponatremi Verified 03/26/25 15:20 a Family History Mother Colon cancer Hypertension Sister Heart disease Father CAD (coronary artery disease) Surgical History History of bilateral knee arthroplasty History of colonoscopy (2010) History of left heart catheterization (01/2014) H/O local excision of skin lesion Social History household members: spouse housing: house Smoking Status: Never smoker second hand exposure: No alcohol intake: current alcohol intake frequency: holidays/special occasions only substance use type: does not use caffeine: Yes (3-4 cups daily) what type of physical activity do you participate in: none seatbelt use: always Vital Signs Vital Signs Vital Signs: 03/26/25 15:20 03/26/25 15:21 03/26/25 15:47 Temperature 97.9 F 97.9 F Temperature Source Temporal Temporal Pulse Rate 82 82 Pulse Strength Respiratory Rate 22 H 22 H Respiratory Effort Respiratory Depth Respiratory Pattern Blood Pressure 140/99 H 140/99 H Blood Pressure Mean 112 112 Blood Pressure Source Blood Pressure Position Blood Pressure Location Pulse Ox 100 100 97 Oxygen Delivery Method Room Air Room Air Room Air 03/26/25 15:47 03/26/25 15:53 03/26/25 16:20 Temperature Temperature Source Pulse Rate 71 78 70 Pulse Strength Respiratory Rate 14 18 18 Respiratory Effort Respiratory Depth Respiratory Pattern Blood Pressure 163/80 H 160/78 H 137/81 H Blood Pressure Mean 107 105 99 Blood Pressure Source Blood Pressure Position Blood Pressure Location Pulse Ox 98 98 98 Oxygen Delivery Method Room Air 03/26/25 17:00 03/26/25 17:15 03/26/25 18:21 Temperature 98.6 F 98.2 F Temperature Source Oral Pulse Rate 76 76 54 L Pulse Strength Respiratory Rate 18 18 15 Respiratory Effort Respiratory Depth Respiratory Pattern Blood Pressure 138/81 H 138/81 H 152/91 H Blood Pressure Mean 100 100 111 Blood Pressure Source Monitor Blood Pressure Position Semi-Fowlers Blood Pressure Location Right Arm Pulse Ox 98 98 93 Oxygen Delivery Method Room Air 03/26/25 18:39 03/26/25 20:10 03/26/25 20:18 Temperature 97.9 F Temperature Source Oral Pulse Rate 57 L Pulse Strength Respiratory Rate 16 Respiratory Effort Normal Normal Non-Labored Respiratory Depth Normal Normal Respiratory Pattern Normal Normal Blood Pressure 149/90 H Blood Pressure Mean 109 Blood Pressure Source Monitor Blood Pressure Position Semi-Fowlers Blood Pressure Location Left Arm Pulse Ox 97 Oxygen Delivery Method Room Air Room Air Room Air 03/26/25 22:15 03/26/25 23:12 03/27/25 00:10 Temperature 98.0 F Temperature Source Oral Pulse Rate 52 L Pulse Strength Normal (2+) Respiratory Rate 14 Respiratory Effort Respiratory Depth Respiratory Pattern Blood Pressure 146/81 H Blood Pressure Mean 102 Blood Pressure Source Monitor Blood Pressure Position Semi-Fowlers Blood Pressure Location Left Arm Pulse Ox 98 96 Oxygen Delivery Method Room Air Room Air 03/27/25 04:10 03/27/25 04:34 03/27/25 07:34 Temperature 97.7 F L Temperature Source Oral Pulse Rate 56 L Pulse Strength Respiratory Rate 14 Respiratory Effort Normal Non-Labored Respiratory Depth Normal Respiratory Pattern Normal Blood Pressure 147/81 H Blood Pressure Mean 103 Blood Pressure Source Monitor Blood Pressure Position Semi-Fowlers Blood Pressure Location Left Arm Pulse Ox 96 97 Oxygen Delivery Method Room Air Room Air Room Air 03/27/25 08:10 03/27/25 08:10 03/27/25 08:21 Temperature 97.8 F 97.8 F Temperature Source Temporal Oral Pulse Rate 54 L 54 L Pulse Strength Normal (2+) Respiratory Rate 15 15 Respiratory Effort Respiratory Depth Respiratory Pattern Blood Pressure 148/78 H 148/78 H Blood Pressure Mean 101 101 Blood Pressure Source Monitor Monitor Blood Pressure Position Semi-Fowlers Semi-Fowlers Blood Pressure Location Left Arm Left Arm Pulse Ox 97 97 Oxygen Delivery Method Room Air Room Air 03/27/25 08:22 03/27/25 11:54 Temperature 97.9 F Temperature Source Oral Pulse Rate 58 L Pulse Strength Respiratory Rate 15 Respiratory Effort Normal Non-Labored Respiratory Depth Normal Respiratory Pattern Normal Blood Pressure 146/80 H Blood Pressure Mean 102 Blood Pressure Source Monitor Blood Pressure Position Semi-Fowlers Blood Pressure Location Left Arm Pulse Ox 98 Oxygen Delivery Method Room Air Room Air Weight Weight: 90.174 kg Body Mass Index (BMI) 30.2 Physical Exam Const alert, oriented x3 and no apparent distress General Appearance: cooperative and comfortable Neuro Neuro Narrative: Awake, alert oriented X3 Speech: fluent CN 2-12 intact Motor: 5/5 Sensation: Intact No ataxia Lab / Micro Data 03/27/25 04:26 03/27/25 04:26 Labs: Laboratory Results - last 24 hr 03/26/25 15:36: WBC 6.5, RBC 4.53 L, Hgb 14.5, Hct 40.0, MCV 88.3, MCH 32.0, MCHC 36.3 H, RDW Std Deviation 39.9, RDW Coeff of Chel 12.3, Plt Count 190, MPV 9.9, Immature Gran % (Auto) 0.200, Neut % (Auto) 61.8, Lymph % (Auto) 29.8, Gray% (Auto) 6.0, Eos % (Auto) 1.9, Baso % (Auto) 0.3, Absolute Neuts (auto) 4.0, Absolute Lymphs (auto) 1.92, Nucleated RBC % 0, PT 13.6, INR 1.0, APTT 24.9, Sodium 137, Potassium 4.1, Chloride 107, Carbon Dioxide 20.6 L, Anion Gap 10, BUN 17, Creatinine 1.04, Estim Creat Clear Calc 73.54, Est GFR (MDRD) Non-Af 78,BUN/Creatinine Ratio 16.7, Glucose 181 H, Calcium 9.1 03/27/25 04:26: WBC 5.0, RBC 4.50 L, Hgb 14.3, Hct 40.4, MCV 89.8, MCH 31.8, MCHC 35.4, RDW Std Deviation 41.0, RDW Coeff of Chel 12.5, Plt Count 198, MPV 9.9, Immature Gran % (Auto) 0.200, Neut % (Auto) 44.5 L, Lymph % (Auto) 43.7 H, Gray % (Auto) 6.6, Eos % (Auto) 4.6, Baso % (Auto) 0.4, Absolute Neuts (auto) 2.2, Absolute Lymphs (auto) 2.19, Nucleated RBC % 0, Sodium 138, Potassium 4.2, Chloride 105, Carbon Dioxide 21.5, Anion Gap 12, BUN 16, Creatinine 0.92, Estim Creat Clear Calc 82.65, Est GFR (MDRD) Non-Af 90, BUN/Creatinine Ratio 17.2, Glucose 120 H, Hemoglobin A1c 6.6 H, Calcium 9.0, Triglycerides 87, Cholesterol 169, LDL Cholesterol, Calc 103, VLDL Cholesterol 17, HDL Cholesterol 48, Cholesterol/HDL Ratio 3.51, TSH 2.880 Imaging Radiology Impression Head/Neck CTA 03/26/25 15:56 IMPRESSION: CT brain: No acute intracranial abnormality. Chronic microvascular ischemia and involutional changes. CTA head and neck: Scattered atherosclerotic calcification of the anterior and posterior circulation as described above, with mild-moderate stenosis. No evidence of acute occlusion. No aneurysm. Reading [facility] Chest X-Ray 03/26/25 16:15 IMPRESSION: No Acute Findings. Reading [facility] Echocardiogram 03/27/25 04:14 Interpretation Summary Mild concentric left ventricular hypertrophy. The LV systolic function is normal. EF is 65 %. Stage 1 diastolic dysfunction. Aortic valve sclerosis without stenosis. Mild aortic valve regurgitation. Moderately dilated aortic root. Ordering Physician: Herb Bright Performed By: Naveen Chew RCS Brain MRI 03/27/25 10:00 IMPRESSION: 1. No specific evidence of an acute intracranial process. 2. Additional description as above. Reading Location: [id number] Active Medications Active Medications Active Medications: Current Medications Generic Name Dose Route Start Last Admin Trade Name Freq PRN Reason Stop Dose Admin Acetaminophen 650 mg 03/26/25 18:48 Acetaminophen 325 Mg Tablet PO Q6H PRN PRN Pain 1-10 Or Fever >100.7 Albuterol Sulfate 2.5 mg 03/26/25 18:48 Albuterol 2.5 Mg/3 Ml Vial.Neb. INHALATION Q2H PRN PRN SOB &/OR WHEEZING Aspirin 81 mg 03/27/25 08:00 03/27/25 08:29 Aspirin 81 Mg Tab.Chew PO 81 mg BREAKFAST ADILENE Administration Atorvastatin Calcium 80 mg 03/26/25 22:00 03/26/25 20:30 Atorvastatin Calcium 80 Mg Tablet PO Not Given QHS ADILENE Clopidogrel Bisulfate 75 mg 03/27/25 10:00 03/27/25 08:29 Clopidogrel Bisulfate 75 Mg Tablet PO 75 mg DAILY ADILENE Administration Hydralazine HCl 5 mg 03/26/25 18:48 Hydralazine 20 Mg/Ml Vial IV 03/27/25 18:48 Q30M PRN maintain BP parameters with HR <60 Sodium Chloride 250 mls @ 15 mls/hr 03/26/25 18:24 IV .[id number] PRN Saline Flush Sodium Chloride 250 mls @ 15 mls/hr 03/26/25 18:24 IV .[id number] PRN Additional IVPB Infusion Labetalol HCl 10 - 20 mg 03/26/25 18:48 Labetalol 20mg/4ml Syringe IV 03/27/25 18:48 Q10M PRN PRN maintain BP parameters with HR >/=60 Melatonin 3 mg 03/26/25 18:48 Melatonin 3 Mg Tablet PO QHS PRN PRN INSOMNIA Ondansetron HCl 4 mg 03/26/25 18:48 Ondansetron 4 Mg/2 Ml Vial IV Q8H PRN PRN NAUSEA/VOMITING Senna/Docusate Sodium 2 tablet 03/26/25 18:48 Senna/Docusate Sodium 1 Tablet PO BID PRN PRN Constipation Sodium Chloride 10 - 40 ml 03/26/25 18:24 03/26/25 20:29 0.9% Saline Lock 10 Ml Syringe IV 10 ml UD PRN Administration SALINE FLUSH NIHSS NIHSS Nursing Documentation NIHSS Nursing Documentation: NIHSS: Ischemic Stroke/TIA Start: 03/26/25 18:48 Text: For PCU Patients: NIH and Neuro Check every 4 Status: Active hours, PRN and with change in RN caregiver. Freq: [id number] Protocol: Activity Type Activity Date Activity User E-sign Co-sign Detail Recorded Client Recorded Date Recorded By Document 03/27/25 11:54 ML [id number] 03/27/25 11:59 ML 03/27/25 11:54 NIH Stroke Scale [NIHSS] A score of 0 is "normal" or asymptomatic . Total possible score is 42. Inpatient: RN or Physician to activate a stroke alert for onset of new stroke symptoms or with NIHSS increase >/= 3 points. Following change in neurological status, NIHSS will be performed per physician order or more frequently PRN. -1a. Level of Consciousness 0 - Alert; keenly responsive -1b. LOC Questions 0 - Answers BOTH questions correctly -1c. LOC Commands 0 - Performs BOTH tasks correctly -2. Best Gaze 0 - Normal -3. Visual 0 - No visual loss -4. Facial Palsy 0 - Normal symmetrical movements -5a. Left Arm 0 - No drift; arm holds 90 ( or 45) degrees for full 10 seconds -5b. Right Arm 0 - No drift; arm holds 90 ( or 45) degrees for full 10 seconds -6a. Left Leg 0 - No drift; leg holds 30- degree position for full 5 seconds -6b. Right Leg 0 - No drift; leg holds 30- degree position for full 5 seconds -7. Limb Ataxia 0 - Absent -8. Sensory 0 - Normal; no sensory loss -9. Best Language 0 - No aphasia; normal -10. Dysarthria 0 - Normal -11. Extinction and Inattention 0 - No abnormality -Total 0 Query Text:A score of 0 is "normal" or asymptomatic. Total possible score is 42 . ED: Notify Physician for NIHSS increase by > / = 3 points. Inpatient: RN or Physician to activate a stroke alert for NIHSS increase of > / = 3 points. Coma Scale [Assess] -Eye Opening Spontaneous -Motor Obeys Commands -Verbal Oriented [Total] -Coma Scale Total 15 NIHSS 1a. Level of Consciousness: 0 - Alert; keenly responsive 1b. LOC Questions: 0 - Answers BOTH questions correctly 1c. LOC Commands: 0 - Performs BOTH tasks correctly 2. Best Gaze: 0 - Normal 3. Visual: 0 - No visual loss 4. Facial Palsy: 0 - Normal symmetrical movements 5a. Left Arm: 0 - No drift; arm holds 90 (or 45) degrees for full 10 seconds 5b. Right Arm: 0 - No drift; arm holds 90 (or 45) degrees for full 10 seconds 6a. Left Le - No drift; leg holds 30-degree position for full 5 seconds 6b. Right Le - No drift; leg holds 30-degree position for full 5 seconds 7. Limb Ataxia: 0 - Absent 8. Sensory: 0 - Normal; no sensory loss 9. Best Language: 0 - No aphasia; normal 10. Dysarthria: 0 - Normal 11. Extinction and Inattention: 0 - No abnormality Total: 0 03/27/25 1508 <Electronically signed by Vonda Sharma MD> Cosigner Signature (if applicable): CC: Dr. Bean Currie MD~ Signed [facility] Work Phone: 1(766) 316-754905-06-[address] [facility] Medical Records Department [address] [place] [address] Instructions for Home/Discharge Instructions 03/27/25 1659 MR#: [id number] Acct: [id number] Name: ELISSADAMARI URIBE Rep #:[id number] : 1955 69 From: Hali Lizarraga MD PCP: Dr. Bean Currie MD Status:AD M RADHA Discharge Instructions Diet Discharge Diet: - (DASH diet) DC O2, CPAP, BIPAP needs Home O2 Discharge instructions: No Dressing / Incision Discharge Activity: Return to Normal Activity Follow Up Care Test Results: Test results from this visit will be discussed in further detail at your follow- up appointment, if applicable. Discharge Plan Admission Admit Date/Time: 03/26/25 17:44 Primary Reason for Your Visit: Right sided numbness and weakness Attending Provider: Hali Lizarraga Primary Care Provider: Bean Currie Consulting Providers: Yakov Wolfe; Kristina Broja; Vonda Sharma; Marga Pablo; Patty Wong; Shekhar Narayan; Diana Marc; Naveen Victoria; Omega Gambino; Ousmane Higginbotham; Lo Palomo; Man Garcia; Jany Gonzales; Trupti Briscoe; Nadeem Oquendo; Wei Lara; Rosy Diaz; Diego Peres; Perlita Alarcon; Kanwal Gutierrez Instructions Patient Instructions: DASH Plan Heart Health, Eating Heart-Healthy Foods Additional Instructions / Restrictions: DISCHARGE INSTRUCTIONS PLEASE READ *Please take this with you to your next doctors appointment* - you will be discharged on increased dose of rosuvastatin, 20 mg, to try to achieve a lower cholesterol level - you will be discharged on 81 mg of aspirin, and is important that you take this daily - we discussed your hemoglobin A1c as well indicating that you are in the diabetes range, Is advised that you consider diet and exercise lifestyle modifications and as discussed a prescription will be sent in for metformin 500 mgtwice daily, take 500 mg daily for 1 week and then increase to twice daily. This may need further adjusted by your primary care physician. -Please call your primary care provider's office upon discharge to schedule a hospital follow up within 1 week. -For any concerning signs or symptoms please call 911 or proceed to the nearest emergency department Discharge Orders/Prescriptions Prescriptions: New aspirin 81 mg Tablet,Chewable 81 mg PO BREAKFAST Qty: 0 0RF rosuvastatin 20 mg tablet 20 mg PO DAILY Qty: 30 0RF metformin 500 mg tablet 500 mg PO BID 30 Days Qty: 60 0RF Continued losartan 100 mg tablet 100 mg PO QDAY Qty: 90 3RF ipratropium bromide 21 mcg (0.03 %) spray,non-aerosol 2 spray intranasal BID-TID PRN (Reason: postnasal drainage) Qty: 30 0RF Rx Instructions: administer into each nostril amlodipine 10 mg tablet See Rx Instructions .ROUTE .COMPLEX Qty: 90 3RF Dose Instruction: TAKE 1 TABLET BY MOUTH EVERY DAY Rx Instructions: TAKE 1 TABLET BY MOUTH EVERY DAY Discontinued meloxicam 15 mg tablet 15 mg PO QAM Patient Comments: PT STATES HAS BEEN TAKING PRN rosuvastatin 10 mg tablet See Rx Instructions .ROUTE .COMPLEX Qty: 90 3RF Dose Instruction: TAKE 1 TABLET BY MOUTH EVERY DAY Rx Instructions: TAKE 1 TABLET BY MOUTH EVERY DAY Referrals / Follow Up: Bean Currie MD [Primary Care Provider] - Within 1 Week Disposition Disposition (needs filled in before D/C Order can be placed): Home, Self Care 03/27/25 1707Hali Lizarraga MD CC: Marga Pablo; Jany Gonzales; Wei Lara; Patty Wong MD; Vonda Sharma MD; Yakov Wolfe MD; Dr. Kristina Borja MD; Dr. Shekhar Narayan MD; Dr. Madhu MD; Dr. Omega Gambino MD; Dr. Naveen Victoria MD; Dr. Bean Currie MD; Dr. Ousmane Higginbotham MD; Dr. Man Garcia DO; Dr. Nadeem Oquendo MD; Dr.Mohamed Rachna MD; Dr. Rosy Diaz MD; Dr. Diego Peres MD; Dr. Perlita Alarcon MD; Lo Palomo DO; Kanwal Gutierrez MD ~ [facility]05-06-2025 [facility] Medical Records Department [address] [place] [address] Discharge Summary 03/27/25 170 MR#: [id number] Acct: [id number] Name: ELISSADAMARI JOJO Benson Rep #: [id number] : 1955 69 From: Hali Lizarraga MD PCP: Dr. Bean Currie MD Status:ADM RADHA Location: [place] [address] Providers Date of Admission: 03/26/25 Date of Discharge: 03/27/25 Primary Care Physician: Dr. Bean Currie MD Consultations 03/26/25 18:48 Consult: Tele-Neurology Routine Consulting Provider: [facility] Reason for Consult: Acute Ischemic Stroke/TIA EMERGENT Consult: No MD Notified: Yes Date Notified: 03/26/25 Time Notified: 18:15 Method of Notification: Answering Service Nursing Unit Staff Notify [facility] of Tele-Neurology Consult: Yes Reason For Visit: CONCERN FOR TIA Diagnosis Discharge Diagnosis (1) Brain TIA: Status: Acute Code(s): G45.9 - Transient cerebral ischemic attack, unspecified (2) Diabetes mellitus, type 2: Status: Acute Code(s): E11.9 - Type 2 diabetes mellitus without complications (3) Dilated aortic root: Status: Acute Code(s): I77.810 - Thoracic aortic ectasia Plan #TIA #Hypertension #DMII #Hx dilated aortic root Medications at Discharge Home Medications amlodipine 10 mg tablet See Rx Instructions .Route .COMPLEX #90 tabs 08/21/24 losartan 100 mg tablet 100 mg PO QDAY #90 tabs 11/28/24 ipratropium bromide 21 mcg (0.03 %) nasal spray 2 spray intranasal BID-TID PRN postnasal drainage #30 mL 02/23/25 aspirin 81 mg chewable tablet 81 mg PO BREAKFAST #0 tabs 03/27/25 metformin 500 mg tablet 500 mg PO BID 30 days #60 tabs 03/27/25 rosuvastatin 20 mg tablet 20 mg PO DAILY #30 tabs 03/27/25 Hospital Course Procedures Transthoracic echo and - (MRI brain) Summary of Care Provided Minutes Spent on Discharge: 32 Hospital Course: 69-year-old male with a history of ascending thoracic aortic aneurysm, hypertension, hyperlipidemia who presented to [facility] ED 03/26/2025 due to right sided body numbness and weakness. H P as follows: "DAMARI BOWERS, is a 69-year-old male history of hypertension presented [facility] ED 03/26/2025 due to concerns for neurologic change. This a.m. he was at work and suddenly felt right side of his body become weak and numb and he felt that he had right- sided facial droop with no vision changes. He noticed a particular weakness in the right leg and also noted numbness along right chest wall and right abdomen. Symptoms started resolved but 15 seconds later and were completely resolved in 2 to 3 minutes. No headache associated, no further symptoms. His family doctor recommended he come to the emergency room. On arrival to the ED temperature 97.9, heart rate 82 with blood pressure 140/99, respiratory rate of 22 and pulse ox 100% on room air. CBC without leukocytosis or anemia, BMP shows kidney function within normal limits, does have elevated glucose of 181. CTA of the head and neck obtained and showed no LVO. Given patient's suspicious symptoms hospitalist contacted for admission for TIA/CVA rule out. Patient evaluated at bedside and reports history as above, reports that prior to that and since the symptoms resolved he has felt fine and ROS otherwise completely negative." INTERVAL HISTORY: Patient had a negative MRI, echocardiogram showed moderately dilated aortic root, appears patient is following with cardiology for this and was last seen in the office 11/28/2024. Patient evaluated by neurology, he had no further symptoms and was recommended that he be on aspirin and have aggressive lifestyle modifications. On day of discharge patient overall feeling well with no new or acute complaints. Discharge instructions as follows: - you will be discharged on increased dose of rosuvastatin, 20 mg, to try to achieve a lower cholesterol level - you will be discharged on 81 mg of aspirin, and is important that you take this daily - we discussed your hemoglobin A1c as well indicating that you are in the diabetes range, Is advised that you consider diet and exercise lifestyle modifications and as discussed a prescription will be sent in for metformin 500 mg twice daily, take 500 mg daily for 1 week and then increase to twice daily. This may need further adjusted by your primary care physician. -Please call your primary care provider's office upon discharge to schedule a hospital follow up within 1 week. -For any concerning signs or symptoms please call 911 or proceed to the nearest emergency department Physical Exam Narrative General: Alert, oriented, no apparent distress HEENT: Atraumatic, normocephalic Eyes: Anicteric, normal conjunctiva, extraocular movements grossly intact Neck: Supple Respiratory: Clear to auscultation bilaterally, normal respiratory effort Cardiovascular: Regular rate and (more content not included)...[facility]05-06-2025 Consult note [facility] Medical Records Department [address] [place] [address] Consultation - Neurology 03/27/25 1443 MR#: [id number] Acct: [id number] Name: DAMARI BOWERS JrUrsula Rep #:[id number] : 1955 69 From: Vonda Sharma MD PCP: Dr. Bean Currie MD Status:AD M [facility] Location: [place] [address] Assessment and Plan: Stroke Assessment/Plan DAMARI BOWERS Jr. is a 69 M with a history of HTN, HLD who presents for evaluation of weakness and numbness of his right side that has resolved. CTA of the head and neck obtained and showed no LVO. Not a TNK or IR candidate. Neurological examination shows intact examination. Neuroimaging shows CTA: negative, MRI Brain negative, HbA1c: 6.6, LDL: 103. ECHO: EF okay Plan ASA Continue aggressive control of his stroke risk factors - HTN, HLD. Target LDL <70 Thanks for consult. Spent 70 min in evaluation and management of this patient HPI Consult Data Date of Consult: 03/27/25 HPI Narrative HPI Narrative: DAMARI BOWERS, is a 69 M who presents history of hypertension, hyperlipidemia presented [facility] ED 03/26/2025 due to weakness and numbness ofhis right side. It was acute onset weakness and numbness. the numbness lasted for 15 seconds and weakness in few minutes. he denied having slurred speech, facial droop. No relapse of symptoms. He does not take ASA regularly. CTA of the head and neck obtained and showed no LVO. [facility] Medical History (Updated 03/26/25 @ 18:[address] Hali Lizarraga MD) Alcohol abuse GERD (gastroesophageal reflux disease) Wears hearing aid Wears glasses High cholesterol Heartburn Gastric reflux Leg cramps Non-smoker Sleep apnea History of echocardiogram History of stress test Hypertension Cardiology follow-up encounter Thoracic aortic aneurysm (TAA) Back pain Obesity Nonobstructive atherosclerosis of coronary artery Essential (primary) hypertension Segmental and somatic dysfunction of pelvic region Segmental and somatic dysfunction of lumbar region LLQ abdominal pain Migraine Hemorrhoids Syncope and collapse Hyperlipidemia Home Medications ?Medication ?Instructions ?Recorded ?Last Taken ?Type amlodipine 10 mg tablet See Rx Instructions .Route 0 08/21/24 03/26/25 Rx .COMPLEX #90 tabs rosuvastatin 10 mg tablet See Rx Instructions .Route 0 08/21/24 03/26/25 Rx .COMPLEX #90 tabs losartan 100 mg tablet 100 mg PO QDAY #90 tabs 01/0 06/1503/26/25 Rx ipratropium bromide 21 mcg (0.03 2 spray intranasal BI D-TID PRN 02/23/25 03/26/25 Rx %) nasal spray postnasal drainage #30 mL meloxicam 15 mg tablet 15 mg PO QAM 02/23/25 Unknow n History Allergy/AdvReac Type Severity Reaction Status Date / Time hydrochlorothiazide AdvReac Intermediate Hyponatremi Verified 03/26/25 15:20 a Family History Mother Colon cancer Hypertension Sister Heart disease Father CAD (coronary artery disease) Surgical History History of bilateral knee arthroplasty History of colonoscopy (2010) History of left heart catheterization (01/2014) H/O local excision of skin lesion Social History household members: spouse housing: house Smoking Status: Never smoker second hand exposure: No alcohol intake: current alcohol intake frequency: holidays/special occasions only substance use type: does not use caffeine: Yes (3-4 cups daily) what type of physical activity do you participate in: none seatbelt use: always Vital Signs Vital Signs Vital Signs: 03/26/25 15:20 03/26/25 15:21 03/26/25 15:47 Temperature 97.9 F 97.9 F Temperature Source Temporal Temporal Pulse Rate 82 82 Pulse Strength Respiratory Rate 22 H 22 H Respiratory Effort Respiratory Depth Respiratory Pattern Blood Pressure 140/99 H 140/99 H Blood Pressure Mean 112 112 Blood Pressure Source Blood Pressure Position Blood Pressure Location Pulse Ox 100 100 97 Oxygen Delivery Method Room Air Room Air Room Air 03/26/25 15:47 03/26/25 15:53 03/26/25 16:20 Temperature Temperature Source Pulse Rate 71 78 70 Pulse Strength Respiratory Rate 14 18 18 Respiratory Effort Respiratory Depth Respiratory Pattern Blood Pressure 163/80 H 160/78 H 137/81 H Blood Pressure Mean 107 105 99 Blood Pressure Source Blood Pressure Position Blood Pressure Location Pulse Ox 98 98 98 Oxygen Delivery Method Room Air 03/26/25 17:00 03/26/25 17:15 03/26/25 18:21 Temperature 98.6 F 98.2 F Temperature Source Oral Pulse Rate 76 76 54 L Pulse Strength Respiratory Rate 18 18 15 Respiratory Effort Respiratory Depth Respiratory Pattern Blood Pressure 138/81 H 138/81 H 152/91 H Blood Pressure Mean 100 100 111 Blood Pressure Source Monitor Blood Pressure Position Semi-Fowlers Blood Pressure Location Right Arm Pulse Ox 98 98 93 Oxygen Delivery Method Room Air 03/26/25 18:39 03/26/25 20:10 03/26/25 20:18 Temperature 97.9 F Temperature Source Oral Pulse Rate 57 L Pulse Strength Respiratory Rate 16 Respiratory Effort Normal Normal Non-Labored Respiratory Depth Normal Normal Respiratory Pattern Normal Normal Blood Pressure 149/90 H Blood Pressure Mean 109 Blood Pressure Source Monitor Blood Pressure Position Semi-Fowlers Blood Pressure Location Left Arm Pulse Ox 97 Oxygen Delivery Method Room Air Room Air Room Air 03/26/25 22:15 03/26/25 23:12 03/27/25 00:10 Temperature 98.0 F Temperature Source Oral Pulse Rate 52 L Pulse Strength Normal (2+) Respiratory Rate 14 Respiratory Effort Respiratory Depth Respiratory Pattern Blood Pressure 146/81 H Blood Pressure Mean 102 Blood Pressure Source Monitor Blood Pressure Position Semi-Fowlers Blood Pressure Location Left Arm Pulse Ox 98 96 Oxygen Delivery Method Room Air Room Air 03/27/25 04:10 03/27/25 04:34 03/27/25 07:34 Temperature 97.7 F L Temperature Source Oral Pulse Rate 56 L Pulse Strength Respiratory Rate 14 Respiratory Effort Normal Non-Labored Respiratory Depth Normal Respiratory Pattern Normal Blood Pressure 147/81 H Blood Pressure Mean 103 Blood Pressure Source Monitor Blood Pressure Position Semi-Fowlers Blood Pressure Location Left Arm Pulse Ox 96 97 Oxygen Delivery Method Room Air Room Air Room Air 03/27/25 08:10 03/27/25 08:10 03/27/25 08:21 Temperature 97.8 F 97.8 F Temperature Source Temporal Oral Pulse Rate 54 L 54 L Pulse Strength Normal (2+) Respiratory Rate 15 15 Respiratory Effort Respiratory Depth Respiratory Pattern Blood Pressure 148/78 H 148/78 H Blood Pressure Mean 101 101 Blood Pressure Source Monitor Monitor Blood Pressure Position Semi-Fowlers Semi-Fowlers Blood Pressure Location Left Arm Left Arm Pulse Ox 97 97 Oxygen Delivery Method Room Air Room Air 03/27/25 08:22 03/27/25 11:54 Temperature 97.9 F Temperature Source Oral Pulse Rate 58 L Pulse Strength Respiratory Rate 15 Respiratory Effort Normal Non-Labored Respiratory Depth Normal Respiratory Pattern Normal Blood Pressure 146/80 H Blood Pressure Mean 102 Blood Pressure Source Monitor Blood Pressure Position Semi-Fowlers Blood Pressure Location Left Arm Pulse Ox 98 Oxygen Delivery Method Room Air Room Air Weight Weight: 90.174 kg Body Mass Index (BMI) 30.2 Physical Exam Const alert, oriented x3 and no apparent distress General Appearance: cooperative and comfortable Neuro Neuro Narrative: Awake, alert oriented X3 Speech: fluent CN 2-12 intact Motor: 5/5 Sensation: Intact No ataxia Lab / Micro Data 03/27/25 04:26 03/27/25 04:26 Labs: Laboratory Results - last 24 hr 03/26/25 15:36: WBC 6.5, RBC 4.53 L, Hgb 14.5, Hct 40.0, MCV 88.3, MCH 32.0, MCHC 36.3 H, RDW Std Deviation 39.9, RDW Coeff of Chel 12.3, Plt Count 190, MPV 9.9, Immature Gran % (Auto) 0.200, Neut % (Auto) 61.8, Lymph % (Auto) 29.8, Gray% (Auto) 6.0, Eos % (Auto) 1.9, Baso % (Auto) 0.3, Absolute Neuts (auto) 4.0, Absolute Lymphs (auto) 1.92, Nucleated RBC % 0, PT 13.6, INR 1.0, APTT 24.9, Sodium 137, Potassium 4.1, Chloride 107, Carbon Dioxide 20.6 L, Anion Gap 10, BUN 17, Creatinine 1.04, EstimCreat Clear Calc 73.54, Est GFR (MDRD) Non-Af 78,BUN/Creatinine Ratio 16.7, Glucose 181 H, Calcium 9.1 03/27/25 04:26: WBC 5.0, RBC 4.50 L, Hgb 14.3, Hct 40.4, MCV 89.8, MCH 31.8, MCHC 35.4, RDW Std Deviation 41.0, RDW Coeff of Chel 12.5, Plt Count 198, MPV 9.9, Immature Gran % (Auto) 0.200, Neut % (Auto) 44.5 L, Lymph % (Auto) 43.7 H, Gray % (Auto) 6.6, Eos % (Auto) 4.6, Baso % (Auto) 0.4, Absolute Neuts (auto) 2.2, Absolute Lymphs (auto) 2.19, Nucleated RBC % 0, Sodium 138, Potassium 4.2, Chloride 105, Carbon Dioxide 21.5, Anion Gap 12, BUN 16, Creatinine 0.92, Estim Creat Clear Calc 82.65, EstGFR (MDRD) Non-Af 90, BUN/Creatinine Ratio 17.2, Glucose 120 H, Hemoglobin A1c 6.6 H, Calcium 9.0, Triglycerides 87, Cholesterol 169, LDL Cholesterol, Calc 103, VLDL Cholesterol 17, HDL Cholesterol 48, Cholesterol/HDL Ratio 3.51, TSH 2.880 Imaging Radiology Impression Head/Neck CTA 03/26/25 15:56 IMPRESSION: CT brain: No acute intracranial abnormality. Chronic microvascular ischemia and involutional changes. CTA head and neck: Scattered atherosclerotic calcification of the anterior and posterior circulation as described above, with mild-moderate stenosis. No evidence of acute occlusion. No aneurysm. [facility] Chest X-Ray 03/26/25 16:15 IMPRESSION: No Acute Findings. Reading [facility] Echocardiogram 03/27/25 04:14 Interpretation Summary Mild concentric left ventricular hypertrophy. The LV systolic function is normal. EF is 65 %. Stage 1 diastolic dysfunction. Aortic valve sclerosis without stenosis. Mild aortic valve regurgitation. Moderately dilated aortic root. Ordering Physician: Herb Bright Performed By: Naveen Chew RCS Brain MRI 03/27/25 10:00 IMPRESSION: 1. No specific evidence of an acute intracranial process. 2. Additional description as above. Reading Location: [facility] Active Medications Active Medications Active Medications: Current Medications Generic Name Dose Route Start Last Admin Trade Name Freq PRN Reason Stop Dose Admin Acetaminophen 650 mg 03/26/25 18:48 Acetaminophen 325 Mg Tablet PO Q6H PRN PRN Pain 1-10 Or Fever >100.7 Albuterol Sulfate 2.5 mg 03/26/25 18:48 Albuterol 2.5 Mg/3 Ml Vial.Neb. INHALATION Q2H PRN PRN SOB &/OR WHEEZING Aspirin 81 mg 03/27/25 08:00 03/27/25 08:29 Aspirin 81 Mg Tab.Chew PO 81 mg BREAKFAST ADILENE Administration Atorvastatin Calcium 80 mg 03/26/25 22:00 03/26/25 20:30 Atorvastatin Calcium 80 Mg Tablet PO Not Given QHS ADILENE Clopidogrel Bisulfate 75 mg 03/27/25 10:00 03/27/25 08:29 Clopidogrel Bisulfate 75 Mg Tablet PO 75 mg DAILY ADILENE Administration Hydralazine HCl 5 mg 03/26/25 18:48 Hydralazine 20 Mg/Ml Vial IV 03/27/25 18:48 Q30M PRN maintain BP parameters with HR <60 Sodium Chloride 250 mls @ 15 mls/hr 03/26/25 18:24 IV .[id number] PRN Saline Flush Sodium Chloride 250 mls @ 15 mls/hr 03/26/25 18:24 IV .[id number] PRN Additional IVPB Infusion Labetalol HCl 10 - 20 mg 03/26/25 18:48 Labetalol 20mg/4ml Syringe IV 03/27/25 18:48 Q10M PRN PRN maintain BP parameters with HR >/=60 Melatonin 3 mg 03/26/25 18:48 Melatonin 3 Mg Tablet PO QHS PRN PRN INSOMNIA Ondansetron HCl 4 mg 03/26/25 18:48 Ondansetron 4 Mg/2 Ml Vial IV Q8H PRN PRN NAUSEA/VOMITING Senna/Docusate Sodium 2 tablet 03/26/25 18:48 Senna/Docusate Sodium 1 Tablet PO BID PRN PRN Constipation Sodium Chloride 10 - 40 ml 03/26/25 18:24 03/26/25 20:29 0.9% Saline Lock 10 Ml Syringe IV 10 ml UD PRN Administration SALINE FLUSH NIHSS NIHSS Nursing Documentation NIHSS Nursing Documentation: NIHSS: Ischemic Stroke/TIA Start: 03/26/25 18:48 Text: For PCU Patients: NIH and Neuro Check every 4 Status: Active hours, PRN and with change in RN caregiver. Freq: [id number] Protocol: Activity Type Activity Date Activity User E-sign Co-sign Detail Recorded Client Recorded Date Recorded By Document 03/27/25 11:54 ML [id number] 03/27/25 11:59 ML 03/27/25 11:54 NIH Stroke Scale [NIHSS] A score of 0 is "normal" or asymptomatic . Total possible score is 42. Inpatient: RN or Physician to activate a stroke alert for onset of new stroke symptoms or with NIHSS increase >/= 3 points. Following change in neurological status, NIHSS will be performed per physician order or more frequently PRN. -1a. Level of Consciousness 0 - Alert; keenly responsive -1b. LOC Questions 0 - Answers BOTH questions correctly -1c. LOC Commands 0 - Performs BOTH tasks correctly -2. Best Gaze 0 - Normal -3. Visual 0 - No visual loss -4. Facial Palsy 0 - Normal symmetrical movements -5a. Left Arm 0 - No drift; arm holds 90 ( or 45) degrees for full 10 seconds -5b. Right Arm 0 - No drift; arm holds 90 ( or 45) degrees for full 10 seconds -6a. Left Leg 0 - No drift; leg holds 30- degree position for full 5 seconds -6b. Right Leg 0 - No drift; leg holds 30- degree position for full 5 seconds -7. Limb Ataxia 0 - Absent -8. Sensory 0 - Normal; no sensory loss -9. Best Language 0 - No aphasia; normal -10. Dysarthria 0 - Normal -11. Extinction and Inattention 0 - No abnormality -Total 0 Query Text:A score of 0 is "normal" or asymptomatic. Total possible score is 42 . ED: Notify Physician for NIHSS increase by > / = 3 points. Inpatient: RN or Physician to activate a stroke alert for NIHSS increase of > / = 3 points. Coma Scale [Assess] -Eye Opening Spontaneous -Motor Obeys Commands -Verbal Oriented [Total] -Coma Scale Total 15 NIHSS 1a. Level of Consciousness: 0 - Alert; keenly responsive 1b. LOC Questions: 0 - Answers BOTH questions correctly 1c. LOC Commands: 0 - Performs BOTH tasks correctly 2. Best Gaze: 0 - Normal 3. Visual: 0 - No visual loss 4. Facial Palsy: 0 - Normal symmetrical movements 5a. Left Arm: 0 - No drift; arm holds 90 (or 45) degrees for full 10 seconds 5b. Right Arm: 0 - No drift; arm holds 90 (or 45) degrees for full 10 seconds 6a. Left Le - No drift; leg holds 30-degree position for full 5 seconds 6b. Right Le - No drift; leg holds 30-degree position for full 5 seconds 7. Limb Ataxia: 0 - Absent 8. Sensory: 0 - Normal; no sensory loss 9. Best Language: 0 - No aphasia; normal 10. Dysarthria: 0 - Normal 11. Extinction and Inattention: 0 - No abnormality Total: 0 03/27/25 1508 Cosigner Signature (if applicable): CC: Dr. Bean Currie MD~ Signed [facility]05-06-2025 Discharge summary Author Yobany Glynn [facility] Note Date/Time March 27, 2025 12:39a m [facility] Medical Records Department [address] [place] [address] Emergency Department Summary 03/26/25 MR#: [id number] Acct: [id number] Name: DAMARI BOWERS JrUrsula Rep #:[id number] : 1955 69 From: Yobany Arambula PCP: Dr. Bean Currie MD Status:[facility] Location: [place] [address] HPI History of Present Illness Chief Complaint: Neuro S/Sx Informant: patient Narrative Narrative: 69-year-old male presenting to the emergency room with the chief complaint of neurologic change. Patient states that this morning he was at work when he suddenly felt the right side of his body become weak and numb. He states that he felt that his right face was drooping. He did not have any vision change. He states he noticed a particular weakness in the right leg but since his left leg was unaffected he was still able to stand up. He states that about 15 seconds later symptoms started to improve but the right leg took 2 maybe 3 minutes difficulty resolved he denies any headache. He states he has not had any symptoms since. He states he called family who talked to a doctor who recommended he come to emergency. States he recently underwent carotid artery evaluation with his country director. That report revealed less than 50% stenosis. He has a history of hypertension hyperlipidemia nonobstructive coronary artery disease and a thoracic aortic aneurysm. The patient is not on any blood thinners and will occasionally take aspirin. It is noted that when he had his symptomology he also felt numbness along the right chest wall and right abdomen. [facility] Medical History (Updated 03/26/25 @ 17:35 by Teresa Hernandez) Alcohol abuse GERD (gastroesophageal reflux disease) Wears hearing aid Wears glasses High cholesterol Heartburn Gastric reflux Leg cramps Non-smoker Sleep apnea History of echocardiogram History of stress test Hypertension Cardiology follow-up encounter Thoracic aortic aneurysm (TAA) Back pain Obesity Nonobstructive atherosclerosis of coronary artery Essential (primary) hypertension Segmental and somatic dysfunction of pelvic region Segmental and somatic dysfunction of lumbar region LLQ abdominal pain Migraine Hemorrhoids Syncope and collapse Hyperlipidemia Home Medications ?Medication ?Instructions ?Recorded ?Last Taken ?Type amlodipine 10 mg tablet See Rx Instructions .Route 0 08/21/24 03/26/25 Rx .COMPLEX #90 tabs rosuvastatin 10 mg tablet See Rx Instructions .Route 0 08/21/24 03/26/25 Rx .COMPLEX #90 tabs losartan 100 mg tablet 100 mg PO QDAY #90 tabs /06/1503/26/25 Rx ipratropium bromide 21 mcg (0.03 2 spray intranasal BI D-TID PRN 02/23/25 03/26/25 Rx %) nasal spray postnasal drainage #30 mL meloxicam 15 mg tablet 15 mg PO QAM 02/23/25 Unknow n History Allergy/AdvReac Type Severity Reaction Status Date / Time hydrochlorothiazide AdvReac Intermediate Hyponatremi Verified 03/26/25 15:20 a Family History Mother Colon cancer Hypertension Sister Heart disease Father CAD (coronary artery disease) Surgical History History of bilateral knee arthroplasty History of colonoscopy (2010) History of left heart catheterization (01/2014) H/O local excision of skin lesion Social History household members: spouse housing: house Smoking Status: Never smoker second hand exposure: No alcohol intake: current alcohol intake frequency: holidays/special occasions only substance use type: does not use caffeine: Yes (3-4 cups daily) what type of physical activity do you participate in: none seatbelt use: always ROS ROS ED Constitutional Constitutional ED: Denies chills, fever(s) or weight loss Eyes Eyes: Denies change in vision or diplopia ENT ENT ED: Denies ear pain, rhinorrhea or sore throat Cardiovascular Cardiovascular: Denies chest pain, orthopnea, palpitations or racing heartbeat Respiratory/Chest Respiratory/Chest: Denies cough, dyspnea or orthopnea Gastrointestinal Gastrointestinal: Denies abdominal pain, diarrhea, nausea or vomiting Genitourinary Genitourinary ED: Denies dysuria, hematuria or urinary frequency Musculoskeletal Musculoskeletal: Denies arthralgias, myalgias or neck pain Integumentary Denies abscess or rash Neurologic Neurologic: Reports paresthesias and weakness; Denies headache(s) Psychiatric Psychiatric: Denies anxiety, depression, suicidal ideation or suicidal thoughts Endocrine Endocrinology: Denies polydipsia, polyphagia or polyuria Allergic/Immunologic Allergic/Immunologic ED: Denies mouth swelling, tongue swelling or urticaria EXAM Physical Exam Const Vital Signs: 03/26/25 15:20 03/26/25 15:21 03/26/25 15:47 Temperature 97.9 F 97.9 F Temperature Source Temporal Temporal Pulse Rate 82 82 Respiratory Rate 22 H 22 H Blood Pressure 140/99 H 140/99 H Blood Pressure Mean 112 112 Pulse Ox 100 100 97 Oxygen Delivery Method Room Air Room Air Room Air 03/26/25 15:47 03/26/25 15:53 03/26/25 16:20 Temperature Temperature Source Pulse Rate 71 78 70 Respiratory Rate 14 18 18 Blood Pressure 163/80 H 160/78 H 137/81 H Blood Pressure Mean 107 105 99 Pulse Ox 98 98 98 Oxygen Delivery Method Room Air 03/26/25 17:00 03/26/25 17:15 Temperature 98.6 F Temperature Source Pulse Rate 76 76 Respiratory Rate 18 18 Blood Pressure 138/81 H 138/81 H Blood Pressure Mean 100 100 Pulse Ox 98 98 Oxygen Delivery Method Positive well nourished and well developed General Appearance ED: well developed HEENT Reports normocephalic, head/scalp atraumatic and moist mucous membranes Eyes PERRL and EOMs intact bilaterally Neck no lymphadenopathy, supple and no JVD Resp normal respiratory effort and clear to auscultation bilaterally Cardio regular rate, regular rhythm and no murmurs GI normal to inspection, nondistended, normoactive bowel sounds and non-tender Palpation: soft Back/Spine no CVA tenderness and normal ROM Extremity normal to inspection General Extremety ED: Negative for edema General Extremity: Negative for edema Neuro oriented x3 and CN's II-XII intact bilaterally Sensorium / Orientation: alert Motor Exam: strength 5/5 throughout Psych mental status grossly normal Mood & Affect: Negative for depressed or tearful Skin no rashes or lesions noted and no wounds MDM MDM MDM Narrative Medical decision making narrative: Differential diagnosis would include but not limited to TIA stroke malignancy dissection electrolyte abnormalities cardiac dysrhythmia CTA of head and neck shows no acute findings for aneurysm or dissection. Pleasesee radiologist read. Basic blood work showed a glucose of 181. Hemoglobin 14.5 white count 6.5 my independent interpretation of the chest x-ray is no acute process. Patient's ABCD 2 score is 4 (5 if consider BGT of 181 as diabetic) placing him at moderate risk. I spoke to the patient regarding goals inpatient versus outpatient follow-up. Patient would feel more comfortable staying the night given that his is out of town. I will speak with the hospitalist. History & Record Review Discussion w/independent historian: Patient Lab Data Attestation: I reviewed the patient's lab results. Labs: Laboratory Results - last 24 hr 03/26/25 15:36 WBC 6.5 RBC 4.53 L Hgb 14.5 Hct 40.0 MCV 88.3 MCH 32.0 MCHC 36.3 H RDW Std Deviation 39.9 RDW Coeff of Chel 12.3 Plt Count 190 MPV 9.9 Immature Gran % (Auto) 0.200 Neut % (Auto) 61.8 Lymph % (Auto) 29.8 Gray % (Auto) 6.0 Eos % (Auto) 1.9 Baso % (Auto) 0.3 Absolute Neuts (auto) 4.0 Absolute Lymphs (auto) 1.92 Nucleated RBC % 0 PT 13.6 INR 1.0 APTT 24.9 Sodium 137 Potassium 4.1 Chloride 107 Carbon Dioxide 20.6 L Anion Gap 10 BUN 17 Creatinine 1.04 Estim Creat Clear Calc 73.54 Est GFR (MDRD) Non-Af 78 BUN/Creatinine Ratio 16.7 Glucose 181 H Calcium 9.1 Radiography Diagnostic Testing: Clinical Impression(s) from Imaging Studies Head/Neck CTA 03/26/25 15:56 IMPRESSION: CT brain: No acute intracranial abnormality. Chronic microvascular ischemia and involutional changes. CTA head and neck: Scattered atherosclerotic calcification of the anterior and posterior circulation as described above, with mild-moderate stenosis. No evidence of acute occlusion. No aneurysm. Reading Location: [facility] Chest X-Ray 03/26/25 16:15 IMPRESSION: No Acute Findings. Reading Location[facility] EKG Initial EKG: Attestation: I personally reviewed and interpreted this EKG as follows: Comments: Sinus rhythm with a PAC ventricular rate of 62 Management Discussion w/another healthcare provider: Hospitalist Discharge Plan Dx/Rx/DC Orders Clinical Impression: Brain TIA, Hyperlipidemia, Essential (primary) hypertension Disposition Disposition: Acute Care Hospital [facility] NIHSS NIHSS 1a. Level of Consciousness: 0 - Alert; keenly responsive 1b. LOC Questions: 0 - Answers BOTH questions correctly 1c. LOC Commands: 0 - Performs BOTH tasks correctly 2. Best Gaze: 0 - Normal 4. Facial Palsy: 0 - Normal symmetrical movements 5a. Left Arm: 0 - No drift; arm holds 90 (or 45) degrees for full 10 seconds 5b. Right Arm: 0 - No drift; arm holds 90 (or 45) degrees for full 10 seconds 6a. Left Le - No drift; leg holds 30-degree position for full 5 seconds 6b. Right Le - No drift; leg holds 30-degree position for full 5 seconds 7. Limb Ataxia: 0 - Absent 8. Sensory: 0 - Normal; no sensory loss 9. Best Language: 0 - No aphasia; normal 10. Dysarthria: 0 - Normal 11. Extinction and Inattention: 0 - No abnormality Total: 0 What to do if you have Problems For any increased pain, shortness of breath, bleeding, nausea or vomiting, chestpain, or any unexpected problems, contact your Primary Care Provider. Call [facility] ([phone]) or report to the closest Emergency Room. Call 911 if necessary. 03/27/25 0039 <Electronically signed by Yobany Glynn DO> Cosigner Signature (if applicable): CC: Dr. Bean Currie MD ~ Signed [facility] Work Phone: 1(343) 965-969105-06-2025 Discharge summary [facility] Medical Records Department [address] [place] [address] Emergency Department Summary 03/26/25 MR#: [id number] Acct: [id number] Name: DAMARI BOWERS Jr. Rep #:[id number] : 1955 69 From: Yobany Arambula PCP: Dr. Bean Currie MD Status:AD M RADHA Location: [place] [address] HPI History of Present Illness Chief Complaint: Neuro S/Sx Informant: patient Narrative Narrative: 69-year-old male presenting to the emergency room with the chief complaint of neurologic change. Patient states that this morning he was at work when he suddenly felt the right side of his body become weak and numb. He states that he felt that his right face was drooping. He did not have any visionchange. He states he noticed a particular weakness in the right leg but since his left leg was unaffected he was still able to stand up. He states that about 15 seconds later symptoms started to improve but the right leg took 2 maybe 3 minutes difficulty resolved he denies any headache. He states he has not had any symptoms since. He states he called family who talked to a doctor who recommended he come to emergency. States he recently underwent carotid artery evaluation with his country director. That report revealed less than 50% stenosis. He has a history of hypertension hyperlipidemia nonobstructive coronary artery disease and a thoracic aortic aneurysm. The patient is not on any blood thinners and will occasionally take aspirin. It is noted that when he had his symptomology he also felt numbness along the right chest wall and right abdomen. [facility] Medical History (Updated 03/26/25 @ 17:35 by Teresa Hernandez) Alcohol abuse GERD (gastroesophageal reflux disease) Wears hearing aid Wears glasses High cholesterol Heartburn Gastric reflux Leg cramps Non-smoker Sleep apnea History of echocardiogram History of stress test Hypertension Cardiology follow-up encounter Thoracic aortic aneurysm (TAA) Back pain Obesity Nonobstructive atherosclerosis of coronary artery Essential (primary) hypertension Segmental and somatic dysfunction of pelvic region Segmental and somatic dysfunction of lumbar region LLQ abdominal pain Migraine Hemorrhoids Syncope and collapse Hyperlipidemia Home Medications ?Medication ?Instructions ?Recorded ?Last Taken ?Type amlodipine 10 mg tablet See Rx Instructions .Route 0 08/21/24 03/26/25 Rx .COMPLEX #90 tabs rosuvastatin 10 mg tablet See Rx Instructions .Route 0 08/21/24 03/26/25 Rx .COMPLEX #90 tabs losartan 100 mg tablet 100 mg PO QDAY #90 tabs 01/0 06/1503/26/25 Rx ipratropium bromide 21 mcg (0.03 2 spray intranasal BI D-TID PRN 02/23/25 03/26/25 Rx %) nasal spray postnasal drainage #30 mL meloxicam 15 mg tablet 15 mg PO QAM 02/23/25 Unknow n History Allergy/AdvReac Type Severity Reaction Status Date / Time hydrochlorothiazide AdvReac Intermediate Hyponatremi Verified 03/26/25 15:20 a Family History Mother Colon cancer Hypertension Sister Heart disease Father CAD (coronary artery disease) Surgical History History of bilateral knee arthroplasty History of colonoscopy (2010) History of left heart catheterization (01/2014) H/O local excision of skin lesion Social History household members: spouse housing: house Smoking Status: Never smoker second hand exposure: No alcohol intake: current alcohol intake frequency: holidays/special occasions only substance use type: does not use caffeine: Yes (3-4 cups daily) what type of physical activity do you participate in: none seatbelt use: always ROS ROS ED Constitutional Constitutional ED: Denies chills, fever(s) or weight loss Eyes Eyes: Denies change in vision or diplopia ENT ENT ED: Denies ear pain, rhinorrhea or sore throat Cardiovascular Cardiovascular: Denies chest pain, orthopnea, palpitations or racing heartbeat Respiratory/Chest Respiratory/Chest: Denies cough, dyspnea or orthopnea Gastrointestinal Gastrointestinal: Denies abdominal pain, diarrhea, nausea or vomiting Genitourinary Genitourinary ED: Denies dysuria, hematuria or urinary frequency Musculoskeletal Musculoskeletal: Denies arthralgias, myalgias or neck pain Integumentary Denies abscess or rash Neurologic Neurologic: Reports paresthesias and weakness; Denies headache(s) Psychiatric Psychiatric: Denies anxiety, depression, suicidal ideation or suicidal thoughts Endocrine Endocrinology: Denies polydipsia, polyphagia or polyuria Allergic/Immunologic Allergic/Immunologic ED: Denies mouth swelling, tongue swelling or urticaria EXAM Physical Exam Const Vital Signs: 03/26/25 15:20 03/26/25 15:21 03/26/25 15:47 Temperature 97.9 F 97.9 F Temperature Source Temporal Temporal Pulse Rate 82 82 Respiratory Rate 22 H 22 H Blood Pressure 140/99 H 140/99 H Blood Pressure Mean 112 112 Pulse Ox 100 100 97 Oxygen Delivery Method Room Air Room Air Room Air 03/26/25 15:47 03/26/25 15:53 03/26/25 16:20 Temperature Temperature Source Pulse Rate 71 78 70 Respiratory Rate 14 18 18 Blood Pressure 163/80 H 160/78 H 137/81 H Blood Pressure Mean 107 105 99 Pulse Ox 98 98 98 Oxygen Delivery Method Room Air 03/26/25 17:00 03/26/25 17:15 Temperature 98.6 F Temperature Source Pulse Rate 76 76 Respiratory Rate 18 18 Blood Pressure 138/81 H 138/81 H Blood Pressure Mean 100 100 Pulse Ox 98 98 Oxygen Delivery Method Positive well nourished and well developed General Appearance ED: well developed HEENT Reports normocephalic, head/scalp atraumatic and moist mucous membranes Eyes PERRL and EOMs intact bilaterally Neck no lymphadenopathy, supple and no JVD Resp normal respiratory effort and clear to auscultation bilaterally Cardio regular rate, regular rhythm and no murmurs GI normal to inspection, nondistended, normoactive bowel sounds and non-tender Palpation: soft Back/Spine no CVA tenderness and normal ROM Extremity normal to inspection General Extremety ED: Negative for edema General Extremity: Negative for edema Neuro oriented x3 and CN's II-XII intact bilaterally Sensorium / Orientation: alert Motor Exam: strength 5/5 throughout Psych mental status grossly normal Mood & Affect: Negative for depressed or tearful Skin no rashes or lesions noted and no wounds MDM MDM MDM Narrative Medical decision making narrative: Differential diagnosis would include but not limited to TIA stroke malignancy dissection electrolyte abnormalities cardiac dysrhythmia CTA of head and neck shows no acute findings for aneurysm or dissection. Pleasesee radiologist read. Basic blood work showed a glucose of 181. Hemoglobin 14.5 white count 6.5 my independent interpretation of the chest x-ray is no acute process. Patient's ABCD 2 score is 4 (5 if consider BGT of 181 as diabetic) placing him at moderate risk. I spoke to the patient regarding goals inpatient versus outpatient follow-up. Patient would feel more comfortable staying the night given that his is out of town. I will speak with the hospitalist. History & Record Review Discussion w/independent historian: Patient Lab Data Attestation: I reviewed the patient's lab results. Labs: Laboratory Results - last 24 hr 03/26/25 15:36 WBC 6.5 RBC 4.53 L Hgb 14.5 Hct 40.0 MCV 88.3 MCH 32.0 MCHC 36.3 H RDW Std Deviation 39.9 RDW Coeff of Chel 12.3 Plt Count 190 MPV 9.9 Immature Gran % (Auto) 0.200 Neut % (Auto) 61.8 Lymph % (Auto) 29.8 Gray % (Auto) 6.0 Eos % (Auto) 1.9 Baso % (Auto) 0.3 Absolute Neuts (auto) 4.0 Absolute Lymphs (auto) 1.92 Nucleated RBC % 0 PT 13.6 INR 1.0 APTT 24.9 Sodium 137 Potassium 4.1 Chloride 107 Carbon Dioxide 20.6 L Anion Gap 10 BUN 17 Creatinine 1.04 Estim Creat Clear Calc 73.54 Est GFR (MDRD) Non-Af 78 BUN/Creatinine Ratio 16.7 Glucose 181 H Calcium 9.1 Radiography Diagnostic Testing: Clinical Impression(s) from Imaging Studies Head/Neck CTA 03/26/25 15:56 IMPRESSION: CT brain: No acute intracranial abnormality. Chronic microvascular ischemia and involutional changes. CTA head and neck: Scattered atherosclerotic calcification of the anterior and posterior circulation as described above, with mild-moderate stenosis. No evidence of acute occlusion. No aneurysm. [facility] Chest X-Ray 03/26/25 16:15 IMPRESSION: No Acute Findings. Reading [facility] EKG Initial EKG: Attestation: I personally reviewed and interpreted this EKG as follows: Comments: Sinus rhythm with a PAC ventricular rate of 62 Management Discussion w/another healthcare provider: Hospitalist Discharge Plan Dx/Rx/DC Orders Clinical Impression: Brain TIA, Hyperlipidemia, Essential (primary) hypertension Disposition Disposition: Acute Care Hospital [facility] NIHSS NIHSS 1a. Level of Consciousness: 0 - Alert; keenly responsive 1b. LOC Questions: 0 - Answers BOTH questions correctly 1c. LOC Commands: 0 - Performs BOTH tasks correctly 2. Best Gaze: 0 - Normal 4. Facial Palsy: 0 - Normal symmetrical movements 5a. Left Arm: 0 - No drift; arm holds 90 (or 45) degrees for full 10 seconds 5b. Right Arm: 0 - No drift; arm holds 90 (or 45) degrees for full 10 seconds 6a. Left Le - No drift; leg holds 30-degree position for full 5 seconds 6b. Right Le - No drift; leg holds 30-degree position for full 5 seconds 7. Limb Ataxia: 0 - Absent 8. Sensory: 0 - Normal; no sensory loss 9. Best Language: 0 - No aphasia; normal 10. Dysarthria: 0 - Normal 11. Extinction and Inattention: 0 - No abnormality Total: 0 What to do if you have Problems For any increased pain, shortness of breath, bleeding, nausea or vomiting, chestpain, or any unexpected problems, contact your Primary Care Provider. Call [facility] ([phone]) or report tothe closest Emergency Room. Call 911 if necessary. 03/27/25 0039 Cosigner Signature (if applicable): CC: Dr. Bean Currie MD ~ Signed [facility]05-05-2025 History and physical note Author Hali Lizarraga [facility] Note Date/Time March 26, 2025 6:17pm [facility] Medical Records Department [address] [place] [address] H&P Exam - Hospitalist 03/26/25 0271 MR#: [id number] Acct: [id number] Name: DAMARI BOWERS Rep #:[id number] : 1955 69 From: Hali Lizarraga MD PCP: Dr. Bean Currie MD Status:NANCY GARCIA Location: [facility] [id number] HPI - General General Date of Admission: 03/26/25 Date of Service: 03/26/25 Chief Complaint: Right sided numbness and weakness HPI Narrative DAMARI BOWERS, is a 69-year-old male history of hypertension presented [facility] ED 03/26/2025 due to concerns for neurologic change. This a.m.he was at work and suddenly felt right side of his body become weak and numb andhe felt that he had right-sided facial droop with no vision changes. He noticeda particular weakness in the right leg and also noted numbness along right chestwall and right abdomen. Symptoms started resolved but 15 seconds later and werecompletely resolved in 2 to 3 minutes. No headache associated, no further symptoms. His family doctor recommended he come to the emergency room. On arrival to the ED temperature 97.9, heart rate 82 with blood pressure 140/99, respiratory rate of 22 and pulse ox 100% on room air. CBC without leukocytosis or anemia, BMP shows kidney function within normal limits, does have elevated glucose of 181. CTA of the head and neck obtained and showed no LVO. Given patient's suspicious symptoms hospitalist contacted for admission for TIA/CVA rule out. Patient evaluated at bedside and reports history as above, reports that prior to that and since the symptoms resolved he has felt fine and ROS otherwise completely negative. [facility] Medical History (Updated 03/26/25 @ 18:[address] Hali Lizarraga MD) Alcohol abuse Back pain Cardiology follow-up encounter Essential (primary) hypertension Gastric reflux GERD (gastroesophageal reflux disease) Heartburn Hemorrhoids High cholesterol History of echocardiogram History of stress test Hyperlipidemia Hypertension Leg cramps LLQ abdominal pain Migraine Non-smoker Nonobstructive atherosclerosis of coronary artery Obesity Segmental and somatic dysfunction of lumbar region Segmental and somatic dysfunction of pelvic region Sleep apnea Syncope and collapse Thoracic aortic aneurysm (TAA) Wears glasses Wears hearing aid Home Medications ?Medication ?Instructions ?Recorded ?Last Taken ?Type amlodipine 10 mg tablet See Rx Instructions .Route 0 08/21/24 03/26/25 Rx .COMPLEX #90 tabs rosuvastatin 10 mg tablet See Rx Instructions .Route 0 08/21/24 03/26/25 Rx .COMPLEX #90 tabs losartan 100 mg tablet 100 mg PO QDAY #90 tabs 06/1503/26/25 Rx ipratropium bromide 21 mcg (0.03 2 spray intranasal BI D-TID PRN 02/23/25 03/26/25 Rx %) nasal spray postnasal drainage #30 mL meloxicam 15 mg tablet 15 mg PO QAM 02/23/25 Unknow n History Allergy/AdvReac Type Severity Reaction Status Date / Time hydrochlorothiazide AdvReac Intermediate Hyponatremi Verified 03/26/25 15:20 a Family History Mother Colon cancer Hypertension Sister Heart disease Father CAD (coronary artery disease) Surgical History H/O local excision of skin lesion History of bilateral knee arthroplasty History of colonoscopy (2010) History of left heart catheterization (01/2014) Social History household members: spouse housing: house Smoking Status: Never smoker second hand exposure: No alcohol intake: current alcohol intake frequency: holidays/special occasions only substance use type: does not use caffeine: Yes (3-4 cups daily) what type of physical activity do you participate in: none seatbelt use: always ROS ROS Narrative General: Denies fever/chills HENT: Denies headache, denies stuffy nose, denies sore throat EYES: Denies changes in vision Resp: Denies cough, denies shortness of breath Cardiac: Denies chest pain GI: Denies abdominal pain, denies changes in bowel, denies nausea/vomiting : Denies changes in urination Extremity: Denies swelling MSK: Denies weakness Neuro: Numbness, weakness, facial droop resolved Heme: Denies any bleeding or bruising Skin: Denies rashes Psychiatric: No complaints voiced Vital Signs Vital Signs Vital Signs: 03/26/25 15:20 03/26/25 15:21 03/26/25 15:47 Temperature 97.9 F 97.9 F Temperature Source Temporal Temporal Pulse Rate 82 82 Respiratory Rate 22 H 22 H Blood Pressure 140/99 H 140/99 H Blood Pressure Mean 112 112 Pulse Ox 100 100 97 Oxygen Delivery Method Room Air Room Air Room Air 03/26/25 15:47 03/26/25 15:53 03/26/25 16:20 Temperature Temperature Source Pulse Rate 71 78 70 Respiratory Rate 14 18 18 Blood Pressure 163/80 H 160/78 H 137/81 H Blood Pressure Mean 107 105 99 Pulse Ox 98 98 98 Oxygen Delivery Method Room Air 03/26/25 17:00 03/26/25 17:15 Temperature 98.6 F Temperature Source Pulse Rate 76 76 Respiratory Rate 18 18 Blood Pressure 138/81 H 138/81 H Blood Pressure Mean 100 100 Pulse Ox 98 98 Oxygen Delivery Method Weight Weight: 91.3 kg Body Mass Index (BMI) 30.6 Physical Exam Narrative General: Alert, oriented, no apparent distress HEENT: Atraumatic, normocephalic Eyes: Anicteric, normal conjunctiva, extraocular movements intact, pupils equal Neck: Supple Respiratory: Clear to auscultation bilaterally, normal respiratory effort Cardiovascular: Regular rate and rhythm GI: Soft, nontender, nondistended Extremities: No edema Musculoskeletal: Strength 5 out of 5 in right upper extremity, 5 out of 5 left upper extremity, 5 out of 5 right lower extremity, 5 out of 5 left lower extremity Neuro: No overt focal neurological deficits, cranial nerves II through XII intact, [id number] without significant difficulty bilaterally Skin: No rashes appreciated Psych: Cooperative Results Lab / Micro Data 03/26/25 15:36 03/26/25 15:36 Labs: Laboratory Results - last 24 hr 03/26/25 15:36: WBC 6.5, RBC 4.53 L, Hgb 14.5, Hct 40.0, MCV 88.3, MCH 32.0, MCHC 36.3 H, RDW Std Deviation 39.9, RDW Coeff of Chel 12.3, Plt Count 190, MPV 9.9, Immature Gran % (Auto) 0.200, Neut % (Auto) 61.8, Lymph % (Auto) 29.8, Gray% (Auto) 6.0, Eos % (Auto) 1.9, Baso % (Auto) 0.3, Absolute Neuts (auto) 4.0, Absolute Lymphs (auto) 1.92, Nucleated RBC % 0, PT 13.6, INR 1.0, APTT 24.9, Sodium 137, Potassium 4.1, Chloride 107, Carbon Dioxide 20.6 L, Anion Gap 10, BUN 17, Creatinine 1.04, Estim Creat Clear Calc 73.54, Est GFR (MDRD) Non-Af 78,BUN/Creatinine Ratio 16.7, Glucose 181 H, Calcium 9.1 Imaging Radiology Impression Head/Neck CTA 03/26/25 15:56 IMPRESSION: CT brain: No acute intracranial abnormality. Chronic microvascular ischemia and involutional changes. CTA head and neck: Scattered atherosclerotic calcification of the anterior and posterior circulation as described above, with mild-moderate stenosis. No evidence of acute occlusion. No aneurysm. Reading [facility] Chest X-Ray 03/26/25 16:15 IMPRESSION: No Acute Findings. Reading [facility] Assessment & Plan Assessment/Plan (1) Neurologic abnormality: PLAN: Plan # Right-sided weakness and numbness -Symptoms have since resolved, suspicion for TIA -ABCD score 4 indicating high risk TIA -Admit to tele -CTA head and neck no LVO -MRI ordered -NIH q4hr -asa, statin, given elevated ABCD score will add Plavix -Echo -PT/OT/Speech eval -Teleneuro consult ordered -Hold BP medications to allow for permissive hypertension for 24 hours unless SBP greater than 220 or DBP greater than 120 or until stroke is ruled out #Hypertension - Management as above #DVT ppx: SCDs Hali Lizarraga MD Time spent in the patient's overall evaluation, decision-making process, review of diagnostic data, adjustment of management, discussion with other providers, nursing and ancillary staff involved in patient's care documentation, 56 Minutes Charges/Coding Visit Charges Inpatient E&M: 20870 Init Hosp L2 03/26/25 1817 <Electronically signed by Hali Lizarraga MD> Cosigner Signature (if applicable): CC: Dr. Bean Currie MD; Dr. Hali Lizarraga MD~ Signed [facility] Work Phone: 1(888) 378-974005-05-[address] [facility] Medical Records Department [address] [place] [address] H&P Exam - Hospitalist 03/26/25 1744 MR#: [id number] Acct: [id number] Name: DAMARI BOWERS JrUrsula Rep #:[id number] : 1955 69 From: Hali Lizarraga MD PCP: Dr. Bean Currie MD Status:AD M [facility] Location: [facility] [id number]- 1 HPI - General General Date of Admission: 03/26/25 Date of Service: 03/26/25 Chief Complaint: Right sided numbness and weakness HPI Narrative DAMARI BOWERS, is a 69-year-old male history of hypertension presented [facility] ED03/26/2025 due to concerns for neurologic change. This a.m.he was at work and suddenly felt right side of his body become weak and numb andhe felt that he had right-sided facial droop with no vision changes. He noticeda particular weakness in the right leg and also noted numbness along right chestwall and right abdomen. Symptoms started resolved but 15 seconds later and werecompletely resolved in 2to 3 minutes. No headache associated, no further symptoms. His family doctor recommended he come [facility] emergency room. On arrival to the ED temperature 97.9, heart rate 82 with blood pressure 140/99, respiratory rate of 22 and pulse ox 100% on room air. CBC without leukocytosis or anemia, BMP shows kidney function within normal limits, does have elevated glucose of 181. CTA of the head and neck obtained and showed no LVO. Given patient's suspicious symptoms hospitalist contacted for admission for TIA/CVA rule out. Patient evaluated at bedside and reports history as above, reports that prior to that and since the symptoms resolved he has felt fine and ROS otherwise completely negative. [facility] Medical History (Updated 03/26/25 @ 18:[address] Hali Lizarraga MD) Alcohol abuse Back pain Cardiology follow-up encounter Essential (primary) hypertension Gastric reflux GERD (gastroesophageal reflux disease) Heartburn Hemorrhoids High cholesterol History of echocardiogram History of stress test Hyperlipidemia Hypertension Leg cramps LLQ abdominal pain Migraine Non-smoker Nonobstructive atherosclerosis of coronary artery Obesity Segmental and somatic dysfunction of lumbar region Segmental and somatic dysfunction of pelvic region Sleep apnea Syncope and collapse Thoracic aortic aneurysm (TAA) Wears glasses Wears hearing aid Home Medications ?Medication ?Instructions ?Recorded ?Last Taken ?Type amlodipine 10 mg tablet See Rx Instructions .Route 0 08/21/24 03/26/25 Rx .COMPLEX #90 tabs rosuvastatin 10 mg tablet See Rx Instructions .Route 0 08/21/24 03/26/25 Rx .COMPLEX #90 tabs losartan 100 mg tablet 100 mg PO QDAY #90 tabs /0 06/1503/26/25 Rx ipratropium bromide 21 mcg (0.03 2 spray intranasal BI D-TID PRN 02/23/25 03/26/25 Rx %) nasal spray postnasal drainage #30 mL meloxicam 15 mg tablet 15 mg PO QAM 02/23/25 Unknow n History Allergy/AdvReac Type Severity Reaction Status Date / Time hydrochlorothiazide AdvReac Intermediate Hyponatremi Verified 03/26/25 15:20 a Family History Mother Colon cancer Hypertension Sister Heart disease Father CAD (coronary artery disease) Surgical History H/O local excision of skin lesion History of bilateral knee arthroplasty History of colonoscopy (2010) History of left heart catheterization (01/2014) Social History household members: spouse housing: house Smoking Status: Never smoker second hand exposure: No alcohol intake: current alcohol intake frequency: holidays/special occasions only substance use type: does not use caffeine: Yes (3-4 cups daily) what type of physical activity do you participate in: none seatbelt use: always ROS ROS Narrative General: Denies fever/chills HENT: Denies headache, denies stuffy nose, denies sore throat EYES: Denies changes in vision Resp: Denies cough, denies shortness of breath Cardiac: Denies chest pain GI: Denies abdominal pain, denies changes in bowel, denies nausea/vomiting : Denies changes in urination Extremity: Denies swelling MSK: Denies weakness Neuro: Numbness, weakness, facial droop resolved Heme: Denies any bleeding or bruising Skin: Denies rashes Psychiatric: No complaints voiced Vital Signs Vital Signs Vital Signs: 03/26/25 15:20 03/26/25 15:21 03/26/25 15:47 Temperature 97.9 F 97.9 F Temperature Source Temporal Temporal Pulse Rate 82 82 Respiratory Rate 22 H 22 H Blood Pressure 140/99 H 140/99 H Blood Pressure Mean 112 112 Pulse Ox 100 100 97 Oxygen Delivery Method Room Air Room Air Room Air 03/26/25 15:47 03/26/25 15:53 03/26/25 16:20 Temperature Temperature Source Pulse Rate 71 78 70 Respiratory Rate 14 18 18 Blood Pressure 163/80 H 160/78 H 137/81 H Blood Pressure Mean 107 105 99 Pulse Ox 98 98 98 Oxygen Delivery Method Room Air 03/26/25 17:00 03/26/25 17:15 Temperature 98.6 F Temperature Source Pulse Rate 76 76 Respiratory Rate 18 18 Blood Pressure 138/81 H 138/81 H Blood Pressure Mean 100 100 Pulse Ox 98 98 Oxygen Delivery Method Weight Weight: 91.3 kg Body Mass Index (BMI) 30.6 Physical Exam Narrative General: Alert, oriented, no apparent distress HEENT: Atraumatic, normocephalic Eyes: Anicteric, normal conjunctiva, extraocular movements intact, pupils equal Neck: Supple Respiratory: Clear to auscultation bilaterally, normal respiratory effort Cardiovascular: Regular rate and rhythm GI: Soft, nontender, nondistended Extremities: No edema Musculoskeletal: Strength 5 out of 5 in right upper extremity, 5 out of 5 left upper extremity, 5 out of 5 right lower extremity, 5 out of 5 left lower extremity Neuro: No overt focal neurological deficits, cranial nerves II through XII intact, [id number] without significant difficulty bilaterally Skin: No rashes appreciated Psych: Cooperative Results Lab / Micro Data 03/26/25 15:36 03/26/25 15:36 Labs: Laboratory Results - last 24 hr 03/26/25 15:36: WBC 6.5, RBC 4.53 L, Hgb 14.5, Hct 40.0, MCV 88.3, MCH 32.0, MCHC 36.3 H, RDW Std Deviation 39.9, RDW Coeff of Chel 12.3, Plt Count 190, MPV 9.9, Immature Gran % (Auto) 0.200, Neut % (Auto) 61.8, Lymph % (Auto) 29.8, Gray% (Auto) 6.0, Eos % (Auto) 1.9, Baso % (Auto) 0.3, Absolute Neuts (auto) 4.0, Absolute Lymphs (auto) 1.92, Nucleated RBC % 0, PT 13.6, INR 1.0, APTT 24.9, Sodium 137, Potassium 4.1, Chloride 107, Carbon Dioxide 20.6 L, Anion Gap 10, BUN 17, Creatinine 1.04, EstimCreat Clear Calc 73.54, Est GFR (MDRD) Non-Af 78,BUN/Creatinine Ratio 16.7, Glucose 181 H, Calcium 9.1 Imaging Radiology Impression Head/Neck CTA 03/26/25 15:56 IMPRESSION: CT brain: No acute intracranial abnormality. Chronic microvascular ischemia and involutional changes. CTA head and neck: Scattered atherosclerotic calcification of the anterior and posterior circulation as described above, with mild-moderate stenosis. No evidence of acute occlusion. No aneurysm. Reading [facility] Chest X-Ray 03/26/25 16:15 IMPRESSION: No Acute Findings. Reading [facility] Assessment & Plan Assessment/Plan (1) Neurologic abnormality: PLAN: Plan # Right-sided weakness and numbness -Symptoms have since resolved, suspicion for TIA -ABCD score 4 indicating high risk TIA -Admit to tele -CTA head and neck no LVO -MRI ordered -NIH q4hr -asa, statin, given elevated ABCD score will add Plavix -Echo -PT/OT/Speech eval -Teleneuro consult ordered -Hold BP medications to allow for permissive hypertension for 24 hours unless SBP greater than 220 or DBP greater than 120 or until stroke is ruled out #Hypertension - Management as above #DVT ppx: SCDs Hali Lizarraga MD Time spent in the patient's overall evaluation, decision-making process, review of diagnostic data,adjustment of management, discussion with other providers, nursing and ancillary staff involved in patient's care documentation, 56 Minutes Charges/Coding Visit Charges Inpatient E&M: 14804 Init Hosp L2 03/26/25 1817 Cosigner Signature (if applicable): CC: Dr. Bean Currie MD; Dr. Hali Lizarraga MD~ Signed [facility]05-05-2025 Radiology Diagnostic study note [facility] Imaging Services [address] [place] [address] CTA Head AND Neck W/ Contrast MR#: [id number] Acct: [id number] Name: DAMARI BOWERSNORMA Benson Rep #: [id number] : 1955 M 69 From: Belel Lemos MD PCP: Dr. Bean Currie MD Status: RE G ER Study:CTA Head AND Neck W/ Contrast Date of Darius gorman: 03/26/25 Exam# [id number] Ordering Dr: Asael Glynn DO PROCEDURE: CTA HEAD AND NECK W/ CONTRAST 03/26/2025 REASON FOR EXAM: TIA (R SIDED SYMPTOMOLOGY) TECHNIQUE: CTA imaging of the head and neck from the aortic arch to the skull vertex with out contrast and with intravenous contrast. Multiplanar and multisequence images were obtained. CONTRAST: Omnipaque 350 VOLUME: 100 mL Not Provided Gauge IV One or more dose reduction techniques were used (e.g., Automated exposure control, adjustment of the mA and/or kV according to patient size, use of iterative reconstruction technique). COMPARISON: None FINDINGS: CT brain: * ACUTE: No acute infarct or hemorrhage. No mass effect or herniation. * BRAIN PARENCHYMA: No focal intracranial mass. Patchy supratentorial hypoattenuation, nonspecific,but likely secondary to chronic microvascular ischemia. * VENTRICLES/EXTRA-AXIAL SPACES: Mild generalized volume loss with concordant ventricular enlargement. * EXTRACRANIAL STRUCTURES: Visualized osseous structures are normal. Soft tissues are normal. CTA head and neck: Aortic Arch: Normal size and branching pattern. Mild atherosclerotic plaque without hemodynamicallysignificant stenosis. Brachiocephalic and Subclavians: Mild atherosclerotic plaque without significantstenosis. RIGHT Carotid: Right CCA: Mild calcified and soft plaque. Right ICA: Mild calcified plaque at the bifurcation and proximal ICA without hemodynamically significant stenosis. Maximum stenosis (NASCET): 0 % Right ECA: Unremarkable. LEFT Carotid: Left CCA: Mild calcified and soft plaque. Left ICA: Mild atherosclerotic calcification of the bifurcation and proximal ICAwithout hemodynamically significant stenosis. Maximum stenosis (NASCET): 0 % Left ECA: Unremarkable. Vertebrals: Codominant. Arise from the subclavians. Both vertebrals form the basilar. RIGHT Vertebral: Unremarkable. LEFT Vertebral: Mild atherosclerotic calcification of the distal V3 without hemodynamically significant stenosis. Focal area of moderate stenosis at the proximal V4 secondary to noncalcified plaque. Anatomy: [place] anatomy is normal. Aneurysm or avm: No intracranial aneurysms or large vascular malformations are identified. Anterior cerebral arteries: Unremarkable: Middle cerebral arteries: Mild atherosclerotic calcification of the carotid siphons without hemodynamically significant stenosis. The MCAs are otherwise within normal limits. Basilar artery: Unremarkable. Posterior cerebral arteries: Unremarkable. Other major branches of the posterior circulation: Unremarkable. Major venous structures: Unremarkable. Other findings: Neck: No lymphadenopathy. Lungs: Lung apices are clear. Bones: Mild degenerative changes of the cervical spine. CT/CTA Head AND Neck W/ Contrast IMPRESSION: CT brain: No acute intracranial abnormality. Chronic microvascular ischemia and involutional changes. CTA head and neck: Scattered atherosclerotic calcification of the anterior and posterior circulation as described above, with mild-moderate stenosis. No evidence of acute occlusion. No aneurysm. Reading [facility] CC: Dr. Yobany Glynn DO; Dr. Bean Currie MD ~ Laboratory Analyst: Signed [facility]05-05-2025 Radiology Diagnostic study note [facility] Imaging Services [address] [place] [id number] Chest 1 View (Portable) MR#: [id number] Acct: [id number] Name: DAMARI BOWERS JrUrsula Rep #: [id number] : 1955 M 69 From: Belle Lemos MD PCP: Dr. Bean Currie MD Status: RE G ER Study:Chest 1 View (Portable) Date of Exam: 03/26/25 Exam# [id number] Ordering Dr: Asael Glynn DO PROCEDURE: CHEST 1 VIEW (PORTABLE) 03/26/2025 REASON FOR EXAM: STROKE TECHNIQUE: Frontal view of the chest. COMPARISON: CT chest 11/30/2024 FINDINGS: Hardware: None Heart: Cardiac and mediastinal contours are stable. Lungs: No focal consolidation. No pneumothorax. No pleural effusion. Bones: The bones are unremarkable. Other: RAD/Chest 1 View (Portable) IMPRESSION: No Acute Findings. [facility] CC: Dr. Yobany Glynn DO; Dr. Bean Currie MD ~ Laboratory Analyst: Signed [facility]04-04-2025 Evaluation note* Diagnosis Onset Date Resolution Status Admit Date Acute sinusitis acute February 9:06am Brain TIA acute March 26, 2025 5:44pm Diabetes mellitus, type 2 acute March 26, 2025 5:44pm Dilated aortic root acute March 262024 5:44pm Essential (primary) hypertension chr onic March 26, 2025 5:44pm Hyperlipidemia chronic March 26, 2 025 5:44pm Neurologic abnormality deleted Ma y 2024 5:44pm [facility] Work Phone: 1(150) 917-305101-07-2025 Evaluation note* Diagnosis Onset Date Resolution Status Admit Date Nonobstructive atheroscleros is of coronary artery acute November 28, 2024 9:51am Essential (primary) hypertension chr onic November 28, 2024 9:51am Thoracic aortic aneurysm (TAA) chron ic November 28, 2024 9:51am Acute sinusitis acute February 9:06am Brain TIA acute March 26, 2025 5:44pm Diabetes mellitus, type 2 acute March 26, 2025 5:44pm Dilated aortic root acute March 262024 5:44pm Neurologic abnormality acute Ma y 2024 5:44pm Essential (primary) hypertension chr onic March 26, 2025 5:44pm Hyperlipidemia chronic March 26, 2 025 5:44pm [facility] Work Phone: 1(278) 514-746406-23-2023 Procedure [facility] 05-14-2023 Procedure [facility]11-23-2021 NoteHNO ID: [id number] Author: Lo Thompson Population Health Navigator Service: ? Author Type: ? Type: Progress Notes Filed: 10/14/2021 2:21 PM Note Text: POPULATION HEALTH NAVIGATION OUTREACH Action/FYI I spoke with patient and he states he will be seeing Dr Perez Updated pcp field No care everywhere Contact made with patient or family member? YES Pt identified by name and : YES Outreach Outcome/Action Spoke to patient or caregiver: PCP confirmed / updated Patient declined Reason for Outreach Attribution: Provider Off-boarding Payer: Payor: ANTHEM / Plan: BLUE CARD PPO OOS / Product Type: PPO / Care Gap Reviewed:: Reminder: Reminder note to check Health Maintenance for items below Health Maintenance items due: BP CONTROLLED (<130/80) Never done PNEUMOVAX AGE 65 AND OVER WITH 5YR LOOKBACK(1) Never done INFLUENZA(1) due on 07/23/2021 COVID-19 VACCINE(3 - Booster for Moderna series) due on 08/09/2021 LDL CHOLESTEROL due on 09/20/2021 Advanced Directives Completed: Have you ever planned for future healthcare decisions with a power of deputy county attorney, living will, or advance directives? No. Please bring a copy to your next appointment or email to [email or web address] Referrals: N/A Message Sent to Practice: NO Navigation Signature: Lo Thompson Population Health Navigator October 14, 2021 2:20 [facility]11-23-2021 NotePatient Outreach (NETNAV) DAMARI BOWERS ([id number]) 1955 M Date Time Provider Department 10/14/21 LO THOMPSON During your visit today, we recorded the following information about you: Lo Thompson Population Health Navigator 10/14/2021 2:21 PM Signed POPULATION HEALTH NAVIGATION OUTREACH Action/FYI I spoke with patient and he states he will be seeing Dr Perez Updated pcp field No care everywhere Contact made with patient or family member? YES Pt identified by name and : YES Outreach Outcome/Action Spoke to patient or caregiver: PCP confirmed / updated Patient declined Reason for Outreach Attribution: Provider Off-boarding Payer: Payor: HOLLY / Plan: BLUE CARD PPO OOS / Product Type: PPO / Care Gap Reviewed:: Reminder: Reminder note to check Health Maintenance for items below Health Maintenance items due: BP CONTROLLED (<130/80) Never done PNEUMOVAX AGE 65 AND OVER WITH 5YR LOOKBACK(1) Never done INFLUENZA(1) due on 07/23/2021 COVID-19 VACCINE(3 - Booster for Moderna series) due on 08/09/2021 LDL CHOLESTEROL due on 09/20/2021 Advanced Directives Completed: Have you ever planned for future healthcare decisions with a power of deputy county attorney, living will, or advance directives? No. Please bring a copy to your next appointment or email to Referrals: N/A Message Sent to Practice: NO Navigation Signature: Lo Thompson Population Health Navigator October 14, 2021 2:20 PM Allergies As of Date: 10/14/2021 (No Known Allergies) Date Reviewed: 03/26/2021 Reviewed by: Liane Velasquez MA - Fully Assessed Reason for Visit: Population Health Navigation Outreach [3910] Cmt: Offboarding Prescriptions as of 10/14/2021 - traZODone (DESYREL) 50 mg tablet Take 1 tablet by mouth daily at bedtime. - gabapentin (NEURONTIN) 100 mg capsule Take 1 capsule by mouth three times daily for 30 days. - amLODIPine (NORVASC) 5 mg tablet 2 tablets once daily. - rosuvastatin (CRESTOR) 10 mg tablet Take 1 tablet by mouth once daily. - lisinopril (ZESTRIL, PRINIVIL) 40 mg tablet Problem List As Of Date 10/14/2021 Noted Resolved BENIGN HYPERTENSION [I10] Hyperlipidemia LDL goal <100 [E78.5] HEMORRHOIDS EXTERNAL [K64.4] 03/08/2006 08/28/2016 RECTAL BLEEDING (MELENA-578.1) [K62.5] 03/08/2006 08/28/2016 Contusion of unspecified part of lower limb [S8*11/12/2008 08/28/2016 Displacement of Lumbar Intervertebral Disc with*08/16/2009 Syncope and collapse [R55] 08/25/2016 Chest pain, unspecified [R07.9] 08/28/2016 Family history of colon cancer [Z80.0] 11/03/2011 Umbilical hernia without mention of obstruction*11/03/2011 Abdominal pain, epigastric [R10.13] 11/06/2011 08/28/2016 Backache, unspecified [M54.9] 06/21/2013 08/28/2016 Gallbladder polyp [K82.4] 11/21/2014 Stenosis of right carotid artery [I65.21] 08/19/2016 Arthritis of knee [M17.10] 04/06/2019 ASHD (arteriosclerotic heart disease) [I25.10] 04/06/2019 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 Author Type: Physician Type: Progress Notes Filed: 03/26/2021 6:23 PM Note Text: SUBJECTIVE: Chief Complaint: Damari Bowers is a 65 year old male who presents for comprehensive problem evaluation. New concerns today include 1. pain R shoulder. Habit of sleeping on R shoulder. Intermittent. Top R shoulder radiating down to elbow.Present x many mos. 2. numb feeling R supraclavicular area and R lat neck. 3. difficulty falling and staying asleep.Present for many yrs. Melatonin with some benefit. No witnessed apnea or gasping. Exercises regularly Yes and Walking Prostate cancer screening up to date Yes PSA was 0.87 on 04/04/2019 Colon cancer screening is up to date Yes Last colonoscopy was done 07/02/2017 Cholesterol screening up to date Yes PAST MEDICAL HISTORY Diagnosis Date - Abdominal pain, epigastric - Chest pain, unspecified - Encounter for long-term (current) use of other medications - Essential hypertension, benign - External hemorrhoids with other complication - External hemorrhoids without mention of complication - Hyperlipidemia - Internal hemorrhoids with other complication - Internal hemorrhoids without mention of complication - Nonobstructive atherosclerosis of coronary artery - Other and unspecified hyperlipidemia - Syncope and collapse PAST SURGICAL HISTORY Procedure Laterality Date - COLONOSCOP W/ OR W/O BRSH SPEC 10/22/06 Hemorrhoids - COLONOSCOP W/ OR W/O BRSH SPEC 11/06/11 Repeat in - EGD W/O BRSH SPECIMEN W/BX 11/06/11 - KNEE SCOPE,DIAGNOSTIC 04/2006 Arthroscopy, knee,right, cartilage removed - LEFT HEART CATH,PERCUTANEOUS FAMILY HISTORY Problem Relation Age of Onset - Lipids Father - Colon Cancer Mother - Hypertension Mother - Stroke Sister CEREBRAL ANEURYSM Social History Tobacco Use - Smoking status: Never Smoker - Smokeless tobacco: Never Used Substance Use Topics - Alcohol use: Yes - Drug use: No Immunization History Administered Date(s) Administered Influenza Seasonal Inj Age 3+ 08/28/2019 Tdap (Age 7+) 09/10/2016 ACTIVE PROBLEM LIST Essential Hypertension, Benign Hyperlipidemia Ldl Goal <100 Displacement of Lumbar Intervertebral Disc Without Myelopathy Family History of Colon Cancer Umbilical Hernia Without Mention of Obstruction Or Gangrene Gallbladder Polyp Stenosis of Right Carotid Artery Arthritis of Knee Ashd (Arteriosclerotic Heart Disease) REVIEW OF SYSTEMS General: Denies fever, chills, night sweats, or changes in weight. Dermatologic: Denies any new skin conditions, rashes or changing moles. Eyes: Denies recent visual changes. ENT: Denies hearing loss or tinnitus Respiratory: Denies any cough, dyspnea, or wheezing. Cardiovascular: Denies any chest pain with exertion or at rest, palpitations, syncope, or edema. Gastrointestinal: Denies any nausea, vomiting, abdominal pain, heartburn, changes in bowel habit, Denies any rectal bleeding. Genitourinary: Denies Denies problems with urinary stream., Denies dysuria, frequency, urgency, incontinence, erectile dysfunction, hematuria and nocturia. Musculoskeletal: see HPI regarding Neurologic: Denies any headaches, tremors, dizziness, vertigo, memory loss, confusion., Denies weakness, numbness or tingling. Psychiatric: Denies any anxiety or depression. Hematologic/Lymphatic/Immunologic: Denies anemia, bruising, bleeding abnormalities. Endocrine: Denies any heat or cold intolerance, polyuria or polydipsia. OBJECTIVE: PHYSICAL EXAMINATION: There were no vitals taken for this visit. BP 136/87 Pulse 63 Resp 16 Ht 175.3 cm (5' 9") Wt 96.6 kg (213 lb) BMI 31.45 kg/m? GENERAL APPEARANCE Well appearing, alert, in no acute distress, well-hydrated, well nourished. SKIN: Skin color, texture, turgor normal, no suspicious rashes or lesions HEAD: No significant findings. NECK: Supple, full range of motion, no lymphadenopathy, normal thyroid, no carotid bruits, no JVD and tender muscle spasm R supraclavicular region with some pain with R head turn and head hyperextension BACK: Back symmetric, Normal curvature, No CVAT. LUNGS: normal pulmonary exam and clear to auscultation and percussion HEART: Normal PMI, Regular rate and rhythm, Normal heart sounds, S1 and S2 and No murmurs. BREASTS: ABDOMEN: Soft, Non-tender, No palpable masses and No hepatosplenomegaly. EXTREMTIES: 5/5 speeds, empty can, IR/ER, biceps, triceps, R lift test NEURO: Awake, alert and oriented x 3, Normal gait, No involuntary motions., muscle tone normal, muscle strength normal GENITALIA: RECTAL: Anus normal, no anorectal masses, Prostate normal size, consistency, no nodules, and no tenderness, rubbery, 2/4 prostate Lab 12/20/20 glu 123 HbA1c 6.1 creat 0.86 GFR 96 lytes WNL ASSESSMENT: impaired fasting glucose cervical muscle strain with R cervical radiculopathy R supras (more content not included)...[facility]03-22-2021 Note Patient Outreach (FAMPWS) DAMARI BOWERS ([id number]) 1955 Date Time Provider Department 02/10/21 THAIS LAMAR) FAMPWS During your visit today, we recorded the following information about you: Thais Lamar MA 02/10/2021 10:53 AM Signed Care Gap Reviewed: Controlling Blood Pressure Phone call placed to patient. Pt identified by name and : YES Outreach Outcome/Action: Unable to reach patient: Left message Snippetshart message sent If patient deferred or declined to schedule appointment, please indicate the reason(s): Other Thais Lamar MA Allergies As of Date: 02/10/2021 (No Known Allergies) Date Reviewed: 01/12/2020 Reviewed by: Maddie Duff Ma - Fully Assessed Reason for Visit: Appointment [186] Cmt: HTN Prescriptions as of 02/10/2021 Sig: GABAPENTIN 100 MG CAPSULE Take 1 capsule by mouth three* AMLODIPINE 5 MG TABLET 2 tablets once daily. RANITIDINE 150 MG TABLET Take 150 mg by mouth twice da* ROSUVASTATIN 10 MG TABLET Take 1 tablet by mouth once d* LISINOPRIL 40 MG TABLET Problem List As Of Date 02/10/2021 Noted Resolved BENIGN HYPERTENSION [I10] Hyperlipidemia LDL goal <100 [E78.5] HEMORRHOIDS EXTERNAL [K64.4] 03/08/2006 08/28/2016 RECTAL BLEEDING (MELENA-578.1) [K62.5] 03/08/2006 08/28/2016 Contusion of unspecified part of lower limb [S8*11/12/2008 08/28/2016 Displacement of Lumbar Intervertebral Disc with*08/16/2009 Syncope and collapse [R55] 08/25/2016 Chest pain, unspecified [R07.9] 08/28/2016 Family history of colon cancer [Z80.0] 11/03/2011 Umbilical hernia without mention of obstruction*11/03/2011 Abdominal pain, epigastric [R10.13] 11/06/2011 08/28/2016 Backache, unspecified [M54.9] 06/21/2013 08/28/2016 Gallbladder polyp [K82.4] 11/21/2014 Stenosis of right carotid artery [I65.21] 08/19/2016 Arthritis of knee [M17.10] 04/06/2019 ASHD (arteriosclerotic heart disease) [I25.10] 04/06/2019 Encounter Status:Closed by THAIS LAMAR MA on 02/10/21[facility] 02-10-2021 NoteHNO ID: [id number] Author: Thais Lamar MA Service: ? Author Type: ? Type: Progress Notes Filed: 02/10/2021 10:53 AM Note Text: Care Gap Reviewed: Controlling Blood Pressure Phone call placed to patient. Pt identified by name and : YES Outreach Outcome/Action: Unable to reach patient: Left message Snippetshart message sent If patient deferred or declined to schedule appointment, please indicate the reason(s): Other Thais Lamra [facility] summary Author Hali Lizarraga [facility] Note Date/Time March 27, 2025 5:07pm [facility] Medical Records Department [address] [place] [address] Instructions for Home/Discharge Instructions 03/27/25 1659 MR#: [id number] Acct: [id number] Name: DAMARI BOWERS Jr. Rep #:[id number] : 1955 69 From: Hali Lizarraga MD PCP: Dr. Bean Currie MD Status:AD M RADHA Discharge Instructions Diet Discharge Diet: - (DASH diet) DC O2, CPAP, BIPAP needs Home O2 Discharge instructions: No Dressing / Incision Discharge Activity: Return to Normal Activity Follow Up Care Test Results: Test results from this visit will be discussed in further detail at your follow- up appointment, if applicable. Discharge Plan Admission Admit Date/Time: 03/26/25 17:44 Primary Reason for Your Visit: Right sided numbness and weakness Attending Provider: Hali Lizarraga Primary Care Provider: Bean Currie Consulting Providers: Yakov Wolfe; Kristina Borja; Vonda Sharma; Marga Pablo; Patty Wong; Shekhar Narayan; Diana Marc; Naveen Victoria; Omega Gambino; Ousmane Higginbotham; Lo Palomo; Man Garcia; Jany Gonzales; Trupti Briscoe; Nadeem Oquendo; Wei Lara; Rosy Diaz; Diego Peres; Perlita Alarcon; Kanwal Gutierrez Instructions Patient Instructions: DASH Plan Heart Health, Eating Heart-Healthy Foods Additional Instructions / Restrictions: DISCHARGE INSTRUCTIONS PLEASE READ *Please take this with you to your next doctors appointment* - you will be discharged on increased dose of rosuvastatin, 20 mg, to try to achieve a lower cholesterol level - you will be discharged on 81 mg of aspirin, and is important that you take this daily - we discussed your hemoglobin A1c as well indicating that you are in the diabetes range, Is advised that you consider diet and exercise lifestyle modifications and as discussed a prescription will be sent in for metformin 500 mgtwice daily, take 500 mg daily for 1 week and then increase to twice daily. This may need further adjusted by your primary care physician. -Please call your primary care provider's office upon discharge to schedule a hospital follow up within 1 week. -For any concerning signs or symptoms please call 911 or proceed to the nearest emergency department Discharge Orders/Prescriptions Prescriptions: New aspirin 81 mg Tablet,Chewable 81 mg PO BREAKFAST Qty: 0 0RF rosuvastatin 20 mg tablet 20 mg PO DAILY Qty: 30 0RF metformin 500 mg tablet 500 mg PO BID 30 Days Qty: 60 0RF Continued losartan 100 mg tablet 100 mg PO QDAY Qty: 90 3RF ipratropium bromide 21 mcg (0.03 %) spray,non-aerosol 2 spray intranasal BID-TID PRN (Reason: postnasal drainage) Qty: 30 0RF Rx Instructions: administer into each nostril amlodipine 10 mg tablet See Rx Instructions .ROUTE .COMPLEX Qty: 90 3RF Dose Instruction: TAKE 1 TABLET BY MOUTH EVERY DAY Rx Instructions: TAKE 1 TABLET BY MOUTH EVERY DAY Discontinued meloxicam 15 mg tablet 15 mg PO QAM Patient Comments: PT STATES HAS BEEN TAKING PRN rosuvastatin 10 mg tablet See Rx Instructions .ROUTE .COMPLEX Qty: 90 3RF Dose Instruction: TAKE 1 TABLET BY MOUTH EVERY DAY Rx Instructions: TAKE 1 TABLET BY MOUTH EVERY DAY Referrals / Follow Up: Bean Currie MD [Primary Care Provider] - Within 1 Week Disposition Disposition (needs filled in before D/C Order can be placed): Home, Self Care 03/27/25 1707<Electronically signed by Hali Lizarraga MD>Hali Lizarraga MD CC: Marga Pablo; Jany Gonzales; Wei Lara; Patty Wong MD; Vonda Sharma MD; Yakov Wolfe MD; Dr. Kristina Borja MD; Dr. Shekhar Narayan MD; Dr. Madhu MD; Dr. Omega Gambino MD; Dr. Naveen Victoria MD; Dr. Bean Currie MD; Dr. Ousmane Higginbotham MD; Dr. Man Garcia DO; Dr. Nadeem Oquendo MD; Dr.Mohamed Rachna MD; Dr. Rosy Diaz MD; Dr. Diego Peres MD; Dr. Perlita Alarcon MD; Lo Palomo DO; Kanwal Gutierrez MD ~ Signed [facility] Work Phone: Discharge summary Author Hali Lizarraga [facility] Note Date/Time March 27, 2025 5:16pm [facility] Medical Records Department [address] [place] [address] Discharge Summary 03/27/25 1707 MR#: [id number] Acct: [id number] Name: DAMARI BOWERS Jr. Rep #:[id number] : 1955 69 From: Hali Lizarraga MD PCP: Dr. Bean Currie MD Status:AD M RADHA Location: [place] [address] Providers Date of Admission: 03/26/25 Date of Discharge: 03/27/25 Primary Care Physician: Dr. Bean Currie MD Consultations 03/26/25 18:48 Consult: Tele-Neurology Routine Consulting Provider: [facility] Reason for Consult: Acute Ischemic Stroke/TIA EMERGENT Consult: No MD Notified: Yes Date Notified: 03/26/25 Time Notified: 18:15 Method of Notification: Answering Service Nursing Unit Staff Notify [facility] of Tele-Neurology Consult: Yes Reason For Visit: CONCERN FOR TIA Diagnosis Discharge Diagnosis (1) Brain TIA: Status: Acute Code(s): G45.9 - Transient cerebral ischemic attack, unspecified (2) Diabetes mellitus, type 2: Status: Acute Code(s): E11.9 - Type 2 diabetes mellitus without complications (3) Dilated aortic root: Status: Acute Code(s): I77.810 - Thoracic aortic ectasia Plan #TIA #Hypertension #DMII #Hx dilated aortic root Medications at Discharge Home Medications amlodipine 10 mg tablet See Rx Instructions .Route .COMPLEX #90 tabs 08/21/24 losartan 100 mg tablet 100 mg PO QDAY #90 tabs 11/28/24 ipratropium bromide 21 mcg (0.03 %) nasal spray 2 spray intranasal BID-TID PRN postnasal drainage #30 mL 02/23/25 aspirin 81 mg chewable tablet 81 mg PO BREAKFAST #0 tabs 03/27/25 metformin 500 mg tablet 500 mg PO BID 30 days #60 tabs 03/27/25 rosuvastatin 20 mg tablet 20 mg PO DAILY #30 tabs 03/27/25 Hospital Course Procedures Transthoracic echo and - (MRI brain) Summary of Care Provided Minutes Spent on Discharge: 32 Hospital Course: 69-year-old male with a history of ascending thoracic aortic aneurysm, hypertension, hyperlipidemia who presented to [facility] ED 03/26/2025 due to right sided body numbness and weakness. H&P as follows: "LITTLE, is a 69-year-old male history of hypertension presented [facility] ED 03/26/2025 due to concerns for neurologic change. This a.m. he was atwork and suddenly felt right side of his body become weak and numb and he felt that he had right-sided facial droop with no vision changes. He noticed a particular weakness in the right leg and also noted numbness along right chest wall and right abdomen. Symptoms started resolved but 15 seconds later and werecompletely resolved in 2 to 3 minutes. No headache associated, no further symptoms. His family doctor recommended he come to the emergency room. On arrival to the ED temperature 97.9, heart rate 82 with blood pressure 140/99, respiratory rate of 22 and pulse ox 100% on room air. CBC without leukocytosis or anemia, BMP shows kidney function within normal limits, does have elevated glucose of 181. CTA of the head and neck obtained and showed no LVO. Given patient's suspicious symptoms hospitalist contacted for admission for TIA/CVA rule out. Patient evaluated at bedside and reports history as above, reports that prior to that and since the symptoms resolved he has felt fine and ROS otherwise completely negative." INTERVAL HISTORY: Patient had a negative MRI, echocardiogram showed moderately dilated aortic root, appears patient is following with cardiology for this and was last seen in the office 11/28/2024. Patient evaluated by neurology, he had nofurther symptoms and was recommended that he be on aspirin and have aggressive lifestyle modifications. On day of discharge patient overall feeling well with no new or acute complaints. Discharge instructions as follows: - you will be discharged on increased dose of rosuvastatin, 20 mg, to try to achieve a lower cholesterol level - you will be discharged on 81 mg of aspirin, and is important that you take this daily - we discussed your hemoglobin A1c as well indicating that you are in the diabetes range, Is advised that you consider diet and exercise lifestyle modifications and as discussed a prescription will be sent in for metformin 500 mg twice daily, take 500 mg daily for 1 week and then increase to twice daily. This may need further adjusted by your primary care physician. -Please call your primary care provider's office upon discharge to schedule a hospital follow up within 1 week. -For any concerning signs or symptoms please call 911 or proceed to the nearest emergency department Physical Exam Narrative General: Alert, oriented, no apparent distress HEENT: Atraumatic, normocephalic Eyes: Anicteric, normal conjunctiva, extraocular movements grossly intact Neck: Supple Respiratory: Clear to auscultation bilaterally, normal respiratory effort Cardiovascular: Regular rate and rhythm GI: Soft, nontender, nondistended Extremities: No edema Musculoskeletal: Moving all extremities Neuro: No overt focal neurological deficits Skin: No rashes appreciated Psych: Cooperative Weight / BMI Weight Weight: 90.174 kg Body Mass Index (BMI) 30.2 ABG / Lab / Microbiology Data 03/27/25 04:26 03/27/25 04:26 Laboratory: Laboratory Results - last 24 hr 03/27/25 04:26: WBC 5.0, RBC 4.50 L, Hgb 14.3, Hct 40.4, MCV 89.8, MCH 31.8, MCHC 35.4, RDW Std Deviation 41.0, RDW Coeff of Chel 12.5, Plt Count 198, MPV 9.9, Immature Gran % (Auto) 0.200, Neut % (Auto) 44.5 L, Lymph % (Auto) 43.7 H, Gray % (Auto) 6.6, Eos % (Auto) 4.6, Baso % (Auto) 0.4, Absolute Neuts (auto) 2.2, Absolute Lymphs (auto) 2.19, Nucleated RBC % 0, Sodium 138, Potassium 4.2, Chloride 105, Carbon Dioxide 21.5, Anion Gap 12, BUN 16, Creatinine 0.92, Estim Creat Clear Calc 82.65, Est GFR (MDRD) Non-Af 90, BUN/Creatinine Ratio 17.2, Glucose 120 H, Hemoglobin A1c 6.6 H, Calcium 9.0, Triglycerides 87, Cholesterol 169, LDL Cholesterol, Calc 103, VLDL Cholesterol 17, HDL Cholesterol 48, Cholesterol/HDL Ratio 3.51, TSH 2.880 Radiography Diagnostic Testing: Radiology Impression Echocardiogram 03/27/25 04:14 Interpretation Summary Mild concentric left ventricular hypertrophy. The LV systolic function is normal. EF is 65 %. Stage 1 diastolic dysfunction. Aortic valve sclerosis without stenosis. Mild aortic valve regurgitation. Moderately dilated aortic root. Ordering Physician: Herb Bright Performed By: Naveen Chew RCS Brain MRI 03/27/25 10:00 IMPRESSION: 1. No specific evidence of an acute intracranial process. 2. Additional description as above. Reading Location: [facility] D/ Instructions Discharge Diet: - (DASH diet) DC O2, CPAP, BIPAP Needs Home O2 Discharge instructions: No Meaningful Use Info Meaningful Use Meaningful Use Diagnoses (Choose all that apply): None applicable Ischemic Stroke Statin Dosing Therapy Reference: STATIN DOSE THERAPY REFERENCE: * Patients > 75 years receive moderate or high dose statin therapy. * Patients 75 years or YOUNGER should receive HIGH intensity statin dose unless contraindicated. You will be required to document reason for non-treatment if statin daily dose does not meet guidelines. HIGH DOSE STATIN THERAPY DAILY Atorvastatin > than or = to 40 mg Rosuvastatin > than or = to 20 mg Amlodipine + Atorvastatin > than or = to 2.5/40 mg Ezetimibe + Simvastatin 10/80 mg Simvastatin 80mg Discharge Plan Admission Admit Date/Time: 03/26/25 17:44 Primary Reason for Your Visit: Right sided numbness and weakness Attending Provider: Hali Lizarraga Primary Care Provider: Bean Currie Consulting Providers: Yakov Wolfe; Kristina Borja; Vonda Sharma; Marga Pablo; Patty Wong; Shekhar Narayan; Diana Marc; Naveen Victoria; Omega Gambino; Ousmane Higginbotham; Lo Palomo; Man Garcia; Jany Gonzales; Trupti BriscoeNadeem Braden; Wei Lara; Rosy Diaz; Diego Peres; Perlita Alarcon; Kanwal Gutierrez Instructions Patient Instructions: DASH Plan Heart Health, Eating Heart-Healthy Foods Additional Instructions / Restrictions: DISCHARGE INSTRUCTIONS PLEASE READ *Please take this with you to your next doctors appointment* - you will be discharged on increased dose of rosuvastatin, 20 mg, to try to achieve a lower cholesterol level - you will be discharged on 81 mg of aspirin, and is important that you take this daily - we discussed your hemoglobin A1c as well indicating that you are in the diabetes range, Is advised that you consider diet and exercise lifestyle modifications and as discussed a prescription will be sent in for metformin 500 mg twice daily, take 500 mg daily for 1 week and then increase to twice daily. This may need further adjusted by your primary care physician. -Please call your primary care provider's office upon discharge to schedule a hospital follow up within 1 week. -For any concerning signs or symptoms please call 911 or proceed to the nearest emergency department Discharge Orders/Prescriptions Prescriptions: New aspirin 81 mg Tablet,Chewable 81 mg PO BREAKFAST Qty: 0 0RF rosuvastatin 20 mg tablet 20 mg PO DAILY Qty: 30 0RF metformin 500 mg tablet 500 mg PO BID 30 Days Qty: 60 0RF Continued losartan 100 mg tablet 100 mg PO QDAY Qty: 90 3RF ipratropium bromide 21 mcg (0.03 %) spray,non-aerosol 2 spray intranasal BID-TID PRN (Reason: postnasal drainage) Qty: 30 0RF Rx Instructions: administer into each nostril amlodipine 10 mg tablet See Rx Instructions .ROUTE .COMPLEX Qty: 90 3RF Dose Instruction: TAKE 1 TABLET BY MOUTH EVERY DAY Rx Instructions: TAKE 1 TABLET BY MOUTH EVERY DAY Discontinued meloxicam 15 mg tablet 15 mg PO QAM Patient Comments: PT STATES HAS BEEN TAKING PRN rosuvastatin 10 mg tablet See Rx Instructions .ROUTE .COMPLEX Qty: 90 3RF Dose Instruction: TAKE 1 TABLET BY MOUTH EVERY DAY Rx Instructions: TAKE 1 TABLET BY MOUTH EVERY DAY Referrals / Follow Up: Bean Currie MD [Primary Care Provider] - Within 1 Week Disposition Disposition (needs filled in before D/C Order can be placed): Home, Self Care Charges/Coding Visit Charges Inpatient E&M: 45606 Disch Hosp >30min 03/27/25 1716 <Electronically signed by Hali Lizarraga MD> Cosigner Signature (if applicable): CC: Dr. Trevon Quinones MD; Dr. Bean Currie MD; Dr. Hali Lizarraga MD~ Signed [facility] Work Phone: Evaluation note* Diagnosis Onset Date Resolution Status Nonobstructive atherosclerosis of coronary artery acute Essential (primary) hypertension chronic Hyperlipidemia chronic Thoracic aortic aneurysm (TAA) chronic [facility] Work Phone: Evaluation noteNo assessment information available [facility] Work Phone: Evaluation note* Diagnosis Onset Date Resolution Status Family history of colon cancer in mother acute [facility] Work Phone: Evaluation note* Diagnosis Onset Date Resolution Status Family history of colon cancer in mother acute Nonobstructive atherosclerosis of coronary artery acute Essential (primary) hypertension [facility] Work Phone: History and physical note Author Dr. Colmenares [facility] May 14, 2023 8:47am Note Date/Time May 14, 2023 8:[address] [facility] Medical Records Department [address] [place] [id number] History & Physical Exam 05/14/2338 MR#: [id number] Acct: [id number] Name: DAMARI BOWERS Jr. Rep #:[id number] : 1955 67 From: Damari Colmenares MD PCP: Dr. Bean Currie MD Status:[facility] Location: [place] [id number] HPI - General General Date of Service: 05/14/23 Chief Complaint: Screening for intestinal cancer HPI Narrative DAMARI BOWERS, is a 67 M who presents via open access today for screening colonoscopy. His mother had colon cancer. His previous colonoscopy was June 2017. He has no particular complaints. No abdominal pain. No bright red bloodper rectum or melena. He otherwise enjoys good health. [facility] Medical History (Updated 05/14/23 @ 08:[address] Damari Colmenares MD) Back pain Cardiology follow-up encounter Essential (primary) hypertension Gastric reflux Heartburn Hemorrhoids High cholesterol History of echocardiogram History of stress test Hyperlipidemia Hypertension Leg cramps LLQ abdominal pain Migraine Non-smoker Nonobstructive atherosclerosis of coronary artery Obesity Segmental and somatic dysfunction of lumbar region Segmental and somatic dysfunction of pelvic region Sleep apnea Syncope and collapse Thoracic aortic aneurysm (TAA) Wears glasses Wears hearing aid Home Medications trazodone 50 mg tablet 50 mg PO DAILY PRN Anxiety 06/05/21 [History Last Taken Unknown] lisinopril 40 mg tablet 40 mg PO QDAY #90 tabs 06/08/22 [Rx Last Taken Unknown] amlodipine 10 mg tablet 10 mg PO DAILY #90 tabs 06/11/22 [Rx Last Taken Unknown] hydrochlorothiazide 25 mg tablet 25 mg PO DAILY #90 tabs 06/11/22 [Rx Last Taken Unknown] rosuvastatin 10 mg tablet (Crestor) 10 mg PO QDAY #90 tabs 06/11/22 [Rx Last Taken Unknown] Allergy/AdvReac Type Severity Reaction Status Date / Time No Known Allergies Allergy Verified 05/13/23 10:24 Family History Mother Colon cancer Hypertension Sister Heart disease Father CAD (coronary artery disease) Surgical History (Updated 03/19/23 @ 08:14 by Mayra Lazcano) H/O local excision of skin lesion History of bilateral knee arthroplasty History of colonoscopy (2010) History of left heart catheterization (01/2014) Social History Smoking Status: Never smoker second hand exposure: No alcohol intake: current alcohol intake frequency: holidays/special occasions only substance use type: does not use caffeine: Yes (3-4 cups daily) what type of physical activity do you participate in: none seatbelt use: always ROS Constitutional Constitutional: Reports systems reviewed and no addt'l complaints, except as documented Cardiovascular Cardiovascular: Denies chest pain Respiratory/Chest Respiratory/Chest: Denies shortness of breath at rest Gastrointestinal Gastrointestinal: Denies abdominal pain, change in bowel habits, hematochezia ormelena Vital Signs Vital Signs Vital Signs: 05/14/23 07:43 05/14/23 07:43 Temperature 97.4 F L Temperature Source Temporal Pulse Rate 59 L Respiratory Rate 16 Respiratory Pattern Normal Blood Pressure 126/85 H Blood Pressure Mean 98 Blood Pressure Source Monitor Blood Pressure Position Semi-Fowlers Blood Pressure Location Right Arm Pulse Ox 96 Oxygen Delivery Method Room Air Weight Weight: 211 lb 9.6 oz Body Mass Index (BMI) 31.2 Physical Exam Const alert, oriented x3 and no apparent distress General Appearance: cooperative and comfortable Eyes General Eye: normal appearance of both eyes Neck General: normal visual inspection Chest inspection of chest normal Resp Effort and Inspection: able to speak in complete sentences and symmetric chest movement Auscultation: clear to auscultation bilaterally Cardio regular rate and regular rhythm GI soft to palpation, non-tender and non-distended Extremity no calf tenderness Neuro oriented x3 Psych thought process normal Assessment & Plan Assessment/Plan (1) Family history of colon cancer in mother: PLAN: The patient presents via open access today for a colonoscopy. He is awareof the technique, benefit, risk, alternatives. He has had an opportunity to askand have questions answered. We will proceed as noted. Damari Colmenares M.D., F.A.C.S. 05/14/23 0847 <Electronically signed by Damari Colmenares MD> Cosigner Signature (if applicable): CC: Dr. Bean Currie MD; Dr. Damari Colmenares MD~ Signed [facility] Work Phone: Reason for referral (narrative)No reason for referral information [facility]WFort [facility] Work Phone: Summary Purpose Family History No Family History Records Found Relationship Condition Age at Onset Recorded Date/T kade mother Malignant neoplasm of colon Unknown Hypertension Unknown sister Cardiac disease Unknown father Coronary artery disease Unknown Advance Directives No Advanced Directives Records Found Advance Directive Response Recorded Date/ Time Living Will Yes July 01 7 9:06am Power of Document Review Attorney Yes July 01 017 9:06am Advance Directive Response Recorded Date/ Time Name of Medical Power of Document Review Attorney May 13, 2023 10:26am Living Will Yes May 13, 2023 10:26am Power of Document Review Attorney Yes May 13 10:26am Advance Directive Response Recorded Date/ Time Living Will Yes May 13, 2023 10:26am Do you have a Healthcare Power of Document Review Attorney? Yes May 13, 2023 10:26am Do you have a Healthcare Power of Document Review Attorney? No March 26, 2025 6:21pm Advance Directive Response Recorded Date/ Time Do you have a Healthcare Power of Document Review Attorney? 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 November 28, 2024 9 :51am INT LABS November 28, 2024 10 :24am TAA November 30, 2024 7: 45am Blood Flow Screening - [facility] F ebruary 2024 7:51am SORE THROAT, CONGESTION, COUGH February 9:06am CONCERN FOR TIA March 26, 2025 5:44pm CONCERN FOR TIA March 27, 2025 5:07pm Reason for Visit Admit Date Nonobstructive atherosclerosis of major ry artery November 28, 2024 9:51am Essential (primary) hypertension November 28, 2024 9:51am Thoracic aortic aneurysm (TAA) November 282024 9:51am Acute sinusitis February 23, 2025 9:06 am Brain TIA March 26, 2025 5:44pm Diabetes mellitus, type 2 March 26, 2025 5:44pm Dilated aortic root March 26, 2025 5:44pm Neurologic abnormality March 26, 2025 5:4 4pm Essential (primary) hypertension March 5:44pm Hyperlipidemia March 26, 2025 5:44pm Chief Complaint Admit Date SORE THROAT, CONGESTION, COUGH February 9:06am CONCERN FOR TIA March 26, 2025 5:44pm CONCERN FOR TIA March 27, 2025 5:07pm - May 22, 2025 9:04a m Reason for Visit Admit Date Acute sinusitis February 23, 2025 9:06 am Brain TIA March 26, 2025 5:44pm Diabetes mellitus, type 2 March 26, 2025 5:44pm Dilated aortic root March 26, 2025 5:44pm Essential (primary) hypertension March 5:44pm Hyperlipidemia March 26, 2025 5:44pm Neurologic abnormality March 26, 2025 5:4 4pm Additional Source Comments (unrecognized sect ion and content) No Status Records FoundNo Status Records Found INFORMATION SOURCE (unrecogn ized section and content) DATE CREATED AUTHOR 12/17/2021 [facility] DATE CREATED AUTHOR AUTHOR'S ORGANIZ ATION 09/06/2025 [facility] Care Teams (unrecognized sec tion and content) Team Status: Active Member Role Status Dates Dr. Amie Colmenares III, MD Family Provider Active Dr. Bean Currie MD Primary Care Provider Active Team Status: Inactive Member Role Status Dates Dr. Bean Currie MD Primary Care Pr [facility], Attending Provider, Referring Provider Active Team Status: Active Member Role Status Dates Dr. Bean Currie MD Primary Care Provider Active Mayra Lazcano Attending Provider Active Team Status: Active Member Role Status Dates Dr. Bean Currie MD Primary Care Provider, Referr ing Provider Active Dr. Damari Colmenares MD Attending Provider, Other Prov ider Active Team Status: Inactive Member Role Status Dates Dr. Bean Currie MD Primary Care Provider, Referr ing Provider Active Dr. Damari Colmenares MD Attending Provider Active Team Status: Inactive Member Role Status Dates Dr. Bean Currie MD Primary Care Provider, Referr ing Provider Active Dr. Trevon Quinones MD Attending Provider Active Team Status: Inactive Member Role Status Dates Dr. Bean Currie MD Primary Care Provider, Other Provider Active Dr. Trevon Quinones MD Attending Provider, Referring Pro vider Active Team Status: Active Member Role Status Dates Dr. Bean Currie MD Primary Care Provider Active Team Status: Inactive Member Role Status Dates Dr. Bean Currie MD Primary Care Provider Active Start: November 28, 2024 End: November 28, 2024 Dr. Bean Currie MD Referring Provider Active Start: November 28, 2024 End: November 28, 2024 Dr. Trevon Quinones MD Attending Provider Active S tart: November 28, 2024 End: November 28, 2024 Team Status: Inactive Member Role Status Dates Dr. Bean Currie MD Primary Care Provider Active Start: November 28, 2024 End: November 28, 2024 Dr. Trevon Quinones MD Attending Provider Active S tart: November 28, 2024 End: November 28, 2024 Dr. Trevon Quinones MD Referring Provider Active S tart: November 28, 2024 End: November 28, 2024 Team Status: Inactive Member Role Status Dates Dr. Bean Currie MD Primary Care Provider Active Start: November 30, 2024 End: November 30, 2024 Dr. Trevon Quinones MD Attending Provider Active S tart: November 30, 2024 End: November 30, 2024 Dr. Trevon Quinones MD Referring Provider Active S tart: November 30, 2024 End: November 30, 2024 Team Status: Inactive Member Role Status Dates Dr. Bean Currie MD Primary Care Provider Active Start: December 01, 2024 End: December 01, 2024 Dr. Bean Currie MD Attending Provider Active Start: December 01, 2024 End: December 01, 2024 Dr. Bean Currie MD Referring Provider Active Start: December 01, 2024 End: December 01, 2024 Team Status: Active Member Role Status Dates Dr. Bean Currie MD Primary Care Provider Active Start: December 29, 2024 Dr. Trevon Quinones MD Referring Provider Active S tart: December 29, 2024 Self Referred Attending Provider Active Start: 2024 Team Status: Active Member Role Status Dates Dr. Bean Currie MD Primary Care Provider Active Start: December 29, 2024 Dr. Ab Healy MD Attending Provider Active S tart: December 29, 2024 Team Status: Inactive Member Role Status Dates Dr. Bean Currie MD Primary Care Provider Active Start: January 02, 2025 End: January 02, 2025 Dr. Bean Currie MD Attending Provider Active Start: January 02, 2025 End: January 02, 2025 Dr. Bean Currie MD Referring Provider Active Start: January 02, 2025 End: January 02, 2025 Team Status: Inactive Member Role Status Dates Dr. Bean Currie MD Primary Care Provider Active Start: February 23, 2025 End: February 23, 2025 Dr. Bean Currie MD Referring Provider Active Start: February 23, 2025 End: February 23, 2025 Jay Arnold PA, PA Attending Provider Active Sta rt: February 23, 2025 End: February 23, 2025 Team Status: Inactive Member Role Status Dates Dr. Bean Currie MD Primary Care Provider Active Start: March 26, 2025 End: March 27, 2025 Dr. Yobany Glynn , Emergency Provider Active Start: March 26, 2025 End: March 27, 2025 Dr. Hali Lizarraga MD Admit Provider Active Star t: March 26, 2025 End: March 27, 2025 Dr. Hali Lizarraga MD Attending Provider Active Start: March 26, 2025 End: March 27, 2025 Yakov Wolfe MD Other Provider Active Start: Ma y 2024 End: March 27, 2025 Dr. Kristina Borja MD Other Provider Active Start: March 26, 2025 End: March 27, 2025 Vonda Sharma MD Other Provider Active Start : March 26, 2025 End: March 27, 2025 Dr. Marga Pablo DO Other Provider Active St art: March 26, 2025 End: March 27, 2025 Dr. Patty Wong MD Other Provider Active Start: March 26, 2025 End: March 27, 2025 Dr. Shekhar Narayan MD Other Provider Active Sta rt: March 26, 2025 End: March 27, 2025 Dr. Diana Marc MD Other Provider Active Start : March 26, 2025 End: March 27, 2025 Dr. Naveen Victoria MD Other Provider Active Start: March 26, 2025 End: March 27, 2025 Dr. Omega Gambino MD Other Provider Active Start : March 26, 2025 End: March 27, 2025 Dr. Ousmane Higginbotham MD Other Provider Active Sta rt: March 26, 2025 End: March 27, 2025 Lo Palomo MD Other Provider Active Start : March 26, 2025 End: March 27, 2025 Dr. Man Garcia MD Other Provider Active St art: March 26, 2025 End: March 27, 2025 Dr. Jany Gonzales MD Other Provider Active Start : March 26, 2025 End: March 27, 2025 Dr. Trupti Briscoe MD Other Provider Active Sta rt: March 26, 2025 End: March 27, 2025 Dr. Nadeem Oquendo MD Other Provider Active Start: March 26, 2025 End: March 27, 2025 Dr. eWi Lara MD Other Provider Active St art: March 26, 2025 End: March 27, 2025 Dr. Rosy Diaz MD Other Provider Active Star t: March 26, 2025 End: March 27, 2025 Dr. Diego Peres MD Other Provider Active St art: March 26, 2025 End: March 27, 2025 Dr. Perlita Alarcon MD Other Provider Active Start: March 26, 2025 End: March 27, 2025 Kanwal Gutierrez MD Other Provider Active Start: March 26, 2025 End: March 27, 2025 Team Status: Active Member Role Status Dates Dr. Bean Currie MD Primary Care Provider Active Start: March 27, 2025 Dr. Audra Velez MD Attending Provider Active Start: March 27, 2025 Team Status: Active Member Role Status Dates Dr. Bean Currie MD Primary Care Provider Active Start: March 27, 2025 Dr. Yobany Glynn DO Emergency Provider Active Start: March 27, 2025 Dr. Hali Lizarraga MD Admit Provider Active Star t: March 27, 2025 Dr. Hali Lizarraga MD Attending Provider Active Start: March 27, 2025 Dr. Hali Lizarraga MD Other Provider Active Star t: March 27, 2025 Yakov Wolfe MD Other Provider Active Start: [place] 2024 Dr. Kristina Borja MD Other Provider Active Start: March 27, 2025 Vonda Sharma MD Other Provider Active Start : March 27, 2025 Dr. Marga Pablo DO Other Provider Active St art: March 27, 2025 Dr. Patty Wong MD Other Provider Active Start: March 27, 2025 Dr. Shekhar Narayan MD Other Provider Active Sta rt: March 27, 2025 Dr. Diana Marc MD Other Provider Active Start : March 27, 2025 Dr. Naveen Victoria MD Other Provider Active Start: March 27, 2025 Dr. Omega Gambino MD Other Provider Active Start : March 27, 2025 Dr. Ousmane Higginbotham MD Other Provider Active Sta rt: March 27, 2025 Lo Palomo MD Other Provider Active Start : March 27, 2025 Dr. Man Garcia MD Other Provider Active St art: March 27, 2025 Dr. Jany Gonzales MD Other Provider Active Start : March 27, 2025 Dr. Trupti Briscoe MD Other Provider Active Sta rt: March 27, 2025 Dr. Nadeem Oquendo MD Other Provider Active Start: March 27, 2025 Dr. Wei Lara MD Other Provider Active St art: March 27, 2025 Dr. Rosy Diaz MD Other Provider Active Star t: March 27, 2025 Dr. Diego Peres MD Other Provider Active St art: March 27, 2025 Dr. Perlita Alarcon MD Other Provider Active Start: March 27, 2025 Kanwal Gutierrez MD Other Provider Active Start: March 27, 2025 Team Status: Active Member Role/Relationship Status Dates Dr. Bean Currie MD Primary Care Provider Active Team Status: Inactive Member Role/Relationship Status Dates Dr. Bean Currie MD Primary Care Provider Active Start: February 23, 2025 End: February 23, 2025 Dr. Bean Currie MD Referring Provider Active Start: February 23, 2025 End: February 23, 2025 Jay DE [place], [place] Attending Provider Active Sta rt: February 23, 2025 End: February 23, 2025 Team Status: Inactive Member Role/Relationship Status Dates Dr. Bean Currie MD Primary Care Provider Active Start: March 26, 2025 End: March 27, 2025 Dr. Yobany Glynn DO Emergency Provider Active Start: March 26, 2025 End: March 27, 2025 Dr. Hali Lizarraga MD Admit Provider Active Star t: March 26, 2025 End: March 27, 2025 Dr. Hali Lizarraga MD Attending Provider Active Start: March 26, 2025 End: March 27, 2025 Yakov Wolfe MD Other Provider Active Start: Alonso leal 2024 End: March 27, 2025 Dr. Kristina Borja MD Other Provider Active Start: March 26, 2025 End: March 27, 2025 Vonda Sharma MD Other Provider Active Start : March 26, 2025 End: March 27, 2025 Dr. Marga Pablo DO Other Provider Active St art: March 26, 2025 End: March 27, 2025 Dr. Patty Wong MD Other Provider Active Start: March 26, 2025 End: March 27, 2025 Dr. Shekhar Narayan MD Other Provider Active Sta rt: March 26, 2025 End: March 27, 2025 Dr. Diana Marc MD Other Provider Active Start : March 26, 2025 End: March 27, 2025 Dr. Naveen Victoria MD Other Provider Active Start: March 26, 2025 End: March 27, 2025 Dr. Omega Gambino MD Other Provider Active Start : March 26, 2025 End: March 27, 2025 Dr. Ousmane Higginbotham MD Other Provider Active Sta rt: March 26, 2025 End: March 27, 2025 Lo Palomo MD Other Provider Active Start : March 26, 2025 End: March 27, 2025 Dr. Man Garcia MD Other Provider Active St art: March 26, 2025 End: March 27, 2025 Dr. Jany Gonzales MD Other Provider Active Start : March 26, 2025 End: March 27, 2025 Dr. Trupti Briscoe MD Other Provider Active Sta rt: March 26, 2025 End: March 27, 2025 Dr. Nadeem Oquendo MD Other Provider Active Start: March 26, 2025 End: March 27, 2025 Dr. Wei Lara MD Other Provider Active St art: March 26, 2025 End: March 27, 2025 Dr. Rosy Diaz MD Other Provider Active Star t: March 26, 2025 End: March 27, 2025 Dr. Diego Peres MD Other Provider Active St art: March 26, 2025 End: March 27, 2025 Dr. Perlita Alarcon MD Other Provider Active Start: March 26, 2025 End: March 27, 2025 Kanwal Gutierrez MD Other Provider Active Start: March 26, 2025 End: March 27, 2025 Team Status: Active Member Role/Relationship Status Dates Dr. Bean Currie MD Primary Care Provider Active Start: March 27, 2025 Dr. Audra Velez MD Attending Provider Active Start: March 27, 2025 Team Status: Active Member Role/Relationship Status Dates Dr. Bean Currie MD Primary Care Provider Active Start: March 27, 2025 Dr. Yobany Glynn DO Emergency Provider Active Start: March 27, 2025 Dr. Hali Lizarraga MD Admit Provider Active Star t: March 27, 2025 Dr. Hali Lizarraga MD Attending Provider Active Start: March 27, 2025 Dr. Hali Lizarraga MD Other Provider Active Star t: March 27, 2025 Yakov Wolfe MD Other Provider Active Start: Il y 2024 Dr. Kristina Borja MD Other Provider Active Start: March 27, 2025 Vonda Sharma MD Other Provider Active Start : March 27, 2025 Dr. Marga Pablo DO Other Provider Active St art: March 27, 2025 Dr. Patty Wong MD Other Provider Active Start: March 27, 2025 Dr. Shekhar Narayan MD Other Provider Active Sta rt: March 27, 2025 Dr. Diana Marc MD Other Provider Active Start : March 27, 2025 Dr. Naveen Victoria MD Other Provider Active Start: March 27, 2025 Dr. Omega Gambino MD Other Provider Active Start : March 27, 2025 Dr. Ousmane Higginbotham MD Other Provider Active Sta rt: March 27, 2025 Lo Palomo MD Other Provider Active Start : March 27, 2025 Dr. Man Garcia MD Other Provider Active St art: March 27, 2025 Dr. Jany Gonzales MD Other Provider Active Start : March 27, 2025 Dr. Trupti Briscoe MD Other Provider Active Sta rt: March 27, 2025 Dr. Nadeem Oquendo MD Other Provider Active Start: March 27, 2025 Dr. Wei Lara MD Other Provider Active St art: March 27, 2025 Dr. Rosy Diaz MD Other Provider Active Star t: March 27, 2025 Dr. Diego Peres MD Other Provider Active St art: March 27, 2025 Dr. Perlita Alarcon MD Other Provider Active Start: March 27, 2025 Kanwal Gutierrez MD Other Provider Active Start: March 27, 2025 Team Status: Inactive Member Role/Relationship Status Dates Dr. Bean Currie MD Primary Care Provider Active Start: May 22, 2025 End: May 22, 2025 Dr. Bean Currie MD Attending Provider Active Start: May 22, 2025 End: May 22, 2025 Dr. Bean Currie MD Referring Provider Active Start: May 22, 2025 End: May 22, 2025 FOR RECORDS PERTAINING TO PATIENTS WHO ARE OR HAVE BEEN ENROLLED IN A CHEMICAL DEPENDENCY/SUBSTANCEABUSE PROGRAM, SOME INFORMATION MAY BE OMITTED. This clinical summary was aggregated from multiple sources. Caution should be exercised in using it in the provision of clinical care. This summary normalizes information from multiple sources, and as a consequence, information in this document may materially change the coding, format and clinical context of patient data. In addition, data may be omitted in some cases. CLINICAL DECISIONS SHOULD BE BASED ON THE PRIMARY CLINICAL RECORDS. [facility] provides no warranty or guarantee of the accuracy or completeness of information in this document.
--- NOTE | 2025-09-11 15:10 | CT_ITS ---
PROCEDURE: EXTREMITY LOWER WITHOUT CONTRA 09/11/2025 REASON FOR EXAM: LAMONTE TECHNIQUE: Procedure Code: CTELWO Modality: CT Procedure: EXTREMITY LOWER WITHOUT CONTRA Coronal and Sagittal reconstruction series were provided. CONTRAST: None One or more dose reduction techniques were used (e.g., Automated exposure control, adjustment of the mA and/or kV according to patient size, use of iterative reconstruction technique). RADIATION DOSE SUMMARY: DLP: 1549 mGycm COMPARISON: None FINDINGS: There is moderate osteoarthritis at the hip with spurring of the superolateral acetabular margin. The knee shows severe tricompartment osteoarthritis, most severe in the medial compartment. Hardware is noted in the medial tibial plateau. There is a small visible joint effusion. There is no soft tissue mass or adenopathy. Vascular calcifications are visible. CT/Extremity Lower without Contra IMPRESSION: There is moderate osteoarthritis at the hip with spurring of the superolateral acetabular margin. The knee shows severe tricompartment osteoarthritis, most severe in the medial compartment. Hardware is noted in the medial tibial plateau. Reading Location: [facility]
== END | disposition home or self-care (01) ==
LOC: CT 14:47
PROVIDERS: PCP Family Medicine; Referring Provider Specialist; Visit Provider Specialist
DX: M17.32 Unilateral post-traumatic osteoarthritis, left knee (principal); M21.162 Varus deformity, not elsewhere classified, left knee
CPT/HCPCS: 73700

== ENCOUNTER 2025-10-01 06:59 | Observation (INO) | payer MEDICARE, OTHER, SELFPAY ==
--- NOTE | 2025-09-05 14:56 | PAT.ANE_ITS ---
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 When Was Last Pacemaker Check QUESTION #4 FULL TEXT: You/Your Family Experience fever (hyperthermia) with Anesthesia Last Oral Intake Last Oral intake: Last Oral Intake NPO since Meds taken in AM with sips of water? 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 Has anyone observed you stop breathing during sleep? STOP Results Positive 09/05/25 09:42 QUESTION #5 FULL TEXT : Do you snore loudly (louder than talking or can be heard through closed doors)? 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 Specify any problems Hx of Preganancy in last 3 N/A 09/05/25 09:42 Months Nurse Filling Out Transfusion DSCHRIBER 09/05/25 09:42 & Questions: Date: 09/05/25 09/05/25 09:42 Time: 09:48 09/05/25 09:42 Patient unable to answer at this time (ie. 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: /Reproductive Hx- parcel post truck driver Hx Now No 09/05/25 09:42 Gestational Age (in weeks): EDC: Hx Hx Para Hx Section SAB No 09/05/25 09:42 [facility] Medical History (Updated 09/05/25 @ 10:05 by Miryam Cheung) Anxiety Alcohol use Diabetes Arthritis Restless legs TIA (transient ischemic attack) History of diverticulitis CPAP (continuous positive airway pressure) dependence History of pain when walking Heart stopped beating Dilated aortic root GERD (gastroesophageal reflux disease) Wears hearing aid Wears glasses High cholesterol Leg cramps Non-smoker History of echocardiogram History of stress test Hypertension Cardiology follow-up encounter Thoracic aortic aneurysm (TAA) Back pain Nonobstructive atherosclerosis of coronary artery Segmental and somatic dysfunction of pelvic region Segmental and somatic dysfunction of lumbar region Home Medications ?Medication ?Instructions ?Recorded ?Last Taken ?Type losartan 100 mg tablet 100 mg PO QDAY #90 tabs 06/1503/26/25 Rx ipratropium bromide 21 mcg (0.03 2 spray intranasal BI D-TID PRN 02/23/25 03/26/25 Rx %) nasal spray postnasal drainage #30 mL aspirin 81 mg chewable tablet 81 mg PO BREAKFAST #0 ta bs 03/27/25 Unknown Rx amlodipine 10 mg tablet 10 mg PO DAILY 09/05/25 Unkn own History famotidine 20 mg tablet (Acid 20 mg PO DAILY PRN GERD 09/05/25 Unknown History 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)) ibuprofen 200 mg tablet (Advil) 400 mg PO Q6H PRN pain 09/05/25 Unknown History pseudoephedrine HCl 30 mg tablet 30 mg PO Q4H PRN nasa l congestion 09/05/25 Unknown History (Sudafed) rosuvastatin 20 mg tablet 40 mg PO DAILY 09/05/25 Unkn own History Allergy/AdvReac Type Severity Reaction Status Date / Time hydrochlorothiazide AdvReac Intermediate Hyponatremi Verified 09/05/25 09:32 a Family History Mother Colon cancer Hypertension Sister Heart disease Father CAD (coronary artery disease) Surgical History (Updated 09/05/25 @ 10:05 by Miryam Cheung) Hx of arthroscopic knee surgery Hx of arthroscopic knee surgery History of colonoscopy (2010) History of left heart catheterization (01/2014) H/O local excision of skin lesion Social History household members: spouse housing: house Smoking Status: Never smoker second hand exposure: No alcohol intake: current alcohol intake frequency: holidays/special occasions only substance use type: does not use caffeine: Yes (3-4 cups daily) what type of physical activity do you participate in: none seatbelt use: always Audit: Pertinent Findings Pertinent Findings EKG Perinent findings: EKG 03/26/2025. Sinus rhythm with premature supraventricular complexes. Echo (EF%) pertinent findings: Echo 03/27/2025. Mild concentric left ventricular hypertrophy. The LV systolic function is normal. EF is 65%. Stage I diastolic dysfunction. Aortic valve sclerosis without stenosis. Mild aortic valve regurgitation. Moderately dilated aortic root. Consult pertinent findings: Cardiology visit 11/28/2024. Gentleman with history of hypertension, hyperlipidemia, nonobstructive coronary disease on a heart catheterization from 2013, but a dilated and torturous aorta. His aortic root had measured 4.[address] scan in 2013. Repeat in 2020 demonstrated dimension of 4.1 cm he has denied any chest pain or shortness of breath or paroxysmal nocturnal dyspnea or pedal edema he does not have a recent lipid profile. Additional pertinent findings: CT chest. Interval increase in the aneurysmal dilation ascending thoracic aorta from 4.1 cm transverse diameter previously to current 4.3 cm transverse diameter. No evidence of dissection. Recommendation Anesthesia Recommendation Anesthesia recommendation: OPTIMIZED for anesthesia
[2025-09-18 13:03] LABS: Magnesium 2.2 mg/dL (1.5-2.2)
--- NOTE | 2025-09-26 21:08 | PCM.HP.BLA ---
History and Physical History and Physical? Patient Name: Devonte Quiles : 1955From:? SEAMUS PINEDA PA-C? DATE OF PRE-OPERATIVE EXAM: 09/26/2025 DATE OF SURGERY:? 10/01/2025 SCHEDULED PROCEDURE:? Left robotic-assisted total knee arthroplasty with hardware removal HISTORY OF PRESENT ILLNESS: Preoperative history and physical exam was performed on September 26, 2025.? This is a 69-year-old male who's had ongoing pain for over 10-15 years.? The pain has increased over the past 1 year.? Pain has been more constant.? Pain is aching, sharp, and sore.? Pain is increased with going up and down stairs and sitting.? He has pain with walking.? Patient has been remodeling his daughter's house which she has had increased pain.? Patient has tried rest, elevation with minimal relief.? He has tried home exercises with minimal relief.? Patient has tried oral medications including meloxicam, Motrin, Advil and Tylenol.? He has been through past physical therapy and brace which provided relief at that time.? Brace is helpful when he is on his feet working on concrete.? However when he takes the brace off his pain is much more severe and difficult with doing activities of daily living.? Patient reports remote history of knee arthroscopy at [place] in 1973.? He had a sports related injury.? Patient has surgical clearance from the primary care provider Dr. Currie and cardiology Dr. Quinones.? Patient has been followed for a thoracic aortic aneurysm which has been stable.? Patient also reports several months ago TIA.? We did reach out to the primary care provider and they are okay with short-term use of nonsteroidal anti-inflammatory.? Patient has history of type 2 diabetes mellitus with A1c 6.6, sleep apnea, gastroesophageal reflux disease, hypertension.? Denies past history of DVT or pulmonary embolism.? No recent chest pain, shortness of breath, fevers chills or recent infections.? After failing conservative measures and discussing all treatment options with Dr. Kofi Shipman, the patient does wish to proceed with a left total knee arthroplasty robotic assisted with removal of hardware. REVIEW OF SYSTEMS: Review Of Systems: Constitutional: Reports weight change, but Denies anorexia, anxiety, change in appetite, fever,hard of hearing, and vision problems. Cardiovasular: Denies chest pain, heart murmur, irregular heartbeat and peripheral vascular disease. Respiratory: Reports sleep apnea, but denies asthma, cough, pneumonia, shortness of breath, tuberculosis and wheezing. Gastrointestinal: Reports heartburn, Denies constipation, diarrhea, nausea, bloody stools and vomiting, and difficulty swallowing. Genitourinary: Denies incontinence. Musculoskeletal: Reports limp, trouble walking, weakness, pain but? Denies leg swelling. Skin: Denies Raynaud's, history of shingles and tattoo. Neurological: Reports ambulatory dysfunction and dizziness but denies numbness/tingling and tremor. Psychiatric: Reports anxiety, insomnia and stress, but denies depression and mental illness. Hematologic/Lymphatic: Denies anemia, bleeding/bruising tendency and past transfusion. Reviewed and updated. PAST MEDICAL HISTORY: Advance Care Plan: No Advance Directives Effective Date: 07/04/2025 Past Medical History: Medical Problems: High Blood Pressure Heart Stopped - 2000 - Dr. Garza treated/heart cath clean/no recurrence since Acid Reflux, Diabetes, Hypercholesterolemia, Sleep Apnea Stroke - tia Covid-19 Vaccine, Covid- 19, hyponatremia Accidents: Sports Related Injury - 1973 L knee - Arthroscopic 1983, 1984 Hamstring pulls - running track? 1983 Hamstring pull - softball ? ? Surgical Hx: Arthroscopy - 1973 LEFT knee @ [place], [place] Arthroscopy - (2005) RIGHT KNEE, DR. LESLIE, [facility] Anesthesia Complications: None Assistive Devices: Brace, Glasses, Hearing Aid, Bipap Reviewed and updated. SOCIAL HISTORY: Social History: Marital: .Occupation: Retired.Work Status: Retired.Hand Dominance: Right-handed. Personal Habits:? Cigarette Use: Never.Smokeless Tobacco: Never Used Smokeless Tobacco.E-Cigarette Use: Never used.Alcohol: Occasionally.Drug Use: Denies Use.Enjoy Exercising: Never Exercises, Exercises 1-3 x/month. Reviewed, no changes. VITALS: Ht: 69.5 Wt: 188lb Wt k.277 BMI: 27.4 BP: 140/80 Pulse: 55 Resp: 16 T: 97.7 T: 36.5C Pain Level: 8/10 O2SatR: 96 ALLERGIES: No Known Drug Allergy? MEDICATIONS: Mupirocin 2 % use qtip and apply inside each nostril twice a day until the day of surgery, Amlodipine Besylate 10 mg daily, Losartan Potassium 25 mg daily, Rosuvastatin Calcium 20 mg daily, Aspirin 81 81 mg daily, HM Famotidine 20 mg as needed PRE-OP EXAM:? General appearance:NORMAL? ? ? Other: Eyes: Conjunctivae and lids: NORMAL? Pupils: ERR Ears, Nose, Mouth, and Throat: NORMAL? Other: Inspection of lips, teeth and gums: NORMAL? ?Other: Neck: Examination of neck: no masses noted. Respiratory: Assessment of respiratory effort: NORMAL? ?Other: ?Auscultation of lungs: clear to auscultation no wheezes, rhonchi or rales. Cardiovascular:? Auscultation of heart: regular rate and rhythm, no murmurs, gallops or rubs. PHYSICAL EXAMINATION: On exam patient walks with an antalgic gait.? Has been wearing a brace.? He has varus alignment which is partially correctable.? Patient has previous incision over the knee without erythema.? Range of motion 0 extension to 122 flexion.? Stable to anterior/posterior drawer exam. IMAGING STUDIES: Previous x-rays of the left knee reveal varus alignment with medial joint space narrowing, subchondral sclerosis, osteophyte formation consistent with severe stage IV bone on bone erosive osteoarthritis.? There is hardware in the medial tibial plateau. IMPRESSION: 1.? Severe left knee osteoarthritis with varus alignment 2.? Hypertension 3.? Type 2 diabetes mellitus: A1c 6.6 4.? Sleep apnea 5.? History of TIA 6.? Gastroesophageal reflux disease 7.? Hypercholesterolemia 8.? Overweight with a BMI 27.4 PLAN: Dr. Kofi Shipman did discuss and review with the patient all treatment options including surgical versus nonsurgical options.? I will continue plan established by Dr. Kofi Shipman.? Patient does wish to proceed with the above-stated procedure.? Potential risks, benefits, and complications of the procedure were discussed in detail including but not limited to , infection, nerve and blood vessel damage, persistent pain, numbness, tingling, paresthesias, blood clot, pulmonary embolism, and requirement for possible further surgery.? The patient expressed full understanding and has no further questions for the doctor.? Patient does agree to proceed with the above-stated procedure and has signed the surgery consent form. POST-OP MEDICATION PLAN: Pain Medications: Postoperative pain regimen will be initiated by Dr. Kofi Shipman in the hospital.? We did reach out the primary care provider and they are okay with short-term use of nonsteroidal anti-inflammatories postoperatively.? Patient states he plans on beginning Mounjaro.? The plan is for him to begin this after the surgery.? Patient did test positive for staph on screening test.? He will be placed on doxycycline for 2 weeks postoperatively.? Discussed with the patient hypersensitivity to the sunlight and he should take appropriate precautions.? Recommend probiotic while on the antibiotic. DVT Prophylaxis Plan:? Aspirin 81 mg twice daily for 4 weeks postoperatively.? Denies past history of DVT or pulmonary embolism.? Continue with FRAN benitez for 2 weeks postoperatively. This dictation was created using voice recognition software. Phonetic and/or grammatical errors may exist. ___? I have re-examined the patient.? There are no clinical changes since date of exam. ___? See progress notes for changes. ___? Dictated on admission Date: ? ? ?Time: Signature:
[2025-10-01] VITALS (15 sets, daily range): BP systolic 108–145; BP diastolic 58–90; PULSE 57–78; RESP 16; TEMP 36.1–36.6; O2SAT 94–100; BMI 29.2
[2025-10-01] MEDS: Magnesium 1 GM over 15 mins IV (09:44)
[2025-10-01] MEDS: LR 1,000 ML - BOLUS PREOP 999 ML IV (09:44)
[2025-10-01] MEDS: Vancomycin HCl 1,250 MG in 0.9% Normal Saline (250mL Bag) 250 ML 167 MG IV (09:45)
--- NOTE | 2025-10-01 10:28 | PCM.PRE.AN2 ---
ASA Classification* ASA Classification ASA Classification: 3 (Hx TIA (03/26/2025), T2DM, BROWN, GERD, HTN. ) Assessment & Plan Anesthesia* Anesthesia Assessment Anesthesia Assessment: Discussed sedation and/or anesthesia options, risks, benefits, and alternatives with patient/parents/legal guardian/POA. Questions invited. The patient/parents/legal guardian/POA seems to understand and agrees to proceed with anesthesia plan. Reviewed the physical assessment, medical history, allergy history and patient home medications list prior to surgery/procedure/anesthetic and documented any changes. Performed airway and anesthesia risk assessments. Will order EKG as patient had TIA 03/2025. Will review I discussed with the patient the risk of stroke with anesthesia (both general and spinal). I informed the patient that the patient's blood pressure can become too low or too high during surgery which can cause stroke. The patient verbalized understanding and wished to proceed still, knowing the above. Opportunity for questions invited. Anesthesia Type Anesthesia Type: Spinal and Block (Adductor canal block. Benefits/risks/alternatives explained. Opportunity for questions invited. ) History Source History Obtained from:: Patient and Chart Anesthesia Focused Assessment* Temperature: 97.8 F Pulse Rate: 75 Blood Pressure: 145/81 Respiratory Rate: 16 Pulse Ox: 100 Oxygen Delivery Method: Room Air Airway Assessment Mouth opens: >3 cm Mallampati Score: II Teeth Condition: Intact Neck Range of motion (ROM): Full ROM Labs Anesthesia Preop lab: CBC WBC, (4.4-11.0) 4.4 K/mm3 08/22/25, 09:06 RBC, (4.6-6.2) 4.88 M/mm3 08/22/25, 09:06 Hgb, (13.0-16.5) 15.1 g/dL 08/22/25, 09:06 Hct, (40-54) 43.4 % 08/22/25, 09:06 Plt Count, (150-450) 211 K/mm3 08/22/25, 09:06 CHEMISTRY Potassium, (3.3-5.1) 4.1 mmol/L 08/22/25, 09:06 Sodium, (133-145) 137 mmol/L 08/22/25, 09:06 Magnesium, (1.5-2.2) 2.2 mg/dL 09/18/25, 11:43 BUN, (4-19) 14 mg/dL 08/22/25, 09:06 Creatinine, (0.70-1.20) 0.89 mg/dL 08/22/25, 09:06 Glucose, (70-99) 147 mg/dL H 08/22/25, 09:06 POC Glucose, (74-106) 159 mg/dL H Today, 09:42 TSH, (0.300-4.200) 2.880 uIU/mL 03/27/25, 04:26 COAG PT, (11.7-14.9) 13.6 SECONDS 03/26/25, 15:36 Pre-Assessment Diagnosis/Proposed Procedure Planned Operative Procedure(s): ROBOTIC ASSISTED LEFT TOTAL KNEE ARTHROPLASTY WITH HARDWARE REMOVAL Anesthesia History Anesthesia History - substance abuse technician: Anesthesia History - substance abuse technician Hx Hospitalization Yes: 04/2025 TIA 09/05/25 09:42 Any Problems With Anesthesia No 09/05/25 09:42 Cholinesterase deficiency No 09/05/25 09:42 You/Your Family Experience No 09/05/25 09:42 fever (hyperthermia) with Relationship Recent Exposure to Contagious No 10/01/25 09:38 Disease Does patient have nerve No 09/05/25 09:42 stimulator Patient instructed to have device shut off --Does patient have Pacemaker No 10/01/25 09:38 or ICD? When Was Last Pacemaker Check QUESTION #4 FULL TEXT: You/Your Family Experience fever (hyperthermia) with Anesthesia Last Oral Intake Last Oral intake: Last Oral Intake NPO since 07:15 10/01/25 09:38 Meds taken in AM with sips of Yes 10/01/25 09:38 water? Meds patient instructed to losartan,amlodipine 10/01/25 09:38 take am of surgery PONV PONV - substance abuse technician: PONV - substance abuse technician Female No 09/05/25 09:42 HX of Motion Sickness Yes 09/05/25 09:42 HX of N/V After Surgery No 09/05/25 09:42 Non-Smoker Yes 09/05/25 09:42 Duration of Surgery greater Yes 09/05/25 09:42 than 60 minutes Number of Risk Factors 3 09/05/25 09:42 PONV Score Moderate Risk 09/05/25 09:42 Height & Weight Height & Weight: Anesthesia: Height & Weight Height 5 ft 8 in 10/01/25 09:38 Weight: 87.1 kg 10/01/25 09:38 Body Mass Index (BMI) 29.2 10/01/25 09:38 Respiratory Assessment Respiratory Assessment - substance abuse technician: Respiratory Tract Infection Hx - substance abuse technician Hx Respiratory Tract Infection No: SINUS DUE TO ALLERGY 09/05/25 09:42 STOP Sleep Apnea STOP Sleep Apnea - substance abuse technician: STOP Sleep Apnea - substance abuse technician Hx Hypertension Yes: CONTROLLED WITH MED 09/05/25 09:42 Hx Sleep Apnea Yes 09/05/25 09:42 CPAP Yes: CURRENTLY BEING FITTED 09/05/25 09:42 BIPAP No 09/05/25 09:42 Do you snore loudly (louder than talking or can be heard Do you often feel tired/ fatigued/ sleepy during daytime? Has anyone observed you stop breathing during sleep? STOP Results Positive 09/05/25 09:42 QUESTION #5 FULL TEXT : Do you snore loudly (louder than talking or can be heard through closed doors)? Tobacco Use History Tobacco Use History - substance abuse technician: Tobacco Use History - substance abuse technician Tobacco Use - 05/23/25 11:08 Smoking Status Never smoker 09/05/25 09:42 Hx Tobacco Use No 09/05/25 09:42 Years Smoking Packs Smoked per Day Smoking Cessation Date was within the last 15 years Hx Smoking Cessation Date Hx Smoking Cessation No 09/05/25 09:42 Counseling Hematologic Medial History Hematologic Hx - substance abuse technician: Hematologic Medical Hx - lead assistant manager Hx of Blood Transfusion No 09/05/25 09:42 Hx of Transfusion in last 3 No 09/05/25 09:42 Months Date of Last Transfusion (if within last 3 months) Ever experience any problems No 09/05/25 09:42 with transfusion(s)? Specify any problems Hx of Preganancy in last 3 N/A 09/05/25 09:42 Months Nurse Filling Out Transfusion DSCHRIBER 09/05/25 09:42 & Questions: Date: 09/05/25 09/05/25 09:42 Time: 09:48 09/05/25 09:42 Patient unable to answer at this time (ie. confused, unrespo /Reproduction History /Reproductive History - substance abuse technician: /Reproductive Hx- substance abuse technician Hx Now No 09/05/25 09:42 Gestational Age (in weeks): EDC: Hx Hx Para Hx Section SAB No 09/05/25 09:42 Does the father of the baby or his family experience fever w Father of the baby Malignant Hypertension history comment Active Medications Active Medications: Current Medications Generic Name Dose Route Start Last Admin Trade Name Freq PRN Reason Stop Dose Admin Acetaminophen 1,000 mg 10/01/25 07:00 Acetaminophen 500 Mg Tablet PO Q8H [facility] Aspirin 81 mg 10/01/25 10:00 Aspirin 81 Mg Tab.Chew PO BID [facility] Doxycycline Monohydrate 100 mg 10/02/25 13:00 Doxycycline 100 Mg Capsule PO BID [facility] Enteral Nutritional Formula 237 ml 10/01/25 08:00 Ensure Surgery 237 Ml Liquid PO TIDCM [facility] Famotidine 20 mg 10/01/25 10:00 Famotidine 20 Mg Tablet PO DAILY [facility] Lactated Ringer's 1,000 mls @ 125 mls/hr 10/01/25 09:00 IV 10/01/25 16:59 .Q8H [facility] Vancomycin HCl 1,250 mg/ 275 mls @ 167 mls/hr 10/01/25 09:00 10/01/25 09:45 Sodium Chloride IV 10/01/25 10:38 167 mls/hr INTRAOP ONE Administration Cefazolin Sodium 1 gm in 50 mls @ 100 mls/hr 10/01/25 07:00 IV 10/01/25 15:29 Q8H [facility] Insulin Human Lispro 1 - 6 unit 10/01/25 09:00 Insulin Lispro 100 Unit/Ml Insuln.Pen SC 10/01/25 18:00 Q4H PRN PRN BG>/= 180, SEE PROTOCOL Protocol Ketorolac Tromethamine 15 mg 10/01/25 06:59 Ketorolac 15 Mg/Ml Vial IV 10/02/25 07:02 Q6H PRN PRN Pain Score 1-10 Meloxicam 7.5 mg 10/03/25 10:00 Meloxicam 7.5 Mg Tablet PO BID [facility] Morphine Sulfate 2 - 4 mg 10/01/25 06:59 Morphine 2 Mg/Ml Syringe IV Q2H PRN PRN Pain Score 4-10 Ondansetron HCl 4 mg 10/01/25 06:59 Ondansetron 4 Mg/2 Ml Vial IV Q6H PRN PRN NAUSEA/VOMITING Oxycodone HCl 5 - 10 mg 10/01/25 06:59 Oxycodone 5 Mg Tablet PO Q4H PRN PRN Pain Score 4-10 Promethazine HCl 12.5 mg 10/01/25 06:59 Promethazine 25 Mg Tablet PO Q6H PRN PRN NAUSEA/VOMITING Promethazine HCl 12.5 mg 10/01/25 06:59 Promethazine 25 Mg/Ml Syringe IM Q6H PRN PRN NAUSEA/VOMITING Senna/Docusate Sodium 2 tablet 10/01/25 10:00 Senna/Docusate Sodium 1 Tablet PO BID [facility] Medical History (Updated 09/05/25 @ 10:05 by Miryam Cheung) Anxiety Alcohol use Diabetes Arthritis Restless legs TIA (transient ischemic attack) History of diverticulitis CPAP (continuous positive airway pressure) dependence History of pain when walking Heart stopped beating Dilated aortic root GERD (gastroesophageal reflux disease) Wears hearing aid Wears glasses High cholesterol Leg cramps Non-smoker History of echocardiogram History of stress test Hypertension Cardiology follow-up encounter Thoracic aortic aneurysm (TAA) Back pain Nonobstructive atherosclerosis of coronary artery Segmental and somatic dysfunction of pelvic region Segmental and somatic dysfunction of lumbar region Home Medications ?Medication ?Instructions ?Recorded ?Last Taken ?Type losartan 100 mg tablet 100 mg PO QDAY #90 tabs 11/28/24 10/01/25 Rx ipratropium bromide 21 mcg (0.03 2 spray intranasal BID-TID PRN 02/23/25 03/26/25 Rx %) nasal spray postnasal drainage #30 mL aspirin 81 mg chewable tablet 81 mg PO BREAKFAST #0 tabs 03/27/25 09/24/25 Rx amlodipine 10 mg tablet 10 mg PO DAILY 09/05/25 10/01/25 History famotidine 20 mg tablet (Acid 20 mg PO DAILY PRN GERD 09/05/25 09/30/25 History Freight Forwarder (famotidine)) ibuprofen 200 mg tablet (Advil) 400 mg PO Q6H PRN pain 09/05/25 Unknown History pseudoephedrine HCl 30 mg tablet 30 mg PO Q4H PRN nasal congestion 09/05/25 Unknown History (Sudafed) rosuvastatin 20 mg tablet 40 mg PO DAILY 09/05/25 09/30/25 History Allergy/AdvReac Type Severity Reaction Status Date / Time hydrochlorothiazide AdvReac Intermediate Hyponatremi Verified 10/01/25 09:36 a Family History Mother Colon cancer Hypertension Sister Heart disease Father CAD (coronary artery disease) Surgical History (Updated 09/05/25 @ 10:05 by Miryam Cheung) Hx of arthroscopic knee surgery Hx of arthroscopic knee surgery History of colonoscopy (2010) History of left heart catheterization (01/2014) H/O local excision of skin lesion Social History household members: spouse housing: house Smoking Status: Never smoker second hand exposure: No alcohol intake: current alcohol intake frequency: holidays/special occasions only substance use type: does not use caffeine: Yes (3-4 cups daily) what type of physical activity do you participate in: none seatbelt use: always Review of Systems (Anesthesia) ROS Narrative System reviewed and no additional complaints, except as documented. Physical Exam Const alert, oriented x3 and average body habitus Resp normal respiratory effort, normal air movement and clear to auscultation bilaterally Cardio regular rate, regular rhythm, no murmurs and diaphoretic
--- NOTE | 2025-10-01 10:38 | EKG12_ITS ---
Test Reason : PRE OP Blood Pressure : */* mmHG Vent. Rate : 52 BPM Atrial Rate : 52 BPM P-R Int : 206 ms QRS Dur : 112 ms QT Int : 444 ms P-R-T Axes : 19 -15 -5 degrees QTcB Int : 412 ms Sinus bradycardia Otherwise normal ECG When compared with ECG of 26-Mar-2025 16:00, Premature supraventricular complexes are no longer Present Confirmed by Cirilo Mcdonald ([id number]), index editor AGUILA CHOE ([id number]) on 10/03/2025 5:59:07 AM Referred By: Kofi Shipman Confirmed By: Cirilo Mcdonald
[2025-10-01] MEDS: Midazolam 2 MG/2 ML Syringe IV (11:27)
[2025-10-01] MEDS: Cefazolin 1 GM/5 ML Vial 2 GM IV (11:47)
[2025-10-01] MEDS: Lidocaine 1% (5 ml sdv) 5 ML Vial 8 ML IV (11:53)
--- NOTE | 2025-10-01 12:58 | OP.PCM_ITS ---
Operative Report (Standard) Operative Information Date of Procedure: 10/01/25 Pre-Operative Diagnosis: Left knee posttraumatic osteoarthritis Post-Operative Diagnosis: Left knee posttraumatic osteoarthritis Surgery/Procedure Performed: Left knee robotic assisted total arthroplasty with removal of hardware security field supervisor: Yes Product Consultant: Luly Borden Tasks completed by first responder: Other (See body of operative report) Additional orthopedic assistant?: Yes Additional [employer] Wiring Technician #2: Stair,Jesus Tasks completed by orthopedic assistant #2: Opening and Retracting Additional orthopedic assistant?: No Type of Anesthesia: Spinal RN Documented Start/Stop Times: Operation Date: 10/01/25 11:15 Case Time Into Pre-Op 10/01/25 09:24 Anesthesia Start 10/01/25 11:46 Into Room 10/01/25 11:46 Procedure Start 10/01/25 12:04 Procedure End 10/01/25 13:56 Anesthesia End 10/01/25 14:02 Out of Room 10/01/25 14:02 Into Recovery 10/01/25 14:05 Procedure Start Time: 12:04 Procedure Stop Time: 13:56 Select all DRAINS/GRAFTS/IMPLANTS that apply: Prosthetic device Prosthetic device details: See body of operative report Special Medications: 2 g Ancef, 1 g TXA at incision, 1 g TXA closure, 10 mg Decadron, joint cocktail (5 mg Duramorph, 30 mL of 0.5% Ropivicaine, 1000 units of epinephrine, 30 mg of Toradol) Estimated Blood Loss: 125 mL Fluids Replaced: 1500 mL crystalloid Specimen collected: Yes Description of specimen(s) removed: Bony cuts Description of surgery: Implants used: 1. [place] size 5 triathlon cruciate retaining distal femoral press-fit component 2. [place] size 6 press-fit tritanium tibial baseplate 3. [place] X3 10 mm CS polyethylene Brief history operative indications: 69-year-old m with history of left knee osteoarthritis with radiographic findings with loss of joint space, osteophyte formation and subchondral sclerosis. Failed conservative measures as mentioned in the H&P. Discussion of total knee arthroplasty as well as risk and benefits were discussed the patient including but not limited to blood loss, DVTs, PEs, neurovascular damage, general risk of anesthesia including loss of life, and stiffness or instability were discussed with patient. Patient demonstrated understanding and was able to sign informed consent. Procedure: On the date of procedure patient's left lower extremity was marked in the preoperative area. The patient was then taken back to the operating room where the patient was placed on the table in the supine position. All bony prominences were identified a well-padded. Anesthesia assumed control of the C-spine and airway and remained controlled throughout the remainder of the procedure. A tourniquet was placed on the left upper thigh and the leg was prepped in a sterile fashion. The surgeon then scrubbed at this time .Upon reentering the room left lower extremity was draped in a standard orthopedic fashion. A timeout was then called and everyone agreed upon the side, the site, the procedure to be performed, patient's identity and antibiotics given. Esmarch bandage was used to exsanguinate the extremity and the tourniquet was placed up to 250 mmHg with the knee in flexion. A midline skin incision was made and sharp dissection was taken down through skin subcutaneous tissue and fat. The standard medial parapatellar incision was made and the patella was subluxed laterally. An Appropriate deep MCL release was done and the fat pad was resected. Our attention was then directed to the patella. The patella was everted and found to be appropriate for retention. After releasing the MCL our attention was directed towards the previous cristiano. An osteotome was used to remove the anterior staple. The posterior staple was still difficult to access. The knee was then flexed up in 2 femoral pins were placed inside the incision and 2 tibial pins were placed outside the incision in the medial tibia bicortically. Once this was completed the 2 checkpoints in the femur and tibia were placed. Knee was then flexed up and the bony landmarks were registered. Once this was completed knee was taken through range of motion and manually stressed allowing us to a plan for an appropriate tibial cut. The robotic arm was brought into the field sterilely and checkpoint and saw were registered. Based on the patient's deformity the tibial cut was made in 3 degrees of varus. At this time the tensioner was then placed in the joint and ligament tension was checked at 90 degrees and full extension. Based on the patient's ligamentous te nsion appropriate adjustments were made to the operative plan and ligament releases were done. Once we were happy with our operative plan with balanced flexion and extension gaps our attention was directed to the femur. The robot was brought into the field sterilely and registered. Posterior condylar cuts, anterior chamfer cuts and anterior cuts were appropriately made for a size 5 femur. When these were completed the saws were switched out in the distal femoral and posterior chamfer cuts were made. Protecting the soft tissue throughout this time. A size 6 tibial base plate was selected. the knee was flexed to 90 degrees and the soft tissues and posterior osteophytes were removed from the joint. 40 cc of the periarticular injection was injected into the posterior medial corner of the joint. The appropriate trials were then placed on the femur and tibia. A trial polyethylene was trialed to ensure proper balancing and stability of the knee. The appropriate tibial internal rotation was then marked with a bovie. Our attention was then directed to the patella. Patellar tracking was checked and deemed appropriate. Once we were happy lug holes were drilled for the femur and trial components were removed. The tibia was subluxed and pinned into place and the keel was punched and drilled appropriately. Final components were verified and opened. The wound was copiously irrigated with normal saline. At this time with the bone resections being made we were able to access the more posterior MCL stable. An osteotome was used then to pry this from the bone and remove it. When the cement was ready the components were impacted into place starting with the tibia then the femur. The trial poly component was placed and the knee was placed in full extension. Once the the implants were secured, the tracking, alignment and balance were verified and a size 10 mm CS polyethylene component was placed. Once the final components were placed a 3-minute dilute Betadine lavage was p erformed followed by an Irrisept lavage was performed and the wound was copiously irrigated with normal saline solution and the periarticular injection was given. The wound was closed in a layer ge fashion using #1 vicryl interrupted sutures for the arthrotomy, 2-0 interrupted Vicryl suture for the subcuticular layer and cristiano for final skin closure. A sterile compressive dressing was then placed. The patient was then awakened from anesthesia, transferred to the [facility] and transferred to the PACU for recovery. Post op plan DVT ppx: ASA 81mg BID, thigh high compression stockings Follow up: in office in 2 weeks for wound check PT: to start POD #0 at hospital, outpatient PT should be arranged. Due to positive staph screening patient be placed on doxycycline 100 mg p.o. twice daily for 2 weeks My physician orthopedic assistant was a vital part of this case, they was important because there was not another skilled set of hands available to their training and aptitude needed for safe and appropriate completion of this case. They were important in appropriate retraction during the case, and protection of soft tissues during bony cuts. In particular the experience and skill of this assist ant made for safe retraction and exposure during implantation of medical implants without damage to vital soft tissues or structures. His intimate knowledge of the case and my steps aided in safe and expedient completion of the procedure as well as appropriate position of the leg during the case. He was also vital in assisting with closure under my direct supervision. Due to the complexity of this case robotic arm was used to assist in the surgery to improve accuracy and clinical outcomes. Surgical Findings: Stage IV osteoarthritis. Stable knee with good patella tracking Complications Complications: No Admit VTE Documentation VTE Present on Admission: No VTE Mechan Device Prophylaxis: SCD's and Thigh High FRAN Hose VTE Pharm Prophylaxis ordered?: Yes
[2025-10-01] MEDS: TXA 2000mg in NS 100ml (Placed in Wound) OPERA.SITE (13:01)
[2025-10-01] MEDS: JPS (Morphine 10mg/ml) OPERA.SITE (13:01)
--- NOTE | 2025-10-01 14:17 | PCM.POST.ANE ---
Anesthesia: Postop Eval I Current Vital Signs Temperature: 97.7 F Pulse Rate: 69 Blood Pressure: 121/58 Respiratory Rate: 16 Pulse Ox: 97 Assessment Airway patent: Yes Spontaneous unlabored respirations: Yes nausea: No Vomiting: No Anesthesia Complication: No Fluid Hydration Crystalloid volume administer (ml): 1,800 Total IV fluid infused: 1,800 Progress Note Anesthesia document: Postop Eval 1 completed: Yes
[2025-10-01] MEDS: LR 1,000 ML - BOLUS POSTOP 999 ML IV (14:20)
--- NOTE | 2025-10-01 14:27 | RAD_ITS ---
PROCEDURE: KNEE 1 OR 2 VIEWS 10/01/2025 REASON FOR EXAM: TKA TECHNIQUE: Procedure Code: RADK Modality: DX Procedure: KNEE 1 OR 2 VIEWS Laterality: Left knee. COMPARISON: None FINDINGS: The patient is status post left total knee replacement. There is good alignment. Postoperative soft tissue changes. RAD/Knee 1 or 2 Views IMPRESSION: Status post total knee replacement. There is good alignment. Postoperative soft tissue changes. Reading Location: [place] [id number]
--- NOTE | 2025-10-01 15:35 | CPS ---
Addendum entered and electronically signed by Shahnaz Babin, JODI 10/01/25 15:38: settings are 07/27 Original Note: Pt brought own BIPAP that he has only had a few weeks.
[2025-10-01] MEDS: LR 1,000 ML - 125 ML/HR (POST BOLUS) POST OP IV (15:49)
[2025-10-01] MEDS: Ensure Surgery 237 ML LIQUID PO (16:10)
--- NOTE | 2025-10-01 16:37 | POSTOPAN2_ITS ---
Anesthesia Postop Eval I Sum Postop Eval Completion status Anesthesia document: Postop Eval 1 completed: Yes Anesthesia Postop Eval I Summary Anesthesia Postop Eval I Summary: Anesthesia Postop Eval I: Assessment Summary Airway patent Yes 10/01/25 14:17 [email or web address] Spontaneous unlabored Yes 10/01/25 14:17 [email or web address] respirations Mental status nausea No 10/01/25 14:17 [email or web address] Vomiting No 10/01/25 14:17 [email or web address] Anesthesia Postop Eval I: Fluid Summary Crystalloid volume administer 1,800 10/01/25 14:17 [email or web address] (ml) Colloids volume administered ( ml) Blood Product volume administered (ml) Total IV fluid infused 1,800 10/01/25 14:17 [email or web address] Anesthesia Postop Eval I: Summary Notes Anesthesia Complication No 10/01/25 14:17 [email or web address] Anesthesia Complication Comment: Post-operative progress note Anesthesia: Postop Eval II Evaluation Mental status: Awake Pain Level: 0 nausea: No Vomiting: No Complications Anesthesia Complication: No
--- NOTE | 2025-10-01 16:37 | PCM.POSTANE2 ---
Anesthesia Postop Eval I Sum Postop Eval Completion status Anesthesia document: Postop Eval 1 completed: Yes Anesthesia Postop Eval I Summary Anesthesia Postop Eval I Summary: Anesthesia Postop Eval I: Assessment Summary Airway patent Yes 10/01/25 14:17 [email or web address] Spontaneous unlabored Yes 10/01/25 14:17 [email or web address] respirations Mental status nausea No 10/01/25 14:17 [email or web address] Vomiting No 10/01/25 14:17 [email or web address] Anesthesia Postop Eval I: Fluid Summary Crystalloid volume administer 1,800 10/01/25 14:17 [email or web address] (ml) Colloids volume administered ( ml) Blood Product volume administered (ml) Total IV fluid infused 1,800 10/01/25 14:17 [email or web address] Anesthesia Postop Eval I: Summary Notes Anesthesia Complication No 10/01/25 14:17 [email or web address] Anesthesia Complication Comment: Post-operative progress note Anesthesia: Postop Eval II Evaluation Mental status: Awake Pain Level: 0 nausea: No Vomiting: No Complications Anesthesia Complication: No
--- NOTE | 2025-10-01 17:15 | PN.HOSP_ITS ---
Subjective Subjective Patient was seen and examined today, he underwent a left knee robotic assisted total arthroplasty with removal of hardware, patient has a history of type 2 diabetes but does not take any oral medications or insulin. He also has a history of essential hypertension and hyperlipidemia. At the time of my examination today, patient appears comfortable and does not complain of any shortness of breath or any chest discomfort. Objective Data Objective Data Vital Signs: Vital Signs Temp Pulse Resp BP Pulse Ox O2 Del Method O2 Flow Rate 97.5 F L 57 L 16 121/77 H 94 Nasal Cannula 4 10/01/25 15:30 10/01/25 15:30 10/01/25 15:30 10/01/25 15:30 10/01/25 15:30 10/01/25 15:30 10/01/25 15:30 Oxygen Flow Rate (L/min) 4 Oxygen Delivery Method Nasal Cannula Weight: 87.2 kg Body Mass Index (BMI) 29.2 Intake & Output: Intake and Output for Last 24 Hours 09/29/25 09/30/25 10/01/25 23:59 23:59 23:59 Intake Total 2377 / 2377 Output Total 250 / 250 Balance 2127 / 2127 Lab / Micro Data Labs: Laboratory Results - last 24 hr 10/01/25 09:42: POC Glucose 159 H Micro: Microbiology 09/18/25 11:43 Swab (Method) Nasal Screen MRSA/MSSA - Final Radiography Diagnostic Testing: Radiology Impression Knee X-Ray 10/01/25 14:27 IMPRESSION: Status post total knee replacement. There is good alignment. Postoperative soft tissue changes. Reading Location: [place] [id number] Physical Exam Const alert, oriented x3, no apparent distress and healthy appearing General Appearance: cooperative, well kempt and well developed Orientation / Consciousness: awake, oriented to person, oriented to place and oriented to time HEENT normocephalic, head/scalp atraumatic and moist oral mucous membranes Eyes PERRL, EOMs intact bilaterally and conjunctivae normal Neck supple, no JVD, thyroid normal and no carotid bruits General: trachea midline Resp normal respiratory effort, no retractions, no use of accessory muscles and clear to auscultation bilaterally Auscultation: Negative for rales, rhonchi or wheezes Cardio regular rate, regular rhythm, S1 normal heart sound, S2 normal heart sound, no murmurs, no rub and no gallops GI normal to inspection, nondistended, normoactive bowel sounds, soft to palpation, non-tender and non-distended Skin no rashes or lesions noted Neuro oriented x3, CN's II-XII intact bilaterally, moves all extremities, no focal motor deficits and no sensory deficits noted Sensorium / Orientation: awake and alert Speech: speech normal Psych affect normal Assessment & Plan Assessment/Plan (1) Diabetes mellitus, type 2: PLAN: Plan 1. Type 2 diabetes-patient states that he does not take any medications for diabetes-oral or injectable-patient's blood sugars will be checked 3 times daily and sliding scale insulin will be administered as necessary. Patient's hemoglobin A1c in August of this year was 6.6. #2 essential hypertension-patient will remain on his present medication, blood pressure will be monitored #3 hyperlipidemia-patient is on atorvastatin here, he is on Crestor at home, last LDL cholesterol from 08/22/2025 was 86 #4 posttraumatic osteoarthritis of the left knee-postop day 0 robotic assisted total arthroplasty with removal of hardware-PT and OT will be seeing the patient, orthopedic surgery is participating in his care Total clinical time spent by myself addressing the patient's medical issues, reviewing all of his data, and collaborating with patient's care team: 35 minutes Charges/Coding Visit Charges Inpatient E&M: 58528 Subs Hosp L2
[2025-10-01] MEDS: Cefazolin 1 GM/50 ML BAG IV (19:53)
[2025-10-01] MEDS: Senna/Docusate Sodium 1 Tablet 2 TABLET PO (21:20)
[2025-10-02 03:38] VITALS: BP 135/80; PULSE 72; RESP 16; TEMP 36.6; O2SAT 96
[2025-10-02] MEDS: Cefazolin 1 GM/50 ML BAG IV (03:51)
[2025-10-02 06:43] VITALS: BP 121/64; PULSE 61; RESP 16; TEMP 36.4; O2SAT 95
[2025-10-02 06:53] LABS: Hematocrit 33.3 % (40-54); Hemoglobin 11.7 g/dL (13.0-16.5); Mean Corp Hgb Conc 35.1 g/dL (32-36); Mean Corpuscular Volume 88.3 fL (80-94); Mean Platelet Vol. 10.0 fl (6.2-12.0); Platelet Count 185 K/mm3 (150-450); RBC Distribution Width CV 11.9 % (11.6-14.6); RBC Distribution Width SD 38.4 fl (35.1-43.9); Red Blood Count 3.77 M/mm3 (4.6-6.2); White Blood Count 8.6 K/mm3 (4.4-11.0)
[2025-10-02 07:13] LABS: Anion Gap 9 (5-15); BUN 11 mg/dL (4-19); BUN/Creat Ratio 17.2 RATIO (10-20); Calcium,Total 9.1 mg/dL (7.6-11.0); Carbon Dioxide 21.4 mmol/L (21.0-32.0); Chloride 102 mmol/L (98-108); Estimated Creatinine Clearance 93.58 ml/min (50-250); Glucose 179 mg/dL (70-99); Potassium 4.0 mmol/L (3.3-5.1)
[2025-10-02 07:51] VITALS: O2SAT 91
--- NOTE | 2025-10-02 07:54 | PCM.PN.ORT ---
Subjective Subjective Patient is sitting comfortably in bed upon examination. Patient states that he is doing very well at this point and is eager to get home. Patient states that he does have help at home from his . Patient states that his pain is adequately controlled. Patient states that he has been up and walking to the bathroom. Patient denies any new nausea or vomiting. Patient denies any dizziness. Patient denies any shortness of breath, chest pain, calf pain. Patient denies any new numbness or tingling. Patient denies any fevers, chills, signs of infection. Patient denies any adverse events overnight. Objective Data Objective Data Vital Signs: Vital Signs Temp Pulse Resp BP Pulse Ox O2 Del Method O2 Flow Rate 97.6 F L 61 16 121/64 H 91 Room Air 4 10/02/25 06:43 10/02/25 06:43 10/02/25 06:43 10/02/25 06:43 10/02/25 07:51 10/02/25 07:51 10/01/25 15:30 Oxygen Flow Rate (L/min) 4 Oxygen Delivery Method Room Air Weight: 87.2 kg Body Mass Index (BMI) 29.2 Intake & Output: Intake and Output for Last 24 Hours 09/30/25 10/01/25 10/02/25 23:59 23:59 23:59 Intake Total 4077 / 4077 550 / 550 Output Total 250 / 250 Balance 3827 / 3827 550 / 550 Lab / Micro Data 10/02/25 06:35 10/02/25 06:35 Labs: Laboratory Results - last 24 hr 10/01/25 09:42: POC Glucose 159 H 10/01/25 20:03: POC Glucose 231 H 10/02/25 06:35: WBC 8.6, RBC 3.77 L, Hgb 11.7 L, Hct 33.3 L, MCV 88.3, MCH 31.0, MCHC 35.1, RDW Std Deviation 38.4, RDW Coeff of Chel 11.9, Plt Count 185, MPV 10.0, Sodium 133, Potassium 4.0, Chloride 102, Carbon Dioxide 21.4, Anion Gap 9, BUN 11, Creatinine 0.66 L, Estim Creat Clear Calc 93.58, Est GFR (MDRD) Non-Af 101, BUN/Creatinine Ratio 17.2, Glucose 179 H, Calcium 9.1 10/02/25 06:41: POC Glucose 173 H Micro: Microbiology 09/18/25 11:43 Swab (Method) Nasal Screen MRSA/MSSA - Final Radiography Diagnostic Testing: Radiology Impression Knee X-Ray 10/01/25 14:27 IMPRESSION: Status post total knee replacement. There is good alignment. Postoperative soft tissue changes. Reading Location: [place] [id number] Physical Exam Narrative FRAN hose in place bilaterally SCDs in place bilaterally Mepilex dressing is clean, dry, intact. Distal dressing is with bloody drainage in the middle one third. Dorsiflexion and plantarflexion are performed actively without pain or restriction Sensation intact light touch. Neurovascularly intact overall. Negative Homans bilaterally. Const alert, oriented x3 and no apparent distress Assessment & Plan Assessment/Plan (1) Status post total left knee replacement: PLAN: Status post left knee robotic assisted total arthroplasty with removal of hardware day 1 DVT prophylaxis: Patient will be on aspirin 81 mg twice daily for 4 weeks postoperatively as well as wearing FRAN hose for 2 weeks postoperatively. Patient was educated to remove FRAN hose for showering and at nighttime. Patient denies any history of DVT or PE. Pain medications: Patient will be on Tylenol 1000 mg every 8 hours, meloxicam for 30 days postoperatively, oxycodone as needed for postoperative pain. Patient's PCP was consulted on taking meloxicam postoperatively. Patient's primary care provider was okay with short course of oral anti-inflammatories. Patient was educated to avoid any other anti-inflammatory medications while taking meloxicam. OARRS report was reviewed and risk of narcotic pain medication was reviewed. Patient was educated not to operate motor ball or heavy machinery while taking narcotic pain medications. Patient voiced understanding. Doxycycline: Patient will be on doxycycline postoperatively for 2 weeks due to positive staph screening preoperatively. Patient was educated on the risk of sunburn while taking doxycycline. Patient was educated to take with a probiotic. Patient voiced understanding. H&H: 11.7/33.3. Vital signs are stable patient is afebrile at this point. Constipation: Patient was instructed to take senna until her first bowel movement and then can take as needed. Patient was educated if they have not had a bowel movement in 3 days to contact our office for reevaluation. Patient voiced understanding. Physical therapy: Patient will continue to be weightbearing as tolerated with walker with physical therapy. Patient does have outpatient physical therapy established. Incentive spirometry: Patient was encouraged to use his incentive spirometer every hour that they are awake for the first week to exercise lungs and decrease risk postoperative lung infection. Dressings: Patient was educated he can get dressing wet on postop day 1. Patient was educated to remove dressing on postop day 5. Patient was educated to avoid doing any soaking or submerging for 6 weeks. Patient was educated to avoid any lotions or oils directly on incision for 6 weeks. Patient is to follow-up for postoperative instructions. Hospitalist is involved at this point. Hospitalist was talked to this morning who stated they were planning on signing off and patient is medically stable at this point. Patient will have a 2-week follow-up appointment with our office for wound care and staple removal. Disposition: Patient is okay for discharge as long as pain maintains adequately controlled, works with and is cleared by physical therapy, and is okay per medicine doctors instructions. Patient does have outpatient physical therapy established as well as a 2-week follow-up appointment with our office. Patient is eager to get home stating that he feels comfortable with going home and his is at home to help him. Patient states he does not need his aspirin, Tylenol, Zofran sent in. Patient's other medications will be sent to patient's pharmacy of choice. Patient was educated to call with any questions, concerns, new problems. All questions were answered to best my ability.
--- NOTE | 2025-10-02 08:05 | PCM.PN.HOSP ---
Subjective Subjective Doing well, pain is controlled. Lab work is unremarkable Objective Data Objective Data Vital Signs: Vital Signs Temp Pulse Resp BP Pulse Ox O2 Del Method O2 Flow Rate 97.6 F L 61 16 121/64 H 91 Room Air 4 10/02/25 06:43 10/02/25 06:43 10/02/25 06:43 10/02/25 06:43 10/02/25 07:51 10/02/25 07:51 10/01/25 15:30 Oxygen Flow Rate (L/min) 4 Oxygen Delivery Method Room Air Weight: 192 lb 3.889 oz Body Mass Index (BMI) 29.2 Intake & Output: Intake and Output for Last 24 Hours 10/01/25 10/02/25 10/03/25 03:59 03:59 03:59 Intake Total 4077 / 4077 550 / 550 Output Total 250 / 250 Balance 3827 / 3827 550 / 550 Lab / Micro Data 10/02/25 06:35 10/02/25 06:35 Labs: Laboratory Results - last 24 hr 10/01/25 09:42: POC Glucose 159 H 10/01/25 20:03: POC Glucose 231 H 10/02/25 06:35: WBC 8.6, RBC 3.77 L, Hgb 11.7 L, Hct 33.3 L, MCV 88.3, MCH 31.0, MCHC 35.1, RDW Std Deviation 38.4, RDW Coeff of Chel 11.9, Plt Count 185, MPV 10.0, Sodium 133, Potassium 4.0, Chloride 102, Carbon Dioxide 21.4, Anion Gap 9, BUN 11, Creatinine 0.66 L, Estim Creat Clear Calc 93.58, Est GFR (MDRD) Non-Af 101, BUN/Creatinine Ratio 17.2, Glucose 179 H, Calcium 9.1 10/02/25 06:41: POC Glucose 173 H Micro: Microbiology 09/18/25 11:43 Swab (Method) Nasal Screen MRSA/MSSA - Final Radiography Diagnostic Testing: Radiology Impression Knee X-Ray 10/01/25 14:27 IMPRESSION: Status post total knee replacement. There is good alignment. Postoperative soft tissue changes. Reading Location: [facility] Physical Exam Narrative General: Alert, Oriented x3, Cooperative, No apparent distress HEENT: Atraumatic, PERRLA, EOMI, Normocephalic Oral: Moist Mucosa Neck: Supple, No JVD Lungs: Diminished, Normal air movement, No rhonchi, No wheeze, No rales Cardiovascular: Regular rate, Regular Rhythm, Normal S1, Normal S2, No murmurs Abdomen: Soft, Non Tender, Non-Distended, No Hepato-splenomegaly Extremities: No edema, Capillary Refill Less than 3 Seconds, left knee wrapped Skin: No rashes, No breakdown Musculoskeletal: No Tenderness to Palpation of Joints or Extremities Neurological: No focal neurological deficits, moves all extremities, operative limb limited Psych/Mental Status: Normal Affect, Appropriate Assessment & Plan Assessment/Plan (1) Diabetes mellitus, type 2: PLAN: Plan 1. Status post left total knee replacement on 10/01/2025 ? PT/OT ? Pain management per primary ? DVT prophylaxis per primary ? Medically stable, will sign off 2. Essential HTN/HLD ? Can resume his home blood pressure medications ? Continue with his home cholesterol medications ? Monitor make adjustments as necessary DVT: Per primary Charges/Coding Visit Charges Office Visits / Consults: 64231 OV L3 Est 20min
--- NOTE | 2025-10-02 08:05 | DCINST_ITS ---
Discharge Instructions DC O2, CPAP, BIPAP needs Home O2 Discharge instructions: No Dressing / Incision Discharge Activity: May Not Drive (Until patient can walk 100 feet with the use of a cane and is no longer taking narcotic pain medication.) Weight Bearing Status: Weight bearing as tolerated (With walker. ) Keep extremity elevated above heart level: Left Leg (Ice and elevate as needed.) Dressing / Incision Call your doctor if your incision/area has: Continuous Slow Oozing, Sudden Increased Bleeding, Increased Pain/ Swelling, Increased Redness, Foul Smelling Discharge and Swelling at the incision site Call your doctor if you observe: Fever of 101 or Higher, Coldness, Increased Pain, Numbness or Tingling, Change in Color, Inability to urinate, Inability to have a bowel movement, Using more than 1 pad per hour, Shortness of breath, Dizziness, Fainting spells, Swelling in the ankles, Chest pain, Increased palpitations (irregular heartbeat), Calf discomfort and Uncontrolled pain Remove Dressing in: 5 days (Remove dressing on day 5 postop. As long as incision is clean, dry, intact may leave open to air.) Cleanse incision/area with: Soap & Water (Gentle soap and water in the shower.) Additional Dressing/Incision Instructions:: No soaking or submerging for 6 weeks postoperatively. No lotions, salves, oils for 6 weeks postoperatively. OARRS report was reviewed today. Follow Up Care Test Results: Test results from this visit will be discussed in further detail at your follow- up appointment, if applicable. Discharge Plan Admission Admit Date/Time: 10/01/25 14:30 Attending Provider: Kofi Shipman Primary Care Provider: Bean Currie Consulting Providers: Baljinder Bajwa Discharge Orders/Prescriptions Prescriptions: New acetaminophen 500 mg Tablet 1,000 mg PO Q8 Qty: 0 0RF Rx Instructions: Take 1000 mg every 8 hours for pain. Do not take over 3000 mg in 24 hours. doxycycline monohydrate 100 mg Capsule 100 mg PO BID 14 Days Qty: 28 0RF Rx Instructions: Take for 2 weeks postoperatively. aspirin 81 mg Tablet,Chewable 81 mg PO BID Qty: 0 0RF Rx Instructions: Take aspirin 81 mg twice daily for 4 weeks postoperatively. meloxicam 7.5 mg Tablet 7.5 mg PO BID 30 Days Qty: 60 0RF Rx Instructions: Do not take with any other anti-inflammatory medications. famotidine 20 mg Tablet 20 mg PO DAILY 30 Days Qty: 30 0RF oxycodone 5 mg Tablet 5 - 10 mg PO Q4H PRN PRN (Reason: As needed for pain) 7 Days Qty: 42 0RF sennosides-docusate sodium [Stimulant Laxative Plus] 8.6-50 mg Tablet 2 tab PO BID 3 Days Qty: 12 0RF Rx Instructions: Take until first bowel movement and then can take as needed. Continued losartan 100 mg tablet 100 mg PO QDAY Qty: 90 3RF ipratropium bromide 21 mcg (0.03 %) spray,non-aerosol 2 spray intranasal BID-TID PRN (Reason: postnasal drainage) Qty: 30 0RF Rx Instructions: administer into each nostril ibuprofen [Advil] 200 mg tablet 400 mg PO Q6H PRN (Reason: pain) pseudoephedrine HCl [Sudafed] 30 mg tablet 30 mg PO Q4H PRN (Reason: nasal congestion) Rx Instructions: DNExceed 4 doses/24h amlodipine 10 mg tablet 10 mg PO DAILY Rx Instructions: TAKE 1 TABLET BY MOUTH EVERY DAY rosuvastatin 20 mg tablet 40 mg PO DAILY (DME) CPAP - Continuous Positive Airway Pressure([facility] INFORMATIONAL USE ONLY) 0 .ROUTE .MEDSUPPLY Patient Comments: 07/27 Held aspirin 81 mg Tablet,Chewable 81 mg PO BREAKFAST Qty: 0 0RF Hold Instructions: Resume on 10/30/25. Can resume regular dose after 4 weeks of DVT prophylaxis. famotidine [Acid Cylinder Die Machine Operator (famotidine)] 20 mg tablet 20 mg PO DAILY PRN (Reason: GERD) Hold Instructions: Resume on 10/23/25. Hold until finished with famotidine daily for 30 days. Referrals / Follow Up: Bean Currie MD [Primary Care Provider, Family Practice] Disposition Disposition (needs filled in before D/C Order can be placed): Home, Self Care
[2025-10-02 08:25] VITALS: BP 125/79; PULSE 68; RESP 16; TEMP 36.6; O2SAT 97
--- NOTE | 2025-10-02 09:10 | CASEMGMT ---
SMALLWOOD Met with patient to complete SMALLWOOD form. SMALLWOOD form and its content were verbally explained and patient's questions were answered to the best of my ability.? Patient voiced understanding and signed SMALLWOOD form.? Patient provided a copy of signed SMALLWOOD form and original placed in patient's chart.? Patient had no further questions. Negra Cota, Discharge Planning Asst
[2025-10-02] MEDS: Senna/Docusate Sodium 1 Tablet 2 TABLET PO (09:54)
[2025-10-02] MEDS: FLU VACCINE HIGH DOSE 25-26(65YR UP) 180 MCG/0.5 ML SYRINGE IM (09:58)
--- NOTE | 2025-10-02 10:21 | CASEMGMT ---
ADRIAN MASSEY noted DC order, into pt room. Pt sitting up in chair in no distress. Pt reports he lives with his in a 2 story home. He has DME two walkers at home, has a follow up appointment scheduled with Dr. Shipman and OP PT scheduled with Katlyn Garza. Pt states will be transporting pt home and able to provide transportation to appointments. Pt states I at baseline, I am very motivated to get moving because I have grandkids coming into town for [place]. I want to be able to play with them, and I don't want them to see me using a walker so I am hoping to be done with the walker before they come. Pt denies any DC needs at this time. Nj CAMPBELL CM
[2025-10-02] MEDS: 0.9% Saline Lock 10 ML Syringe IV (10:32)
--- NOTE | 2025-10-02 10:43 | PHA.DC_ITS ---
Pharmacy [facility] Counseling Pharmacy Service has performed discharge medication reconciliation and counseling for this patient. The patient's discharge medication list was reviewed for discrepancies and discrepancies were resolved. The patient was counseled on the following discharge medications and changes in medications for homegoing were reviewed. The Reason for Use, instructions for use, and potential side effects were reviewed for all new medications. The patient's questions regarding all of their medications were answered. 1. Aspirin 81 mg PO BID 2. Doxycycline 100 mg PO BID 3. Famotidine 20 mg PO Daily 4. Meloxicam 7.5 mg PO daily 5. Oxycodone 5-10 mg PO Q4H PRN pain 6. Senna/docusate 2 tablets PO BID The patient was able to verbally demonstrate an understanding of their discharge medications. The patient was counselled on new medications by pharmacy sales assistant Tahir. Medications at Discharge Home Medications losartan 100 mg tablet 100 mg PO QDAY #90 tabs 11/28/24 ipratropium bromide 21 mcg (0.03 %) nasal spray 2 spray intranasal BID-TID PRN postnasal drainage #30 mL 02/23/25 aspirin 81 mg chewable tablet 81 mg PO BREAKFAST #0 tabs 03/27/25 Held on 10/02/25. Instructions: Resume on 10/30/25. Can resume regular dose after 4 weeks of DVT prophylaxis. amlodipine 10 mg tablet 10 mg PO DAILY 09/05/25 famotidine 20 mg tablet (Acid Webmaster (famotidine)) 20 mg PO DAILY PRN GERD 09/05/25 Held on 10/02/25. Instructions: Resume on 10/23/25. Hold until finished with famotidine daily for 30 days. ibuprofen 200 mg tablet (Advil) 400 mg PO Q6H PRN pain 09/05/25 pseudoephedrine HCl 30 mg tablet (Sudafed) 30 mg PO Q4H PRN nasal congestion 09/05/25 rosuvastatin 20 mg tablet 40 mg PO DAILY 09/05/25 CPAP - Continuous Positive Airway Pressure([facility] INFORMATIONAL USE ONLY) 10/01/25 acetaminophen 500 mg tablet 1,000 mg (2 x 500 mg) PO Q8 #0 tabs 10/02/25 aspirin 81 mg chewable tablet 81 mg PO BID #0 tabs 10/02/25 doxycycline monohydrate 100 mg capsule 100 mg PO BID 14 days #28 caps 10/02/25 famotidine 20 mg tablet 20 mg PO DAILY 30 days #30 tabs 10/02/25 meloxicam 7.5 mg tablet 7.5 mg PO BID 30 days #60 tabs 10/02/25 oxycodone 5 mg tablet 5 - 10 mg (1 - 2 x 5 mg) PO Q4H PRN PRN As needed for pain 7 days #42 tabs 10/02/25 sennosides 8.6 mg-docusate sodium 50 mg tablet (Stimulant Laxative Plus) 2 tab PO BID 3 days #12 tabs 10/02/25
== END 2025-10-02 13:40 | disposition home or self-care (01) ==
LOC: MS3 10-02 08:20 → SDC 10-02 08:51 → AC 10-02 08:52 → SDC 10-02 08:52 → MS3 10-02 08:52
PROVIDERS: Anesthesiology; Admitting Provider Specialist; PCP Family Medicine; Referring Provider Specialist; Visit Provider Specialist
PROC: 0SRD0JZ Replacement of Left Knee Joint with Synthetic Substitute, Open Approach (ICD-10-PCS; CPT 27447; principal; 2025-10-01 10:45)
DX: M17.12 Unilateral primary osteoarthritis, left knee (principal); E11.9 Type 2 diabetes mellitus without complications; G47.30 Sleep apnea, unspecified; I71.20 Thoracic aortic aneurysm, without rupture, unspecified; I10 Essential (primary) hypertension; E87.1 Hypo-osmolality and hyponatremia; Z86.73 Personal history of transient ischemic attack (TIA), and cerebral infarction without residual deficits; K21.9 Gastro-esophageal reflux disease without esophagitis; E66.3 Overweight; Z68.27 Body mass index [BMI] 27.0-27.9, adult; E78.5 Hyperlipidemia, unspecified
CPT/HCPCS: 27447; 01402; 36415; 73560; 80048; 82962; 83735; 85027; 87077; 87081; 93005; 94668; 94762; 96361; 96365; 96366; 96375; 96376; 97162; 97165; 99221; 99252; C1776; A4216; G0378; G0463; J2405; J3475